=== PATIENT | female | born 1950 | race Caucasian/White ===

== ENCOUNTER 2020-02-17 11:11 | Outpatient (REF) | payer MEDICARE, SELFPAY ==
[2020-02-17 12:02] LABS: MANUAL DIFF FLAG NO
[2020-02-17 12:11] LABS: Basophils Percent Auto 0.6 % (0-2); Eosinophils Absolute Auto 0.1 X10*3/uL (0.0-0.4); Eosinophils Percent Auto 0.7 % (0-4); Hematocrit 43.6 % (37-47); Hemoglobin 13.7 g/dl (12.0-16.0); Imm Gran Abs Auto 0.02 X10*3/uL (0.00-0.03); Imm Gran Pct Auto 0.3 % (0.0-0.4); Lymphocytes Absolute Auto 2.4 X10*3/uL (1.2-4.9); Lymphocytes Percent Auto 34.3 % (20-40); Mean Corpuscular HGB Conc 31.4 g/dl (31.0-35.0); Mean Corpuscular Hemoglobin 28.7 pg (27.0-33.0); Mean Corpuscular Volume 91.4 fL (80-98); Mean Platelet Volume 11.2 fL (9.4-12.3); Monocytes Absolute Auto 0.5 X10*3/uL (0.1-1.2); Monocytes Percent Auto 7.6 % (2-11); Neutrophils Percent Auto 56.5 % (45-73); Platelet Count 261 X10*3/uL (160-400); Red Blood Count 4.77 X10*6/uL (4.20-5.50); Red Cell Distribution Width 13.6 % (11.0-16.0)
[2020-02-17 12:41] LABS: Microalbum/Creatinine Ratio Ur 38.6 ug/mg cr
[2020-02-17 13:38] LABS: Alanine Aminotransferase 45 U/L (0-31); Albumin Level 4.4 g/dL (3.5-5.0); Alkaline Phosphatase 54 U/L (39-117); Anion Gap 14 (12-20); Aspartate Amino Transferase 33 U/L (5-31); Bilirubin Total 0.9 mg/dL (0.0-1.0); Blood Urea Nitrogen 22 mg/dL (9-16); Calcium 9.1 mg/dL (8.4-10.2); Carbon Dioxide 25 mmol/L (22-29); Chloride 105 mmol/L (96-108); Estimated Glomerular Filt Rate > 60; Glucose Random 96 mg/dL (60-115); Potassium 4.3 mmol/l (3.3-5.1); Sodium 140 mmol/L (135-145); Total Protein 7.2 g/dL (6.5-8.0)
[2020-02-17 13:58] LABS: Free T4 (Free Thyroxine) 1.16 ng/dL (0.71-1.85); Thyroid Stimulating Hormone 1.41 mIU/mL (0.32-4.0)
[2020-02-17 17:44] LABS: Estimated Average Glucose 123 mg/dL; Hemoglobin A1c % 5.9 %
== END 2020-02-17 11:12 | disposition home or self-care (01) ==
LOC: HO.LAB 11:11
PROVIDERS: Visit Provider Internal Medicine Medical Oncology
DX: E83.52 Hypercalcemia (principal); Z85.3 Personal history of malignant neoplasm of breast; E03.9 Hypothyroidism, unspecified; E11.9 Type 2 diabetes mellitus without complications; Z85.038 Personal history of other malignant neoplasm of large intestine
CPT/HCPCS: 36415; 80053; 82043; 83036; 84439; 84443; 85025

== ENCOUNTER 2020-05-31 08:02 | Outpatient (REF) | payer MEDICARE, SELFPAY ==
[2020-05-31 08:34] LABS: MANUAL DIFF FLAG NO
[2020-05-31 08:36] LABS: Basophils Absolute Auto 0.1 X10*3/uL (0.0-0.2); Basophils Percent Auto 0.8 % (0-2); Eosinophils Percent Auto 0.6 % (0-4); Hematocrit 44.1 % (37-47); Hemoglobin 13.9 g/dl (12.0-16.0); Imm Gran Abs Auto 0.02 X10*3/uL (0.00-0.03); Imm Gran Pct Auto 0.3 % (0.0-0.4); Lymphocytes Percent Auto 30.7 % (20-40); Mean Corpuscular HGB Conc 31.5 g/dl (31.0-35.0); Mean Corpuscular Hemoglobin 28.7 pg (27.0-33.0); Mean Corpuscular Volume 91.1 fL (80-98); Mean Platelet Volume 11.6 fL (9.4-12.3); Monocytes Absolute Auto 0.5 X10*3/uL (0.1-1.2); Monocytes Percent Auto 7.7 % (2-11); Neutrophils Percent Auto 59.9 % (45-73); Platelet Count 257 X10*3/uL (160-400); Red Blood Count 4.84 X10*6/uL (4.20-5.50); Red Cell Distribution Width 13.6 % (11.0-16.0); White Blood Count 6.6 X10*3/uL (4.8-10.8)
[2020-05-31 09:02] LABS: Alanine Aminotransferase 33 U/L (0-31); Albumin Level 4.4 g/dL (3.5-5.0); Alkaline Phosphatase 56 U/L (39-117); Anion Gap 11 (12-20); Aspartate Amino Transferase 26 U/L (5-31); Bilirubin Total 1.3 mg/dL (0.0-1.0); Blood Urea Nitrogen 23 mg/dL (9-16); Calcium 9.6 mg/dL (8.4-10.2); Carbon Dioxide 28 mmol/L (22-29); Chloride 104 mmol/L (96-108); Cholesterol 153 mg/dL; Estimated Glomerular Filt Rate > 60; Glucose Fasting 117 mg/dL (60-99); HDL Cholesterol 57 mg/dL; LDL Cholesterol Calculated 81 mg/dl; Potassium 4.4 mmol/L (3.3-5.1); Sodium 139 mmol/L (135-145); Total Protein 7.3 g/dL (6.5-8.0); Triglycerides 79 mg/dL
== END 2020-05-31 08:03 | disposition home or self-care (01) ==
LOC: HO.LAB 08:02
PROVIDERS: PCP Internal Medicine Medical Oncology; Visit Provider Internal Medicine Medical Oncology
DX: E83.52 Hypercalcemia (principal); E66.3 Overweight; E11.9 Type 2 diabetes mellitus without complications
CPT/HCPCS: 36415; 80053; 80061; 85025

== ENCOUNTER 2020-11-06 07:36 | Day surgery (SDC) | payer MEDICARE, SELFPAY ==
[2020-10-30 15:57] VITALS: BMI 26.1
--- NOTE | 2020-11-03 08:45 | HO.ANESPROP2 ---
Documented by User: Florence Alexandra 11/03/20 08:46 HPI - Anesthesia Eval Consult details Narrative: 70yo F for Colonoscopy PMFSH Past Medical History Medical History Asthma Breast cancer Colon cancer Hypothyroidism Surgical History Surgical History History of hysterectomy History of nasal surgery History of partial colectomy Hx of colonoscopy Hx of right mastectomy Hx of tubal ligation Social History Social History Are you a primary child care associate to a significant other at home: No Do you presently have visiting nurse or other home services: No Are you DNR?: No Advance Directives: No Advance Directives Information Provided: No Advance Directives on File: No Recently lost weight without trying: No Eating poorly because of decreased appetite: No Nutrition Risks: No Nutritional Risk Meds Allergies Allergy/AdvReac Type Severity Reaction Status Date / Time Sulfa (Sulfonamide Allergy Mild RASH Verified 11/06/20 08:17 Antibiotics) [SULFA (SULFONAMIDE ANTIBIOTICS)] Home Medications Medication Instructions Recorded Confirmed Last Taken Type Probiotic 1 cap PO DAILY 10/30/20 10/30/20 Unknown History albuterol sulfate [ProAir HFA] 2 puff INHALATION Q4-6H PRN 10/30/20 10/30/20 11/06/20 06:00 History anastrozole 1 tab PO DAILY 10/30/20 10/30/20 Unknown History cholecalciferol (vitamin D3) 10 mcg PO DAILY 10/30/20 10/30/20 Unknown History [Vitamin D3] fluticasone propionate [Flonase] 1 spray INTRANASAL DAILY 10/30/20 10/30/20 11/06/20 06:00 History fluticasone propionate [Flovent] 1 puff INHALATION BID 10/30/20 10/30/20 Unknown History glucosamine sulfate [Glucosamine] 500 mg PO DAILY 10/30/20 10/30/20 Unknown History levothyroxine [Synthroid] 1 tab PO DAILY 10/30/20 10/30/20 11/06/20 06:00 History montelukast 1 tab PO DAILY 10/30/20 10/30/20 Unknown History multivitamin 1 tab PO DAILY 10/30/20 10/30/20 Unknown History omega-3 fatty acids-vitamin E 1 cap PO DAILY 10/30/20 10/30/20 Unknown History [Fish Oil] Exam Exam Date and Time: November 03, 2020 0845 Height,Weight and Vital Signs: Height 5 ft 5 in Weight 71.214 kg Assessment and Plan Assessment Anesthesia Assessment: Chart Reviewed Documented by User: Bambi Frias 11/06/20 08:29 PMFSH Past Medical History Medical History Asthma Breast cancer Colon cancer Hypothyroidism Surgical History Surgical History History of hysterectomy History of nasal surgery History of partial colectomy Hx of colonoscopy Hx of right mastectomy Hx of tubal ligation Social History Social History Are you a primary child care associate to a significant other at home: No Do you presently have visiting nurse or other home services: No Are you DNR?: No Advance Directives: No Advance Directives Information Provided: No Advance Directives on File: No Recently lost weight without trying: No Eating poorly because of decreased appetite: No Nutrition Risks: No Nutritional Risk Meds Allergies Allergy/AdvReac Type Severity Reaction Status Date / Time Sulfa (Sulfonamide Allergy Mild RASH Verified 11/06/20 08:17 Antibiotics) [SULFA (SULFONAMIDE ANTIBIOTICS)] Home Medications Medication Instructions Recorded Confirmed Last Taken Type Probiotic 1 cap PO DAILY 10/30/20 10/30/20 Unknown History albuterol sulfate [ProAir HFA] 2 puff INHALATION Q4-6H PRN 10/30/20 10/30/20 11/06/20 06:00 History anastrozole 1 tab PO DAILY 10/30/20 10/30/20 Unknown History cholecalciferol (vitamin D3) 10 mcg PO DAILY 10/30/20 10/30/20 Unknown History [Vitamin D3] fluticasone propionate [Flonase] 1 spray INTRANASAL DAILY 10/30/20 10/30/20 11/06/20 06:00 History fluticasone propionate [Flovent] 1 puff INHALATION BID 10/30/20 10/30/20 Unknown History glucosamine sulfate [Glucosamine] 500 mg PO DAILY 10/30/20 10/30/20 Unknown History levothyroxine [Synthroid] 1 tab PO DAILY 10/30/20 10/30/20 11/06/20 06:00 History montelukast 1 tab PO DAILY 10/30/20 10/30/20 Unknown History multivitamin 1 tab PO DAILY 10/30/20 10/30/20 Unknown History omega-3 fatty acids-vitamin E 1 cap PO DAILY 10/30/20 10/30/20 Unknown History [Fish Oil] Exam Airway Mallampati Class: II TM Dist: >3cm Neck ROM: Full Assessment and Plan Assessment Anesthesia Assessment: Anesthesia Plan Discussed and Chart Reviewed Final Anesthetic Review NPO: Yes ASA Class: II Final Preanesthetic Review: No Changes in Pt Med Stat, Meds/Allgs Chart Reviewed, Consent Obtained/Reviewed and Anes Risks/Benef Reviewed Patient Risk: Low Procedure Risk: Low Assessment/Block/Sedation in SS: Assess/Block/Sedation-SS Anesthetic Plan Anesthetic Plan: MAC: Disposition: Standard PACU
[2020-11-06 08:18] VITALS: BP 129/69; PULSE 78; RESP 20; TEMP 36.1; O2SAT 98
[2020-11-06] MEDS: Lactated Ringers 1,000 ML 100 ML IVCONT (08:51)
[2020-11-06 09:45] VITALS: BP 141/75; PULSE 81; RESP 16; TEMP 36.6; O2SAT 95
--- NOTE | 2020-11-06 09:47 | P.BOP_ITS ---
Brief Operative Note Date of Service: 11/06/20 Pre-op diagnosis: Screening Post-op diagnosis: other (Diverticulosis) Procedure: Colonoscopy to the anastomosis and small intestine Surgeon: Sudhakar Tompkins Anesthesia: MAC Was an Enamel Machine Operator used for this Procedure?: No Estimated blood loss (mL): 0 Pathology: none sent Condition: stable Disposition: PACU
[2020-11-06 10:00] VITALS: BP 154/77; PULSE 76; RESP 16; TEMP 36.4; O2SAT 95
--- NOTE | 2020-11-06 10:02 | OP_ITS ---
SURGEON: Sudhakar Tompkins MD INDICATIONS: The patient presents for followup of personal history of colon cancer and tubular adenoma of the colon. Full consent has been obtained from her for this, including risks of bleeding and perforation. PREOPERATIVE DIAGNOSIS: POSTOPERATIVE DIAGNOSIS: PROCEDURE PERFORMED: Colonoscopy to the anastomosis and small bowel. ESTIMATED BLOOD LOSS: COMPLICATIONS: ANESTHESIA: Monitored anesthesia care. ASSISTANTS: SPECIMENS: PREOPERATIVE DIAGNOSES: Colorectal cancer screening and personal history of colon cancer, personal history of tubular adenoma of the colon. POSTOPERATIVE DIAGNOSES: Colorectal cancer screening and personal history of colon cancer, personal history of tubular adenoma of the colon, diverticulosis, and minimal internal hemorrhoids. DESCRIPTION OF PROCEDURE: The patient was placed in the left lateral decubitus position. The digital rectal exam revealed no abnormalities. The Olympus video pediatric colonoscope was entered into the rectum and advanced to the anastomosis. Advancement was somewhat difficult due to adhesions. Once at the anastomosis, I did visualize a normal anastomosis. The small bowel was cannulated and appeared normal. Scope was withdrawn back in the colon. The scope was then slowly withdrawn assessing all mucosal surfaces carefully. Preparation was excellent. I did not visualize any sign of polyps, colitis, nor angiodysplasia. There was a mild amount of sigmoid diverticulosis. In the rectum, scope was retroflexed visualizing internal hemorrhoids, but no other pathology. The rectal mucosa appeared normal. The scope was straightened out and withdrawn from the patient. She tolerated the procedure well and was returned to recovery area in stable condition. IMPRESSION: 1. Diverticulosis. 2. Minimal internal hemorrhoids. PLAN: Given her history, I would recommend a followup colonoscopy in 3 years for further screening. She will otherwise see me on a p.r.n. basis. This has been discussed with her . MD HORTENCIA Bowser/DEEJAY / [id number]
== END 2020-11-06 10:35 | disposition home or self-care (01) ==
PROVIDERS: PCP Internal Medicine Medical Oncology; Visit Provider Internal Medicine
PROC: 0DJD8ZZ Inspection of Lower Intestinal Tract, Via Natural or Artificial Opening Endoscopic (ICD-10-PCS; CPT 45378; principal; 2020-11-06 08:30)
DX: Z12.11 Encounter for screening for malignant neoplasm of colon (principal); Z85.038 Personal history of other malignant neoplasm of large intestine; Z86.010 Personal history of colon polyps; Z90.49 Acquired absence of other specified parts of digestive tract; Z80.0 Family history of malignant neoplasm of digestive organs; K57.30 Diverticulosis of large intestine without perforation or abscess without bleeding; K64.8 Other hemorrhoids; K66.0 Peritoneal adhesions (postprocedural) (postinfection); Z85.3 Personal history of malignant neoplasm of breast; Z85.43 Personal history of malignant neoplasm of ovary; Z92.21 Personal history of antineoplastic chemotherapy; Z92.3 Personal history of irradiation; Z90.710 Acquired absence of both cervix and uterus; E03.9 Hypothyroidism, unspecified; J45.909 Unspecified asthma, uncomplicated; Z79.51 Long term (current) use of inhaled steroids; Z79.899 Other long term (current) drug therapy; Z88.2 Allergy status to sulfonamides
CPT/HCPCS: G0105

== ENCOUNTER 2021-01-19 08:22 | Outpatient (REF) | payer MEDICARE, SELFPAY ==
[2021-01-19 08:48] LABS: MANUAL DIFF FLAG NO
[2021-01-19 09:58] LABS: Basophils Percent Auto 0.7 % (0-2); Eosinophils Absolute Auto 0.1 X10*3/uL (0.0-0.4); Hematocrit 42.5 % (37-47); Hemoglobin 13.8 g/dl (12.0-16.0); Imm Gran Abs Auto 0.01 X10*3/uL (0.00-0.03); Imm Gran Pct Auto 0.2 % (0.0-0.4); Lymphocytes Percent Auto 34.4 % (20-40); Mean Corpuscular HGB Conc 32.5 g/dl (31.0-35.0); Mean Corpuscular Hemoglobin 29.1 pg (27.0-33.0); Mean Corpuscular Volume 89.5 fL (80-98); Mean Platelet Volume 11.7 fL (9.4-12.3); Monocytes Absolute Auto 0.4 X10*3/uL (0.1-1.2); Monocytes Percent Auto 7.5 % (2-11); Neutrophils Absolute Auto 3.2 X10*3/uL (2.0-8.3); Neutrophils Percent Auto 56.2 % (45-73); Platelet Count 242 X10*3/uL (160-400); Red Blood Count 4.75 X10*6/uL (4.20-5.50); Red Cell Distribution Width 13.8 % (11.0-16.0); White Blood Count 5.7 X10*3/uL (4.8-10.8)
[2021-01-19 10:11] LABS: Estimated Average Glucose 126 mg/dL; Hemoglobin A1C 149.8899 umol/L
[2021-01-19 10:23] LABS: Alanine Aminotransferase 28 U/L (0-31); Albumin Level 4.3 g/dL (3.5-5.0); Alkaline Phosphatase 50 U/L (39-117); Anion Gap 12 (12-20); Aspartate Amino Transferase 22 U/L (5-31); Bilirubin Total 1.2 mg/dL (0.0-1.0); Blood Urea Nitrogen 25 mg/dL (9-16); Calcium 9.7 mg/dL (8.4-10.2); Carbon Dioxide 24 mmol/L (22-29); Chloride 106 mmol/L (96-108); Cholesterol 162 mg/dL; Estimated Glomerular Filt Rate > 60; Glucose Fasting 118 mg/dL (60-99); HDL Cholesterol 51 mg/dL; LDL Cholesterol Calculated 92 mg/dl; Potassium 4.4 mmol/L (3.3-5.1); Sodium 138 mmol/L (135-145); Total Protein 7.2 g/dL (6.5-8.0); Triglycerides 98 mg/dL
== END 2021-01-19 08:23 | disposition home or self-care (01) ==
LOC: HO.LAB 08:22
PROVIDERS: PCP Internal Medicine Medical Oncology; Visit Provider Internal Medicine Medical Oncology
DX: E83.52 Hypercalcemia (principal); E66.3 Overweight; E11.9 Type 2 diabetes mellitus without complications
CPT/HCPCS: 36415; 80053; 80061; 83036; 85025

== ENCOUNTER 2021-05-24 11:05 | Outpatient (REF) | payer MEDICARE, SELFPAY ==
[2021-05-24 13:00] LABS: Basophils Absolute Auto 0.1 X10*3/uL (0.0-0.2); Basophils Percent Auto 0.7 % (0-2); Eosinophils Percent Auto 0.4 % (0-4); Hematocrit 42.9 % (37.0-47.0); Hemoglobin 13.6 g/dl (12.0-16.0); Imm Gran Abs Auto 0.03 X10*3/uL (0.00-0.03); Imm Gran Pct Auto 0.4 % (0.0-0.4); Lymphocytes Absolute Auto 2.3 X10*3/uL (1.2-4.9); Lymphocytes Percent Auto 34.2 % (20-40); MANUAL DIFF FLAG NO; Mean Corpuscular HGB Conc 31.7 g/dl (31.0-35.0); Mean Corpuscular Hemoglobin 28.8 pg (27.0-33.0); Mean Corpuscular Volume 90.9 fL (80.0-98.0); Mean Platelet Volume 11.5 fL (9.4-12.3); Monocytes Absolute Auto 0.6 X10*3/uL (0.1-1.2); Monocytes Percent Auto 8.6 % (2-11); Neutrophils Absolute Auto 3.8 x10*3/uL (2.0-8.3); Neutrophils Percent Auto 55.7 % (45-73); Platelet Count 267 X10*3/uL (160-400); Red Blood Count 4.72 X10*6/uL (4.20-5.50); Red Cell Distribution Width 14.1 % (11.0-16.0); White Blood Count 6.8 X10*3/uL (4.8-10.8)
[2021-05-24 13:42] LABS: Alanine Aminotransferase 42 U/L (0-31); Albumin Level 4.3 g/dL (3.5-5.0); Alkaline Phosphatase 61 U/L (39-117); Anion Gap 13 (12-20); Aspartate Amino Transferase 29 U/L (5-31); Bilirubin Total 1.1 mg/dL (0.0-1.0); Blood Urea Nitrogen 24 mg/dL (9-16); Calcium 10.1 mg/dL (8.4-10.2); Carbon Dioxide 27 mmol/L (22-29); Chloride 103 mmol/L (96-108); Estimated Glomerular Filt Rate > 60; Glucose Random 87 mg/dL (60-115); Potassium 4.6 mmol/L (3.3-5.1); Sodium 138 mmol/L (135-145); Total Protein 7.3 g/dL (6.5-8.0)
[2021-05-24 14:05] LABS: Free T4 (Free Thyroxine) 1.03 ng/dL (0.71-1.85); Thyroid Stimulating Hormone 1.68 uIU/mL (0.32-4.0)
== END 2021-05-24 11:06 | disposition home or self-care (01) ==
LOC: HO.LAB 11:05
PROVIDERS: PCP Internal Medicine Medical Oncology; Visit Provider Internal Medicine Medical Oncology
DX: E83.52 Hypercalcemia (principal); E03.9 Hypothyroidism, unspecified; E66.3 Overweight
CPT/HCPCS: 36415; 80053; 84439; 84443; 85025

== ENCOUNTER 2021-09-22 08:26 | Outpatient (REF) | payer MEDICARE, SELFPAY ==
[2021-09-22 08:47] LABS: MANUAL DIFF FLAG NO
[2021-09-22 09:19] LABS: Basophils Percent Auto 0.3 % (0-2); Eosinophils Absolute Auto 0.1 X10*3/uL (0.0-0.4); Eosinophils Percent Auto 0.9 % (0-4); Hematocrit 43.3 % (37.0-47.0); Hemoglobin 13.9 g/dl (12.0-16.0); Imm Gran Abs Auto 0.01 X10*3/uL (0.00-0.03); Imm Gran Pct Auto 0.2 % (0.0-0.4); Lymphocytes Absolute Auto 1.9 X10*3/uL (1.2-4.9); Lymphocytes Percent Auto 33.6 % (20-40); Mean Corpuscular HGB Conc 32.1 g/dl (31.0-35.0); Mean Corpuscular Hemoglobin 29.3 pg (27.0-33.0); Mean Corpuscular Volume 91.4 fL (80.0-98.0); Mean Platelet Volume 11.6 fL (9.4-12.3); Monocytes Absolute Auto 0.5 X10*3/uL (0.1-1.2); Monocytes Percent Auto 8.7 % (2-11); Neutrophils Absolute Auto 3.2 x10*3/uL (2.0-8.3); Neutrophils Percent Auto 56.3 % (45-73); Platelet Count 236 X10*3/uL (160-400); Red Blood Count 4.74 X10*6/uL (4.20-5.50); Red Cell Distribution Width 14.1 % (11.0-16.0); White Blood Count 5.7 X10*3/uL (4.8-10.8)
[2021-09-22 09:49] LABS: Alanine Aminotransferase 37 U/L (0-31); Albumin Level 4.2 g/dL (3.5-5.0); Alkaline Phosphatase 51 U/L (39-117); Anion Gap 13 (12-20); Aspartate Amino Transferase 25 U/L (5-31); Bilirubin Total 1.7 mg/dL (0.0-1.0); Blood Urea Nitrogen 21 mg/dL (9-16); Calcium 9.6 mg/dL (8.4-10.2); Carbon Dioxide 27 mmol/L (22-29); Chloride 104 mmol/L (96-108); Cholesterol 154 mg/dL; Estimated Glomerular Filt Rate > 60; Glucose Fasting 133 mg/dL (60-99); HDL Cholesterol 52 mg/dL; LDL Cholesterol Calculated 82 mg/dl; Potassium 4.6 mmol/L (3.3-5.1); Sodium 139 mmol/L (135-145); Total Protein 7.1 g/dL (6.5-8.0); Triglycerides 100 mg/dL
[2021-09-22 10:01] LABS: Thyroid Stimulating Hormone 1.79 uIU/mL (0.32-4.0)
== END 2021-09-22 08:27 | disposition home or self-care (01) ==
LOC: HO.LAB 08:26
PROVIDERS: PCP Internal Medicine Medical Oncology; Visit Provider Internal Medicine Medical Oncology
DX: E03.9 Hypothyroidism, unspecified (principal); E83.52 Hypercalcemia; E66.3 Overweight
CPT/HCPCS: 36415; 80053; 80061; 84439; 84443; 85025

== ENCOUNTER 2021-11-16 10:15 | Outpatient (REF) | payer MEDICARE, SELFPAY ==
[2021-11-16 10:33] LABS: MANUAL DIFF FLAG NO
[2021-11-16 10:36] LABS: Basophils Percent Auto 0.4 % (0-2); Eosinophils Percent Auto 0.4 % (0-4); Hemoglobin 13.7 g/dl (12.0-16.0); Imm Gran Abs Auto 0.02 X10*3/uL (0.00-0.03); Imm Gran Pct Auto 0.3 % (0.0-0.4); Mean Corpuscular HGB Conc 31.9 g/dl (31.0-35.0); Mean Corpuscular Hemoglobin 28.8 pg (27.0-33.0); Mean Corpuscular Volume 90.5 fL (80.0-98.0); Mean Platelet Volume 10.5 fL (9.4-12.3); Monocytes Absolute Auto 0.6 X10*3/uL (0.1-1.2); Monocytes Percent Auto 8.4 % (2-11); Neutrophils Absolute Auto 4.5 x10*3/uL (2.0-8.3); Neutrophils Percent Auto 62.5 % (45-73); Platelet Count 264 X10*3/uL (160-400); Red Blood Count 4.75 X10*6/uL (4.20-5.50); Red Cell Distribution Width 13.7 % (11.0-16.0); White Blood Count 7.1 X10*3/uL (4.8-10.8)
[2021-11-16 10:49] LABS: Lactic Acid 1.1 mmol/L (0.5-2.0)
[2021-11-16 10:55] LABS: Estimated Average Glucose 128 mg/dL; Hemoglobin A1c % 6.1 %
[2021-11-16 10:58] LABS: Alanine Aminotransferase 28 U/L (0-31); Albumin Level 4.4 g/dL (3.5-5.0); Alkaline Phosphatase 47 U/L (39-117); Anion Gap 12 (12-20); Aspartate Amino Transferase 22 U/L (5-31); Bilirubin Total 1.2 mg/dL (0.0-1.0); Blood Urea Nitrogen 26 mg/dL (9-16); Calcium 9.9 mg/dL (8.4-10.2); Carbon Dioxide 28 mmol/L (22-29); Chloride 106 mmol/L (96-108); Estimated Glomerular Filt Rate 58; Glucose Random 96 mg/dL (60-115); Potassium 4.4 mmol/L (3.3-5.1); Sodium 142 mmol/L (135-145); Total Protein 7.2 g/dL (6.5-8.0)
== END 2021-11-16 10:16 | disposition home or self-care (01) ==
LOC: HO.LAB 10:15
PROVIDERS: PCP Internal Medicine Medical Oncology; Visit Provider Internal Medicine Medical Oncology
DX: E03.9 Hypothyroidism, unspecified (principal); E66.3 Overweight; E11.10 Type 2 diabetes mellitus with ketoacidosis without coma; Z85.038 Personal history of other malignant neoplasm of large intestine
CPT/HCPCS: 36415; 80053; 83036; 83605; 85025

== ENCOUNTER 2022-02-23 07:15 | Outpatient (REF) | payer MEDICARE, SELFPAY ==
[2022-02-23 07:35] LABS: MANUAL DIFF FLAG NO
[2022-02-23 08:18] LABS: Basophils Percent Auto 0.3 % (0-2); Hematocrit 46.6 % (37.0-47.0); Hemoglobin 14.5 g/dl (12.0-16.0); Imm Gran Abs Auto 0.01 X10*3/uL (0.00-0.03); Imm Gran Pct Auto 0.1 % (0.0-0.4); Lymphocytes Absolute Auto 1.4 X10*3/uL (1.2-4.9); Lymphocytes Percent Auto 18.7 % (20-40); Mean Corpuscular HGB Conc 31.1 g/dl (31.0-35.0); Mean Corpuscular Hemoglobin 28.1 pg (27.0-33.0); Mean Corpuscular Volume 90.3 fL (80.0-98.0); Mean Platelet Volume 11.1 fL (9.4-12.3); Monocytes Absolute Auto 0.5 X10*3/uL (0.1-1.2); Monocytes Percent Auto 6.9 % (2-11); Neutrophils Absolute Auto 5.6 x10*3/uL (2.0-8.3); Platelet Count 284 X10*3/uL (160-400); Red Blood Count 5.16 X10*6/uL (4.20-5.50); Red Cell Distribution Width 14.2 % (11.0-16.0); White Blood Count 7.5 X10*3/uL (4.8-10.8)
[2022-02-23 08:22] LABS: Estimated Average Glucose 126 mg/dL
[2022-02-23 08:24] LABS: Alanine Aminotransferase 22 U/L (0-31); Albumin Level 4.4 g/dL (3.5-5.0); Alkaline Phosphatase 50 U/L (39-117); Amylase 58 U/L (28-100); Anion Gap 18 (12-20); Aspartate Amino Transferase 17 U/L (5-31); Bilirubin Total 1.6 mg/dL (0.0-1.0); Blood Urea Nitrogen 23 mg/dL (9-16); Calcium 9.5 mg/dL (8.4-10.2); Carbon Dioxide 24 mmol/L (22-29); Chloride 104 mmol/L (96-108); Cholesterol 141 mg/dL; Estimated Glomerular Filt Rate > 60; Gamma Glutamyl Transpeptidase 27 U/L (7-33); Glucose Fasting 118 mg/dL (60-99); HDL Cholesterol 49 mg/dL; LDL Cholesterol Calculated 77 mg/dl; Lipase 39 U/L (8-78); Potassium 4.5 mmol/L (3.3-5.1); Sodium 141 mmol/L (135-145); Total Protein 7.2 g/dL (6.5-8.0); Triglycerides 77 mg/dL
[2022-02-23 08:40] LABS: Creatinine Urine 122.67 mg/dL; Microalbum/Creatinine Ratio Ur 35.8 ug/mg cr
[2022-02-23 08:50] LABS: Carcinoembryonic Antigen < 1.73 ng/mL; Free T4 (Free Thyroxine) 1.14 ng/dL (0.71-1.85)
[2022-02-23 09:15] LABS: Erythrocyte Sedimentation Rate 9 MM/HR (0-20)
[2022-02-23 15:16] LABS: Vitamin D 25-OH Total 32.5 ng/mL (>30)
[2022-02-27 08:51] LABS: CA 27.29 38 U/mL (<38)
== END 2022-02-23 07:16 | disposition home or self-care (01) ==
LOC: HO.LAB 07:15
PROVIDERS: PCP Internal Medicine Medical Oncology; Visit Provider Internal Medicine Medical Oncology
DX: E03.9 Hypothyroidism, unspecified (principal); E66.3 Overweight; E83.52 Hypercalcemia; E11.9 Type 2 diabetes mellitus without complications; Z85.3 Personal history of malignant neoplasm of breast; Z85.038 Personal history of other malignant neoplasm of large intestine
CPT/HCPCS: 36415; 80053; 80061; 82043; 82150; 82306; 82378; 82977; 83036; 83690; 84439; 84443; 85025; 85652; 86300

== ENCOUNTER 2022-03-05 12:25 | Outpatient (REF) | payer MEDICARE, SELFPAY ==
--- NOTE | ~2022-03-05 | CT_ITS ---
EXAMINATION: CT ABDOMEN AND PELVIS WITH CONTRAST CLINICAL INFORMATION: Left lower quadrant pain and bloating. History of colon and breast cancer. COMPARISON: Previous CT of the abdomen and pelvis most recent February 2016 TECHNIQUE: Multidetector volumetric images were obtained from the superior aspect of the liver through the pubic symphysis following administration 85 mL of Omnipaque 350 intravenous contrast. Sagittal and coronal reformatted images were obtained on the technologist's workstation. Oral contrast: Yes This CT examination was performed using dose optimization techniques as appropriate, variously including the following: *Automated exposure control *Adjustment of mA and/or kV according to patient size (this includes techniques or standardized protocols for targeted exams where dose is matched to indication/reason for exam; i.e. extremities or head) *Use of iterative reconstruction technique DLP: 350 mGy-cm FINDINGS: LUNG BASES: The visualized lung bases are unremarkable. LIVER, GALLBLADDER, AND BILIARY TREE: The liver is slightly low in attenuation suggestive of mild fatty infiltration. No focal liver lesion. Normal gallbladder. No biliary duct dilatation. PANCREAS: There are several cystic lesions in the body and tail of the pancreas. There is a 1 x 2.8 cm bilobed cyst or 2 adjacent cysts in the body of the pancreas axial image 22 series 3. This is increased from 0.7 x 1.5 cm February 2016 exam. There is a adjacent cysts in the body of the ventral pancreas measuring 7 mm there There is an 8 mm cyst adjacent to the ventral tail of the pancreas. SPLEEN: Unremarkable. ADRENAL GLANDS: 1 cm right adrenal nodule. This is new from previous exam. The left adrenal gland is normal. KIDNEYS AND URETERS: Left renal cysts, largest a 1.5 cm peripelvic cyst. Kidneys are otherwise normal. No imaging follow-up. BLADDER: Unremarkable. GASTROINTESTINAL TRACT: There are postsurgical changes following right colectomy. There are dilated loops of distal small bowel extending to the enterocolic anastomosis. There is stool in the colon suggestive of constipation. ABDOMINAL WALL: No significant hernia is appreciated. LYMPH NODES: Small lymph nodes in the small bowel mesentery. No enlarged lymph nodes. No ascites. VASCULAR: Atherosclerotic disease. No aneurysm. Prominent azygos and hemiazygos veins lower chest. Small abdominal wall collateral vessels. PELVIC VISCERA: Uterus appears to have been removed. No pelvic mass. OSSEOUS STRUCTURES: Degenerative changes of the spine and hip joints. CT/CT abdomen pelvis w IV con IMPRESSION: Postsurgical changes following right colectomy. Dilated fluid-filled loops of distal small bowel extending to the enterocolic anastomosis. Findings are suggestive of distal small bowel obstruction. Constipation. Multiple cysts or cystic lesions in the pancreas increased from 2016 exam. Follow-up MR of the pancreas with IV contrast and MRCP recommended. Fleischner guidelines were followed. Findings will be communicated by the [facility] work flow medical practitioners.
[2022-03-05] MEDS: iohexoL 350 MG/ML 100 ML INFUS..BTL IV (16:15)
[2022-03-05] MEDS: Barium Sulfate Oral (Vanilla) 450 ML ORAL.SUSP 900 ML PO (16:16)
== END 2022-03-05 12:26 | disposition home or self-care (01) ==
LOC: HO.CT 12:25
PROVIDERS: PCP Internal Medicine Medical Oncology; Visit Provider Internal Medicine Medical Oncology
DX: R10.32 Left lower quadrant pain (principal); R14.0 Abdominal distension (gaseous); Z85.038 Personal history of other malignant neoplasm of large intestine
CPT/HCPCS: 74177; Q9967

== ENCOUNTER → 2022-03-11 14:19 | Outpatient (BNVA) | payer MEDICARE, SELFPAY | PROVIDERS: PCP Internal Medicine Medical Oncology; Referring Provider Internal Medicine Medical Oncology; Visit Provider Surgery | DX: K56.600 Partial intestinal obstruction, unspecified as to cause (principal) | CPT/HCPCS: 99202 ==

== ENCOUNTER 2022-04-05 10:10 | Outpatient (REF) | payer MEDICARE, SELFPAY ==
--- NOTE | ~2022-04-05 | MR_ITS ---
EXAMINATION: MR ABDOMEN WITHOUT AND WITH CONTRAST CLINICAL INFORMATION: Pancreatic cyst COMPARISON: CT abdomen pelvis 03/05/2022 and 02/13/2016 and 08/31/2010 TECHNIQUE: MR abdomen was performed without and with use of 7.5 mL intravenous Gadavist gadolinium contrast. Postcontrast images are performed in multiphase dynamic sequences. Imaging was performed in 3 planes. FINDINGS: Exam is technically limited by the [id number] and the upper and lower portions of the liver, upper portion of the stomach and upper portion of the spleen spleen were excluded from the [id number], most notably on the dynamic postcontrast sequences.. LUNG BASES: Unremarkable. ABDOMINAL AND PELVIC WALL: Unremarkable. LIVER AND BILIARY TREE: Mild loss of signal on opposed phase imaging compatible with hepatic steatosis. GALLBLADDER: Unremarkable. PANCREAS: A 2.3 cm multiloculated cystic lesion in the pancreatic tail, previously 1.7 cm on remote prior. An adjacent 1 cm unilocular cystic lesion in the pancreatic tail, previously 0.6 cm in 2015 and 0.3 cm in 2010. Both of which appear to communicate with the main pancreatic duct. No solid components or pancreatic duct dilatation. SPLEEN: Unremarkable. ADRENAL GLANDS: Unremarkable. KIDNEYS AND URETERS: Bosniak 1 benign-appearing bilateral renal cysts. GASTROINTESTINAL TRACT: Status post right hemicolectomy with redemonstration of multiple dilated loops of small bowel in the pelvis, only partially imaged measuring up to 4.4 cm, previously 4.1 cm suggesting underlying obstruction at the ileocolonic anastomosis. VASCULAR: Unremarkable. LYMPH NODES/PERITONEUM: No lymphadenopathy. Incidentally noted cisterna chyli. FREE FLUID: None. OSSEOUS STRUCTURES: Multilevel degenerative disc disease. MR/MR abdomen wo/w con IMPRESSION: A 2.3 cm multiloculated cystic lesion in the pancreatic tail and a 1.0 cm cystic lesion in the pancreatic tail which both clinically significant growth with respect to remote priors. Both appear to communicate with the main pancreatic duct. No solid components or pancreatic duct dilatation. Recommend GI referral for consideration of endoscopic sampling and continued imaging surveillance if sampling is deferred. Status post right hemicolectomy with redemonstration of multiple dilated loops of small bowel in the pelvis, only partially imaged measuring up to 4.4 cm, previously 4.1 cm suggesting underlying obstruction at the ileocolonic anastomosis similar morphologically to recent prior. Mild hepatic steatosis. Exam is technically limited by the [id number] as detailed above, with portions of the abdomen excluded.
[2022-04-05 12:09] LABS: Amylase 70 U/L (28-100); Lipase 43 U/L (8-78)
[2022-04-06 10:37] LABS: Carbohydrate Antigen 19-9 3 U/mL (<34)
== END 2022-04-05 10:11 | disposition home or self-care (01) ==
LOC: HO.MRI 10:10
PROVIDERS: PCP Internal Medicine Medical Oncology; Visit Provider Internal Medicine
DX: K86.2 Cyst of pancreas (principal)
CPT/HCPCS: 36415; 74183; 82150; 83690; 86301

== ENCOUNTER 2022-04-09 06:25 | Day surgery (SDC) | payer MEDICARE, SELFPAY ==
--- NOTE | 2022-04-05 10:46 | HO.ANESPROP2 ---
Documented by User: Florence Alexandra NP 04/05/22 10:48 HPI - Anesthesia Eval Consult details Narrative: 71yo F for Colonoscopy with Balloon Dilation s/p [place] with TIVA PMFSH Active Problems Active Problems: All Active Problems (Updated 03/11/22 @ 16:41 by Po Herrera MD) Partial small bowel obstruction (Acute) Past Medical History Medical History Asthma Breast cancer Colon cancer Hypothyroidism Partial small bowel obstruction Family History Family History Mother Thyroid ca Father Cancer Surgical History Surgical History (Updated 04/09/22 @ 06:41 by Massiel Singleton) H/O removal of cyst History of hysterectomy History of nasal surgery History of partial colectomy Hx of colonoscopy Hx of left mastectomy Hx of right mastectomy Hx of tubal ligation Social History Social History Are you a primary health care facility administrator to a significant other at home: No Do you presently have visiting nurse or other home services: No Patient Tobacco Use Status: Never used Tobacco Use of substances other than those prescribed or required for medical reasons: No Are you DNR?: No Advance Directives: No Advance Directives Information Provided: Yes Meds Allergies Allergy/AdvReac Type Severity Reaction Status Date / Time Sulfa (Sulfonamide Allergy Mild RASH Verified 04/09/22 06:33 Antibiotics) [SULFA (SULFONAMIDE ANTIBIOTICS)] Home Medications Medication Instructions Recorded Confirmed Last Taken Type Probiotic 1 cap PO DAILY 10/30/20 04/09/22 Unknown History albuterol sulfate 90 mcg/actuation 2 puff inhalation Q4-6H PRN 10/30/20 04/09/22 11/06/20 06:00 History aerosol inhaler (ProAir HFA) Wheezing cholecalciferol (vitamin D3) 10 10 mcg PO DAILY 10/30/20 04/09/22 Unknown History mcg (400 unit) tablet (Vitamin D3) fluticasone propionate 44 1 puff inhalation BID 10/30/20 04/09/22 04/09/22 05:15 History mcg/actuation HFA aerosol inhaler fluticasone propionate 50 1 spray intranasal DAILY 10/30/20 04/09/22 11/06/20 06:00 History mcg/actuation nasal spray,suspension anastrozole 1 mg tablet 1 tab PO DAILY 04/05/22 04/09/22 Unknown History levothyroxine 75 mcg tablet 1 tab PO DAILY 04/05/22 04/09/22 04/09/22 05:15 History (Synthroid) montelukast 10 mg tablet 1 tab PO DAILY 04/05/22 04/09/22 Unknown History tramadol 50 mg tablet 1 tab PO Q6H PRN abdominal pain 04/05/22 04/09/22 Unknown History Exam Exam Date and Time: April 05, 2022 1046 Pertinent Lab Results Pertinent Lab Results: Laboratory Tests 02/23/22 02/23/22 07:34 07:34 WBC 7.5 Hgb 14.5 Hct 46.6 Plt Count 284 Sodium 141 Potassium 4.5 Chloride 104 Carbon Dioxide 24 BUN 23 H Creatinine 0.90 Assessment and Plan Assessment Anesthesia Assessment: Chart Reviewed Documented by User: Melissa Horn MD 04/09/22 07:33 [facility] Past Medical History Medical History Asthma Breast cancer Colon cancer Hypothyroidism Partial small bowel obstruction Family History Family History Mother Thyroid ca Father Cancer Surgical History Surgical History (Updated 04/09/22 @ 06:41 by Massiel Singleton) H/O removal of cyst History of hysterectomy History of nasal surgery History of partial colectomy Hx of colonoscopy Hx of left mastectomy Hx of right mastectomy Hx of tubal ligation History of Problems with Anesthesia: No Social History Social History Are you a primary health care facility administrator to a significant other at home: No Do you presently have visiting nurse or other home services: No Patient Tobacco Use Status: Never used Tobacco Use of substances other than those prescribed or required for medical reasons: No Are you DNR?: No Advance Directives: No Advance Directives Information Provided: Yes Meds Allergies Allergy/AdvReac Type Severity Reaction Status Date / Time Sulfa (Sulfonamide Allergy Mild RASH Verified 04/09/22 06:33 Antibiotics) [SULFA (SULFONAMIDE ANTIBIOTICS)] Home Medications Medication Instructions Recorded Confirmed Last Taken Type Probiotic 1 cap PO DAILY 10/30/20 04/09/22 Unknown History albuterol sulfate 90 mcg/actuation 2 puff inhalation Q4-6H PRN 10/30/20 04/09/22 11/06/20 06:00 History aerosol inhaler (ProAir HFA) Wheezing cholecalciferol (vitamin D3) 10 10 mcg PO DAILY 10/30/20 04/09/22 Unknown History mcg (400 unit) tablet (Vitamin D3) fluticasone propionate 44 1 puff inhalation BID 10/30/20 04/09/22 04/09/22 05:15 History mcg/actuation HFA aerosol inhaler fluticasone propionate 50 1 spray intranasal DAILY 10/30/20 04/09/22 11/06/20 06:00 History mcg/actuation nasal spray,suspension anastrozole 1 mg tablet 1 tab PO DAILY 04/05/22 04/09/22 Unknown History levothyroxine 75 mcg tablet 1 tab PO DAILY 04/05/22 04/09/22 04/09/22 05:15 History (Synthroid) montelukast 10 mg tablet 1 tab PO DAILY 04/05/22 04/09/22 Unknown History tramadol 50 mg tablet 1 tab PO Q6H PRN abdominal pain 04/05/22 04/09/22 Unknown History Exam Airway Mallampati Class: III TM Dist: >3cm Neck ROM: Full Loose/Missing/Broken Teeth: No Heart: RRR Lungs: CTA Assessment and Plan Assessment Anesthesia Assessment: Anesthesia Plan Discussed Final Anesthetic Review History of Problems with Anesthesia: No NPO: Yes ASA Class: II Final Preanesthetic Review: Meds/Allgs Chart Reviewed, Consent Obtained/Reviewed and Anes Risks/Benef Reviewed Patient Risk: Low Procedure Risk: Low Anesthetic Plan Anesthetic Plan: MAC: Disposition: Standard PACU
[2022-04-09 06:45] VITALS: BMI 22.4
[2022-04-09 06:47] VITALS: BP 149/72; PULSE 90; RESP 16; TEMP 36.3; O2SAT 98
[2022-04-09] MEDS: Lactated Ringers 1,000 ML 100 ML IVCONT (06:55)
[2022-04-09 09:10] VITALS: BP 125/80; PULSE 87; RESP 20; TEMP 36.3; O2SAT 99
[2022-04-09 09:25] VITALS: BP 135/83; PULSE 78; RESP 16; O2SAT 100
[2022-04-09 09:40] VITALS: BP 164/82; PULSE 77; RESP 16; TEMP 36.3; O2SAT 96
--- NOTE | 2022-04-09 13:06 | P.BOP_ITS ---
Brief Operative Note Date of Service: 04/09/22 Pre-op diagnosis: Abdominal pain, abnormal CT of GI tract, R/O anastomotic stricture Post-op diagnosis: other (Same, diverticulosis, internal hemorrhoids----no definitive anastomotic stricture noted) Procedure: Colonoscopy to the anastomosis and small bowel Surgeon: Sudhakar Tompkins Anesthesia: MAC Was an Sales Professional Bilingual used for this Procedure?: No Estimated blood loss (mL): 0 Pathology: none sent Condition: stable Disposition: PACU
--- NOTE | 2022-04-09 21:25 | OP_ITS ---
SURGEON: Sudhakar Tompkins MD INDICATIONS: The patient presents for evaluation of abnormal CT scan of GI tract and question of intermittent partial small bowel obstruction, as well as a personal history of colon cancer. Full consent has been obtained from her for this, including risks of bleeding and perforation. PREOPERATIVE DIAGNOSIS: Abnormal CT scan of gastrointestinal tract, partial intermittent small bowel obstruction, personal history of colon cancer. POSTOPERATIVE DIAGNOSIS: Abnormal CT scan of gastrointestinal tract, partial intermittent small bowel obstruction, personal history of colon cancer, diverticulosis and internal hemorrhoids. PROCEDURE PERFORMED: Colonoscopy to the level of the anastomosis and small bowel. ESTIMATED BLOOD LOSS: COMPLICATIONS: ANESTHESIA: Medications used, monitored anesthesia care. ASSISTANTS: SPECIMENS: DESCRIPTION OF PROCEDURE: The patient was placed in the left lateral decubitus position. The digital rectal exam revealed no abnormalities. The Olympus video pediatric colonoscope was entered into the rectum and advanced to the level of what I felt was the anastomosis. Advancement throughout the colon was difficult due to probable intraabdominal adhesions and did require abdominal wall pressure. Once at the anastomosis, I did feel I visualized the anastomotic lumen to some degree, but it was difficult obtaining a good angle due to what I felt was more of an issue with some acute angulation of the anastomosis as opposed to a stricture of the anastomosis. The scope was able to enter the small bowel with the small bowel mucosa appearing normal. Portions of the anastomosis I did visualize did appear somewhat edematous and erythematous, but without any ulceration or mass. I did not appreciate any definitive stricture, but again, it was difficult to have the scope sit at the anastomosis for any adequate length of time to be able to assess this completely. The mucosa in the area of the anastomosis otherwise appeared normal. The scope was then slowly withdrawn assessing all mucosal surfaces carefully. Preparation was excellent throughout the colon. I did not visualize any sign of polyps, colitis, nor angiodysplasia. There was a mild amount of sigmoid diverticulosis. In the rectum, the scope was retroflexed visualizing internal hemorrhoids, but no other pathology. The rectal mucosa appeared normal. The scope was straightened and withdrawn from the patient. She tolerated the procedure well and was returned to the recovery area in stable condition. IMPRESSION: 1. Limited visualization of the anastomosis, but with no definitive stricture noted. Some edema and erythema at the level of the anastomosis were appreciated, but there was no evidence of any ulceration nor mass. The small bowel was able to be cannulated with the scope. No balloon dilation was performed. 2. Diverticulosis. 3. Internal hemorrhoids. PLAN: At this point, the patient continues to have intermittent issues with what seems to be intermittent obstructive-type symptoms despite staying on a soft and careful low residue diet. At this point, it does not appear that the anastomosis is definitively the issue causing this problem. I suspect adhesions are playing a role here as well. I shall discuss this further with Dr. Herrera. However, I do think an MR enterography would be helpful to see if that could help isolate a spot of narrowing prior to any surgical exploration and perhaps assess the anastomosis as well. I shall look to schedule this for her and then review this with Dr. Herrera as to whether or not surgical intervention would be ultimately required. Alternatively, a small bowel series can be done rather than the MR enterography, but I do think the MRE could give us more information. She has been advised to continue her careful low residue diet in the meantime. She is aware of the need to go to the ER if she develops any persistent and worsening symptoms of abdominal pain, abdominal distention, and/or vomiting. This has been reviewed with the patient and her in detail. MD HORTENCIA Bowser/DEEJAY / [id number]
== END 2022-04-09 10:12 | disposition home or self-care (01) ==
PROVIDERS: PCP Internal Medicine Medical Oncology; Visit Provider Internal Medicine
PROC: 0D7E8ZZ Dilation of Large Intestine, Via Natural or Artificial Opening Endoscopic (ICD-10-PCS; CPT 45378; principal; 2022-04-09 07:30)
DX: R93.5 Abnormal findings on diagnostic imaging of other abdominal regions, including retroperitoneum (principal); K56.600 Partial intestinal obstruction, unspecified as to cause; Z85.038 Personal history of other malignant neoplasm of large intestine; K66.0 Peritoneal adhesions (postprocedural) (postinfection); Z98.0 Intestinal bypass and anastomosis status; K57.30 Diverticulosis of large intestine without perforation or abscess without bleeding; K64.8 Other hemorrhoids; J45.909 Unspecified asthma, uncomplicated; C50.912 Malignant neoplasm of unspecified site of left female breast; C50.911 Malignant neoplasm of unspecified site of right female breast; Z90.13 Acquired absence of bilateral breasts and nipples; Z79.811 Long term (current) use of aromatase inhibitors; Z79.51 Long term (current) use of inhaled steroids; Z79.899 Other long term (current) drug therapy; Z88.2 Allergy status to sulfonamides; Z90.49 Acquired absence of other specified parts of digestive tract; Z90.710 Acquired absence of both cervix and uterus
CPT/HCPCS: 45378

== ENCOUNTER → 2022-04-29 13:37 | Outpatient (BNVA) | payer MEDICARE, SELFPAY | PROVIDERS: PCP Internal Medicine Medical Oncology; Visit Provider Surgery | DX: K56.600 Partial intestinal obstruction, unspecified as to cause (principal) | CPT/HCPCS: 99212 ==

== ENCOUNTER 2022-05-03 05:52 | Inpatient (IN) | payer MEDICARE, SELFPAY ==
[2022-05-03] VITALS (21 sets, daily range): BP systolic 132–199; BP diastolic 52–87; PULSE 64–97; RESP 14–22; TEMP 35.1–37.8; O2SAT 93–99; BMI 24.5; BMI 23.6
--- NOTE | ~2022-05-03 | XR_ITS ---
EXAMINATION: XR CHEST CLINICAL INFORMATION: Nasogastric tube COMPARISON: 12/31/2018 TECHNIQUE: Frontal view of the chest was obtained. FINDINGS: Lungs are well-inflated and clear. No pleural effusion or pneumothorax. Cardiac silhouette is normal in size. The hilar contours are normal. Pulmonary vascular pattern is normal. The tip of the NG tube is at the level of the proximal stomach with side-port of tube at level of the esophagogastric junction. No pneumoperitoneum. XR/XR chest 1V IMPRESSION: * No acute pulmonary disease. * The tip of the NG tube is located at the level of the proximal stomach.
--- NOTE | ~2022-05-03 | CT_ITS ---
EXAMINATION: CT ABDOMEN AND PELVIS WITHOUT CONTRAST CLINICAL INFORMATION: Obstruction COMPARISON: Multiple priors, including MRI from 04/05/[address] from 03/05/2022. TECHNIQUE: Multidetector volumetric imaging was performed from the superior aspect of the liver through the pubic symphysis. Sagittal and coronal reformatted images were obtained on the technologist's workstation. This CT examination was performed using dose optimization techniques as appropriate, variously including the following: *Automated exposure control *Adjustment of mA and/or kV according to patient size (this includes techniques or standardized protocols for targeted exams where dose is matched to indication/reason for exam; i.e. extremities or head) *Use of iterative reconstruction technique DLP: 471 mGy-cm FINDINGS: LUNG BASES: Minimal left basilar atelectasis. Small hiatal hernia. The visualized cardiac structures are unremarkable. LIVER, GALLBLADDER, AND BILIARY TREE: The liver is normal in size, shape, and attenuation. No focal hepatic lesion or biliary ductal dilatation is present. The gallbladder is unremarkable with no evidence of radiopaque gallstones, gallbladder wall thickening, or obvious pericholecystic inflammatory changes. Trace perihepatic ascites. PANCREAS: Redemonstration of the cysts at the pancreatic body and tail. No ductal dilatation. SPLEEN: Unremarkable. ADRENAL GLANDS: Unremarkable. KIDNEYS AND URETERS: The kidneys are normal in size, shape, and attenuation. No hydronephrosis, hydroureter, or calculi seen. No perinephric stranding. Simple left renal cyst. No specific follow-up recommended. BLADDER: Unremarkable. GASTROINTESTINAL TRACT: Small hiatal hernia. The stomach is otherwise unremarkable. There is diffuse small bowel dilatation with prominent appearance. This is increased from 03/05/2022 as well as 04/05/2022. The patient is status post right hemicolectomy with enterocolic anastomosis in the central abdomen. The bowel distention appears to extend fully to this anastomosis, with no decompressed small bowel. There is stool throughout much of the colon. ABDOMINAL WALL: No significant hernia is appreciated. LYMPH NODES: Normal. VASCULAR: Normal caliber aorta with mild atherosclerotic calcification. PELVIC VISCERA: Uterus not seen. No adnexal mass. OSSEOUS STRUCTURES: Degenerative changes throughout the spine. CT/CT abdomen pelvis wo IV con IMPRESSION: Diffuse small bowel dilatation with prominent appearance. This is increased from 03/05/2022 as well as 04/05/2022. The small bowel appears to extend fully to the enterocolic anastomosis, with no decompressed small bowel. This is concerning for at least partial small bowel obstruction at the anastomosis. The presence of the associated free fluid is concerning. Fleischner guidelines were followed.
--- NOTE | 2022-05-03 05:58 | ED_ITS ---
HPI - Abdominal Pain General Chief Complaint: Abdominal Pain Stated Complaint: dr. ramesh patient Time Seen by Provider: 05/03/22 05:58 Source: patient Mode of arrival: ambulatory Limitations: no limitations History of Present Illness HPI narrative: Patient is 71 years old with history of asthma, breast cancer, colon cancer status post right colon resection 2001, hypothyroidism, partial small-bowel obstruction been followed by surgeon for low intensity abdominal pain and bloating for 6-7 months diagnosis partial bowel obstruction secondary to narrowing of the anastomosis patient had MR enterography which confirmed the findings of narrowing of the anastomosis/short segment stricture with distention of small bowel proximal to that. Dr pierre, surgery saw patient on 04/29/2022 plan was to revision of the anastomosis with resection and creating a new ileo colonic anastomosis on 05/20 , patient comes as pain got worse last night with abdominal distension and vomiting 4 times, patient had last bowel movement 2 days ago Related Data Home Medications Medication Instructions Recorded Confirmed Probiotic 1 cap PO DAILY 10/30/20 04/09/22 albuterol sulfate 90 mcg/actuation 2 puff inhalation Q4-6H PRN 10/30/20 04/09/22 aerosol inhaler (ProAir HFA) Wheezing cholecalciferol (vitamin D3) 10 10 mcg PO DAILY 10/30/20 04/09/22 mcg (400 unit) tablet (Vitamin D3) fluticasone propionate 44 1 puff inhalation BID 10/30/20 04/09/22 mcg/actuation HFA aerosol inhaler anastrozole 1 mg tablet 1 tab PO DAILY 04/05/22 04/09/22 levothyroxine 75 mcg tablet 1 tab PO DAILY 04/05/22 04/09/22 (Synthroid) montelukast 10 mg tablet 1 tab PO DAILY 04/05/22 04/09/22 tramadol 50 mg tablet 1 tab PO Q6H PRN abdominal pain 04/05/22 04/09/22 Allergies Allergy/AdvReac Type Severity Reaction Status Date / Time Sulfa (Sulfonamide Allergy Mild RASH Verified 04/29/22 13:47 Antibiotics) [SULFA (SULFONAMIDE ANTIBIOTICS)] latex Allergy Redness of Verified 05/03/22 06:06 Skin Review of Systems Review of Systems Yes all other systems are reviewed and are negative PMFSH Past Medical History Medical History Asthma Breast cancer Colon cancer Hypothyroidism Partial small bowel obstruction Surgical History H/O removal of cyst History of hysterectomy History of nasal surgery History of partial colectomy Hx of colonoscopy Hx of left mastectomy Hx of right mastectomy Hx of tubal ligation Family History Family History Mother Thyroid ca Father Cancer Social History Social History Are you a primary animal care attendant to a significant other at home: No Do you presently have visiting nurse or other home services: No Patient Tobacco Use Status: Never used Tobacco Advance Directives: No Physical Exam ED Vital Signs: Vital Signs - 24 hr 05/03/22 06:01 05/03/22 06:09 Temperature 95.1 F L Pulse Rate 93 Respiratory Rate 22 H 18 Blood Pressure 171/84 H Pulse Oximetry 97 Oxygen Delivery Method Room Air BMI result Body Mass Index 24.5 Appearance: Alert. Oriented X3. In moderate distress Eyes: PERRLA, No Nystagmus ENT: Pharynx normal. Oral Mucosa moist Neck: Normal inspection. Neck supple. CVS: Normal heart rate and rhythm. Pulses normal. Respiratory: No respiratory distress. Equal air entry bilateral, no wheezing/rales/rhonchi Abdomen: Gaseous distended diffuse tenderness and guarding no rebound tenderness bowel sounds are sluggish , no mass palpable, no CVA tenderness Skin: Skin warm and dry. Normal skin color. Normal skin turgor. Extremities: No lower extremity edema. No calf tenderness Neuro: Oriented X 3. No motor deficit. No sensory deficit.No cerebellar signs , cranial nerves II-XII intact Medical Decision Making Medical Decision Making MDM Narrative: 640 am Patient with small-bowel obstruction secondary to narrowing of previous anastomosis. 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 Dickson surgeon will admit the patient to their service Lab Data MDM Lab Attestation statement: I reviewed the patient's lab results. 05/03/22 06:21 05/03/22 06:21 Labs: Lab Results 05/03/22 05/03/22 05/03/22 Range/Units 06:21 06:21 06:21 WBC 12.4 H (4.8-10.8) X10*3/uL RBC 5.80 H (4.20-5.50) X10*6/uL Hgb 16.4 H (12.0-16.0) g/dl Hct 49.9 H (37.0-47.0) % MCV 86.0 (80.0-98.0) fL MCH 28.3 (27.0-33.0) pg MCHC 32.9 (31.0-35.0) g/dl RDW 13.8 (11.0-16.0) % Plt Count 320 (160-400) X10*3/uL MPV 10.5 (9.4-12.3) fL Immature Gran % (Auto) 0.3 (0.0-0.4) % Neut % (Auto) 84.9 H (45-73) % Lymph % (Auto) 10.0 L (20-40) % [place] % (Auto) 4.6 (2-11) % Eos % (Auto) 0.0 (0-4) % Baso % (Auto) 0.2 (0-2) % Lymph # (Auto) 1.2 (1.2-4.9) X10*3/uL [place] # (Auto) 0.6 (0.1-1.2) X10*3/uL Eos # (Auto) 0.0 (0.0-0.4) X10*3/uL Baso # (Auto) 0.0 (0.0-0.2) X10*3/uL Abs Immat Gran (auto) 0.04 H (0.00-0.03) X10*3/uL Absolute Neuts (auto) 10.5 H (2.0-8.3) x10*3/uL Absolute Nucleated RBC 0.000 (0.0-0.012) X10*3/uL Nucleated RBC % (auto) 0.0 (0.0-0.2) /100WBC PT 11.9 (10.0-13.1) SEC INR 1.0 (0.9-1.1) Sodium 138 (135-145) mmol/L Potassium 4.9 (3.3-5.1) mmol/L Chloride 98 (96-108) mmol/L Carbon Dioxide 22 (22-29) mmol/L Anion Gap 23 H (12-20) BUN 27 H (9-16) mg/dL Creatinine 1.23 (0.5-1.4) mg/dL Estim Creat Clear Calc 35.1 Estimated GFR 43 Random Glucose 162 H (60-115) mg/dL Lactic Acid (0.5-2.0) mmol/L Calcium 11.2 H D (8.4-10.2) mg/dL Magnesium 1.9 (1.6-2.6) mg/dL Total Bilirubin 2.4 H (0.0-1.0) mg/dL AST 37 H (5-31) U/L ALT 29 (0-31) U/L Alkaline Phosphatase 71 (39-117) U/L Troponin I High Sens (<3.5-17.0) ng/L Total Protein 9.2 H (6.5-8.0) g/dL Albumin 5.1 H (3.5-5.0) g/dL Lipase 26 (8-78) U/L 05/03/22 05/03/22 Range/Units 06:21 06:26 WBC (4.8-10.8) X10*3/uL RBC (4.20-5.50) X10*6/uL Hgb (12.0-16.0) g/dl Hct (37.0-47.0) % MCV (80.0-98.0) fL MCH (27.0-33.0) pg MCHC (31.0-35.0) g/dl RDW (11.0-16.0) % Plt Count (160-400) X10*3/uL MPV (9.4-12.3) fL Immature Gran % (Auto) (0.0-0.4) % Neut % (Auto) (45-73) % Lymph % (Auto) (20-40) % [place] % (Auto) (2-11) % Eos % (Auto) (0-4) % Baso % (Auto) (0-2) % Lymph # (Auto) (1.2-4.9) X10*3/uL [place] # (Auto) (0.1-1.2) X10*3/uL Eos # (Auto) (0.0-0.4) X10*3/uL Baso # (Auto) (0.0-0.2) X10*3/uL Abs Immat Gran (auto) (0.00-0.03) X10*3/uL Absolute Neuts (auto) (2.0-8.3) x10*3/uL Absolute Nucleated RBC (0.0-0.012) X10*3/uL Nucleated RBC % (auto) (0.0-0.2) /100WBC PT (10.0-13.1) SEC INR (0.9-1.1) Sodium (135-145) mmol/L Potassium (3.3-5.1) mmol/L Chloride (96-108) mmol/L Carbon Dioxide (22-29) mmol/L Anion Gap (12-20) BUN (9-16) mg/dL Creatinine (0.5-1.4) mg/dL Estim Creat Clear Calc Estimated GFR Random Glucose (60-115) mg/dL Lactic Acid 2.6 H* (0.5-2.0) mmol/L Calcium (8.4-10.2) mg/dL Magnesium (1.6-2.6) mg/dL Total Bilirubin (0.0-1.0) mg/dL AST (5-31) U/L ALT (0-31) U/L Alkaline Phosphatase (39-117) U/L Troponin I High Sens < 3.5 (<3.5-17.0) ng/L Total Protein (6.5-8.0) g/dL Albumin (3.5-5.0) g/dL Lipase (8-78) U/L Independent Interpretation I performed an independent interpretation of an: EKG Interpretation: Normal sinus rhythm heart rate 74 normal interval normal axis no acute ST-T changes impression normal EKG Radiology Impression Discussion of test interpretation with radiology: I have reviewed the radiologist's reading. Radiologist Impression: CT/CT abdomen pelvis wo IV con IMPRESSION: Diffuse small bowel dilatation with prominent appearance. This is increased from 03/05/2022 as well as 04/05/2022. The small bowel appears to extend fully to the enterocolic anastomosis, with no decompressed small bowel. This is concerning for at least partial small bowel obstruction at the anastomosis. The presence of the associated free fluid is concerning. Medications Administered Generic Name Dose Route Start Last Admin Trade Name Freq PRN Reason Stop Dose Admin Piperacillin Sod/Tazobactam 50 mls @ 100 mls/hr 05/03/22 06:33 05/03/22 06:52 Sod 3.375 gm/ Sodium Chloride IV 05/03/22 07:02 100 mls/hr ONCE ONE Administration Discontinued Medications Generic Name Dose Route Start Last Admin Trade Name Freq PRN Reason Stop Dose Admin Sodium Chloride 1,000 mls @ 999 mls/hr 05/03/22 05:58 05/03/22 06:09 Ns IV 05/03/22 06:58 999 mls/hr .Q1H1M ONE Administration Lidocaine HCl 1 appl 05/03/22 06:25 05/03/22 06:52 Lidocaine Hcl 4 % Sidyck-H-Xcu 4 Ml TOPICAL 05/03/22 06:26 1 appl ONCE ONE Administration Morphine Sulfate 4 mg 05/03/22 06:00 05/03/22 06:09 Morphine Sulfate 4 Mg/Ml Cartridge IVPUSH 05/03/22 06:01 4 mg ONCE ONE Administration Protocol Ondansetron HCl 4 mg 05/03/22 05:58 05/03/22 06:09 Ondansetron Hcl 4 Mg/2 Ml Vial IVPUSH 05/03/22 05:59 4 mg ONCE ONE Administration Discharge Plan Discharge Patient Disposition: Admitted As Inpatient
--- NOTE | 2022-05-03 05:59 | ECG_ITS ---
Test Reason : ABD PAIN Blood Pressure : / mmHG Vent. Rate : 074 BPM Atrial Rate : 074 BPM P-R Int : 138 ms QRS Dur : 084 ms QT Int : 388 ms P-R-T Axes : 077 062 080 degrees QTc Int : 430 ms Normal sinus rhythm Normal ECG When compared with ECG of 01-JAN-2019 10:11, No significant change was found Referred By: Ole Morton Electronically Signed By:VERITO RODRIGUEZ MD
[2022-05-03] MEDS: Morphine Sulfate 4 MG/ML CARTRIDGE IVPUSH (06:09)
[2022-05-03] MEDS: ondansetron HCL 4 MG/2 ML VIAL IVPUSH ×2 (06:09→19:30)
[2022-05-03] MEDS: 0.9 % Sodium Chloride 1,000 ML 999 ML IV (06:09)
[2022-05-03 06:29] LABS: MANUAL DIFF FLAG NO
[2022-05-03 06:30] LABS: Basophils Percent Auto 0.2 % (0-2); Hematocrit 49.9 % (37.0-47.0); Hemoglobin 16.4 g/dl (12.0-16.0); Imm Gran Abs Auto 0.04 X10*3/uL (0.00-0.03); Imm Gran Pct Auto 0.3 % (0.0-0.4); Lymphocytes Absolute Auto 1.2 X10*3/uL (1.2-4.9); Mean Corpuscular HGB Conc 32.9 g/dl (31.0-35.0); Mean Corpuscular Hemoglobin 28.3 pg (27.0-33.0); Mean Platelet Volume 10.5 fL (9.4-12.3); Monocytes Absolute Auto 0.6 X10*3/uL (0.1-1.2); Monocytes Percent Auto 4.6 % (2-11); Neutrophils Absolute Auto 10.5 x10*3/uL (2.0-8.3); Neutrophils Percent Auto 84.9 % (45-73); Platelet Count 320 X10*3/uL (160-400); Red Cell Distribution Width 13.8 % (11.0-16.0); White Blood Count 12.4 X10*3/uL (4.8-10.8)
--- NOTE | 2022-05-03 06:30 | PC.NURSE ---
NG tube inserted. Pt tolerated procedure well. Placement confirmed with chest xray. Intermittent suction started at 140 mm Hg. Collection chamber contained approx 200 mL of straw colored fluids.
[2022-05-03 06:47] LABS: Lactic Acid 2.6 mmol/L (0.5-2.0)
[2022-05-03 06:48] LABS: Alanine Aminotransferase 29 U/L (0-31); Albumin Level 5.1 g/dL (3.5-5.0); Alkaline Phosphatase 71 U/L (39-117); Anion Gap 23 (12-20); Aspartate Amino Transferase 37 U/L (5-31); Bilirubin Total 2.4 mg/dL (0.0-1.0); Blood Urea Nitrogen 27 mg/dL (9-16); Calcium 11.2 mg/dL (8.4-10.2); Carbon Dioxide 22 mmol/L (22-29); Chloride 98 mmol/L (96-108); Creatinine Clr Calc Pharmacy 35.1; Estimated Glomerular Filt Rate 43; Glucose Random 162 mg/dL (60-115); Lipase 26 U/L (8-78); Magnesium 1.9 mg/dL (1.6-2.6); Potassium 4.9 mmol/L (3.3-5.1); Sodium 138 mmol/L (135-145); Total Protein 9.2 g/dL (6.5-8.0)
[2022-05-03 06:52] LABS: Prothrombin Time 11.9 SEC (10.0-13.1)
[2022-05-03] MEDS: Lidocaine HCl 4 % Laryng-O-Jet 4 ML 1 APPL TOPICAL (06:52)
[2022-05-03] MEDS: Piperacillin Sodium/Tazobactam 3.375 GM in 0.9 % Sodium Chloride 50 ML IV (06:52)
[2022-05-03 06:53] LABS: Troponin-I High Sensitivity < 3.5 ng/L (<3.5-17.0)
[2022-05-03] MEDS: Dextrose 5 % and Lactated Ring 1,000 ML 125 ML IVCONT ×2 (07:21→16:15)
[2022-05-03] MEDS: 0.9 % Sodium Chloride Flush 3 ML SYRINGE IVFLUSH ×2 (07:22→21:53)
[2022-05-03] MEDS: Heparin Sodium,Porcine 5,000 UNIT/ML VIAL 5000 UNIT SUBCUT ×2 (07:23→19:30)
[2022-05-03] MEDS: HYDROmorphone HCl 0.5 MG/0.5 ML SYRINGE IVPUSH ×3 (07:26→22:49)
[2022-05-03 07:35] LABS: COVID-19 Test Negative (Negative); IDNOW Serial# 55D5AD1C
--- NOTE | 2022-05-03 07:48 | MHC.CM.PN ---
Met with patient and , Danny, in regards to discharge planning. Patient lives with Danny, ambulates independently and had no services prior to coming to the hospital. No services anticipated to be needed because patient is not homebound. PCP verified. Patient has a HCP and will attempt to obtain a copy. Patient received 4 Pfizer vaccines. IMM explained and signed. Danny will transport patient home when medically stable. Continue to monitor for d/c needs.
--- NOTE | 2022-05-03 07:58 | PHA.MEDREC ---
Pharmacy Consult ? Medication Reconciliation Pharmacy has completed the medication reconciliation. Patient reports still being on Flovent 44mcg, despite no recent caim history.
[2022-05-03 08:28] LABS: Reflex Lactate? Lactic Acid Added
--- NOTE | 2022-05-03 08:30 | P.HPGS_ITS ---
History of Present Illness History of Present Illness Date of Service: 05/10/22 Chief complaint: Small bowel obstruction Narrative: Steff Kent is a 71 year old female who came to emergency room early this morning because of small pain and vomiting. She is known to me. She has a his tory of right colon resection for a T3N1 adenocarcinoma in 2001 and had been doing well over the years. However, for the past 8 or 9 months or so, she has been noticing periodic abdominal pain and distension. I had actually seen her in the office as she had a CAT scan was was suggestive of an ileo panic stricture with dilatation of the ileum proximal to this. She had a colonoscopy to examine the anastomosis Dr. Tompkins last March, and this stricture was not directly seen. Her MR enterography done last March,n shows significant distention of the ileum just proximal to the ileocolonic anastomosis contains fecalized debris consistent with partial small-bowel obstruction secondary to a short segment anastomotic stricture, about 1.5 cm in length. She had a CAT scan in the ER this morning showing similar picture consistent with anastomotic stricture, and compared to her CT scan from last month, there was note of worsening distension of the ileum proximal to this. Because of her progressive symptoms of abdominal pain and bloating, she actually has been scheduled to have laparotomy and resection of the anastomosis in 2 weeks. she had been in her usual state of health last night but she woke up from her sleep at around 02:00 o'clock in the morning because of severe abdominal pain, which she describes as a lot worse than her usual episodes. She had some vomiting so she came to the emergency room early this morning. She also has a history of and sentinel node biopsy for a right breast cancer in 2002. She had undergone adjuvant chemotherapy for this. 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 Review of Systems Constitutional: Constitutional: Denies chills and Denies fever(s) Cardiovascular: Cardiovascular: Denies chest pain, Denies dyspnea and Denies dyspnea on exertion Respiratory: Respiratory: Denies cough, Denies dyspnea and Denies dyspnea on exertion Gastrointestinal: Gastrointestinal: Reports bloating, Denies hematochezia and Reports GI cramping Genitourinary: Genitourinary: Denies hematuria Musculoskeletal: Musculoskeletal: Denies back pain and Denies limited range of motion Neurologic: Denies focal weakness and Denies convulsions Psychiatric: Psychiatric: Denies depression and Denies mood swings [facility] Past Medical History Medical History (Updated 05/04/22 @ 07:22 by Dustin Ludwig MD) Asthma Breast cancer Colon cancer Hypothyroidism Partial small bowel obstruction Family History Family History Mother Thyroid ca Father Cancer Surgical History Surgical History H/O removal of cyst History of hysterectomy History of nasal surgery History of partial colectomy Hx of colonoscopy Hx of left mastectomy Hx of right mastectomy Hx of tubal ligation Social History Social History Household Members: Spouse Housing: House Are you a primary intensive care specialist to a significant other at home: No Do you presently have visiting nurse or other home services: No Patient Tobacco Use Status: Never used Tobacco service: No Current occupational status: retired Meds Allergies Allergy/AdvReac Type Severity Reaction Status Date / Time Sulfa (Sulfonamide Allergy Mild RASH Verified 04/29/22 13:47 Antibiotics) [SULFA (SULFONAMIDE ANTIBIOTICS)] latex Allergy Redness of Verified 05/03/22 06:06 Skin Active Medications: Current Medications Heparin Sodium (Porcine) (Heparin Sodium,Porcine 5,000 Unit/Ml Vial) 5,000 unit SUBCUT Q12H [facility] Last Admin: 05/03/22 07:23 Dose: 5,000 unit Hydromorphone HCl (Hydromorphone Hcl 0.5 Mg/0.5 Ml Syringe) 0.5 mg IVPUSH Q3H PRN; Protocol PRN Reason: Pain, Severe (Pain Scale 7-10) Last Admin: 05/03/22 07:26 Dose: 0.5 mg Dextrose/Lactated Ringer's (D5lr) 1,000 mls @ 125 mls/hr IVCONT .Q8H [facility] Last Admin: 05/03/22 07:21 Dose: 125 mls/hr Ondansetron HCl (Ondansetron Hcl 4 Mg/2 Ml Vial) 4 mg IVPUSH Q8H PRN PRN Reason: Nausea and Vomiting Oxycodone HCl (Oxycodone Hcl Immed Release 5 Mg Tablet) 5 mg PO Q6H PRN PRN Reason: Pain, Moderate (Pain Scale 4-6 Pharmacy Consult (Consult Rx Perform Med Rec) 1 each MISCELLANE ONCE PRN PRN Reason: Consult order Sodium Chloride (0.9 % Sodium Chloride Flush 3 Ml Syringe) 3 ml IVFLUSH QSHIFT [facility] Last Admin: 05/03/22 07:22 Dose: 3 ml Zolpidem Tartrate (Zolpidem Tartrate 5 Mg Tablet) 5 mg PO BEDTIME PRN PRN Reason: Insomnia Home Medications Medication Instructions Recorded Confirmed Last Taken Type Probiotic 1 cap PO DAILY 10/30/20 05/03/22 05/02/22 History albuterol sulfate 90 mcg/actuation 2 puff inhalation Q4-6H PRN 10/30/20 05/03/22 11/06/20 06:00 History aerosol inhaler (ProAir HFA) Wheezing cholecalciferol (vitamin D3) 10 10 mcg PO DAILY 10/30/20 05/03/22 05/02/22 History mcg (400 unit) tablet (Vitamin D3) fluticasone propionate 44 1 puff inhalation BID 10/30/20 05/03/22 04/09/22 05:15 History mcg/actuation HFA aerosol inhaler anastrozole 1 mg tablet 1 tab PO BEDTIME 04/05/22 05/03/22 05/02/22 History levothyroxine 75 mcg tablet 1 tab PO DAILY@0600 04/05/22 05/03/22 05/02/22 History (Synthroid) montelukast 10 mg tablet 1 tab PO BEDTIME 04/05/22 05/03/22 05/02/22 History Physical Exam Vital Signs: Vital Signs: Last Vital Signs Temp 98.1 F 05/03/22 07:27 Pulse 78 05/03/22 07:27 Resp 14 05/03/22 07:27 BP 142/63 H 05/03/22 07:27 Pulse Ox 94 05/03/22 07:27 O2 Del Method 05/03/22 07:27 BMI result Body Mass Index 24.5 Const: Other: NG tube in place, appears relatively comfortable at this time General: no acute distress Orientation/consciousness: patient oriented x3 Neck: Neck: Yes no lymphadenopathy Resp: Auscultation: clear to auscultation bilaterally Cardio: Rhythm: regular rhythm GI: Other: distended Palpation (GI): Soft to palpation, Tenderness to palpation present (GI) ( mild diffuse tenderness) and no guarding Neuro: General: patient oriented x3 Results Results Labs: Short CBC 05/03/22 Range/Units 06:21 WBC 12.4 H (4.8-10.8) X10*3/uL Hgb 16.4 H (12.0-16.0) g/dl Hct 49.9 H (37.0-47.0) % Plt Count 320 (160-400) X10*3/uL BMP 05/03/22 06:21 Sodium 138 Potassium 4.9 Chloride 98 Carbon Dioxide 22 BUN 27 H Creatinine 1.23 Calcium 11.2 H D Liver Function 05/03/22 Range/Units 06:21 Total Bilirubin 2.4 H (0.0-1.0) mg/dL AST 37 H (5-31) U/L ALT 29 (0-31) U/L Alkaline Phosphatase 71 (39-117) U/L Albumin 5.1 H (3.5-5.0) g/dL Additional studies: Laboratory Results WBC 12.4 X10*3/uL (4.8-10.8) H 05/03/22 06:21 RBC 5.80 X10*6/uL (4.20-5.50) H 05/03/22 06:21 Hgb 16.4 g/dl (12.0-16.0) H 05/03/22 06:21 Hct 49.9 % (37.0-47.0) H 05/03/22 06:21 MCV 86.0 fL (80.0-98.0) 05/03/22 06:21 MCH 28.3 pg (27.0-33.0) 05/03/22 06:21 MCHC 32.9 g/dl (31.0-35.0) 05/03/22 06:21 RDW 13.8 % (11.0-16.0) 05/03/22 06:21 Plt Count 320 X10*3/uL (160-400) 05/03/22 06:21 MPV 10.5 fL (9.4-12.3) 05/03/22 06:21 Immature Gran % (Auto) 0.3 % (0.0-0.4) 05/03/22 06:21 Neut % (Auto) 84.9 % (45-73) H 05/03/22 06:21 Lymph % (Auto) 10.0 % (20-40) L 05/03/22 06:21 [place] % (Auto) 4.6 % (2-11) 05/03/22 06:21 Eos % (Auto) 0.0 % (0-4) 05/03/22 06:21 Baso % (Auto) 0.2 % (0-2) 05/03/22 06:21 Lymph # (Auto) 1.2 X10*3/uL (1.2-4.9) 05/03/22 06:21 [place] # (Auto) 0.6 X10*3/uL (0.1-1.2) 05/03/22 06:21 Eos # (Auto) 0.0 X10*3/uL (0.0-0.4) 05/03/22 06:21 Baso # (Auto) 0.0 X10*3/uL (0.0-0.2) 05/03/22 06:21 Abs Immat Gran (auto) 0.04 X10*3/uL (0.00-0.03) H 05/03/22 06:21 Absolute Neuts (auto) 10.5 x10*3/uL (2.0-8.3) H 05/03/22 06:21 Absolute Nucleated RBC 0.000 X10*3/uL (0.0-0.012) 05/03/22 06:21 Nucleated RBC % (auto) 0.0 /100WBC (0.0-0.2) 05/03/22 06:21 PT 11.9 SEC (10.0-13.1) 05/03/22 06:21 INR 1.0 (0.9-1.1) 05/03/22 06:21 Sodium 138 mmol/L (135-145) 05/03/22 06:21 Potassium 4.9 mmol/L (3.3-5.1) 05/03/22 06:21 Chloride 98 mmol/L (96-108) 05/03/22 06:21 Carbon Dioxide 22 mmol/L (22-29) 05/03/22 06:21 Anion Gap 23 (12-20) H 05/03/22 06:21 BUN 27 mg/dL (9-16) H 05/03/22 06:21 Creatinine 1.23 mg/dL (0.5-1.4) 05/03/22 06:21 Estim Creat Clear Calc 35.1 05/03/22 06:21 Estimated GFR 43 05/03/22 06:21 Random Glucose 162 mg/dL (60-115) H 05/03/22 06:21 Lactic Acid 2.6 mmol/L (0.5-2.0) H* 05/03/22 06:21 Calcium 11.2 mg/dL (8.4-10.2) H D 05/03/22 06:21 Magnesium 1.9 mg/dL (1.6-2.6) 05/03/22 06:21 Total Bilirubin 2.4 mg/dL (0.0-1.0) H 05/03/22 06:21 AST 37 U/L (5-31) H 05/03/22 06:21 ALT 29 U/L (0-31) 05/03/22 06:21 Alkaline Phosphatase 71 U/L (39-117) 05/03/22 06:21 Troponin I High Sens < 3.5 ng/L (<3.5-17.0) 05/03/22 06:26 Total Protein 9.2 g/dL (6.5-8.0) H 05/03/22 06:21 Albumin 5.1 g/dL (3.5-5.0) H 05/03/22 06:21 Lipase 26 U/L (8-78) 05/03/22 06:21 COVID-19 (RISA) Negative (Negative) 05/03/22 06:21 COVID-19 Clin Com See Note 05/03/22 06:21 Impressions Abdomen/Pelvis CT 05/03/22 06:35 IMPRESSION: Diffuse small bowel dilatation with prominent appearance. This is increased from 03/05/2022 as well as 04/05/2022. The small bowel appears to extend fully to the enterocolic anastomosis, with no decompressed small bowel. This is concerning for at least partial small bowel obstruction at the anastomosis. The presence of the associated free fluid is concerning. Fleischner guidelines were followed. Chest X-Ray 05/03/22 06:56 IMPRESSION: * No acute pulmonary disease. * The tip of the NG tube is located at the level of the proximal stomach. Assessment and Plan (1) Small bowel obstruction: Status: Acute She has abdominal pain, distension and vomiting. Her imaging studies are consistent with obstruction at or near the level of her previous ileocolonic anastomosis. She had actually been scheduled for surgery in 2 weeks but she has a severe episode early this morning, with worse distension of the distal ileum immediately proximal to the anastomosis her current CT scan. We will therefore proceed with laparotomy, likely resection of the old ileocolonic anastomosis with creation of a new anastomosis. I have had multiple discussions with her about the technique of this procedure. I reviewed her the risks including but not limited to bleeding, infections, bowel injury, staple line leak, possible need for a stoma, injury to other organs in the peritoneum, inherent risks of anesthesia including blood clots, pneumonia, [place], as well as the benefits and alternatives. She has agreed to proceed with the planned surgery today. Her was also at her bedside during the discussion. She has had a history of TAHBSO as well for metastatic disease to her ovaries from her breast cancer so with multiple abdominal surgeries, anticipate significant adhesions. This may contribute to technical difficulty with regards to the planned procedure. Lactic acid is mildly elevated at 2.6. This is likely to be secondary to volume depletion from fluid losses with vomiting. The patient does not appear to be septic and does have a benign exam at this time. I have reviewed her films with the radiologist This morning. Time Spent With Patient Time: Total time managing care of this patient today ____ minutes. Quality Stroke Does the patient have a stroke diagnosis?: No VTE Prior VTE?: No VTE Risk Level:: Surgical - moderate VTE Device Contraindication: N/A - Device Ordered VTE Drug Contraindication: N/A - Med Ordered Procedures Date of Service Date of Service: 05/03/22
--- NOTE | 2022-05-03 08:34 | PC.NURSE ---
phlebotomy notified of type and screen order that went in as patient was being brought upstairs. states they will draw type and screen on floor , room 350.
[2022-05-03 09:22] LABS: ~Lactic Acid-LAB USE ONLY 2.2 mmol/L (0.5-2.0)
[2022-05-03] MEDS: oxyCODONE HCl Immed Release 5 MG TABLET PO (10:10)
--- NOTE | 2022-05-03 10:24 | PC.NURSE ---
pt off the unit to surgery
--- NOTE | 2022-05-03 10:44 | HO.ANESPROP2 ---
HPI - Anesthesia Eval Consult details Narrative: 71 yo female patient vor exploratory laparotomy, bowel resection of iliocolonic anastomotic stricture. H/o Right colon resection in 2001 for adenocarcinoma. PMF Active Problems Active Problems: All Active Problems (Updated 05/03/22 @ 06:51 by Ole Morton MD) Small bowel obstruction (Acute) Partial small bowel obstruction (Acute) Abdominal pain. N&V prior to NGT placement Past Medical History Medical History Asthma Breast cancer Colon cancer Hypothyroidism Partial small bowel obstruction Family History Family History Mother Thyroid ca Father Cancer Family history of problems with anesthesia: No Surgical History Surgical History H/O removal of cyst History of hysterectomy History of nasal surgery History of partial colectomy Hx of colonoscopy Hx of left mastectomy Hx of right mastectomy Hx of tubal ligation History of Problems with Anesthesia: No Social History Social History Household Members: Spouse Housing: House Are you a primary family member caretaker to a significant other at home: No Do you presently have visiting nurse or other home services: No Patient Tobacco Use Status: Never used Tobacco Use of substances other than those prescribed or required for medical reasons: No Have you been hit, kicked, punched, or otherwise hurt by someone within the past year? If so, by whom?: No Do you feel safe in your current relationship?: Yes Are you DNR?: No Advance Directives: No Advance Directives Information Provided: No (Declined) Do you have thoughts of harming others: None Do you have a plan to hurt others: No Plan Recently lost weight without trying: Yes How much weight loss: 2-13 pounds Eating poorly because of decreased appetite: Yes Nutrition screen score: 4 Nutrition Risks: No Nutritional Risk Patient : No service: No Current occupational status: retired Meds Allergies Allergy/AdvReac Type Severity Reaction Status Date / Time Sulfa (Sulfonamide Allergy Mild RASH Verified 04/29/22 13:47 Antibiotics) [SULFA (SULFONAMIDE ANTIBIOTICS)] latex Allergy Redness of Verified 05/03/22 06:06 Skin Active Medications: Current Medications Heparin Sodium (Porcine) (Heparin Sodium,Porcine 5,000 Unit/Ml Vial) 5,000 unit SUBCUT Q12H FORMERLY [facility], 1928–1983 Last Admin: 05/03/22 07:23 Dose: 5,000 unit Hydromorphone HCl (Hydromorphone Hcl 0.5 Mg/0.5 Ml Syringe) 0.5 mg IVPUSH Q3H PRN; Protocol PRN Reason: Pain, Severe (Pain Scale 7-10) Last Admin: 05/03/22 07:26 Dose: 0.5 mg Dextrose/Lactated Ringer's (D5lr) 1,000 mls @ 125 mls/hr IVCONT .Q8H FOR[facility]LY [facility], 1928–1983 Last Admin: 05/03/22 07:21 Dose: 125 mls/hr Ondansetron HCl (Ondansetron Hcl 4 Mg/2 Ml Vial) 4 mg IVPUSH Q8H PRN PRN Reason: Nausea and Vomiting Oxycodone HCl (Oxycodone Hcl Immed Release 5 Mg Tablet) 5 mg PO Q6H PRN PRN Reason: Pain, Moderate (Pain Scale 4-6 Last Admin: 05/03/22 10:10 Dose: 5 mg Pharmacy Consult (Consult Rx Perform Med Rec) 1 each MISCELLANE ONCE PRN PRN Reason: Consult order Sodium Chloride (0.9 % Sodium Chloride Flush 3 Ml Syringe) 3 ml IVFLUSH QSHIFT FOR[facility]LY [facility], 1928–1983 Last Admin: 05/03/22 07:22 Dose: 3 ml Zolpidem Tartrate (Zolpidem Tartrate 5 Mg Tablet) 5 mg PO BEDTIME PRN PRN Reason: Insomnia Home Medications Medication Instructions Recorded Confirmed Last Taken Type Probiotic 1 cap PO DAILY 10/30/20 05/03/22 05/02/22 History albuterol sulfate 90 mcg/actuation 2 puff inhalation Q4-6H PRN 10/30/20 05/03/22 11/06/20 06:00 History aerosol inhaler (ProAir HFA) Wheezing cholecalciferol (vitamin D3) 10 10 mcg PO DAILY 10/30/20 05/03/22 05/02/22 History mcg (400 unit) tablet (Vitamin D3) fluticasone propionate 44 1 puff inhalation BID 10/30/20 05/03/22 04/09/22 05:15 History mcg/actuation HFA aerosol inhaler anastrozole 1 mg tablet 1 tab PO BEDTIME 04/05/22 05/03/22 05/02/22 History levothyroxine 75 mcg tablet 1 tab PO DAILY@0600 04/05/22 05/03/22 05/02/22 History (Synthroid) montelukast 10 mg tablet 1 tab PO BEDTIME 04/05/22 05/03/22 05/02/22 History tramadol 50 mg tablet 1 tab PO Q6H PRN abdominal pain 04/05/22 05/03/22 05/02/22 History Exam Exam Date and Time: May 03, 2022 1044 Height,Weight and Vital Signs: Height 5 ft 4 in Weight 62.596 kg Last Vital Signs Temp 97.5 F 05/03/22 09:20 Pulse 83 05/03/22 09:20 Resp 15 05/03/22 09:20 BP 142/64 H 05/03/22 09:20 Pulse Ox 94 05/03/22 09:20 O2 Del Method 05/03/22 09:20 Vital Signs Temp Pulse Resp BP Pulse Ox O2 Del Method 05/03/22 10:36 98.8 F 81 16 145/67 H 99 Room Air 05/03/22 09:20 97.5 F 83 15 142/64 H 94 Room Air 05/03/22 07:27 98.1 F 78 14 142/63 H 94 Room Air 05/03/22 07:02 98.1 F 74 14 145/64 H 97 Room Air 05/03/22 06:09 18 05/03/22 06:01 95.1 F L 93 22 H 171/84 H 97 Room Air Pertinent Lab Results Pertinent Lab Results: Laboratory Tests 05/03/22 05/03/22 05/03/22 06:21 06:21 06:21 WBC 12.4 H RBC 5.80 H Hgb 16.4 H Hct 49.9 H MCV 86.0 MCH 28.3 MCHC 32.9 RDW 13.8 Plt Count 320 MPV 10.5 Immature Gran % (Auto) 0.3 Neut % (Auto) 84.9 H Lymph % (Auto) 10.0 L [place] % (Auto) 4.6 Eos % (Auto) 0.0 Baso % (Auto) 0.2 Lymph # (Auto) 1.2 [place] # (Auto) 0.6 Eos # (Auto) 0.0 Baso # (Auto) 0.0 Abs Immat Gran (auto) 0.04 H Absolute Neuts (auto) 10.5 H Absolute Nucleated RBC 0.000 Nucleated RBC % (auto) 0.0 PT 11.9 INR 1.0 Sodium 138 Potassium 4.9 Chloride 98 Carbon Dioxide 22 Anion Gap 23 H BUN 27 H Creatinine 1.23 Estim Creat Clear Calc 35.1 Estimated GFR 43 Random Glucose 162 H Lactic Acid Lactic Acid F/U @ 2Hr Calcium 11.2 H D Magnesium 1.9 Total Bilirubin 2.4 H AST 37 H ALT 29 Alkaline Phosphatase 71 Troponin I High Sens Total Protein 9.2 H Albumin 5.1 H Lipase 26 COVID-19 (RISA) COVID-19 AFTER-MOUSE Blood Type Antibody Screen 05/03/22 05/03/22 05/03/22 06:21 06:21 06:26 WBC RBC Hgb Hct MCV MCH MCHC RDW Plt Count MPV Immature Gran % (Auto) Neut % (Auto) Lymph % (Auto) [place] % (Auto) Eos % (Auto) Baso % (Auto) Lymph # (Auto) [place] # (Auto) Eos # (Auto) Baso # (Auto) Abs Immat Gran (auto) Absolute Neuts (auto) Absolute Nucleated RBC Nucleated RBC % (auto) PT INR Sodium Potassium Chloride Carbon Dioxide Anion Gap BUN Creatinine Estim Creat Clear Calc Estimated GFR Random Glucose Lactic Acid 2.6 H* Lactic Acid F/U @ 2Hr Calcium Magnesium Total Bilirubin AST ALT Alkaline Phosphatase Troponin I High Sens < 3.5 Total Protein Albumin Lipase COVID-19 (RISA) Negative COVID-[employer] See Note Blood Type Antibody Screen 05/03/22 05/03/22 08:57 08:57 WBC RBC Hgb Hct MCV MCH MCHC RDW Plt Count MPV Immature Gran % (Auto) Neut % (Auto) Lymph % (Auto) [place] % (Auto) Eos % (Auto) Baso % (Auto) Lymph # (Auto) [place] # (Auto) Eos # (Auto) Baso # (Auto) Abs Immat Gran (auto) Absolute Neuts (auto) Absolute Nucleated RBC Nucleated RBC % (auto) PT INR Sodium Potassium Chloride Carbon Dioxide Anion Gap BUN Creatinine Estim Creat Clear Calc Estimated GFR Random Glucose Lactic Acid Lactic Acid F/U @ 2Hr 2.2 H* Calcium Magnesium Total Bilirubin AST ALT Alkaline Phosphatase Troponin I High Sens Total Protein Albumin Lipase COVID-19 (RISA) COVID-19 Clin Com Blood Type A Positive Antibody Screen NEGATIVE Airway Mallampati Class: II TM Dist: >3cm Neck ROM: Full Loose/Missing/Broken Teeth: No (Denies broken, loose, missing teeth) Heart: RRR Lungs: CTAB Assessment and Plan Assessment Anesthesia Assessment: Anesthesia Plan Discussed and Chart Reviewed Final Anesthetic Review Family History of Problems with Anesthesia: No History of Problems with Anesthesia: No NPO: Yes ASA Class: II and Emergency Final Preanesthetic Review: No Changes in Pt Med Stat, Meds/Allgs Chart Reviewed, Consent Obtained/Reviewed and Anes Risks/Benef Reviewed Patient Risk: Intermediate Procedure Risk: Intermediate Assessment/Block/Sedation in SS: Assess/Block/Sedation-SS Anesthetic Plan Anesthetic Plan: GA Disposition: Standard PACU and Inp. Admit - Standard Bed
[2022-05-03 11:00] LABS: Reflex Lactate? 2 Y
[2022-05-03] MEDS: Lactated Ringers 1,000 ML 100 ML IVCONT ×2 (11:03→17:23)
[2022-05-03] MEDS: fentaNYL citrate/PF 100 MCG/2 ML VIAL 25 MCG IVPUSH (11:14)
--- NOTE | 2022-05-03 11:17 | PC.NURSE ---
medicated for 8/[address] presley is aware of patients lactic acid. another lab draw to be performed.
--- NOTE | 2022-05-03 14:50 | W.PM.OPN ---
Operative Note Operative Note Date of Service: 05/03/22 Narrative: Preop diagnosis: Small-bowel obstruction, likely at a previous ileocolonic anastomosis Postop diagnosis: 1. Extensive adhesions throughout the abdomen 2. matted bowel loops immediately adjacent to the ileocolonic anastomosis, with induration in 2-3 segments, severe interloop adhesions with markedly dilated small bowel proximal to this, with edema of the and erythema diffusely from the dilatation 3. 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 She actually had been scheduled for a resection in 2 weeks but in view of her acute symptoms, she was brought the operating room today for the planned procedure as above. She was aware of the risks, benefits, and alternatives She was placed supine on the OR table under general anesthesia via endotracheal tube. A Davis catheter inserted. She had an NG tube in place. A surgical time-out was done. The patient received cefazolin 2 g IV preoperatively I made a laparotomy incision in the midline using blade 10. And this was carried down through the full-thickness of the skin subcutaneous fat down to the fascia. The fascia was incised on the upper abdomen and the peritoneum was entered. Immediately we encountered adhesions we had to carefully divide the fascia in view of these adhesions throughout both sides of the incision. We had to do careful extensive lysis of adhesions of adherent small bowel loops surrounding this incision. This part of the procedure took an extended period of time we had to lengthen the fascial incision short segments because of the need for lysis of adhesions as we continued to expose the fascia. In the area just below the umbilicus was note of matted loop of small bowel that was densely adherent to the peritoneum. We had to do again a lot of careful deliberate lysis of adhesions to release this entire matted loop of small bowel. We had to excise the attached peritoneal layer on the abdominal wall to be able to release to avoid inadvertent enterotomies. Again, this part of the procedure on extended period of time. Eventually will able to release this matted loop of small bowel and expose more of the peritoneal cavity. We had to do more lysis of adhesions in the lower abdomen as the patient had a previous TAHBSO. Eventually, after a prolonged dissection, were able to expose the entire peritoneal cavity adequately. There was note of markedly distended small bowel loops diffusely. We had to also carefully lysed adhesions surrounding the current area of the old ileocolonic anastomosis in view of the presence of dense adhesions. Eventually, as able to identify and visualize the remaining transverse colon. By tracing this eczema leak, we were able to identify the anastomosis and surrounding this were matted small bowel loops, densely adherent to each other, with significant fibrotic changes, and stricture ring multiple areas. Another of jejunum was also densely adherent to this and we had to do a lot of careful dissection to be able to release this. This loop of jejunum had a dense stricture with fibrosis so we had decided that we should resect this as well down the line. We paid particular attention to this matted loops of small bowel leading to the ileocolonic anastomosis. We had to do extensive of adhesions surrounding this area, including the mesentery of the transverse colon. eventually, I was able to fully expose this remaining transverse colon. I was able to identify the entire attached mesentery. By doing so, I was able to as identify trace the entire length of the bowel starting from near the ligament of Treitz all the way to this matted loops adjacent to the colonic anastomosis. All of these small bowel loops appeared to be distended, more so towards the anastomosis. There was a lot of interloop adhesions as well whichl we had to lyse carefully so as to release the entire small bowel loops and expose this. At this time, we had identified the area of the transverse colon that we were going to resect, all the way to the small bowel loops past these ileal loops with stenosis and stricturing. This was an area without any obvious lesions and was signficantly away from the anastomosis. I therefore created a mesenteric defect in the remaining transverse colon distal to the anastomosis. I divided this using the 60 mm stapler. I then proceeded to divide the attached mesentery using the LigaSure. I identified a segment in the ileum just proximal to this matted bowel loops near the ileocolonic anastomosis. Again, this area send did not have any obvious lesions and appeared healthy and viable. I created a mesenteric defect and divided this using the BRIAN 60 mm stapler. I opened up the apex of the staple line to compress and suction out all the bowel contents. By doing so well able to decompress entire small bowel significantly. There was note of a lot of enteric contents that we had suctioned out as well. We had a little bit of the edge of this in the area. This was suction out as well. I completed transection of this entire segment of the anastomosis and the matted small bowel loops by dividing the mesentery using the LigaSure. This was sent as a specimen. I then prepared for a [id number] anastomosis. I had opened the apex of each staple line. I aligned the transverse colon stump and the small bowel stump and patient each arm of the BRIAN 60 mm stapler on the anti mesenteric border of the bowel loops. I made sure that there were no bowel loops caught between the staple line and this was fired using the BRIAN 60 stapler. the anastomosis was completed by closing the enterotomy with a TA 60 mm stapler. I applied simple interrupted seromuscular sutures on the crotch of the staple line as well as on the anterior aspect of the margin using Dexon 3-0 in sutures. I closed the intact defect with a running Dexon 3-0 stitch as well. I examined the staple lines and these all appeared to be intact. There was note of good blood supply on the staple line itself and this did not appear to be ischemic.There was no tension on the anastomosis. I then proceeded to resect the segment of small bowel in the jejunal area that was stenotic and strictured with fibrosis. This was about an 7 cm segment. I created a mesenteric defect proximal distal to this and divided these segments with GI 60 minutes staplers. I opened up the apex of each staple line. I positioned each arm of the BRIAN 60 mm stapler the anti mesenteric border and this was fired to create our sited diet denies a Robert. I also completed the anastomosis by closing the enterotomy using a TA 60 mm stapler. I applied is Dexon 3-0 stitch at the crotch to release any tension. These anastomosis appeared to be without tension and did not appear skin monserrat as well. I also closed the mesenteric defect at the anastomosis using at Dexon 3-0 stitch I then proceeded to re-examine phalanx of the small bowel starting from the ligament of Treitz all the way to the transverse colon. There was no other pathology seen. There was note of distension but there was no areas of ischemia. We copies irrigated. We also irrigated with Irrisept. Once hemostasis was confirmed, I closed the fascia with a running Maxon 1 stitch. Skin closure was achieved with skin della. The incision was infiltrated with Marcaine 0.5% for postop BRIAN. Dressings were applied and the procedure was completed. The patient tolerated procedure well. There were no immediate complications. Initial and final counts of sponges and instruments were correct. Estimated blood loss was less than 50 cc The patient was extubated without difficulty and transferred to the recovery room with stable vital signs.
[2022-05-03] MEDS: Labetalol HCL 100 MG/20 ML VIAL IVPUSH ×2 (15:17→15:22)
[2022-05-03] MEDS: HYDROmorphone HCl 0.5 MG/0.5 ML SYRINGE 0.25 MG IVPUSH ×2 (15:52→15:57)
[2022-05-03 16:25] LABS: ~Lactic Acid-LAB USE ONLY 1.6 mmol/L (0.5-2.0)
--- NOTE | 2022-05-03 17:00 | PM.EVENT ---
Event Note Date of Service: 05/03/22 Event Note: Pt seen postop seems to have adequate pain control good UO stable VS arousable - I explained to her procedure done pain mgt NGT, until signs of return of GI function Davis in place Apollo updated earlier Time Spent With Patient Time: Total time managing care of this patient today ____ minutes.
[2022-05-03] MEDS: Acetaminophen 1,000 MG/100 ML PIGGYBACK 400 MG IV ×2 (17:23→20:35)
--- NOTE | 2022-05-03 17:26 | HO.PM.IMCN ---
History of Present Illness Data of Consult Service Date: 05/03/22 Requesting physician: Po Herrera Primary Care Provider: Sudhakar De La O MD HPI Reason for consult: medical management 71 year old female with history colon cancer s/p resection in past, breast cancer , hypothyoidism who presented with abdominal pain and vomiting and found to have SBO and underwent Laparotomy, extensive lysis of adhesions, resection?of bowel. She is presently feeling grogy yet alert and answers questions apropriately, she has some back soreness of 5/10, her mouth feels dry and has NGT in place. Review of Systems Review of Systems: Gen: no fever Resp: no sob, no cough CV: no chest, no WHALEY, no leg edema GI: No n/v, no abd pain Neuro: No confusion some back discomfort PMFSH Medical History Asthma Breast cancer Colon cancer Hypothyroidism Partial small bowel obstruction Family History Mother Thyroid ca Father Cancer Surgical History H/O removal of cyst History of hysterectomy History of nasal surgery History of partial colectomy Hx of colonoscopy Hx of left mastectomy Hx of right mastectomy Hx of tubal ligation Social History Household Members: Spouse Housing: House Are you a primary client care manager to a significant other at home: No Do you presently have visiting nurse or other home services: No Patient Tobacco Use Status: Never used Tobacco Use of substances other than those prescribed or required for medical reasons: No Have you been hit, kicked, punched, or otherwise hurt by someone within the past year? If so, by whom?: No Do you feel safe in your current relationship?: Yes Are you DNR?: No Advance Directives: No Advance Directives Information Provided: No (Declined) Do you have thoughts of harming others: None Do you have a plan to hurt others: No Plan Recently lost weight without trying: Yes How much weight loss: 2-13 pounds Eating poorly because of decreased appetite: Yes Nutrition screen score: 4 Nutrition Risks: No Nutritional Risk Patient : No service: No Current occupational status: retired Meds Allergies Allergy/AdvReac Type Severity Reaction Status Date / Time Sulfa (Sulfonamide Allergy Mild RASH Verified 04/29/22 13:47 Antibiotics) [SULFA (SULFONAMIDE ANTIBIOTICS)] latex Allergy Redness of Verified 05/03/22 06:06 Skin Active Medications: Current Medications Albuterol Sulfate (Albuterol Sulfate 90 Mcg 8 Gm Inhaler) 2 puff INHALE Q4H PRN PRN Reason: Wheezing Heparin Sodium (Porcine) (Heparin Sodium,Porcine 5,000 Unit/Ml Vial) 5,000 unit SUBCUT Q12H [facility] Last Admin: 05/03/22 07:23 Dose: 5,000 unit Hydromorphone HCl (Hydromorphone Hcl 0.5 Mg/0.5 Ml Syringe) 0.5 mg IVPUSH Q3H PRN; Protocol PRN Reason: Pain, Severe (Pain Scale 7-10) Last Admin: 05/03/22 07:26 Dose: 0.5 mg Hydromorphone HCl (Hydromorphone Hcl 0.5 Mg/0.5 Ml Syringe) 0.25 mg IVPUSH Q5M PRN; Protocol PRN Reason: Pain, Severe (Pain Scale 7-10) Last Admin: 05/03/22 15:57 Dose: 0.25 mg Dextrose/Lactated Ringer's (D5lr) 1,000 mls @ 125 mls/hr IVCONT .Q8H [facility] Last Admin: 05/03/22 16:15 Dose: 125 mls/hr Acetaminophen (Ofirmev) 1,000 mg in 100 mls @ 400 mls/hr IV Q6H [facility] Last Admin: 05/03/22 17:23 Dose: 400 mls/hr Lactated Ringer's (Lr) 1,000 mls @ 100 mls/hr IVCONT .Q10H [facility] Last Admin: 05/03/22 17:23 Dose: 100 mls/hr Acetaminophen (Ofirmev) 1,000 mg in 100 mls @ 400 mls/hr IV Q6H [facility] Levothyroxine Sodium (Levothyroxine Sodium 75 Mcg Tablet) 75 mcg PO DAILY@0600 [facility] Montelukast Sodium (Montelukast Sodium 10 Mg Tablet) 10 mg PO BEDTIME [facility] Non-Formulary Medication (Fluticasone Propionate) 1 puff INHALE BID [facility] Ondansetron HCl (Ondansetron Hcl 4 Mg/2 Ml Vial) 4 mg IVPUSH Q8H PRN PRN Reason: Nausea and Vomiting Sodium Chloride (0.9 % Sodium Chloride Flush 3 Ml Syringe) 3 ml IVFLUSH QSHIFT [facility] Last Admin: 05/03/22 17:22 Dose: Not Given Zolpidem Tartrate (Zolpidem Tartrate 5 Mg Tablet) 5 mg PO BEDTIME PRN PRN Reason: Insomnia Home Medications Medication Instructions Recorded Confirmed Last Taken Type Probiotic 1 cap PO DAILY 10/30/20 05/03/22 05/02/22 History albuterol sulfate 90 mcg/actuation 2 puff inhalation Q4-6H PRN 10/30/20 05/03/22 11/06/20 06:00 History aerosol inhaler (ProAir HFA) Wheezing cholecalciferol (vitamin D3) 10 10 mcg PO DAILY 10/30/20 05/03/22 05/02/22 History mcg (400 unit) tablet (Vitamin D3) fluticasone propionate 44 1 puff inhalation BID 10/30/20 05/03/22 04/09/22 05:15 History mcg/actuation HFA aerosol inhaler anastrozole 1 mg tablet 1 tab PO BEDTIME 04/05/22 05/03/22 05/02/22 History levothyroxine 75 mcg tablet 1 tab PO DAILY@0600 04/05/22 05/03/22 05/02/22 History (Synthroid) montelukast 10 mg tablet 1 tab PO BEDTIME 04/05/22 05/03/22 05/02/22 History tramadol 50 mg tablet 1 tab PO Q6H PRN abdominal pain 04/05/22 05/03/22 05/02/22 History Physical Exam Vital Signs and Narrative: Vital Signs: Last Vital Signs Temp 98.0 F 05/03/22 16:49 Pulse 87 05/03/22 16:49 Resp 18 05/03/22 16:49 BP 167/87 H 05/03/22 16:49 Pulse Ox 98 05/03/22 16:49 O2 Del Method 05/03/22 16:49 O2 Flow Rate 2.0 05/03/22 16:49 BMI result Body Mass Index 23.6 Const: Other: General: AO X 3, no acute distress Resp: CTA bilateral CVS: S1,S2,RRR GI: -BS, NT, no distention Skin: No rash Neuro: motor grossly intact Psych: appropriate affect Results Labs 05/03/22 06:21 05/03/22 06:21 Labs: Laboratory Results - last 24 hr 05/03/22 05/03/22 05/03/22 06:21 06:21 06:21 MCV 86.0 MCH 28.3 MCHC 32.9 RDW 13.8 Plt Count 320 MPV 10.5 Immature Gran % (Auto) 0.3 Neut % (Auto) 84.9 H Lymph % (Auto) 10.0 L [place] % (Auto) 4.6 Eos % (Auto) 0.0 Baso % (Auto) 0.2 Lymph # (Auto) 1.2 [place] # (Auto) 0.6 Eos # (Auto) 0.0 Baso # (Auto) 0.0 Abs Immat Gran (auto) 0.04 H Absolute Neuts (auto) 10.5 H Absolute Nucleated RBC 0.000 Nucleated RBC % (auto) 0.0 PT 11.9 INR 1.0 Anion Gap 23 H Estim Creat Clear Calc 35.1 Estimated GFR 43 Random Glucose 162 H Lactic Acid Lactic Acid F/U @ 2Hr Lactic Acid F/U @ 4Hr Calcium 11.2 H D Magnesium 1.9 Total Bilirubin 2.4 H AST 37 H ALT 29 Alkaline Phosphatase 71 Troponin I High Sens Total Protein 9.2 H Albumin 5.1 H Lipase 26 COVID-19 (RISA) COVID-19 Clin [facility] Blood Type Antibody Screen 05/03/22 05/03/22 05/03/22 06:21 06:21 06:26 MCV MCH MCHC RDW Plt Count MPV Immature Gran % (Auto) Neut % (Auto) Lymph % (Auto) [place] % (Auto) Eos % (Auto) Baso % (Auto) Lymph # (Auto) [place] # (Auto) Eos # (Auto) Baso # (Auto) Abs Immat Gran (auto) Absolute Neuts (auto) Absolute Nucleated RBC Nucleated RBC % (auto) PT INR Anion Gap Estim Creat Clear Calc Estimated GFR Random Glucose Lactic Acid 2.6 H* Lactic Acid F/U @ 2Hr Lactic Acid F/U @ 4Hr Calcium Magnesium Total Bilirubin AST ALT Alkaline Phosphatase Troponin I High Sens < 3.5 Total Protein Albumin Lipase COVID-19 (RISA) Negative COVID-19 Clin Com See Note Blood Type Antibody Screen 05/03/22 05/03/22 05/03/22 08:57 08:57 15:44 MCV MCH MCHC RDW Plt Count MPV Immature Gran % (Auto) Neut % (Auto) Lymph % (Auto) [place] % (Auto) Eos % (Auto) Baso % (Auto) Lymph # (Auto) [place] # (Auto) Eos # (Auto) Baso # (Auto) Abs Immat Gran (auto) Absolute Neuts (auto) Absolute Nucleated RBC Nucleated RBC % (auto) PT INR Anion Gap Estim Creat Clear Calc Estimated GFR Random Glucose Lactic Acid Lactic Acid F/U @ 2Hr 2.2 H* Lactic Acid F/U @ 4Hr 1.6 Calcium Magnesium Total Bilirubin AST ALT Alkaline Phosphatase Troponin I High Sens Total Protein Albumin Lipase COVID-19 (RISA) COVID-19 Clin Com Blood Type A Positive Antibody Screen NEGATIVE Imaging Radiologist's Impressions: Impressions Abdomen/Pelvis CT 05/03/22 06:35 IMPRESSION: Diffuse small bowel dilatation with prominent appearance. This is increased from 03/05/2022 as well as 04/05/2022. The small bowel appears to extend fully to the enterocolic anastomosis, with no decompressed small bowel. This is concerning for at least partial small bowel obstruction at the anastomosis. The presence of the associated free fluid is concerning. Fleischner guidelines were followed. Chest X-Ray 05/03/22 06:56 IMPRESSION: * No acute pulmonary disease. * The tip of the NG tube is located at the level of the proximal stomach. Assessment and Plan (1) Elevated blood pressure reading: Status: Acute (2) Small bowel obstruction: Status: Acute Plan 71/F with history Colon, breast cancer, asthma, hypothyroidism here with SBO s/p resection now History of Breast CA--continue Anastrozole Hypothyroidism Continue Levothyroxine Bowel obstruction s/p Laparotomy, extensive lysis of adhesions, resection? by Dr. Herrera Post management op care by surgery Moderate persistent asthma--no exacerbation Continue Flovent, Monteleukast, Albuterol Vitamin D def--continue replacement Elevated BP with no diagnosis of HTN-- will monitor for now and if BP stays high, will add meds Will follow Time Spent With Patient Time: Total time managing care of this patient today ____ minutes.
[2022-05-03] MEDS: Montelukast Sodium 10 MG TABLET PO (20:35)
[2022-05-03] MEDS: Anastrozole 1 MG TABLET PO (21:50)
[2022-05-04] MEDS: Acetaminophen 1,000 MG/100 ML PIGGYBACK 400 MG IV ×4 (01:36→19:51)
[2022-05-04] MEDS: HYDROmorphone HCl 0.5 MG/0.5 ML SYRINGE IVPUSH ×5 (01:36→20:48)
[2022-05-04] MEDS: Lactated Ringers 1,000 ML 100 ML IVCONT ×3 (01:37→20:49)
[2022-05-04 03:15] VITALS: BP 153/74; PULSE 83; RESP 18; TEMP 36.3; O2SAT 96
[2022-05-04] MEDS: ondansetron HCL 4 MG/2 ML VIAL IVPUSH ×2 (03:17→08:04)
[2022-05-04 05:55] LABS: MANUAL DIFF FLAG NO
[2022-05-04] MEDS: Levothyroxine Sodium 75 MCG TABLET PO (05:55)
[2022-05-04 06:00] LABS: Basophils Percent Auto 0.2 % (0-2); Hematocrit 42.4 % (37.0-47.0); Hemoglobin 13.8 g/dl (12.0-16.0); Imm Gran Abs Auto 0.01 X10*3/uL (0.00-0.03); Imm Gran Pct Auto 0.2 % (0.0-0.4); Lymphocytes Absolute Auto 0.8 X10*3/uL (1.2-4.9); Lymphocytes Percent Auto 14.4 % (20-40); Mean Corpuscular HGB Conc 32.5 g/dl (31.0-35.0); Mean Corpuscular Hemoglobin 28.4 pg (27.0-33.0); Mean Corpuscular Volume 87.2 fL (80.0-98.0); Mean Platelet Volume 11.5 fL (9.4-12.3); Monocytes Absolute Auto 0.6 X10*3/uL (0.1-1.2); Monocytes Percent Auto 10.6 % (2-11); Neutrophils Absolute Auto 3.9 x10*3/uL (2.0-8.3); Neutrophils Percent Auto 74.6 % (45-73); Platelet Count 229 X10*3/uL (160-400); Red Blood Count 4.86 X10*6/uL (4.20-5.50); Red Cell Distribution Width 14.3 % (11.0-16.0); White Blood Count 5.2 X10*3/uL (4.8-10.8)
[2022-05-04 06:27] LABS: Anion Gap 13 (12-20); Blood Urea Nitrogen 16 mg/dL (9-16); Calcium 8.4 mg/dL (8.4-10.2); Carbon Dioxide 23 mmol/L (22-29); Chloride 107 mmol/L (96-108); Creatinine Clr Calc Pharmacy 54.1; Estimated Glomerular Filt Rate > 60; Glucose Random 142 mg/dL (60-115); Sodium 139 mmol/L (135-145)
--- NOTE | 2022-05-04 07:21 | HO.PM.IMPN ---
Subjective Subjective Date of Service: 05/05/22 Interval History: f/u on med management s/p small bowel surgery interval history: Physical Exam Vital Signs: Vital Signs: Last Vital Signs Temp 97.3 F 05/04/22 03:15 Pulse 83 05/04/22 03:15 Resp 18 05/04/22 03:15 BP 153/74 H 05/04/22 03:15 Pulse Ox 96 05/04/22 03:15 O2 Del Method 05/04/22 03:15 O2 Flow Rate 2 05/04/22 03:15 BMI result Body Mass Index 23.6 Const: Other: General: AO X 3, no acute distress Resp: CTA bilateral CVS: S1,S2,RRR GI: +BS, NT, no distention Skin: No rash Neuro: motor grossly intact Psych: appropriate affect Objective Data Active Medications Albuterol Sulfate (Albuterol Sulfate 90 Mcg 8 Gm Inhaler) 2 puff INHALE Q4H PRN PRN Reason: Wheezing Anastrozole (Anastrozole 1 Mg Tablet) 1 mg PO BEDTIME [facility] Last Admin: 05/03/22 21:50 Dose: 1 mg Documented By: MIKAYLA Heparin Sodium (Porcine) (Heparin Sodium,Porcine 5,000 Unit/Ml Vial) 5,000 unit SUBCUT Q12H [facility] Last Admin: 05/03/22 19:30 Dose: 5,000 unit Documented By: MIKAYLA Hydromorphone HCl (Hydromorphone Hcl 0.5 Mg/0.5 Ml Syringe) 0.5 mg IVPUSH Q3H PRN; Protocol PRN Reason: Pain, Severe (Pain Scale 7-10) Last Admin: 05/04/22 05:04 Dose: 0.5 mg Documented By: MIKAYLA Hydromorphone HCl (Hydromorphone Hcl 0.5 Mg/0.5 Ml Syringe) 0.25 mg IVPUSH Q5M PRN; Protocol PRN Reason: Pain, Severe (Pain Scale 7-10) Last Admin: 05/03/22 15:57 Dose: 0.25 mg Documented By: CARMEL Lactated Ringer's (Lr) 1,000 mls @ 100 mls/hr IVCONT .Q10H [facility] Last Admin: 05/04/22 01:37 Dose: 100 mls/hr Documented By: MIKAYLA Acetaminophen (Ofirmev) 1,000 mg in 100 mls @ 400 mls/hr IV Q6H [facility] Last Infusion: 05/04/22 01:58 Dose: 0 mls/hr Documented By: MIKAYLA Levothyroxine Sodium (Levothyroxine Sodium 75 Mcg Tablet) 75 mcg PO DAILY@0600 [facility] Last Admin: 05/04/22 05:55 Dose: 75 mcg Documented By: MIKAYLA Montelukast Sodium (Montelukast Sodium 10 Mg Tablet) 10 mg PO BEDTIME [facility] Last Admin: 05/03/22 20:35 Dose: 10 mg Documented By: MIKAYLA Non-Formulary Medication (Fluticasone Propionate) 1 puff INHALE BID [facility] Ondansetron HCl (Ondansetron Hcl 4 Mg/2 Ml Vial) 4 mg IVPUSH Q8H PRN PRN Reason: Nausea and Vomiting Last Admin: 05/04/22 03:17 Dose: 4 mg Documented By: MIKAYLA Sodium Chloride (0.9 % Sodium Chloride Flush 3 Ml Syringe) 3 ml IVFLUSH QSHIFT [facility] Last Admin: 05/03/22 21:53 Dose: 3 ml Documented By: MIKAYLA Zolpidem Tartrate (Zolpidem Tartrate 5 Mg Tablet) 5 mg PO BEDTIME PRN PRN Reason: Insomnia Labs 05/04/22 05:22 05/04/22 05:22 Labs: Laboratory Results - last 24 hr 05/03/22 05/03/22 05/03/22 06:21 08:57 08:57 MCV MCH MCHC RDW Plt Count MPV Immature Gran % (Auto) Neut % (Auto) Lymph % (Auto) [place] % (Auto) Eos % (Auto) Baso % (Auto) Lymph # (Auto) [place] # (Auto) Eos # (Auto) Baso # (Auto) Abs Immat Gran (auto) Absolute Neuts (auto) Absolute Nucleated RBC Nucleated RBC % (auto) Anion Gap Estim Creat Clear Calc Estimated GFR Random Glucose Lactic Acid F/U @ 2Hr 2.2 H* Lactic Acid F/U @ 4Hr Calcium COVID-19 (RISA) Negative COVID-19 Clin Com See Note Blood Type A Positive Antibody Screen NEGATIVE 05/03/22 05/04/22 05/04/22 15:44 05:22 05:22 MCV 87.2 MCH 28.4 MCHC 32.5 RDW 14.3 Plt Count 229 D MPV 11.5 Immature Gran % (Auto) 0.2 Neut % (Auto) 74.6 H Lymph % (Auto) 14.4 L [place] % (Auto) 10.6 Eos % (Auto) 0.0 Baso % (Auto) 0.2 Lymph # (Auto) 0.8 L [place] # (Auto) 0.6 Eos # (Auto) 0.0 Baso # (Auto) 0.0 Abs Immat Gran (auto) 0.01 Absolute Neuts (auto) 3.9 Absolute Nucleated RBC 0.000 Nucleated RBC % (auto) 0.0 Anion Gap 13 Estim Creat Clear Calc 54.1 Estimated GFR > 60 Random Glucose 142 H Lactic Acid F/U @ 2Hr Lactic Acid F/U @ 4Hr 1.6 Calcium 8.4 D COVID-19 (RISA) COVID-19 Clin Com Blood Type Antibody Screen Assessment and Plan (1) Elevated blood pressure reading: Status: Acute (2) Small bowel obstruction: Status: Acute (3) Partial small bowel obstruction: Status: Acute Plan 71/F with history? Colon, breast cancer, asthma, hypothyroidism here with SBO s/p resection now Bowel obstruction s/p Laparotomy, extensive lysis of adhesions, resection? by Dr. Herrera -Post management op care by surgery Hypothyroidism -Continue Levothyroxine Moderate persistent asthma--no exacerbation -Continue Flovent, Monteleukast, Albuterol Vitamin D def--continue replacement History of Breast CA--continue Anastrozole Elevated BP with no diagnosis of HTN-- will monitor for now and if BP stays high, will add meds Time Spent With Patient Time: Total time managing care of this patient today ____ minutes. Quality Stroke Does the patient have a stroke diagnosis?: No VTE Prior VTE?: No VTE Risk Level:: Surgical - moderate VTE Device Contraindication: N/A - Device Ordered VTE Drug Contraindication: N/A - Med Ordered
[2022-05-04 07:29] VITALS: BP 164/76; PULSE 88; RESP 20; TEMP 36.8; O2SAT 95
[2022-05-04] MEDS: Heparin Sodium,Porcine 5,000 UNIT/ML VIAL 5000 UNIT SUBCUT ×2 (07:37→19:50)
--- NOTE | 2022-05-04 09:28 | PM.PNGS ---
Subjective Subjective Date of Service: 05/04/22 Patient reports: still having pain, no flatus and nausea Interval history: The patient is seen in coverage for Dr. Herrera Patient had questions regarding her exploratory laparotomy, lysis of adhesion, small bowel resection with primary anastomosis and anastomotic stricture resection. Her questions seemed to be satisfactorily answered. She reports ongoing pain and nausea. Was contacted by nursing staff an increased her ondansetron. Patient notes that she does not tolerate antihistamine related anti emetics/anti nausea meds. She otherwise denies chest pain, difficulty breathing or shortness of breath. She is not using her incentive spirometer nor been out of bed today. She denies any flatus or bowel movement Physical Exam Vital Signs: Vital Signs: Last Vital Signs Temp 98.2 F 05/04/22 07:29 Pulse 88 05/04/22 07:29 Resp 20 05/04/22 07:29 BP 164/76 H 05/04/22 07:29 Pulse Ox 95 05/04/22 07:29 O2 Del Method 05/04/22 07:29 O2 Flow Rate 2 05/04/22 07:29 BMI result Body Mass Index 23.6 On exam, she is nontoxic Sclera are anicteric She is breathing without significant effort and not using any accessory muscles Abdomen is slightly distended and dressing is intact NG aspirate is light green/bilious [place] urine is light yellow with no blood or turbidity Objective Data Active Medications Albuterol Sulfate (Albuterol Sulfate 90 Mcg 8 Gm Inhaler) 2 puff INHALE Q4H PRN PRN Reason: Wheezing Anastrozole (Anastrozole 1 Mg Tablet) 1 mg PO BEDTIME [facility] Last Admin: 05/03/22 21:50 Dose: 1 mg Documented By: MIKAYLA Heparin Sodium (Porcine) (Heparin Sodium,Porcine 5,000 Unit/Ml Vial) 5,000 unit SUBCUT Q12H [facility] Last Admin: 05/04/22 07:37 Dose: 5,000 unit Documented By: GINA Hydromorphone HCl (Hydromorphone Hcl 0.5 Mg/0.5 Ml Syringe) 0.5 mg IVPUSH Q3H PRN; Protocol PRN Reason: Pain, Severe (Pain Scale 7-10) Last Admin: 05/04/22 05:04 Dose: 0.5 mg Documented By: MIAKYLA Hydromorphone HCl (Hydromorphone Hcl 0.5 Mg/0.5 Ml Syringe) 0.25 mg IVPUSH Q5M PRN; Protocol PRN Reason: Pain, Severe (Pain Scale 7-10) Last Admin: 05/03/22 15:57 Dose: 0.25 mg Documented By: CARMEL Lactated Ringer's (Lr) 1,000 mls @ 100 mls/hr IVCONT .Q10H [facility] Last Admin: 05/04/22 01:37 Dose: 100 mls/hr Documented By: MIKAYLA Acetaminophen (Ofirmev) 1,000 mg in 100 mls @ 400 mls/hr IV Q6H [facility] Last Infusion: 05/04/22 07:58 Dose: 0 mls/hr Documented By: GINA Levothyroxine Sodium (Levothyroxine Sodium 75 Mcg Tablet) 75 mcg PO DAILY@0600 [facility] Last Admin: 05/04/22 05:55 Dose: 75 mcg Documented By: MIKAYLA Montelukast Sodium (Montelukast Sodium 10 Mg Tablet) 10 mg PO BEDTIME [facility] Last Admin: 05/03/22 20:35 Dose: 10 mg Documented By: MIKAYLA Non-Formulary Medication (Fluticasone Propionate) 1 puff INHALE BID [facility] Ondansetron HCl (Ondansetron Hcl 4 Mg/2 Ml Vial) 8 mg IVPUSH Q6H PRN PRN Reason: Nausea and Vomiting Sodium Chloride (0.9 % Sodium Chloride Flush 3 Ml Syringe) 3 ml IVFLUSH QSHIFT [facility] Last Admin: 05/04/22 07:38 Dose: Not Given Documented By: GINA Non-Admin Reason: IV Running Zolpidem Tartrate (Zolpidem Tartrate 5 Mg Tablet) 5 mg PO BEDTIME PRN PRN Reason: Insomnia Labs 05/04/22 05:22 05/04/22 05:22 Labs: Laboratory Results - last 24 hr 05/03/22 05/03/22 05/04/22 08:57 15:44 05:22 MCV 87.2 MCH 28.4 MCHC 32.5 RDW 14.3 Plt Count 229 D MPV 11.5 Immature Gran % (Auto) 0.2 Neut % (Auto) 74.6 H Lymph % (Auto) 14.4 L [place] % (Auto) 10.6 Eos % (Auto) 0.0 Baso % (Auto) 0.2 Lymph # (Auto) 0.8 L [place] # (Auto) 0.6 Eos # (Auto) 0.0 Baso # (Auto) 0.0 Abs Immat Gran (auto) 0.01 Absolute Neuts (auto) 3.9 Absolute Nucleated RBC 0.000 Nucleated RBC % (auto) 0.0 Anion Gap Estim Creat Clear Calc Estimated GFR Random Glucose Lactic Acid F/U @ 4Hr 1.6 Calcium Blood Type A Positive Antibody Screen NEGATIVE 05/04/22 05:22 MCV MCH MCHC RDW Plt Count MPV Immature Gran % (Auto) Neut % (Auto) Lymph % (Auto) [place] % (Auto) Eos % (Auto) Baso % (Auto) Lymph # (Auto) [place] # (Auto) Eos # (Auto) Baso # (Auto) Abs Immat Gran (auto) Absolute Neuts (auto) Absolute Nucleated RBC Nucleated RBC % (auto) Anion Gap 13 Estim Creat Clear Calc 54.1 Estimated GFR > 60 Random Glucose 142 H Lactic Acid F/U @ 4Hr Calcium 8.4 D Blood Type Antibody Screen Microbiology Microbiology Results: Microbiology 05/03/22 06:21 Blood Culture - Preliminary Blood - Venous No growth after 24 hours. 05/03/22 06:21 Blood Culture - Preliminary Blood - Venous No growth after 24 hours. Procedures Date of Service Date of Service: 05/04/22 Progress Note: A&P Assessment and plan (1) Partial small bowel obstruction: Status: Acute (2) Small bowel obstruction: Status: Acute Plan Continue IV fluid, nasogastric tube; await bowel function Out of bed to chair today, ambulate. If pain and nausea interferes, will reassess tomorrow on postop day 2 See orders regarding anti emetics change Incentive spirometry was discussed with the patient. Time Spent With Patient Time: Total time managing care of this patient today ____ minutes. Quality Stroke Does the patient have a stroke diagnosis?: No VTE Prior VTE?: No VTE Risk Level:: Surgical - moderate VTE Device Contraindication: N/A - Device Ordered VTE Drug Contraindication: N/A - Med Ordered
--- NOTE | 2022-05-04 10:44 | PM.EVENT ---
Event Note Date of Service: 05/04/22 Event Note: main complaint is nausea denies flatus pain seems well controlled dressings dry abd with some distension NGT flushed Phenergan added OOB conitnue incentive spirometry anticipate ileus Time Spent With Patient Time: Total time managing care of this patient today ____ minutes.
--- NOTE | 2022-05-04 11:38 | HO.POSTANES ---
Post Anesthesia Evaluation Post Anesthesia Evaluation Vital Signs: Vital Signs Temp Pulse Resp BP Pulse Ox O2 Del Method O2 Flow Rate 05/04/22 07:29 98.2 F 88 20 164/76 H 95 Nasal Cannula 2 05/04/22 03:15 97.3 F 83 18 153/74 H 96 Nasal Cannula 2 Anesthesia: General Endotracheal-GETA Mental Status: Awake Pain Control: Satisfactory Nausea/Vomiting: None Hydration: Adequate Anesthesia-Related Issues: No Anes. Related Issues
[2022-05-04] MEDS: ondansetron HCL 4 MG/2 ML VIAL 8 MG IVPUSH (13:28)
[2022-05-04 16:00] VITALS: BP 151/70; PULSE 86; RESP 16; TEMP 36.7; O2SAT 94
[2022-05-04 19:19] VITALS: BP 142/74; PULSE 90; RESP 18; TEMP 36.3; O2SAT 91
[2022-05-04] MEDS: Montelukast Sodium 10 MG TABLET PO (20:48)
[2022-05-04] MEDS: Anastrozole 1 MG TABLET PO (20:48)
[2022-05-05] MEDS: Acetaminophen 1,000 MG/100 ML PIGGYBACK 400 MG IV ×4 (01:51→19:54)
[2022-05-05] MEDS: HYDROmorphone HCl 0.5 MG/0.5 ML SYRINGE IVPUSH ×4 (02:00→22:32)
[2022-05-05] MEDS: ondansetron HCL 4 MG/2 ML VIAL 8 MG IVPUSH ×2 (02:01→10:31)
[2022-05-05 03:43] VITALS: BP 135/65; PULSE 89; RESP 18; TEMP 36.7; O2SAT 94
[2022-05-05] MEDS: Levothyroxine Sodium 75 MCG TABLET PO (05:47)
[2022-05-05] MEDS: Lactated Ringers 1,000 ML 100 ML IVCONT ×2 (05:47→15:29)
[2022-05-05 07:27] VITALS: BP 145/68; PULSE 97; RESP 18; TEMP 37.1; O2SAT 92
[2022-05-05] MEDS: Heparin Sodium,Porcine 5,000 UNIT/ML VIAL 5000 UNIT SUBCUT ×2 (07:28→18:37)
[2022-05-05] MEDS: 0.9 % Sodium Chloride Flush 3 ML SYRINGE IVFLUSH (07:29)
--- NOTE | 2022-05-05 08:18 | HO.PM.IMPN ---
Subjective Subjective Date of Service: 05/05/22 Interval History: f/u on med management s/p small bowel surgery interval history: feels better, still with nausea, pain is controlled, no bm, no flattus Review of Systems Gen: no fever Resp: no sob, no cough CV: no chest, no WHALEY, no leg edema GI: No n/v, no abd pain Neuro: No confusion some back discomfort Physical Exam Vital Signs: Vital Signs: Last Vital Signs Temp 98.7 F 05/05/22 07:27 Pulse 97 05/05/22 07:27 Resp 18 05/05/22 07:27 BP 145/68 H 05/05/22 07:27 Pulse Ox 92 05/05/22 07:27 O2 Del Method 05/05/22 03:43 O2 Flow Rate 2 05/04/22 07:29 BMI result Body Mass Index 23.6 Const: Other: General: AO X 3, no acute distress Resp: CTA bilateral CVS: S1,S2,RRR GI: +BS, NT, no distention Skin: No rash Neuro: motor grossly intact Psych: appropriate affect Objective Data Active Medications Albuterol Sulfate (Albuterol Sulfate 90 Mcg 8 Gm Inhaler) 2 puff INHALE Q4H PRN PRN Reason: Wheezing Anastrozole (Anastrozole 1 Mg Tablet) 1 mg PO BEDTIME [facility] Last Admin: 05/04/22 20:48 Dose: 1 mg Documented By: MIKAYLA Heparin Sodium (Porcine) (Heparin Sodium,Porcine 5,000 Unit/Ml Vial) 5,000 unit SUBCUT Q12H [facility] Last Admin: 05/05/22 07:28 Dose: 5,000 unit Documented By: GINA Hydromorphone HCl (Hydromorphone Hcl 0.5 Mg/0.5 Ml Syringe) 0.5 mg IVPUSH Q3H PRN; Protocol PRN Reason: Pain, Severe (Pain Scale 7-10) Last Admin: 05/05/22 02:00 Dose: 0.5 mg Documented By: MIKAYLA Hydromorphone HCl (Hydromorphone Hcl 0.5 Mg/0.5 Ml Syringe) 0.25 mg IVPUSH Q5M PRN; Protocol PRN Reason: Pain, Severe (Pain Scale 7-10) Last Admin: 05/03/22 15:57 Dose: 0.25 mg Documented By: CARMEL Lactated Ringer's (Lr) 1,000 mls @ 100 mls/hr IVCONT .Q10H [facility] Last Admin: 05/05/22 05:47 Dose: 100 mls/hr Documented By: MIKAYLA Acetaminophen (Ofirmev) 1,000 mg in 100 mls @ 400 mls/hr IV Q6H [facility] Last Infusion: 05/05/22 08:04 Dose: 0 mls/hr Documented By: GINA Promethazine HCl 6.25 mg/ (Sodium Chloride) 50.25 mls @ 201 mls/hr IV Q6H PRN PRN Reason: Nausea Last Infusion: 05/05/22 08:04 Dose: 0 mls/hr Documented By: GINA Levothyroxine Sodium (Levothyroxine Sodium 75 Mcg Tablet) 75 mcg PO DAILY@0600 [facility] Last Admin: 05/05/22 05:47 Dose: 75 mcg Documented By: MIKAYLA Montelukast Sodium (Montelukast Sodium 10 Mg Tablet) 10 mg PO BEDTIME [facility] Last Admin: 05/04/22 20:48 Dose: 10 mg Documented By: MIKAYLA Non-Formulary Medication (Fluticasone Propionate) 1 puff INHALE BID [facility] Ondansetron HCl (Ondansetron Hcl 4 Mg/2 Ml Vial) 8 mg IVPUSH Q6H PRN PRN Reason: Nausea and Vomiting Last Admin: 05/05/22 02:01 Dose: 8 mg Documented By: MIKAYLA Sodium Chloride (0.9 % Sodium Chloride Flush 3 Ml Syringe) 3 ml IVFLUSH QSHIFT [facility] Last Admin: 05/05/22 07:29 Dose: 3 ml Documented By: GINA Zolpidem Tartrate (Zolpidem Tartrate 5 Mg Tablet) 5 mg PO BEDTIME PRN PRN Reason: Insomnia Labs 05/04/22 05:22 05/04/22 05:22 Microbiology Microbiology Results: Microbiology 05/03/22 06:21 Blood Culture - Preliminary Blood - Venous No growth after 24 hours. 05/03/22 06:21 Blood Culture - Preliminary Blood - Venous No growth after 24 hours. Assessment and Plan (1) Elevated blood pressure reading: Status: Acute (2) Small bowel obstruction: Status: Acute (3) Partial small bowel obstruction: Status: Acute Plan 71/F with history? Colon, breast cancer, asthma, hypothyroidism here with SBO s/p resection now Bowel obstruction s/p Laparotomy, extensive lysis of adhesions, resection? by Dr. Herrera NPO -Post op management by surgery Hypothyroidism -Continue Levothyroxine Moderate persistent asthma--no exacerbation -Continue Flovent, Monteleukast, Albuterol Vitamin D def--continue replacement History of Breast CA--continue Anastrozole Elevated BP with no diagnosis of HTN--BP is within normal now, no indication for meds Time Spent With Patient Time: Total time managing care of this patient today ____ minutes. Quality Stroke Does the patient have a stroke diagnosis?: No VTE Prior VTE?: No VTE Risk Level:: Surgical - moderate VTE Device Contraindication: N/A - Device Ordered VTE Drug Contraindication: N/A - Med Ordered
--- NOTE | 2022-05-05 09:10 | P.PNGS_ITS ---
Subjective Subjective Date of Service: 05/05/22 Patient reports: feels better, still having pain and nausea Interval history: The patient is seen in coverage for Dr. Herrera She reports ongoing nausea which is better controlled with higher dose ondansetron. She is out of bed to chair and states she is moving around well enough she would like her Davis removed. She denies any flatus or bowel movement and expressed concerns that the NG tube is causing/contributing to her nausea, but we discussed abdominal bloating and vomiting and need to replace an NG that is removed too quickly. She seems to understand the need to keep the tube at this point She otherwise denies neurologic symptoms, headache vision changes, chest pain, difficulty breathing or shortness of breath Physical Exam Vital Signs: Vital Signs: Last Vital Signs Temp 98.7 F 05/05/22 07:27 Pulse 97 05/05/22 07:27 Resp 18 05/05/22 07:27 BP 145/68 H 05/05/22 07:27 Pulse Ox 92 05/05/22 07:27 O2 Del Method 05/05/22 03:43 O2 Flow Rate 2 05/04/22 07:29 BMI result Body Mass Index 23.6 On exam she is anicteric and nontoxic She is having no respiratory distress Abdomen has appropriate incisional tenderness in the dressing is clean dry and intact NG aspirate is light green and not stagnant Davis has light yellow urine that is free of blood & turbidity Objective Data Active Medications Albuterol Sulfate (Albuterol Sulfate 90 Mcg 8 Gm Inhaler) 2 puff INHALE Q4H PRN PRN Reason: Wheezing Anastrozole (Anastrozole 1 Mg Tablet) 1 mg PO BEDTIME [facility] Last Admin: 05/04/22 20:48 Dose: 1 mg Documented By: MIKAYLA Heparin Sodium (Porcine) (Heparin Sodium,Porcine 5,000 Unit/Ml Vial) 5,000 unit SUBCUT Q12H [facility] Last Admin: 05/05/22 07:28 Dose: 5,000 unit Documented By: GINA Hydromorphone HCl (Hydromorphone Hcl 0.5 Mg/0.5 Ml Syringe) 0.5 mg IVPUSH Q3H PRN; Protocol PRN Reason: Pain, Severe (Pain Scale 7-10) Last Admin: 05/05/22 02:00 Dose: 0.5 mg Documented By: MIKAYLA Hydromorphone HCl (Hydromorphone Hcl 0.5 Mg/0.5 Ml Syringe) 0.25 mg IVPUSH Q5M PRN; Protocol PRN Reason: Pain, Severe (Pain Scale 7-10) Last Admin: 05/03/22 15:57 Dose: 0.25 mg Documented By: CARMEL Lactated Ringer's (Lr) 1,000 mls @ 100 mls/hr IVCONT .Q10H [facility] Last Admin: 05/05/22 05:47 Dose: 100 mls/hr Documented By: MIKAYLA Acetaminophen (Ofirmev) 1,000 mg in 100 mls @ 400 mls/hr IV Q6H [facility] Last Infusion: 05/05/22 08:04 Dose: 0 mls/hr Documented By: GINA Promethazine HCl 6.25 mg/ (Sodium Chloride) 50.25 mls @ 201 mls/hr IV Q6H PRN PRN Reason: Nausea Last Infusion: 05/05/22 08:04 Dose: 0 mls/hr Documented By: GINA Levothyroxine Sodium (Levothyroxine Sodium 75 Mcg Tablet) 75 mcg PO DAILY@0600 [facility] Last Admin: 05/05/22 05:47 Dose: 75 mcg Documented By: MIKAYLA Montelukast Sodium (Montelukast Sodium 10 Mg Tablet) 10 mg PO BEDTIME [facility] Last Admin: 05/04/22 20:48 Dose: 10 mg Documented By: MIKAYLA Non-Formulary Medication (Fluticasone Propionate) 1 puff INHALE BID [facility] Ondansetron HCl (Ondansetron Hcl 4 Mg/2 Ml Vial) 8 mg IVPUSH Q6H PRN PRN Reason: Nausea and Vomiting Last Admin: 05/05/22 02:01 Dose: 8 mg Documented By: MIKAYLA Sodium Chloride (0.9 % Sodium Chloride Flush 3 Ml Syringe) 3 ml IVFLUSH QSHIFT [facility] Last Admin: 05/05/22 07:29 Dose: 3 ml Documented By: GINA Zolpidem Tartrate (Zolpidem Tartrate 5 Mg Tablet) 5 mg PO BEDTIME PRN PRN Reason: Insomnia Labs 05/04/22 05:22 05/04/22 05:22 Microbiology Microbiology Results: Microbiology 05/03/22 06:21 Blood Culture - Preliminary Blood - Venous No growth after 48 hours. 05/03/22 06:21 Blood Culture - Preliminary Blood - Venous No growth after 48 hours. Procedures Date of Service Date of Service: 05/05/22 Progress Note: A&P Assessment and plan (1) Small bowel obstruction: Status: Acute (2) Asthma: Status: Acute (3) Partial small bowel obstruction: Status: Acute Plan See orders Continue NG tube, IV fluid; await bowel function DC Davis, trend labs Encourage ambulation and incentive spirometry Time Spent With Patient Time: Total time managing care of this patient today ____ minutes. Quality Stroke Does the patient have a stroke diagnosis?: No VTE Prior VTE?: No VTE Risk Level:: Surgical - moderate VTE Device Contraindication: N/A - Device Ordered VTE Drug Contraindication: N/A - Med Ordered
--- NOTE | 2022-05-05 10:46 | PM.EVENT ---
Event Note Date of Service: 05/05/22 Event Note: still nauseous, wants NGT out sitting on recliner pain seems well controlled stable VS abd soft, less distended compared to yesterday good UO looks better than yesterday Cepacol NGT still with significant output after flushing - would keep in place until signs of return fo GI function OOB incentive spirometry family at bedside Time Spent With Patient Time: Total time managing care of this patient today ____ minutes.
[2022-05-05] MEDS: Throat Lozenge, Medicated LOZENGE 1 LOZENGE MUCOUS MEM (11:13)
--- NOTE | 2022-05-05 12:59 | PC.NURSE ---
1044 [place] catheter removed, patient tolerated well, DTV [id number]
[2022-05-05 16:00] VITALS: BP 151/72; PULSE 100; RESP 16; TEMP 36.6; O2SAT 94
[2022-05-05 20:00] VITALS: BP 124/58; PULSE 98; RESP 20; TEMP 36.6; O2SAT 92
[2022-05-05] MEDS: Montelukast Sodium 10 MG TABLET PO (20:49)
[2022-05-05] MEDS: Anastrozole 1 MG TABLET PO (20:49)
[2022-05-06] MEDS: Lactated Ringers 1,000 ML 100 ML IVCONT ×3 (01:48→22:32)
[2022-05-06] MEDS: Acetaminophen 1,000 MG/100 ML PIGGYBACK 400 MG IV ×3 (01:48→14:12)
[2022-05-06 03:34] VITALS: BP 144/71; PULSE 96; RESP 18; TEMP 36.2; O2SAT 93
[2022-05-06] MEDS: ondansetron HCL 4 MG/2 ML VIAL 8 MG IVPUSH ×2 (03:39→11:47)
[2022-05-06] MEDS: HYDROmorphone HCl 0.5 MG/0.5 ML SYRINGE IVPUSH ×4 (03:46→20:35)
[2022-05-06] MEDS: Levothyroxine Sodium 75 MCG TABLET PO (05:42)
[2022-05-06 07:04] VITALS: BP 146/70; PULSE 92; RESP 17; TEMP 36.1; O2SAT 92
[2022-05-06] MEDS: 0.9 % Sodium Chloride Flush 3 ML SYRINGE IVFLUSH ×3 (07:18→20:35)
--- NOTE | 2022-05-06 07:22 | P.PNIM_ITS ---
Subjective Subjective Date of Service: 05/06/22 Interval History: f/u on med management s/p small bowel surgery interval history: feels better, still with nausea, pain is controlled, no bm, + flattus Physical Exam Vital Signs: Vital Signs: Last Vital Signs Temp 97 F 05/06/22 07:04 Pulse 92 05/06/22 07:04 Resp 17 05/06/22 07:04 BP 146/70 H 05/06/22 07:04 Pulse Ox 92 05/06/22 07:04 O2 Del Method 05/06/22 07:04 O2 Flow Rate 2 05/04/22 07:29 BMI result Body Mass Index 23.6 Const: Other: General: AO X 3, no acute distress Resp: CTA bilateral CVS: S1,S2,RRR GI: +BS, NT, no distention Skin: No rash Neuro: motor grossly intact Psych: appropriate affect Objective Data Active Medications Albuterol Sulfate (Albuterol Sulfate 90 Mcg 8 Gm Inhaler) 2 puff INHALE Q4H PRN PRN Reason: Wheezing Anastrozole (Anastrozole 1 Mg Tablet) 1 mg PO BEDTIME [facility] Last Admin: 05/05/22 20:49 Dose: 1 mg Documented By: MIKAYLA Benzocaine (Throat Lozenge, Medicated Lozenge) 1 lozenge MUCOUS MEM Q2H PRN PRN Reason: Sore Throat Last Admin: 05/05/22 11:13 Dose: 1 lozenge Documented By: GINA Heparin Sodium (Porcine) (Heparin Sodium,Porcine 5,000 Unit/Ml Vial) 5,000 unit SUBCUT Q12H [facility] Last Admin: 05/05/22 18:37 Dose: 5,000 unit Documented By: GINA Hydromorphone HCl (Hydromorphone Hcl 0.5 Mg/0.5 Ml Syringe) 0.5 mg IVPUSH Q3H PRN; Protocol PRN Reason: Pain, Severe (Pain Scale 7-10) Last Admin: 05/06/22 03:46 Dose: 0.5 mg Documented By: MIKAYLA Hydromorphone HCl (Hydromorphone Hcl 0.5 Mg/0.5 Ml Syringe) 0.25 mg IVPUSH Q5M PRN; Protocol PRN Reason: Pain, Severe (Pain Scale 7-10) Last Admin: 05/03/22 15:57 Dose: 0.25 mg Documented By: CARMEL Lactated Ringer's (Lr) 1,000 mls @ 100 mls/hr IVCONT .Q10H [facility] Last Admin: 05/06/22 01:48 Dose: 100 mls/hr Documented By: MIKAYLA Acetaminophen (Ofirmev) 1,000 mg in 100 mls @ 400 mls/hr IV Q6H [facility] Last Admin: 05/06/22 07:18 Dose: 400 mls/hr Documented By: BROOKLYN Promethazine HCl 6.25 mg/ (Sodium Chloride) 50.25 mls @ 201 mls/hr IV Q6H PRN PRN Reason: Nausea Last Infusion: 05/05/22 08:04 Dose: 0 mls/hr Documented By: IGNA Levothyroxine Sodium (Levothyroxine Sodium 75 Mcg Tablet) 75 mcg PO DAILY@0600 [facility] Last Admin: 05/06/22 05:42 Dose: 75 mcg Documented By: MIKAYLA Montelukast Sodium (Montelukast Sodium 10 Mg Tablet) 10 mg PO BEDTIME [facility] Last Admin: 05/05/22 20:49 Dose: 10 mg Documented By: MIKAYLA Multi-Ingred Medicated Throat [place] (Throat [place], Medicated 177 Ml Bottle) 1 spray MUCOUS MEM Q2H PRN PRN Reason: Sore Throat Non-Formulary Medication (Fluticasone Propionate) 1 puff INHALE BID [facility] Ondansetron HCl (Ondansetron Hcl 4 Mg/2 Ml Vial) 8 mg IVPUSH Q6H PRN PRN Reason: Nausea and Vomiting Last Admin: 05/06/22 03:39 Dose: 8 mg Documented By: MIKAYLA Sodium Chloride (0.9 % Sodium Chloride Flush 3 Ml Syringe) 3 ml IVFLUSH QSHIFT [facility] Last Admin: 05/06/22 07:18 Dose: 3 ml Documented By: BROOKLYN Zolpidem Tartrate (Zolpidem Tartrate 5 Mg Tablet) 5 mg PO BEDTIME PRN PRN Reason: Insomnia Labs 05/04/22 05:22 05/04/22 05:22 Microbiology Microbiology Results: Microbiology 05/03/22 06:21 Blood Culture - Preliminary Blood - Venous No growth after 48 hours. 05/03/22 06:21 Blood Culture - Preliminary Blood - Venous No growth after 48 hours. Assessment and Plan (1) Elevated blood pressure reading: Status: Acute Plan 71/F with history? Colon, breast cancer, asthma, hypothyroidism here with SBO s/p resection now Bowel obstruction s/p Laparotomy, extensive lysis of adhesions, resection? by Dr. Herrera NPO, still has NGT -Post op management by surgery Hypothyroidism -Continue Levothyroxine Moderate persistent asthma--no exacerbation -Continue Flovent, Monteleukast, Albuterol Vitamin D def--continue replacement History of Breast CA--continue Anastrozole Elevated BP with no diagnosis of HTN--BP variable, pt states BPs are usually normal and would wait on med management at this time. DVT prophylaxis: per surgery Time Spent With Patient Time: Total time managing care of this patient today ____ minutes. Quality Stroke Does the patient have a stroke diagnosis?: No VTE Prior VTE?: No VTE Risk Level:: Surgical - moderate VTE Device Contraindication: N/A - Device Ordered VTE Drug Contraindication: N/A - Med Ordered
[2022-05-06] MEDS: Heparin Sodium,Porcine 5,000 UNIT/ML VIAL 5000 UNIT SUBCUT ×2 (07:50→20:40)
--- NOTE | 2022-05-06 07:59 | P.PNGS_ITS ---
Subjective Subjective Date of Service: 05/07/22 Interval history: says she has passed good amounts of flatus feels much better overall nausea seems resolved pain well controlled Physical Exam Vital Signs: Vital Signs: Last Vital Signs Temp 97 F 05/06/22 07:04 Pulse 92 05/06/22 07:04 Resp 17 05/06/22 07:04 BP 146/70 H 05/06/22 07:04 Pulse Ox 92 05/06/22 07:04 O2 Del Method 05/06/22 07:04 O2 Flow Rate 2 05/04/22 07:29 BMI result Body Mass Index 23.6 Const: Other: sitting on recliner General: comfortable and no acute distress Resp: Effort & Inspection: normal respiratory effort Cardio: Rate: regular rate GI: Other: soft, incision clean Palpation (GI): no guarding and not rigid Objective Data Active Medications Albuterol Sulfate (Albuterol Sulfate 90 Mcg 8 Gm Inhaler) 2 puff INHALE Q4H PRN PRN Reason: Wheezing Anastrozole (Anastrozole 1 Mg Tablet) 1 mg PO BEDTIME [facility] Last Admin: 05/05/22 20:49 Dose: 1 mg Documented By: MIKAYLA Benzocaine (Throat Lozenge, Medicated Lozenge) 1 lozenge MUCOUS MEM Q2H PRN PRN Reason: Sore Throat Last Admin: 05/05/22 11:13 Dose: 1 lozenge Documented By: GINA Heparin Sodium (Porcine) (Heparin Sodium,Porcine 5,000 Unit/Ml Vial) 5,000 unit SUBCUT Q12H [facility] Last Admin: 05/06/22 07:50 Dose: 5,000 unit Documented By: BROOKLYN Hydromorphone HCl (Hydromorphone Hcl 0.5 Mg/0.5 Ml Syringe) 0.5 mg IVPUSH Q3H PRN; Protocol PRN Reason: Pain, Severe (Pain Scale 7-10) Last Admin: 05/06/22 03:46 Dose: 0.5 mg Documented By: MIKAYLA Hydromorphone HCl (Hydromorphone Hcl 0.5 Mg/0.5 Ml Syringe) 0.25 mg IVPUSH Q5M PRN; Protocol PRN Reason: Pain, Severe (Pain Scale 7-10) Last Admin: 05/03/22 15:57 Dose: 0.25 mg Documented By: CARMEL Lactated Ringer's (Lr) 1,000 mls @ 100 mls/hr IVCONT .Q10H [facility] Last Admin: 05/06/22 01:48 Dose: 100 mls/hr Documented By: MIKAYLA Acetaminophen (Ofirmev) 1,000 mg in 100 mls @ 400 mls/hr IV Q6H [facility] Last Infusion: 05/06/22 07:39 Dose: 0 mls/hr Documented By: BROOKLYN Promethazine HCl 6.25 mg/ (Sodium Chloride) 50.25 mls @ 201 mls/hr IV Q6H PRN PRN Reason: Nausea Last Infusion: 05/05/22 08:04 Dose: 0 mls/hr Documented By: GINA Levothyroxine Sodium (Levothyroxine Sodium 75 Mcg Tablet) 75 mcg PO DAILY@0600 [facility] Last Admin: 05/06/22 05:42 Dose: 75 mcg Documented By: MIKAYLA Montelukast Sodium (Montelukast Sodium 10 Mg Tablet) 10 mg PO BEDTIME [facility] Last Admin: 05/05/22 20:49 Dose: 10 mg Documented By: MIKAYLA Multi-Ingred Medicated Throat [place] (Throat [place], Medicated 177 Ml Bottle) 1 spray MUCOUS MEM Q2H PRN PRN Reason: Sore Throat Non-Formulary Medication (Fluticasone Propionate) 1 puff INHALE BID [facility] Ondansetron HCl (Ondansetron Hcl 4 Mg/2 Ml Vial) 8 mg IVPUSH Q6H PRN PRN Reason: Nausea and Vomiting Last Admin: 05/06/22 03:39 Dose: 8 mg Documented By: MIKAYLA Sodium Chloride (0.9 % Sodium Chloride Flush 3 Ml Syringe) 3 ml IVFLUSH QSHIFT [facility] Last Admin: 05/06/22 07:18 Dose: 3 ml Documented By: BROOKLYN Zolpidem Tartrate (Zolpidem Tartrate 5 Mg Tablet) 5 mg PO BEDTIME PRN PRN Reason: Insomnia Labs 05/04/22 05:22 05/04/22 05:22 Microbiology Microbiology Results: Microbiology 05/03/22 06:21 Blood Culture - Preliminary Blood - Venous No growth after 48 hours. 05/03/22 06:21 Blood Culture - Preliminary Blood - Venous No growth after 48 hours. Procedures Date of Service Date of Service: 05/07/22 Progress Note: A&P Assessment and plan (1) Small bowel obstruction: Status: Acute Assessment and Plan: s/p resection of old ileocolonic anastomosis, and second segment of adherent small bowel now with good flatus subjectively she feels much better NGT removed sips of clears for now ambulate more clinically doing well await path report Time Spent With Patient Time: Total time managing care of this patient today ____ minutes. Quality Stroke Does the patient have a stroke diagnosis?: No VTE Prior VTE?: No VTE Risk Level:: Surgical - moderate VTE Device Contraindication: N/A - Device Ordered VTE Drug Contraindication: N/A - Med Ordered
[2022-05-06 15:31] VITALS: BP 125/60; PULSE 82; RESP 16; TEMP 36.2; O2SAT 93
--- NOTE | 2022-05-06 15:37 | PM.EVENT ---
Event Note Date of Service: 05/06/22 Event Note: Seen on afternoon rounds Continues to feel well Been ambulating Passing more flatus Had BM Pain well controlled Clinically looks well Abdomen soft Likely advance diet tomorrow Time Spent With Patient Time: Total time managing care of this patient today ____ minutes.
[2022-05-06] MEDS: oxyCODONE HCl Immed Release 5 MG TABLET PO ×2 (17:04→23:47)
[2022-05-06 19:55] VITALS: BP 141/66; PULSE 80; RESP 20; TEMP 36.6; O2SAT 93
[2022-05-06] MEDS: Anastrozole 1 MG TABLET PO (20:41)
[2022-05-06] MEDS: Montelukast Sodium 10 MG TABLET PO (20:41)
[2022-05-07] MEDS: polyethylene glycoL 3350 17 GM POWD.PACK PO (02:24)
[2022-05-07 02:58] VITALS: BP 159/73; PULSE 93; RESP 18; TEMP 36.8; O2SAT 94
[2022-05-07] MEDS: oxyCODONE HCl Immed Release 5 MG TABLET PO ×5 (04:00→21:04)
[2022-05-07] MEDS: Heparin Sodium,Porcine 5,000 UNIT/ML VIAL 5000 UNIT SUBCUT ×2 (06:32→18:11)
[2022-05-07] MEDS: Levothyroxine Sodium 75 MCG TABLET PO (06:32)
[2022-05-07 06:59] VITALS: BP 150/71; PULSE 88; RESP 18; TEMP 36.6; O2SAT 93
--- NOTE | 2022-05-07 08:12 | PM.PNGS ---
Subjective Subjective Date of Service: 05/08/22 Interval history: Says she continues to feel better Passing flatus Had BMs yesterday Has been ambulating Says she only takes oral pain meds Physical Exam Vital Signs: Vital Signs: Last Vital Signs Temp 98 F 05/07/22 06:59 Pulse 88 05/07/22 06:59 Resp 18 05/07/22 06:59 BP 150/71 H 05/07/22 06:59 Pulse Ox 93 05/07/22 06:59 O2 Del Method 05/07/22 06:59 O2 Flow Rate 2 05/04/22 07:29 BMI result Body Mass Index 23.6 Const: General: comfortable and no acute distress Resp: Effort & Inspection: normal respiratory effort Cardio: Rate: regular rate GI: Other: Incision clean and dry Palpation (GI): Soft to palpation and not firm Objective Data Active Medications Albuterol Sulfate (Albuterol Sulfate 90 Mcg 8 Gm Inhaler) 2 puff INHALE Q4H PRN PRN Reason: Wheezing Anastrozole (Anastrozole 1 Mg Tablet) 1 mg PO BEDTIME [facility] Last Admin: 05/06/22 20:41 Dose: 1 mg Documented By: JASON Benzocaine (Throat Lozenge, Medicated Lozenge) 1 lozenge MUCOUS MEM Q2H PRN PRN Reason: Sore Throat Last Admin: 05/05/22 11:13 Dose: 1 lozenge Documented By: GINA Heparin Sodium (Porcine) (Heparin Sodium,Porcine 5,000 Unit/Ml Vial) 5,000 unit SUBCUT Q12H [facility] Last Admin: 05/07/22 06:32 Dose: 5,000 unit Documented By: JASON Hydromorphone HCl (Hydromorphone Hcl 0.5 Mg/0.5 Ml Syringe) 0.5 mg IVPUSH Q3H PRN; Protocol PRN Reason: Pain, Severe (Pain Scale 7-10) Last Admin: 05/06/22 20:35 Dose: 0.5 mg Documented By: JASON Hydromorphone HCl (Hydromorphone Hcl 0.5 Mg/0.5 Ml Syringe) 0.25 mg IVPUSH Q5M PRN; Protocol PRN Reason: Pain, Severe (Pain Scale 7-10) Last Admin: 05/03/22 15:57 Dose: 0.25 mg Documented By: CARMEL Lactated Ringer's (Lr) 1,000 mls @ 100 mls/hr IVCONT .Q10H [facility] Last Admin: 05/06/22 22:32 Dose: 100 mls/hr Documented By: JASON Promethazine HCl 6.25 mg/ (Sodium Chloride) 50.25 mls @ 201 mls/hr IV Q6H PRN PRN Reason: Nausea Last Infusion: 05/05/22 08:04 Dose: 0 mls/hr Documented By: GINA Levothyroxine Sodium (Levothyroxine Sodium 75 Mcg Tablet) 75 mcg PO DAILY@0600 [facility] Last Admin: 05/07/22 06:32 Dose: 75 mcg Documented By: JASON Montelukast Sodium (Montelukast Sodium 10 Mg Tablet) 10 mg PO BEDTIME [facility] Last Admin: 05/06/22 20:41 Dose: 10 mg Documented By: JASON Multi-Ingred Medicated Throat [place] (Throat [place], Medicated 177 Ml Bottle) 1 spray MUCOUS MEM Q2H PRN PRN Reason: Sore Throat Non-Formulary Medication (Fluticasone Propionate) 1 puff INHALE BID [facility] Ondansetron HCl (Ondansetron Hcl 4 Mg/2 Ml Vial) 8 mg IVPUSH Q6H PRN PRN Reason: Nausea and Vomiting Last Admin: 05/06/22 11:47 Dose: 8 mg Documented By: BROOKLYN Oxycodone HCl (Oxycodone Hcl Immed Release 5 Mg Tablet) 5 mg PO Q4H PRN PRN Reason: Pain, Moderate (Pain Scale 4-6 Last Admin: 05/07/22 04:00 Dose: 5 mg Documented By: JASON Polyethylene Glycol (Polyethylene Glycol 3350 17 Gm Powd.Pack) 17 gm PO DAILY PRN PRN Reason: Constipation Last Admin: 05/07/22 02:24 Dose: 17 gm Documented By: JASON Sodium Chloride (0.9 % Sodium Chloride Flush 3 Ml Syringe) 3 ml IVFLUSH QSHIFT [facility] Last Admin: 05/06/22 20:35 Dose: 3 ml Documented By: JASON Zolpidem Tartrate (Zolpidem Tartrate 5 Mg Tablet) 5 mg PO BEDTIME PRN PRN Reason: Insomnia Labs 05/04/22 05:22 05/04/22 05:22 Procedures Date of Service Date of Service: 05/07/22 Progress Note: A&P Assessment and plan (1) Small bowel obstruction: Status: Acute Assessment and Plan: Status post resection Clinically doing well Diet as tolerated Continue ambulation Incentive spirometry Pain management Appears to have return of GI function Time Spent With Patient Time: Total time managing care of this patient today ____ minutes. Quality Stroke Does the patient have a stroke diagnosis?: No VTE Prior VTE?: No VTE Risk Level:: Surgical - moderate VTE Device Contraindication: N/A - Device Ordered VTE Drug Contraindication: N/A - Med Ordered
[2022-05-07] MEDS: Lactated Ringers 1,000 ML 100 ML IVCONT (08:26)
[2022-05-07] MEDS: 0.9 % Sodium Chloride Flush 3 ML SYRINGE IVFLUSH ×3 (09:51→21:07)
[2022-05-07 15:47] VITALS: BP 137/65; PULSE 86; RESP 17; TEMP 37.3; O2SAT 95
[2022-05-07 19:10] VITALS: BP 141/66; PULSE 77; RESP 16; TEMP 37.4; O2SAT 97
[2022-05-07 19:35] VITALS: BP 137/63; PULSE 88; RESP 18; TEMP 37.3; O2SAT 92
[2022-05-07] MEDS: Montelukast Sodium 10 MG TABLET PO (21:04)
[2022-05-07] MEDS: Anastrozole 1 MG TABLET PO (21:05)
[2022-05-08 02:43] VITALS: BP 157/72; PULSE 84; RESP 18; TEMP 37; O2SAT 98
[2022-05-08] MEDS: oxyCODONE HCl Immed Release 5 MG TABLET PO ×3 (02:46→12:01)
[2022-05-08] MEDS: Levothyroxine Sodium 75 MCG TABLET PO (06:29)
[2022-05-08] MEDS: Heparin Sodium,Porcine 5,000 UNIT/ML VIAL 5000 UNIT SUBCUT (06:29)
[2022-05-08 07:26] VITALS: BP 160/71; PULSE 96; RESP 17; TEMP 37.3; O2SAT 93
[2022-05-08] MEDS: 0.9 % Sodium Chloride Flush 3 ML SYRINGE IVFLUSH (08:03)
--- NOTE | 2022-05-08 08:34 | P.PNGS_ITS ---
Subjective Subjective Date of Service: 05/13/22 Interval history: She states she continues to feel better Tolerating diet Passing flatus Ambulates well Not taking any IV pain medications Physical Exam Vital Signs: Vital Signs: Last Vital Signs Temp 99.2 F 05/08/22 07:26 Pulse 96 05/08/22 07:26 Resp 17 05/08/22 07:26 BP 160/71 H 05/08/22 07:26 Pulse Ox 93 05/08/22 07:26 O2 Del Method 05/08/22 07:26 O2 Flow Rate 2 05/04/22 07:29 BMI result Body Mass Index 23.6 Const: Other: Looks well General: comfortable and no acute distress Resp: Effort & Inspection: normal respiratory effort Cardio: Rate: regular rate GI: Other: Incision clean and dry Palpation (GI): Soft to palpation, not firm, no guarding and not rigid Objective Data Active Medications Albuterol Sulfate (Albuterol Sulfate 90 Mcg 8 Gm Inhaler) 2 puff INHALE Q4H PRN PRN Reason: Wheezing Anastrozole (Anastrozole 1 Mg Tablet) 1 mg PO BEDTIME [facility] Last Admin: 05/07/22 21:05 Dose: 1 mg Documented By: ISABELLA Benzocaine (Throat Lozenge, Medicated Lozenge) 1 lozenge MUCOUS MEM Q2H PRN PRN Reason: Sore Throat Last Admin: 05/05/22 11:13 Dose: 1 lozenge Documented By: GINA Heparin Sodium (Porcine) (Heparin Sodium,Porcine 5,000 Unit/Ml Vial) 5,000 unit SUBCUT Q12H [facility] Last Admin: 05/08/22 06:29 Dose: 5,000 unit Documented By: ISABELLA Hydromorphone HCl (Hydromorphone Hcl 0.5 Mg/0.5 Ml Syringe) 0.5 mg IVPUSH Q3H PRN; Protocol PRN Reason: Pain, Severe (Pain Scale 7-10) Last Admin: 05/06/22 20:35 Dose: 0.5 mg Documented By: JASON Hydromorphone HCl (Hydromorphone Hcl 0.5 Mg/0.5 Ml Syringe) 0.25 mg IVPUSH Q5M PRN; Protocol PRN Reason: Pain, Severe (Pain Scale 7-10) Last Admin: 05/03/22 15:57 Dose: 0.25 mg Documented By: CARMEL Promethazine HCl 6.25 mg/ (Sodium Chloride) 50.25 mls @ 201 mls/hr IV Q6H PRN PRN Reason: Nausea Last Infusion: 05/05/22 08:04 Dose: 0 mls/hr Documented By: GINA Levothyroxine Sodium (Levothyroxine Sodium 75 Mcg Tablet) 75 mcg PO DAILY@0600 [facility] Last Admin: 05/08/22 06:29 Dose: 75 mcg Documented By: ISABELLA Montelukast Sodium (Montelukast Sodium 10 Mg Tablet) 10 mg PO BEDTIME [facility] Last Admin: 05/07/22 21:04 Dose: 10 mg Documented By: ISABELLA Multi-Ingred Medicated Throat [place] (Throat [place], Medicated 177 Ml Bottle) 1 spray MUCOUS MEM Q2H PRN PRN Reason: Sore Throat Pt Own (Fluticasone Propionate 44 Mcg/Actuation Hfa Aerosol Inhaler) 1 puff INHALE [facility] Ondansetron HCl (Ondansetron Hcl 4 Mg/2 Ml Vial) 8 mg IVPUSH Q6H PRN PRN Reason: Nausea and Vomiting Last Admin: 05/06/22 11:47 Dose: 8 mg Documented By: SONGENOARNULFO Oxycodone HCl (Oxycodone Hcl Immed Release 5 Mg Tablet) 5 mg PO Q4H PRN PRN Reason: Pain, Moderate (Pain Scale 4-6 Last Admin: 05/08/22 08:03 Dose: 5 mg Documented By: VIKI Polyethylene Glycol (Polyethylene Glycol 3350 17 Gm Powd.Pack) 17 gm PO DAILY PRN PRN Reason: Constipation Last Admin: 05/07/22 02:24 Dose: 17 gm Documented By: JASON Sodium Chloride (0.9 % Sodium Chloride Flush 3 Ml Syringe) 3 ml IVFLUSH [facility] Last Admin: 05/08/22 08:03 Dose: 3 ml Documented By: VIKI Labs 05/04/22 05:22 05/04/22 05:22 Microbiology Microbiology Results: Microbiology 05/03/22 06:21 Blood Culture - Final Blood - Venous No growth after 5 days. 05/03/22 06:21 Blood Culture - Final Blood - Venous No growth after 5 days. Procedures Date of Service Date of Service: 05/08/22 Progress Note: A&P Assessment and plan (1) Small bowel obstruction: Status: Acute Assessment and Plan: Status post resection of ileocolonic anastomosis, and segment of small bowel Clinically doing very well She says she would like to go home later on today Looks well Continue to ambulate Exam is very benign Path pending Possible DC home this afternoon Time Spent With Patient Time: Total time managing care of this patient today ____ minutes. Quality Stroke Does the patient have a stroke diagnosis?: No VTE Prior VTE?: No VTE Risk Level:: Surgical - moderate VTE Device Contraindication: N/A - Device Ordered VTE Drug Contraindication: N/A - Med Ordered
--- NOTE | 2022-05-08 13:20 | PM.EVENT ---
Event Note Date of Service: 05/08/22 Event Note: states she continues to feel well has been ambulating not taking IV pain meds tolerating diet abd soft, benign good flatus ok to dc home looks well climically dc instructions given Time Spent With Patient Time: Total time managing care of this patient today ____ minutes.
--- NOTE | 2022-05-08 13:41 | MHC.CM.PN ---
PT MEDICALLY CLEARED FOR D/C HOME NO [facility] SERVICES NEEDED PER SURGICAL AND FAMILY FOR TRANSPORT
--- NOTE | 2022-05-10 09:28 | PM.DS ---
DS: Providers Provider Date of Service: 05/08/22 Date of admission: 05/03/22 07:01 Date of discharge: 05/08/22 Primary care physician: Sudhakar De La O MD Attending physician on admission: Po Herrera Consults: 05/03/22 17:08 Consult to Hospitalist Routine Consulting Provider: Hospitalist Reason For Exam: postop, has thyroid ds, BP on high side Attending physician on discharge: Po Herrera DS: Diagnosis Discharge Diagnosis (1) Small bowel obstruction: Status: Acute DS: Summary Hospital Course Hospital Course: HPI AT ADMISSION: Steff Kent is a 71 year old female who came to emergency room early this morning because of small pain and vomiting. She is known to me. 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 However, for the past 8 or 9 months or so, she has been noticing periodic abdominal pain and distension. I had actually seen her in the office as she had a CAT scan was was suggestive of an ileocolonic stricture with dilatation of the ileum proximal to this. She had a colonoscopy to examine the anastomosis Dr. Tompkins last March, and this stricture was not directly seen. Her MR enterography done last March, shows significant distention of the ileum just proximal to the ileocolonic anastomosis contains fecalized debris consistent with partial small-bowel obstruction secondary to a short segment anastomotic stricture, about 1.5 cm in length. ?She was scheduled to have this revised electively in a few weeks. Because of her progressive symptoms of abdominal pain and bloating, she actually has been scheduled to have laparotomy and resection of the anastomosis in 2 weeks. she had been in her usual state of health last night but she woke up from her sleep at around 02:00 o'clock in the morning because of severe abdominal pain, which she describes as a lot worse than her usual episodes. She had some vomiting so she came to the emergency room early this morning. She had a CAT scan in the ER this morning showing similar picture consistent with anastomotic stricture, and compared to her CT scan from last month, there was note of worsening distension of the ileum proximal to this. She also has a history of and sentinel node biopsy for a right breast cancer in 2002. She had undergone adjuvant chemotherapy for this. 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 HOSPITAL COURSE: The patient was admitted to surgical service for further treatment of her SBO. Obstruction appeared at or near the level of her previous ileocolonic anastomosis. Lactic acid was mildly elevated at 2.6, likely to be secondary to volume depletion from fluid losses with vomiting and improved with IV hydration. Due to the acute worsening, it was recommended to proceed with laparotomy, likely resection of the old ileocolonic anastomosis with creation of a new anastomosis. She agreed. She was added onto the OR schedule for that day. On 05/03/22, laparotomy, extensive lysis of adhesions, resection of matted bowel loops starting from the distal ileum, all the way to the ileocolonic anastomosis and part of the transverse colon was performed by Dr. Herrera without complication. She was found to have matted bowel loops immediately adjacent to the ileocolonic anastomosis, with induration in 2-3 segments, severe interloop adhesions with markedly dilated small bowel proximal to this with edema and erythema diffusely and another loop of jejunal small bowel, strictured. Resection of 2nd segment of small bowel at the jejunal area also done because of stricture with dense fibrosis. She had an uncomplicated recovery course. On POD #1 she had difficulty with nausea which improved with increase in zofran dose. The NGT continued with high output and was left in place. Her austin was removed. She was ambulated. Hospitalist consult was obtained for elevated SBP readings and this was monitored however medication was held. Her NGT output decreased and she was passing continuous flatus and her NGT was therefore removed on POD #2. She was advanced to clear liquids. Over the next couple of days, her diet was advanced to low residue. She began moving her bowels. She was doing very well from a surgical standpoint with good pain control and GI function and tolerating a solid diet. She had a benign abd exam with clean incision. She felt ready for discharge and was discharged to home on 05/08/22 in stable condition. She is to follow up with Dr. Herrera in office in 1 weeks for wound check and with her PCP regarding her blood pressure. Status at Discharge Functional status at discharge: independent ambulation Overall status at discharge: patient is progressing back to baseline Time Spent with Patient Time attestation: Total time managing care of this patient today ____ minutes. Discharge coordination time: Greater than 30 minutes Quality: Safe Use of Opioids Does Pt have an Active Cancer Diagnosis on the Problem List?: No Quality: Stroke Does the patient have a stroke diagnosis?: No Physical Exam Vital Signs: Vital Signs: Last Vital Signs Temp 99.2 F 05/08/22 07:26 Pulse 96 05/08/22 07:26 Resp 17 05/08/22 07:26 BP 160/71 H 05/08/22 07:26 Pulse Ox 93 05/08/22 07:26 O2 Del Method 05/08/22 07:26 O2 Flow Rate 2 05/04/22 07:29 BMI result Body Mass Index 23.6 DS: Data Data Completed and Pending Completed studies during hospitalization [Text1]: Procedures Excision of Ileum, Open Approach (05/03/22) Excision of Jejunum, Open Approach (05/03/22) Release Peritoneum, Open Approach (05/03/22) Pending studies at discharge: Pending at discharge (resulted at time of d/c summary) 05/03/22 14:06 Surgical Path [Surgical] [PTH] A.? Small bowel, resection:??Metastatic carcinoma involving serosa, wall, mucosa and mesenteric soft tissue, consistent with breast primary; negative margins. B.? Ileocolonic anastomosis, resection: - Metastatic carcinoma involving serosa, wall, mucosa and mesenteric soft tissue, consistent with breast primary. - Positive proximal and distal margins. - Six lymph nodes negative for metastatic carcinoma. COMMENT: An e-cadherin immunostain is pending; results will be addended. Discharge Plan Discharge Anticipated Discharge Date/Time: 05/08/22 08:28 Patient Disposition: Home, Self-Care Discharge Diagnosis: SBO Referrals: Sudhakar De La O MD [Primary Care Provider] - 1 Week Po Herrera MD [Physician] - 2 Weeks Discharge Medications: New oxycodone-acetaminophen [Percocet] 5-325 mg tablet 1 tab PO Q4-6H PRN (Reason: pain) Qty: 30 0RF Rx Instructions: Partial Fill upon patient request. docusate sodium [Colace] 100 mg capsule 100 mg PO BID Qty: 60 2RF Continued fluticasone propionate 44 mcg/actuation Hfa Aerosol Inhaler 1 puff INHALATION BID albuterol sulfate [ProAir HFA] 90 mcg/actuation Hfa Aerosol Inhaler 2 puff INHALATION Q4-6H PRN (Reason: Wheezing) cholecalciferol (vitamin D3) [Vitamin D3] 10 mcg (400 unit) Tablet 10 mcg PO DAILY Probiotic 1 cap PO DAILY anastrozole 1 mg tablet 1 tab PO BEDTIME levothyroxine [Synthroid] 75 mcg tablet 1 tab PO DAILY@0600 montelukast 10 mg tablet 1 tab PO BEDTIME Discontinued tramadol 50 mg tablet 1 tab PO Q6H PRN (Reason: abdominal pain) Discharge Orders: Discharge Order (Routine); Ordered 05/08/22 Ordered By: Po Herrera Diet: Advance to usual diet Activity on Discharge: No heavy lifting Stand Alone Forms: Patient Portal Discharge page Activity Restrictions/Additional Instructions: If the incision area is tender, you may apply an ice pack for short intervals (No more than 20 minutes on, followed by at least 20 minutes off). Do not apply heat. Do not use creams, lotions, or topical antibiotics unless instructed to do so by your surgeon. These can cause infection or allergic reaction. Ok to shower. You have della closing your incision and these will be removed approximately 10-14 days after surgery. NO HEAVY LIFTING (>10lbs) or strenuous activity. Follow up in office with Dr. Herrera in 1-2 weeks. ([phone]) Call Your Doctor If: -Your temperature exceeds 101.5? F -You experience excessive pain or swelling -You have an unexpected reaction to medication -You have excessive bleeding -You experience continued vomiting/nausea -Your incision begins to separate -Your incision shows signs of infection such as increased redness, swelling, excessive pain, drainage (light blood or clear fluid is normal) or heat Care Plan Goals: Return to baseline health and gradual return to activity following recovery period. Health Concerns: Asthma Hypothyroidism SBO Plan of Treatment: S/p ex lap, lysis of adhesions, small bowel resection x 2 Assessment: Doing well post op. Discharge Date/Time: 05/08/22 14:57
== END 2022-05-08 14:57 | disposition home or self-care (01) | DRG 331 ==
LOC: HO.ED 07:00 → HO.EDOVER 07:01 → HO.S3 07:49
PROVIDERS: Admitting Provider Surgery; Emergency Provider Internal Medicine; PCP Internal Medicine Medical Oncology; Visit Provider Surgery
PROC: 0DBA0ZZ Excision of Jejunum, Open Approach (ICD-10-PCS; CPT 49000; principal; 2022-05-03 11:20)
DX: K91.31 Postprocedural partial intestinal obstruction (principal); Y83.8 Other surgical procedures as the cause of abnormal reaction of the patient, or of later complication, without mention of misadventure at the time of the procedure; E03.9 Hypothyroidism, unspecified; C50.919 Malignant neoplasm of unspecified site of unspecified female breast; J45.40 Moderate persistent asthma, uncomplicated; Z85.038 Personal history of other malignant neoplasm of large intestine; Z90.13 Acquired absence of bilateral breasts and nipples; Z91.040 Latex allergy status; Z88.2 Allergy status to sulfonamides; Z79.51 Long term (current) use of inhaled steroids; Z79.811 Long term (current) use of aromatase inhibitors; Z79.899 Other long term (current) drug therapy
CPT/HCPCS: 36415; 71045; 74176; 80048; 80053; 83605; 83690; 83735; 84484; 85025; 85610; 86850; 86900; 86901; 87040; 87635; 88307; 88309; 88329; 88341; 88342; 88360; 93005; 96361; 96374; 96375; 99285; C1758; J0131; J1100; J1170; J1643; J2250; J2270; J2405; J2543; J2550; J2795; J3010

== ENCOUNTER 2022-05-13 08:07 | Emergency (ER) | payer MEDICARE, SELFPAY ==
[2022-05-13 08:09] VITALS: BP 145/68; PULSE 90; RESP 18; TEMP 36.4; O2SAT 97; BMI 23.1
[2022-05-13 08:28] VITALS: BP 152/63; PULSE 87; RESP 18; O2SAT 98
--- NOTE | 2022-05-13 08:32 | PC.NURSE ---
pt alert and oriented, skin pwd, respirations even and unlabored. pt reports having a intestine surgery on 05/03 but was having some blood draining from the lower staple, no pain no fever dr kearns at bedside, no draining from the site at this time but when Dr Kearns squeezed the site there was some serous sanguineous draining coming from the second staple from the bottom, area is not tender or red in appearance at this time
--- NOTE | 2022-05-13 08:41 | ED_ITS ---
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 Herrera on 05/03/22 presenting to the ED complaining of malodorous drainage from incisions site since last night. Denies associated pain, nausea, vomiting, diarrhea, constipation, dysuria / hematuria, fever, chills Onset (ago): day(s) Related Data Home Medications Medication Instructions Recorded Confirmed Probiotic 1 cap PO DAILY 10/30/20 05/03/22 albuterol sulfate 90 mcg/actuation 2 puff inhalation Q4-6H PRN 10/30/20 05/03/22 aerosol inhaler (ProAir HFA) Wheezing cholecalciferol (vitamin D3) 10 10 mcg PO DAILY 10/30/20 05/03/22 mcg (400 unit) tablet (Vitamin D3) fluticasone propionate 44 1 puff inhalation BID 10/30/20 05/03/22 mcg/actuation HFA aerosol inhaler anastrozole 1 mg tablet 1 tab PO BEDTIME 04/05/22 05/03/22 levothyroxine 75 mcg tablet 1 tab PO DAILY@0600 04/05/22 05/03/22 (Synthroid) montelukast 10 mg tablet 1 tab PO BEDTIME 04/05/22 05/03/22 Previous Rx's Medication Instructions Recorded docusate sodium 100 mg capsule 100 mg PO BID #60 caps 05/08/22 (Colace) oxycodone-acetaminophen 5 mg-325 1 tab PO Q4-6H PRN pain #30 tabs 05/08/22 mg tablet (Percocet) Allergies Allergy/AdvReac Type Severity Reaction Status Date / Time Sulfa (Sulfonamide Allergy Mild RASH Verified 04/29/22 13:47 Antibiotics) [SULFA (SULFONAMIDE ANTIBIOTICS)] latex Allergy Redness of Verified 05/03/22 06:06 Skin Review of Systems Review of Systems: Constitutional: No Fever, No Chills, No Fatigue, No Malaise ENT/Mouth: No Ear Pain, No sore throat, No Rhinorrhea, No Swallowing Difficulty Eyes: No Eye Pain, No Swelling, No Redness, No Vision Changes Cardiovascular: No Chest Pain, No SOB, No Palpitations Respiratory: No Cough, No Sputum, No Wheezing, No Dyspnea Gastrointestinal: No Nausea, No Vomiting, No Diarrhea, No Constipation, No Abdominal pain Genitourinary: No Dysuria, No Urinary Frequency, No Hematuria, No Flank Pain, No Urinary Flow Changes, No Hesitancy Musculoskeletal: No joint pain, No Myalgias, No Joint Swelling Skin: No Skin Lesions, No rash, +erythema and drainage Neuro: No Weakness,No Headache Yes all other systems are reviewed and are negative Constitutional: Constitutional: Reports as per [facility] Past Medical History Attestation statement: The following information was validated with the patient. Medical History (Updated 05/13/22 @ 11:04 by JOSE Castro) Asthma Breast cancer Colon cancer Hypothyroidism Partial small bowel obstruction Wound drainage Surgical History H/O removal of cyst History of hysterectomy History of nasal surgery History of partial colectomy Hx of colonoscopy Hx of left mastectomy Hx of right mastectomy Hx of tubal ligation Family History Family History Mother Thyroid ca Father Cancer Social History Social History Household Members: Spouse Housing: House Are you a primary neonatal critical care nurse to a significant other at home: No Do you presently have visiting nurse or other home services: No Patient Tobacco Use Status: Never used Tobacco Smoked in Last 30 Days: No Use of substances other than those prescribed or required for medical reasons: No Advance Directives: Yes Advance Directives Information Provided: No Advance Directives on File: No service: No Current occupational status: retired Physical Exam ED Vital Signs: Vital Signs - 24 hr 05/13/22 08:09 05/13/22 08:28 05/13/22 10:06 Temperature 97.5 F 98.9 F Pulse Rate 90 87 77 Respiratory Rate 18 18 16 Blood Pressure 145/68 H 152/63 H 114/47 L Pulse Oximetry 97 98 97 Oxygen Delivery Method Room Air Room Air Room Air 05/13/22 10:22 Temperature Pulse Rate Respiratory Rate Blood Pressure 115/53 L Pulse Oximetry Oxygen Delivery Method BMI result Body Mass Index 23.1 Const General: cooperative, healthy appearing and no acute distress Orientation/consciousness: patient oriented x3 Limitations: no limitations HENMT Head: Yes normal to inspection and Yes atraumatic Ears: hearing grossly normal bilaterally General nose exam: Normal external nose present Face and sinus: Yes normal facial exam Eyes General: appearance normal, both eyes and all related structures EOM: EOMs intact bilaterally Neck Neck: Yes normal visual inspection and Yes no meningeal signs Resp Effort & Inspection: normal respiratory effort and no respiratory distress Cardio Rate: regular rate Heart sounds: S1 normal heart sound present and S2 normal heart sound present GI Other: surgical incision site noted with della intact. Erythema noted to distal portion with active serosanguineous drainage. No appreciable fluctuance/induration or tenderness. Palpation (GI): Soft to palpation, nontender, no guarding and not rigid Skin Rashes: no rashes Wounds: no wounds Neuro General: patient oriented x3, tone normal and no meningeal signs Gait exam (Neuro): Normal gait present Extrem General: Yes normal to inspection Course Course Course Narrative: -Dr. Herrera currently in the OR - Labs reassuring. No leukocytosis. Lactic acid WNL. - Dr. Herrera evaluated patient in the ED released 2 skin della, believes drainage consistent with seroma. Does not recommend further antibiotics at this time, patient has follow-up in the office next week. Results discussed with patient including worrisome signs and symptoms and strict return precautions, and when to return to the emergency department. They verbalized understanding and feel safe for discharge at this time. Medications Administered Discontinued Medications Generic Name Dose Route Start Last Admin Trade Name Freq PRN Reason Stop Dose Admin Piperacillin Sod/Tazobactam 100 mls @ 200 mls/hr 05/13/22 09:09 05/13/22 10:00 Sod 4.5 gm/ Sodium Chloride IV 05/13/22 09:38 Infused ONCE ONE Infusion Medical Decision Making Medical Decision Making [facility] Narrative: 71-year-old female with a past medical history of breast CA s/p chemotherapy and mets to the ovaries s/p TAHBSO, right colon resection for T3 N1 adenocarcinoma in '02, ileocolonic stricture complicated by partial SBO s/p laparotomy for new anastomosis creation performed by Dr. Herrera on 05/03/22 presenting to the ED complaining of malodorous drainage from incisions site since last night. On exam vital signs stable, NAD, nontoxic appearing, physical exam as noted above. Active serosanguineous drainage present, expressible with overlying erythema. No fluctuance or induration. Concern for infected seroma vs underlying abscess with superficial cellulitis. low suspicion for severe sepsis at this time. Plan: Labs, lactic/ blood cultures, IV antibiotics, consult Dr. Herrera Case d/w Dr. Tucker who also evaluated patient and is in agreement with plan Please refer to course for remaining clinical decision making, interpretation of labs/imaging results, and discussions with consultants and/or family members. Differential Diagnosis Differential Diagnoses: The differential diagnosis associated with the presentation includes as above Admission/Observation Consideration of admission/observation: Escalation of care including admission/observation considered Consult Healthcare Provider Management of the patient was discussed with: Dip Stand Loader (Surgery) Lab Data MDM Lab Attestation statement: I reviewed the patient's lab results. 05/13/22 09:12 05/13/22 09:12 Labs: Lab Results 05/13/22 05/13/22 05/13/22 Range/Units 09:12 09:12 09:12 WBC 9.2 (4.8-10.8) X10*3/uL RBC 4.31 (4.20-5.50) X10*6/uL Hgb 12.2 (12.0-16.0) g/dl Hct 38.1 (37.0-47.0) % MCV 88.4 (80.0-98.0) fL MCH 28.3 (27.0-33.0) pg MCHC 32.0 (31.0-35.0) g/dl RDW 14.1 (11.0-16.0) % Plt Count 473 H D (160-400) X10*3/uL MPV 9.7 (9.4-12.3) fL Immature Gran % (Auto) 0.5 H (0.0-0.4) % Neut % (Auto) 80.7 H (45-73) % Lymph % (Auto) 11.5 L (20-40) % Valley % (Auto) 6.5 (2-11) % Eos % (Auto) 0.3 (0-4) % Baso % (Auto) 0.5 (0-2) % Lymph # (Auto) 1.1 L (1.2-4.9) X10*3/uL Valley # (Auto) 0.6 (0.1-1.2) X10*3/uL Eos # (Auto) 0.0 (0.0-0.4) X10*3/uL Baso # (Auto) 0.1 (0.0-0.2) X10*3/uL Abs Immat Gran (auto) 0.05 H (0.00-0.03) X10*3/uL Absolute Neuts (auto) 7.4 (2.0-8.3) x10*3/uL Absolute Nucleated RBC 0.000 (0.0-0.012) X10*3/uL Nucleated RBC % (auto) 0.0 (0.0-0.2) /100WBC PT (10.0-13.1) SEC INR (0.9-1.1) Sodium 140 (135-145) mmol/L Potassium 4.0 (3.3-5.1) mmol/L Chloride 102 (96-108) mmol/L Carbon Dioxide 31 H (22-29) mmol/L Anion Gap 11 L (12-20) BUN 14 (9-16) mg/dL Creatinine 0.74 (0.5-1.4) mg/dL Estim Creat Clear Calc 58.4 Estimated GFR > 60 Random Glucose 110 (60-115) mg/dL Lactic Acid 1.0 (0.5-2.0) mmol/L Calcium 9.0 D (8.4-10.2) mg/dL Total Bilirubin 0.9 (0.0-1.0) mg/dL Direct Bilirubin 0.3 (0.0-0.5) mg/dL AST 18 (5-31) U/L ALT 21 (0-31) U/L Alkaline Phosphatase 60 (39-117) U/L Total Protein 6.4 L (6.5-8.0) g/dL Albumin 3.5 (3.5-5.0) g/dL Lipase 20 (8-78) U/L 05/13/22 Range/Units 10:04 WBC (4.8-10.8) X10*3/uL RBC (4.20-5.50) X10*6/uL Hgb (12.0-16.0) g/dl Hct (37.0-47.0) % MCV (80.0-98.0) fL MCH (27.0-33.0) pg MCHC (31.0-35.0) g/dl RDW (11.0-16.0) % Plt Count (160-400) X10*3/uL MPV (9.4-12.3) fL Immature Gran % (Auto) (0.0-0.4) % Neut % (Auto) (45-73) % Lymph % (Auto) (20-40) % Valley % (Auto) (2-11) % Eos % (Auto) (0-4) % Baso % (Auto) (0-2) % Lymph # (Auto) (1.2-4.9) X10*3/uL Valley # (Auto) (0.1-1.2) X10*3/uL Eos # (Auto) (0.0-0.4) X10*3/uL Baso # (Auto) (0.0-0.2) X10*3/uL Abs Immat Gran (auto) (0.00-0.03) X10*3/uL Absolute Neuts (auto) (2.0-8.3) x10*3/uL Absolute Nucleated RBC (0.0-0.012) X10*3/uL Nucleated RBC % (auto) (0.0-0.2) /100WBC PT 15.0 H (10.0-13.1) SEC INR 1.3 H (0.9-1.1) Sodium (135-145) mmol/L Potassium (3.3-5.1) mmol/L Chloride (96-108) mmol/L Carbon Dioxide (22-29) mmol/L Anion Gap (12-20) BUN (9-16) mg/dL Creatinine (0.5-1.4) mg/dL Estim Creat Clear Calc Estimated GFR Random Glucose (60-115) mg/dL Lactic Acid (0.5-2.0) mmol/L Calcium (8.4-10.2) mg/dL Total Bilirubin (0.0-1.0) mg/dL Direct Bilirubin (0.0-0.5) mg/dL AST (5-31) U/L ALT (0-31) U/L Alkaline Phosphatase (39-117) U/L Total Protein (6.5-8.0) g/dL Albumin (3.5-5.0) g/dL Lipase (8-78) U/L Radiology Impression Discussion of test interpretation with radiology: I have reviewed the radiologist's reading. External Record Review External record reviewed: Inpatient record, Outpatient record and Prior outpatient labs Prescription Management I considered prescription management with: Pain Medication and Antibiotic Chronic Conditions Patient?s care impacted by: Cancer Discharge Plan Discharge Clinical Impression: Postoperative seroma of skin after non-dermatologic procedure Patient Disposition: Home, Self-Care Instructions: Seroma (DC) Additional Instructions: Keep close eye on surgical site. If drainage persists or worsens, redness spreads, you develop fever, or pain please return to the emergency department. Please have close follow-up with Dr. Herrera next week as scheduled no antibiotics were recommended at this time Prescriptions: No Action fluticasone propionate 44 mcg/actuation Hfa Aerosol Inhaler 1 puff INHALATION BID albuterol sulfate [ProAir HFA] 90 mcg/actuation Hfa Aerosol Inhaler 2 puff INHALATION Q4-6H PRN (Reason: Wheezing) cholecalciferol (vitamin D3) [Vitamin D3] 10 mcg (400 unit) Tablet 10 mcg PO DAILY Probiotic 1 cap PO DAILY anastrozole 1 mg tablet 1 tab PO BEDTIME levothyroxine [Synthroid] 75 mcg tablet 1 tab PO DAILY@0600 montelukast 10 mg tablet 1 tab PO BEDTIME oxycodone-acetaminophen [Percocet] 5-325 mg tablet 1 tab PO Q4-6H PRN (Reason: pain) Qty: 30 0RF Rx Instructions: Partial Fill upon patient request. docusate sodium [Colace] 100 mg capsule 100 mg PO BID Qty: 60 2RF Referrals: Po Herrera MD [Physician] - 1 week
[2022-05-13 09:19] LABS: MANUAL DIFF FLAG NO
[2022-05-13 09:25] LABS: Basophils Absolute Auto 0.1 X10*3/uL (0.0-0.2); Basophils Percent Auto 0.5 % (0-2); Eosinophils Percent Auto 0.3 % (0-4); Hematocrit 38.1 % (37.0-47.0); Hemoglobin 12.2 g/dl (12.0-16.0); Imm Gran Abs Auto 0.05 X10*3/uL (0.00-0.03); Imm Gran Pct Auto 0.5 % (0.0-0.4); Lymphocytes Absolute Auto 1.1 X10*3/uL (1.2-4.9); Lymphocytes Percent Auto 11.5 % (20-40); Mean Corpuscular Hemoglobin 28.3 pg (27.0-33.0); Mean Corpuscular Volume 88.4 fL (80.0-98.0); Mean Platelet Volume 9.7 fL (9.4-12.3); Monocytes Absolute Auto 0.6 X10*3/uL (0.1-1.2); Monocytes Percent Auto 6.5 % (2-11); Neutrophils Absolute Auto 7.4 x10*3/uL (2.0-8.3); Neutrophils Percent Auto 80.7 % (45-73); Platelet Count 473 X10*3/uL (160-400); Red Blood Count 4.31 X10*6/uL (4.20-5.50); Red Cell Distribution Width 14.1 % (11.0-16.0); White Blood Count 9.2 X10*3/uL (4.8-10.8)
[2022-05-13] MEDS: Piperacillin Sodium/Tazobactam 4.5 GM in 0.9 % Sodium Chloride 100 ML IV (09:28)
[2022-05-13 09:45] LABS: Alanine Aminotransferase 21 U/L (0-31); Albumin Level 3.5 g/dL (3.5-5.0); Alkaline Phosphatase 60 U/L (39-117); Anion Gap 11 (12-20); Aspartate Amino Transferase 18 U/L (5-31); Bilirubin Total 0.9 mg/dL (0.0-1.0); Blood Urea Nitrogen 14 mg/dL (9-16); Carbon Dioxide 31 mmol/L (22-29); Chloride 102 mmol/L (96-108); Creatinine Clr Calc Pharmacy 58.4; Estimated Glomerular Filt Rate > 60; Glucose Random 110 mg/dL (60-115); Lipase 20 U/L (8-78); Sodium 140 mmol/L (135-145); Total Protein 6.4 g/dL (6.5-8.0)
[2022-05-13 09:59] LABS: Bilirubin Direct 0.3 mg/dL (0.0-0.5)
[2022-05-13 10:06] VITALS: BP 114/47; PULSE 77; RESP 16; TEMP 37.2; O2SAT 97
[2022-05-13 10:18] LABS: INTERNATIONAL NORM RATIO 1.3 (0.9-1.1)
[2022-05-13 10:22] VITALS: BP 115/53
--- NOTE | 2022-05-13 10:45 | PC.NURSE ---
dr pierre at bedside
--- NOTE | 2022-05-13 10:53 | P.CONGS_ITS ---
History of Present Illness Consult details Consult date: 05/13/22 Narrative: 71-year-old female here in the ER for wound drainage. She had undergone laparotomy, ileocolonic anastomosis and a separate segment of small bowel for obstruction last 05/03/2021. She was discharged last May 08, 2021. She had been doing well at home notice some wound drainage with redness on the lower part of her incision. She describes this as bloody although thin. This had persisted during the night so she went to the ER this morning Otherwise denies any abdominal pain. She has good oral intake. She has good bowel movements. She denies any fever. Denies any nausea or vomiting. She says she feels well overall. Review of Systems Constitutional: Constitutional: Denies chills and Denies fever(s) Cardiovascular: Cardiovascular: Denies chest pain Respiratory: Respiratory: Denies cough Gastrointestinal: Gastrointestinal: Denies abdominal pain PMFSH Past Medical History Medical History (Updated 05/13/22 @ 10:56 by Po Herrera MD) Asthma Breast cancer Colon cancer Hypothyroidism Partial small bowel obstruction Wound drainage Family History Family History Mother Thyroid ca Father Cancer Surgical History Surgical History H/O removal of cyst History of hysterectomy History of nasal surgery History of partial colectomy Hx of colonoscopy Hx of left mastectomy Hx of right mastectomy Hx of tubal ligation Social History Social History Household Members: Spouse Housing: House Are you a primary interior plant caretaker to a significant other at home: No Do you presently have visiting nurse or other home services: No Patient Tobacco Use Status: Never used Tobacco Smoked in Last 30 Days: No Use of substances other than those prescribed or required for medical reasons: No Advance Directives: Yes Advance Directives Information Provided: No Advance Directives on File: No service: No Current occupational status: retired Meds Allergies Allergy/AdvReac Type Severity Reaction Status Date / Time Sulfa (Sulfonamide Allergy Mild RASH Verified 04/29/22 13:47 Antibiotics) [SULFA (SULFONAMIDE ANTIBIOTICS)] latex Allergy Redness of Verified 05/03/22 06:06 Skin Home Medications Medication Instructions Recorded Confirmed Last Taken Type Probiotic 1 cap PO DAILY 10/30/20 05/03/22 05/02/22 History albuterol sulfate 90 mcg/actuation 2 puff inhalation Q4-6H PRN 10/30/20 05/03/22 11/06/20 06:00 History aerosol inhaler (ProAir HFA) Wheezing cholecalciferol (vitamin D3) 10 10 mcg PO DAILY 10/30/20 05/03/22 05/02/22 History mcg (400 unit) tablet (Vitamin D3) fluticasone propionate 44 1 puff inhalation BID 10/30/20 05/03/22 04/09/22 05:15 History mcg/actuation HFA aerosol inhaler anastrozole 1 mg tablet 1 tab PO BEDTIME 04/05/22 05/03/22 05/02/22 History levothyroxine 75 mcg tablet 1 tab PO DAILY@0600 04/05/22 05/03/22 05/02/22 Hi story (Synthroid) montelukast 10 mg tablet 1 tab PO BEDTIME 04/05/22 05/03/22 05/02/22 History Physical Exam Vital Signs: Vital Signs: Last Vital Signs Temp 98.9 F 05/13/22 10:06 Pulse 77 05/13/22 10:06 Resp 16 05/13/22 10:06 BP 115/53 L 05/13/22 10:22 Pulse Ox 97 05/13/22 10:06 O2 Del Method 05/13/22 10:06 BMI result Body Mass Index 23.1 Const: Other: Looks well General: comfortable and no acute distress Resp: Effort & Inspection: normal respiratory effort Cardio: Rate: regular rate GI: Other: Midline incision is well healing, della intact, but there is note of some sanguinous drainage with surrounding redness on the lower part of her midline incision Palpation (GI): Soft to palpation, not firm, nontender, no guarding and not rigid Results Labs 05/13/22 09:12 05/13/22 09:12 Labs: Abnormal lab results 05/13/22 05/13/22 05/13/22 Range/Units 09:12 09:12 10:04 Plt Count 473 H D (160-400) X10*3/uL Immature Gran % (Auto) 0.5 H (0.0-0.4) % Neut % (Auto) 80.7 H (45-73) % Lymph % (Auto) 11.5 L (20-40) % Lymph # (Auto) 1.1 L (1.2-4.9) X10*3/uL Abs Immat Gran (auto) 0.05 H (0.00-0.03) X10*3/uL PT 15.0 H (10.0-13.1) SEC INR 1.3 H (0.9-1.1) Carbon Dioxide 31 H (22-29) mmol/L Anion Gap 11 L (12-20) Total Protein 6.4 L (6.5-8.0) g/dL Short CBC 05/13/22 Range/Units 09:12 WBC 9.2 (4.8-10.8) X10*3/uL Hgb 12.2 (12.0-16.0) g/dl Hct 38.1 (37.0-47.0) % Plt Count 473 H D (160-400) X10*3/uL BMP 05/13/22 09:12 Sodium 140 Potassium 4.0 Chloride 102 Carbon Dioxide 31 H BUN 14 Creatinine 0.74 Calcium 9.0 D Liver Function 05/13/22 Range/Units 09:12 Total Bilirubin 0.9 (0.0-1.0) mg/dL Direct Bilirubin 0.3 (0.0-0.5) mg/dL AST 18 (5-31) U/L ALT 21 (0-31) U/L Alkaline Phosphatase 60 (39-117) U/L Albumin 3.5 (3.5-5.0) g/dL All other labs normal. Assessment and Plan (1) Wound drainage: Status: Acute Plan I opened this part of the incision by releasing 2 skin della. There was a lot of serosanguineous drainage consistent with a seroma. There was no pus. She does not have any leukocytosis. She has no fever. Her abdomen is very soft and she is completely asymptomatic at this time. I will therefore not prescribe her antibiotics. I have instructed her on good wound care daily dressing changes for this seroma. I will see her in the office later this week to release rest of her skin della and hopefully to discuss the path report with her by then. She looks well otherwise. Time Spent With Patient Time: Total time managing care of this patient today ____ minutes. Procedures Date of Service Date of Service: 05/13/22
== END 2022-05-13 11:13 | disposition home or self-care (01) ==
PROVIDERS: Physician Assistant; Emergency Provider Student in an Organized Health Care Education/Training Program; PCP Internal Medicine Medical Oncology
DX: L76.34 Postprocedural seroma of skin and subcutaneous tissue following other procedure (principal); Z79.899 Other long term (current) drug therapy
CPT/HCPCS: 36415; 80048; 80076; 83605; 83690; 85025; 85610; 87040; 96365; 99284; J2543

== ENCOUNTER → 2022-05-16 11:41 | Outpatient (BNVA) | payer MEDICARE, SELFPAY | PROVIDERS: PCP Internal Medicine Medical Oncology; Referring Provider Internal Medicine Medical Oncology; Visit Provider Surgery | DX: Z13.89 Encounter for screening for other disorder (principal) | CPT/HCPCS: 99212 ==

== ENCOUNTER → 2022-05-22 11:25 | Outpatient (BNVA) | payer MEDICARE, SELFPAY | PROVIDERS: PCP Internal Medicine Medical Oncology; Referring Provider Internal Medicine Medical Oncology; Visit Provider Surgery | DX: Z13.89 Encounter for screening for other disorder (principal) | CPT/HCPCS: 99212 ==

== ENCOUNTER 2022-05-24 12:56 | Outpatient (REF) | payer MEDICARE, SELFPAY ==
--- NOTE | ~2022-05-24 | MM_ITS ---
EXAMINATION: BONE DENSITOMETRY CLINICAL INDICATION: Osteoporosis. COMPARISON: Previous BD dated 05/24/2019 and baseline BD dated 12/02/2008. TECHNIQUE: Using a [employer]vance DXA System (software version: 13.1) manufactured by [employer], dual-energy x-ray absorptiometry was performed of the lumbar spine and left hip. The images are of good technical quality. Summary results are attached. FINDINGS: AP SPINE L1-L4: Current: BMD 1.188 g/cm2, Z-score 2.0, T-score 0.1, normal, 3.5% decrease from previous, 2.7% decrease from baseline (<5% change is not significant). Prior: BMD 1.231 g/cm2. Baseline: BMD 1.221 g/cm2. LEFT FEMUR, NECK: Current: BMD 0.885 g/cm2, Z-score 0.9, T-score -1.1, osteopenia. Prior: BMD 0.759 g/cm2. Baseline: BMD 0.962 g/cm2. LEFT FEMUR, TOTAL: Current: BMD 0.997 g/cm2, Z-score 1.7, T-score -0.1, normal, 19.3% increase from previous, 6.6% decrease from baseline (<5% change is not significant). Prior: BMD 0.836 g/cm2. Baseline: BMD 1.068 g/cm2. IDENTIFIED RISK FACTORS: Early menopause, hysterectomy, bilateral oophorectomy, secondary osteoporosis. HISTORY OF FRACTURE: None listed. MEDICATIONS: Calcium, vitamin D. MM/XR DEXA axial skeleton IMPRESSION: 1. DIAGNOSIS: Osteopenia based on the lowest T-score value of -1.1 in the femoral neck applying World Health Organization criteria. 2. 10-YEAR FRACTURE RISK PREDICTION, FRAX: Major osteoporotic fracture (clinical spine, forearm, hip or shoulder) 8.9%. Hip fracture 1.4%. 3. Treatment Recommendations: NOF guidelines recommend consideration for treatment in postmenopausal women and men age 50 and older presenting with the following: -A hip or vertebral (clinical or morphometric) fracture. -T-score less than or equal to -2.5 at the femoral neck or spine after appropriate evaluation to exclude secondary causes. -Low bone mass at the hip or spine and a 10-year fracture probability by FRAX of greater than or equal to 3% for hip fracture or greater than or equal to 20% for major osteoporotic fracture based on the [place] adapted WHO algorithm. 4. Other Recommendations: All treatment decisions require clinical judgment and consideration of individual patient factors, including patient preferences, comorbidities, previous drug use, risk factors not captured in the FRAX model (e.g. frailty, falls, vitamin D deficiency, increased bone turnover, interval significant decline in bone density) and possible under or overestimation of fracture risk by FRAX. Additional medical evaluation for secondary cause of low bone mineral density may be appropriate. FUTURE SCAN RECOMMENDATION: People with diagnosed cases of osteoporosis or at high risk for fracture should have regular bone mineral density tests. For patients eligible for Medicare, routine testing is allowed once every 2 years. The testing frequency can be increased to one year for patients who have rapidly progressing disease, those who are receiving or discontinuing medical therapy to restore bone mass, or have additional risk factors.
== END 2022-05-24 12:57 | disposition home or self-care (01) ==
LOC: HO.MAMMO 12:56
PROVIDERS: PCP Internal Medicine Medical Oncology; Visit Provider Internal Medicine Medical Oncology
DX: Z13.820 Encounter for screening for osteoporosis (principal); Z78.0 Asymptomatic menopausal state; M81.0 Age-related osteoporosis without current pathological fracture
CPT/HCPCS: 77080

== ENCOUNTER 2022-05-28 09:04 | Outpatient (REF) | payer MEDICARE, SELFPAY | END 2022-05-28 09:05 | disposition home or self-care (01) | LOC: HO.PET 09:04 | PROVIDERS: PCP Internal Medicine Medical Oncology; Visit Provider Internal Medicine Medical Oncology | DX: Z13.89 Encounter for screening for other disorder (principal) ==

== ENCOUNTER 2022-06-04 09:02 | Outpatient (REF) | payer MEDICARE, SELFPAY ==
--- NOTE | ~2022-06-04 | PE_ITS ---
EXAMINATION: Fluorine-18 FDG PET/CT Scan CLINICAL INDICATION: Subsequent treatment management. Restaging recurrent breast cancer. PROCEDURE: 64 minutes following the intravenous administration of 18.3 mCi of fluorine 18 FDG, images from the base of the skull to the mid thighs were obtained using a combined PET/CT scanner with CT scan based attenuation correction. No oral contrast was administered. No intravenous contrast was administered. Transverse, coronal, sagittal, and volume reconstruction projections were obtained. The patient's blood glucose as determined by a finger stick, was 97 mg/dl immediately prior to injection. Total CT exam dose-length product 684.92 mGy-cm * These CT images were obtained using dose optimization techniques as appropriate, variously including the following: Automated exposure control * Adjustment of mA and/or kV according to patient size (this includes techniques or standardized protocols for targeted exams where dose is matched to indication/reason for exam; i.e. extremities or head) * Use of iterative reconstruction technique COMPARISON: The previous PET CT scan dated 07/01/2007 is available for comparison. The diagnostic CT scan of the abdomen and pelvis, dated 05/03/2022, is available for comparison. FINDINGS: (Slice numbers described in this report are numbered superiorly to inferiorly with slice #1 in the head) NECK AND VISUALIZED HEAD: No foci of abnormal FDG activity are noted. The distribution of FDG activity is physiological. There is no cervical lymphadenopathy. There is some mucosal thickening in the left maxillary sinus with no associated abnormal FDG activity. THORAX: There are no foci of abnormal FDG activity. There is a 0.3 cm nodule anterolaterally in the right upper lobe, slice 185/813. This is much too small to be characterized on the FDG PET images. No other pulmonary nodules are visualized. There is no pleural or pericardial fluid or pneumothorax. There is no mediastinal, supraclavicular, or axillary lymphadenopathy. The patient is status post bilateral mastectomies. ABDOMEN AND PELVIS: There is intense abnormal FDG activity associated with midline anterior loops of small bowel in the region of a suture line that is new since the 05/03/[address] scan. This shows SUVmax 13.5, slice 163/311. This activity extends into the adjacent midline anterior abdominal wall incision. Prominently dilated loops of small bowel present on the 05/03/2022 CT scan are no longer present. Similarly intense abnormal FDG activity extends inferiorly in the region of the surgical incision in the midline., But this activity extends posteriorly and penetrates the anterior muscular abdominal wall. This activity is predominantly midline and just to the left of midline. A second separate suture complex is visualized in the left lower quadrant at the site of a enterocolic anastomosis from a right hemicolectomy, and these sutures were present on the 05/03/2022 CT scan and these show only weakly associated FDG activity which is much less intense than the previously described midline FDG activity. There is mild FDG activity throughout the gastrointestinal tract with no additional suspicious focal component and likely physiological. There is diverticulosis without evidence of diverticulitis. The hollow viscera are otherwise unremarkable. The liver, gallbladder, and spleen are unremarkable. Minimal perihepatic ascites present on 05/03/2022 is no longer present. There is a hypodense left peripelvic cyst which is markedly FDG photopenic and unchanged in appearance from 05/03/2022. The kidneys are otherwise unremarkable. The pancreas, and left adrenal gland are unremarkable. There is mildly increased FDG activity present in a focus in the right adrenal gland, SUVmax 3.8, slice 123/311 and this appears to be associated with a 1.2 x 0.7 cm nodule on the corresponding CT images. The pelvic organs are unremarkable. There is no retroperitoneal, mesenteric, pelvic or inguinal lymphadenopathy. MUSCULOSKELETAL: There are no foci of abnormal FDG activity in the osseous structures. There is a minimal thoracolumbar scoliosis with lumbar convexity to the right. There are mild degenerative changes in the spine but no suspicious sclerotic or lytic lesions are visualized. VASCULAR: Some vascular calcifications are noted. PET/PET CT fusion whole body IMPRESSION: 1. There is intense abnormal FDG activity associated with a recent midline lower abdominal incision. The abnormal activity extends through the midline anterior abdominal wall and is inseparable from loops of small bowel present in this region. The intensity of the FDG activity suggests that some active infection may be present in this region, and residual malignancy contributing to this cannot be entirely excluded, but there does not appear to be soft tissue thickening in the bowel or abdominal wall suggesting a malignant mass at this site. Clinical correlation is recommended and this may be better characterized with MRI performed without and with intravenous contrast, if clinically indicated. 2. An enterocolic anastomosis from a less recent right hemicolectomy is noted in this is unchanged in appearance from the 05/03/2022 CT scan. 3. A small right adrenal nodule shows abnormal FDG activity and is nonspecific. This is suspicious for a metastasis but could also be a functioning adenoma. This also may be better characterized with MRI, or could be further evaluated with a CT adrenal protocol. 4. No additional abnormalities suspicious for other metastatic or malignant lesions are noted.
== END 2022-06-04 09:03 | disposition home or self-care (01) ==
LOC: HO.PET 09:02
PROVIDERS: PCP Internal Medicine Medical Oncology; Visit Provider Internal Medicine Medical Oncology
DX: Z13.89 Encounter for screening for other disorder (principal)

== ENCOUNTER → 2022-06-05 09:50 | Outpatient (BNVA) | payer MEDICARE, SELFPAY | PROVIDERS: PCP Internal Medicine Medical Oncology; Referring Provider Internal Medicine Medical Oncology; Visit Provider Surgery | DX: Z13.89 Encounter for screening for other disorder (principal) | CPT/HCPCS: 99212 ==

== ENCOUNTER 2022-06-06 | Outpatient (REF) | payer MEDICARE, SELFPAY | END 2022-06-06 00:01 | disposition home or self-care (01) | LOC: HO.LNP | PROVIDERS: Visit Provider Surgery | DX: K63.89 Other specified diseases of intestine (principal) | CPT/HCPCS: 88360 ==

== ENCOUNTER → 2022-07-01 10:39 | Outpatient (BNVA) | payer MEDICARE, SELFPAY | PROVIDERS: PCP Internal Medicine Medical Oncology; Visit Provider Surgery | DX: Z48.815 Encounter for surgical aftercare following surgery on the digestive system (principal); L76.34 Postprocedural seroma of skin and subcutaneous tissue following other procedure; Z98.890 Other specified postprocedural states | CPT/HCPCS: 99212 ==

== ENCOUNTER 2022-07-10 15:53 | Outpatient (REF) | payer MEDICARE, SELFPAY ==
[2022-07-10 17:35] LABS: Alanine Aminotransferase 12 U/L (0-31); Albumin Level 4.1 g/dL (3.5-5.0); Alkaline Phosphatase 48 U/L (39-117); Anion Gap 14 (12-20); Aspartate Amino Transferase 11 U/L (5-31); Bilirubin Total 2.4 mg/dL (0.0-1.0); Blood Urea Nitrogen 32 mg/dL (9-16); Calcium 9.2 mg/dL (8.4-10.2); Carbon Dioxide 21 mmol/L (22-29); Chloride 108 mmol/L (96-108); Estimated Glomerular Filt Rate 37; Glucose Random 113 mg/dL (60-115); Potassium 3.9 mmol/L (3.3-5.1); Sodium 139 mmol/L (135-145); Total Protein 7.2 g/dL (6.5-8.0)
== END 2022-07-10 15:54 | disposition home or self-care (01) ==
LOC: HO.LAB 15:53
PROVIDERS: PCP Internal Medicine Medical Oncology; Visit Provider Surgery
DX: K63.2 Fistula of intestine (principal)
CPT/HCPCS: 36415; 80053; 99212

== ENCOUNTER → 2022-07-18 13:21 | Outpatient (BNVA) | payer MEDICARE, SELFPAY | PROVIDERS: PCP Internal Medicine Medical Oncology; Visit Provider Surgery | DX: Z48.89 Encounter for other specified surgical aftercare (principal) | CPT/HCPCS: 99211 ==

== ENCOUNTER 2022-08-02 07:46 | Outpatient (REF) | payer MEDICARE, SELFPAY ==
--- NOTE | ~2022-08-02 | CT_ITS ---
EXAMINATION: CT ABDOMEN AND PELVIS WITH CONTRAST CLINICAL INFORMATION: Fistula of intestine COMPARISON: Previous CT of the abdomen and pelvis most recent April 2022 and MRI of the abdomen March 2022 TECHNIQUE: Multidetector volumetric images were obtained from the superior aspect of the liver through the pubic symphysis following administration 85 mL of Omnipaque 350 intravenous contrast. Sagittal and coronal reformatted images were obtained on the technologist's workstation. Oral contrast: Yes This CT examination was performed using dose optimization techniques as appropriate, variously including the following: *Automated exposure control *Adjustment of mA and/or kV according to patient size (this includes techniques or standardized protocols for targeted exams where dose is matched to indication/reason for exam; i.e. extremities or head) *Use of iterative reconstruction technique DLP: 331 mGy-cm FINDINGS: LUNG BASES: The visualized lung bases are clear. Prominent azygos and hemiazygos veins are noted. LIVER, GALLBLADDER, AND BILIARY TREE: Prominent right lobe of liver probably representing a Javier's lobe. Liver otherwise normal in size and contour. No focal hepatic lesion or biliary ductal dilatation is present. There are small gallstones in the gallbladder. The gallbladder is otherwise normal. PANCREAS: There are several cysts in the pancreas. There is a 1.4 x 1.7 cm cyst in the body of the pancreas axial image 20 series 3. There is a bilobed cyst versus 2 adjacent cysts in the body the pancreas. Measured as one bilobed cyst this measures 0.9 x 1.4 cm. These do not appear appreciably changed from recent exam April 2022 or MRI of the abdomen March 2022. No main pancreatic duct dilatation is seen. SPLEEN: Unremarkable. ADRENAL GLANDS: 0.7 x 1.3 cm right adrenal nodule. Stable. The left adrenal gland is normal. KIDNEYS AND URETERS: The kidneys are normal in size, shape, and attenuation. No hydronephrosis, hydroureter, or calculi seen. No perinephric stranding. Left renal cyst measuring 1.5 cm. No imaging follow-up recommended. BLADDER: Unremarkable. GASTROINTESTINAL TRACT: There are postsurgical changes from right colectomy. There is abnormal soft tissue seen surrounding the enterocolic anastomosis extending to the adjacent anterior abdominal wall. There may be a defect in the skin of the midline abdominal wall proximal 9 cm above the umbilicus and there is adjacent skin thickening. There is abnormal soft tissue extending from the defect in the skin to the anterior abdominal wall. This is near the enterocolic anastomosis. This area is heterogeneous in attenuation. Appearance is suspicious for fistula. No definite oral contrast in this area is seen and the exact site of fistula is not localized. There is a large amount of stool in the colon suggestive of constipation.. ABDOMINAL WALL: As above. No hernia. Multiple abdominal wall varices. LYMPH NODES: No enlarged lymph nodes. Small, small bowel mesentery and retroperitoneal lymph nodes. VASCULAR: There is extensive abdominal wall varices and prominent azygos and hemiazygos veins. This is similar to previous exam PELVIC VISCERA: The uterus has been removed. No pelvic mass. OSSEOUS STRUCTURES: Degenerative changes. No fracture or focal bone lesion seen. CT/CT abdomen pelvis w IV con IMPRESSION: Postoperative changes following right colectomy. Abnormal soft tissue in the anterior abdominal wall and surrounding enterocolic anastomosis suspicious for fistula. Extraluminal oral contrast not seen in this region. Constipation. Stable right adrenal and pancreas lesions. Small gallstone. Fleischner guidelines were followed.
[2022-08-02] MEDS: iohexoL 350 MG/ML 100 ML INFUS..BTL IV (10:38)
[2022-08-02] MEDS: Barium Sulfate Oral (Mocha) 450 ML ORAL.SUSP 900 ML PO (10:39)
== END 2022-08-02 07:47 | disposition home or self-care (01) ==
LOC: HO.CT 07:46
PROVIDERS: PCP Internal Medicine Medical Oncology; Visit Provider Surgery
DX: K63.2 Fistula of intestine (principal)
CPT/HCPCS: 74177; Q9967

== ENCOUNTER → 2022-08-12 13:55 | Outpatient (BNVA) | payer MEDICARE, SELFPAY | PROVIDERS: PCP Internal Medicine Medical Oncology; Referring Provider Internal Medicine Medical Oncology; Visit Provider Surgery | DX: K63.2 Fistula of intestine (principal) | CPT/HCPCS: 99212 ==

== ENCOUNTER → 2022-09-16 14:36 | Outpatient (BNVA) | payer MEDICARE, SELFPAY | PROVIDERS: PCP Internal Medicine Medical Oncology; Visit Provider Surgery | DX: K63.2 Fistula of intestine (principal) | CPT/HCPCS: 99212 ==

== ENCOUNTER → 2022-10-14 11:22 | Outpatient (BNVA) | payer MEDICARE, SELFPAY | PROVIDERS: PCP Internal Medicine Medical Oncology; Visit Provider Surgery | DX: K63.2 Fistula of intestine (principal); C50.919 Malignant neoplasm of unspecified site of unspecified female breast | CPT/HCPCS: 99212 ==

== ENCOUNTER 2022-11-11 10:34 | Outpatient (AMB) | payer MEDICARE, SELFPAY ==
[2022-11-11 10:37] VITALS: BP 127/60; PULSE 69; BMI 25.1
--- NOTE | 2022-11-11 10:37 | MHC.OFFVIS ---
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 Patient c/o; started taking Kisqali, first day experienced diarrhea but is back to normal. 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 Resource Advisor Required: No Accompanied by: Self / Same As Patient Allergies Sulfa (Sulfonamide Antibiotics) [SULFA (SULFONAMIDE ANTIBIOTICS)] Allergy (Mild, Verified 11/11/22 10:38) RASH latex Allergy (Verified 11/11/22 10:38) Redness of Skin Medication List - Last Reconciled 11/11/22 by Po Herrera MD albuterol sulfate 90 mcg/actuation (ProAir HFA) 2 puffs inhalation Q4-6H PRN cholecalciferol (vitamin D3) (Vitamin D3) 10 mcg PO DAILY docusate sodium (Colace) 100 mg PO BID fluticasone propionate 44 mcg/actuation 1 puff inhalation BID levothyroxine (Synthroid) 1 tab PO DAILY@0600 montelukast 1 tab PO BEDTIME [Probiotic 1 cap PO DAILY] ribociclib (Kisqali) mg PO HPI Enterocutaneous fistula, 1 month follow up HPI Details She is here for 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 She says she really has not is any difference in the output since I last saw her. She says she still has has significant output on on and off although this is not constant. She just had been started on Kisqali by her oncologist for her metastatic breast cancer.She says that she has tolerated her 1st cycle so far. She has had good oral intake. She says she feels well overall and has been doing pretty much her baseline level of activities. [facility] Medical History Asthma Breast cancer Colon cancer Enterocutaneous fistula Hypothyroidism Metastatic breast cancer Partial small bowel obstruction Wound drainage Surgical History H/O removal of cyst History of exploratory laparotomy (05/03/22) History of hysterectomy History of nasal surgery History of partial colectomy Hx of colonoscopy Hx of left mastectomy Hx of right mastectomy Hx of tubal ligation Status post laparotomy Family History Mother Thyroid ca Father Cancer Social History Household Members: Spouse Housing: House Are you a primary infant childcare provider to a significant other at home: No Do you presently have visiting nurse or other home services: No Patient Tobacco Use Status: Never used Tobacco service: No Current occupational status: retired Review of Systems Const Denies chills and Denies fever(s) Card Denies chest pain, Denies dyspnea and Denies dyspnea on exertion Resp Denies cough, Denies dyspnea and Denies dyspnea on exertion GI Denies hematochezia and Denies change in bowel habits Denies hematuria Musc Denies back pain and Denies limited range of motion Neuro Denies focal weakness and Denies convulsions Psych Denies depression and Denies mood swings Physical Exam Const General: comfortable and no acute distress Resp Effort & Inspection: normal respiratory effort Cardio Rate: regular rate GI Other: Enterocutaneous fistula still with some drainage of thin enteric contents, abdomen otherwise soft, no guarding rebound no tenderness Assessment & Plan Assessment & Plan (1) Enterocutaneous fistula: Code(s): K63.2 - Fistula of intestine Plan: She has not noticed any significant changes with regards to her enterocutaneous fistula. She does describe some skin irritation because of a poor seal. We will try her on a convex appliance as I have noticed that the edges of the stoma appliance seem to be lifted off of the fistula itself. She has been started on Kisqali and so far has been tolerating this. I will see her in the office again next month. I emphasized to her the importance of good stoma care for her enterocutaneous fistula. Coding Level of Care Code Est Pt Level 3 (50709) Diagnoses Enterocutaneous fistula K63.2
== END 2022-11-11 11:03 | disposition home or self-care (01) ==
PROVIDERS: PCP Internal Medicine Medical Oncology; Visit Provider Surgery
DX: K63.2 Fistula of intestine (principal)
CPT/HCPCS: 99213

== ENCOUNTER → 2022-11-11 10:34 | Outpatient (BNVA) | payer MEDICARE, SELFPAY | PROVIDERS: PCP Internal Medicine Medical Oncology; Visit Provider Surgery | DX: K63.2 Fistula of intestine (principal) | CPT/HCPCS: 99212 ==

== ENCOUNTER 2022-12-09 10:52 | Outpatient (AMB) | payer MEDICARE, SELFPAY ==
--- NOTE | 2022-12-09 10:55 | A.OFFVIS_ITS ---
Intake Vital Signs 12/09/22 11:11 Height 5 ft 4 in Intake Visit Reasons: Enterocutaneous fistula, 1 month follow up Intake Note: This patient presents for a one month follow-up assessment for enterocutaneous fistula. Patient c/o; reports no changes or complaints at this time. Benefits Processor Required: No Allergies Sulfa (Sulfonamide Antibiotics) [SULFA (SULFONAMIDE ANTIBIOTICS)] Allergy (Mild, Verified 12/09/22 11:10) RASH latex Allergy (Verified 12/09/22 11:10) Redness of Skin HPI Enterocutaneous fistula, 1 month follow up HPI Details She is here for follow-up for her breast cancer that has metastasized to the peritoneum, with note of an enterocutaneous fistula. She had been started on Kisqali and is just starting her 2nd cycle. She does describe having some nausea side effects at the beginning of his quality but now is able to tolerate this well. She stated that she had a lot of output from her enterocutaneous fistula at the onset of her chemotherapy but this has since stabilized. She has good oral intake. She actually says that she has had better oral intake overall and has gained some weight. She says she feels that she is doing ?great? if not for having to wear the stoma appliance for her enterocutaneous fistula. He denies any abdominal pain. [facility] Medical History Asthma Breast cancer Colon cancer Enterocutaneous fistula Hypothyroidism Metastatic breast cancer Partial small bowel obstruction Wound drainage Surgical History H/O removal of cyst History of exploratory laparotomy (05/03/22) History of hysterectomy History of nasal surgery History of partial colectomy Hx of colonoscopy Hx of left mastectomy Hx of right mastectomy Hx of tubal ligation Status post laparotomy Family History Mother Thyroid ca Father Cancer Social History Household Members: Spouse Housing: House Are you a primary neonatal intensive care nurse to a significant other at home: No Do you presently have visiting nurse or other home services: No Patient Tobacco Use Status: Never used Tobacco service: No Current occupational status: retired Review of Systems Const Denies chills and Denies fever(s) Card Denies chest pain, Denies dyspnea and Denies dyspnea on exertion Resp Denies cough, Denies dyspnea and Denies dyspnea on exertion GI Denies hematochezia and Denies change in bowel habits Denies hematuria Musc Denies back pain and Denies limited range of motion Neuro Denies focal weakness and Denies convulsions Psych Denies depression and Denies mood swings Physical Exam Const General: comfortable and no acute distress Resp Effort & Inspection: normal respiratory effort GI Other: Enterocutaneous fistula on the mid abdomen, with scanty output, stoma appliance in place Palpation (GI): Soft to palpation, not firm, nontender and no guarding Assessment & Plan Assessment & Plan (1) Enterocutaneous fistula: Code(s): K63.2 - Fistula of intestine Plan: She continues to have some output from her enterocutaneous fistula, although this is not a lot. This appears to be low output at this time. She denies any abdominal pain or any GI complaints We are hoping that this enterocutaneous fistula will heal with treatment with Kisqali for her metastatic breast cancer. Overall, she seems to be doing very well and says she actually feels great. I will see her again in the office in about a month. We are also trying other appliances to fit her lifestyle. (2) Metastatic breast cancer: Code(s): C50.919 - Malignant neoplasm of unspecified site of unspecified female breast Plan: She has been started on Kisqali. She seems to be tolerating this. Coding Level of Care Code Est Pt Level 3 (97362) Diagnoses Enterocutaneous fistula K63.2 Metastatic breast cancer C50.919
== END 2022-12-09 11:30 | disposition home or self-care (01) ==
PROVIDERS: PCP Internal Medicine Medical Oncology; Visit Provider Surgery
DX: K63.2 Fistula of intestine (principal); C50.919 Malignant neoplasm of unspecified site of unspecified female breast
CPT/HCPCS: 99213

== ENCOUNTER → 2022-12-09 10:52 | Outpatient (BNVA) | payer MEDICARE, SELFPAY | PROVIDERS: PCP Internal Medicine Medical Oncology; Visit Provider Surgery | DX: K63.2 Fistula of intestine (principal); C50.919 Malignant neoplasm of unspecified site of unspecified female breast | CPT/HCPCS: 99212 ==

== ENCOUNTER 2023-01-09 12:49 | Outpatient (AMB) | payer MEDICARE, SELFPAY ==
--- NOTE | 2023-01-09 12:50 | A.OFFVIS_ITS ---
Intake Vital Signs 01/09/23 12:51 Height 5 ft 4 in Weight 151 lb BMI 25.9 BP 140/63 H Blood Pressure Location Rt brachial Position Sitting Pulse 77 Intake Visit Reasons: 1 month follow-up enterocutaneous fistula Intake Note: This patient presents for a one month follow-up assessment for enterocutaneous fistula. Patient c/o; reports no issues or complaints at this time. Gravel Wheeler Required: No Accompanied by: Self / Same As Patient Allergies Sulfa (Sulfonamide Antibiotics) [SULFA (SULFONAMIDE ANTIBIOTICS)] Allergy (Mild, Verified 01/09/23 12:59) RASH latex Allergy (Verified 01/09/23 12:59) Redness of Skin Medication List - Last Reconciled 01/09/23 by Po Herrera MD albuterol sulfate 90 mcg/actuation (ProAir HFA) 2 puffs inhalation Q4-6H PRN cholecalciferol (vitamin D3) (Vitamin D3) 10 mcg PO DAILY docusate sodium (Colace) 100 mg PO BID fluticasone propionate 44 mcg/actuation 1 puff inhalation BID levothyroxine (Synthroid) 1 tab PO DAILY@0600 montelukast 1 tab PO BEDTIME [Probiotic 1 cap PO DAILY] ribociclib (Kisqali) mg PO HPI 1 month follow-up enterocutaneous fistula HPI Details She is here for a ffup for her enterocutaneous fistula with metastatic breast cancer. She denies any changes or any new complaints. She does state that her fistula output and generally low although this waxes and wanes sometimes. She has good oral intake. She has good bowel movements She remains active. She tolerates Kisqali treatment and is now on her 3rd month. REPLACED BY [facility] Medical History Enterocutaneous fistula Metastatic breast cancer Wound drainage Partial small bowel obstruction Colon cancer Breast cancer Hypothyroidism Asthma Surgical History Status post laparotomy History of exploratory laparotomy (05/03/22) Hx of left mastectomy H/O removal of cyst Hx of colonoscopy History of nasal surgery Hx of tubal ligation History of partial colectomy Hx of right mastectomy History of hysterectomy Family History Mother Thyroid ca Father Cancer Social History Household Members: Spouse Housing: House Are you a primary health care recruiter to a significant other at home: No Do you presently have visiting nurse or other home services: No Patient Tobacco Use Status: Never used Tobacco service: No Current occupational status: retired Review of Systems Const Denies chills and Denies fever(s) Card Denies chest pain, Denies dyspnea and Denies dyspnea on exertion Resp Denies cough, Denies dyspnea and Denies dyspnea on exertion GI Denies hematochezia and Denies change in bowel habits Denies hematuria Musc Denies back pain and Denies limited range of motion Neuro Denies focal weakness and Denies convulsions Psych Denies depression and Denies mood swings Physical Exam Vital Signs: Last Vital Signs Pulse 77 01/09/23 12:51 BP 140/63 H 01/09/23 12:51 BMI result Body Mass Index 25.9 Const General: comfortable and no acute distress Orientation/consciousness: patient oriented x3 Neck Neck: Yes no lymphadenopathy Resp Auscultation: clear to auscultation bilaterally Cardio Rhythm: regular rhythm GI Other: Enterocutaneous fistula with scanty output, stoma appliance in place Palpation (GI): Soft to palpation, nontender and no guarding Neuro General: patient oriented x3 Assessment & Plan Assessment & Plan (1) Enterocutaneous fistula: Code(s): K63.2 - Fistula of intestine Plan: She has minimal output from her stoma. She describes this more of a nuisance. She overall feels well. We had discussed the option of starting her on a somatostatin analog. I did explain to her that there may be side effects with somebody who has oral intake as this suppresses GI secretions She says that she will about it and does not feel strongly for it at this time. She continues to follow with her oncologist in [place] as she is on Kisqali. I will see her again in the office in about a month. Coding Level of Care Code Est Pt Level 3 (94630) Diagnoses Enterocutaneous fistula K63.2
[2023-01-09 12:51] VITALS: BP 140/63; PULSE 77; BMI 25.9
== END 2023-01-09 13:19 | disposition home or self-care (01) ==
PROVIDERS: PCP Internal Medicine Medical Oncology; Visit Provider Surgery
DX: K63.2 Fistula of intestine (principal)
CPT/HCPCS: 99213

== ENCOUNTER → 2023-01-09 12:49 | Outpatient (BNVA) | payer MEDICARE, SELFPAY | PROVIDERS: PCP Internal Medicine Medical Oncology; Visit Provider Surgery | DX: K63.2 Fistula of intestine (principal) | CPT/HCPCS: 99212 ==

== ENCOUNTER 2023-02-03 13:03 | Outpatient (AMB) | payer MEDICARE, SELFPAY ==
--- NOTE | 2023-02-03 13:18 | A.OFFVIS_ITS ---
Intake Vital Signs 02/03/23 13:22 Height 5 ft 4 in Weight 150 lb BMI 25.7 BP 138/63 Blood Pressure Location Lt brachial Position Sitting Pulse 80 Intake Visit Reasons: 1 month follow-up enterocutaneous fistula Intake Note: This patient presents for a one month follow-up assessment for enterocutaneous fistula. Patient c/o; reports no changes or complaints at this time. Tower Hoist Operator Required: No Accompanied by: Self / Same As Patient Allergies Sulfa (Sulfonamide Antibiotics) [SULFA (SULFONAMIDE ANTIBIOTICS)] Allergy (Mild, Verified 02/03/23 13:23) RASH latex Allergy (Verified 02/03/23 13:23) Redness of Skin Medication List - Last Reconciled 02/03/23 by Po Herrera MD albuterol sulfate 90 mcg/actuation (ProAir HFA) 2 puffs inhalation Q4-6H PRN cholecalciferol (vitamin D3) (Vitamin D3) 10 mcg PO DAILY docusate sodium (Colace) 100 mg PO BID fluticasone propionate 44 mcg/actuation 1 puff inhalation BID levothyroxine (Synthroid) 1 tab PO DAILY@0600 montelukast 1 tab PO BEDTIME [Probiotic 1 cap PO DAILY] ribociclib (Kisqali) mg PO HPI 1 month follow-up enterocutaneous fistula HPI Details She is here for follow-up for enterocutaneous fistula. She seems to be coming along. She does not notice any changes with regards to her fistula output. She has had no problems with the appliance. She denies any abdominal pain. She says she has had good oral intake. [facility] Medical History Enterocutaneous fistula Metastatic breast cancer Wound drainage Partial small bowel obstruction Colon cancer Breast cancer Hypothyroidism Asthma Surgical History Status post laparotomy History of exploratory laparotomy (05/03/22) Hx of left mastectomy H/O removal of cyst Hx of colonoscopy History of nasal surgery Hx of tubal ligation History of partial colectomy Hx of right mastectomy History of hysterectomy Family History Mother Thyroid ca Father Cancer Social History Household Members: Spouse Housing: House Are you a primary career technical education teacher to a significant other at home: No Do you presently have visiting nurse or other home services: No Patient Tobacco Use Status: Never used Tobacco service: No Current occupational status: retired Review of Systems Const Denies chills and Denies fever(s) Card Denies chest pain, Denies dyspnea and Denies dyspnea on exertion Resp Denies cough, Denies dyspnea and Denies dyspnea on exertion GI Denies hematochezia and Denies change in bowel habits Denies hematuria Musc Denies back pain and Denies limited range of motion Neuro Denies focal weakness and Denies convulsions Psych Denies depression and Denies mood swings Physical Exam Vital Signs: Last Vital Signs Pulse 80 02/03/23 13:22 BP 138/63 02/03/23 13:22 BMI result Body Mass Index 25.7 Const General: comfortable and no acute distress Resp Effort & Inspection: normal respiratory effort GI Other: Enterocutaneous fistula in the midline, with a small opening, stoma appliance in place, scanty output Palpation (GI): Soft to palpation, not firm, nontender and no guarding Assessment & Plan Assessment & Plan (1) Enterocutaneous fistula: Code(s): K63.2 - Fistula of intestine Plan: Her enterocutaneous fistula output has been stable although persistent. She is currently on Kisqali and fulvestrant for her metastatic breast cancer. She seems to be tolerating treatment so far. She says she is now interested about trying somatostatin to see if this will help with her fistula output. We will try to more research about this so that she can be started on this down the line. She is thinking about starting this in April after the holidays I will therefore see her in March and we will try to arrange for her to be started on somatostatin. I will discuss the plans with Dr. Tompkins. (2) Metastatic breast cancer: Code(s): C50.919 - Malignant neoplasm of unspecified site of unspecified female breast Coding Level of Care Code Est Pt Level 3 (51574) Diagnoses Enterocutaneous fistula K63.2 Metastatic breast cancer C50.919
[2023-02-03 13:22] VITALS: BP 138/63; PULSE 80; BMI 25.7
== END 2023-02-03 13:36 | disposition home or self-care (01) ==
PROVIDERS: PCP Internal Medicine Medical Oncology; Visit Provider Surgery
DX: K63.2 Fistula of intestine (principal); C50.919 Malignant neoplasm of unspecified site of unspecified female breast
CPT/HCPCS: 99213

== ENCOUNTER → 2023-02-03 13:03 | Outpatient (BNVA) | payer MEDICARE, SELFPAY | PROVIDERS: PCP Internal Medicine Medical Oncology; Visit Provider Surgery | DX: K63.2 Fistula of intestine (principal); C50.919 Malignant neoplasm of unspecified site of unspecified female breast | CPT/HCPCS: 99212 ==

== ENCOUNTER 2023-03-26 12:47 | Outpatient (AMB) | payer MEDICARE, SELFPAY ==
--- NOTE | 2023-03-26 12:51 | A.OFFVIS_ITS ---
Intake Vital Signs 03/26/23 12:53 Height 5 ft 4 in Weight 152 lb BMI 26.1 BP 126/57 L Blood Pressure Location Rt brachial Position Sitting Pulse 90 Intake Visit Reasons: 2 month follow-up enterocutaneous fistula Intake Note: This patient presents for a two month follow-up assessment for enterocutaneous fistula. Patient c/o; reports no changes or complaints at this time. Steeping Press Operator Required: No Accompanied by: Self / Same As Patient Allergies Sulfa (Sulfonamide Antibiotics) [SULFA (SULFONAMIDE ANTIBIOTICS)] Allergy (Mild, Verified 03/26/23 12:53) RASH latex Allergy (Verified 03/26/23 12:53) Redness of Skin Medication List - Last Reconciled 03/26/23 by Po Herrera MD albuterol sulfate 90 mcg/actuation (ProAir HFA) 2 puffs inhalation Q4-6H PRN cholecalciferol (vitamin D3) (Vitamin D3) 10 mcg PO DAILY docusate sodium (Colace) 100 mg PO BID fluticasone propionate 44 mcg/actuation 1 puff inhalation BID levothyroxine (Synthroid) 1 tab PO DAILY@0600 montelukast 1 tab PO BEDTIME [Probiotic 1 cap PO DAILY] ribociclib (Kisqali) mg PO HPI 2 month follow-up enterocutaneous fistula HPI Details She is here for follow-up for her enterocutaneous fistula. She denies any complaints at this time. She has good oral intake. She says she actually feels well overall. She CT scan and PET scan done with her oncologist in [facility]. This shows activity in the abdomen on the area of fistula consistent with her metastatic disease. She her fistula output has been low although still present. She says that she uses gauze as a dressing to catch the output and says that she does not use the stoma appliance anymore. [facility] Medical History Enterocutaneous fistula Metastatic breast cancer Wound drainage Partial small bowel obstruction Colon cancer Breast cancer Hypothyroidism Asthma Surgical History Status post laparotomy History of exploratory laparotomy (05/03/22) Hx of left mastectomy H/O removal of cyst Hx of colonoscopy History of nasal surgery Hx of tubal ligation History of partial colectomy Hx of right mastectomy History of hysterectomy Family History Mother Thyroid ca Father Cancer Social History Household Members: Spouse Housing: House Are you a primary care coordinator to a significant other at home: No Do you presently have visiting nurse or other home services: No Patient Tobacco Use Status: Never used Tobacco service: No Current occupational status: retired Review of Systems Const Denies chills and Denies fever(s) Card Denies chest pain, Denies dyspnea and Denies dyspnea on exertion Resp Denies cough, Denies dyspnea and Denies dyspnea on exertion GI Denies hematochezia and Denies change in bowel habits Denies hematuria Musc Denies back pain and Denies limited range of motion Neuro Denies focal weakness and Denies convulsions Psych Denies depression and Denies mood swings Physical Exam Vital Signs: Last Vital Signs Pulse 90 03/26/23 12:53 BP 126/57 L 03/26/23 12:53 BMI result Body Mass Index 26.1 Const General: comfortable and no acute distress Resp Effort & Inspection: normal respiratory effort GI Other: Enterocutaneous fistula with dry gauze as dressing, some staining seen Palpation (GI): Soft to palpation, not firm, nontender and no guarding Assessment & Plan Assessment & Plan (1) Enterocutaneous fistula: Code(s): K63.2 - Fistula of intestine Plan: She continues to have low output enterocutaneous fistula. She feels well overall. She is now more interested in trying out somatostatin or its analogs to see if helps with fistula closure. She understands however that she does have metastatic disease in the area of the fistula so this may be unlikely. I did explain to her that most studies that I have reviewed show that there may be significant decrease in fistula output for patients with high output fistula. However, the benefit of somatostatin for patients including complete closure of the fistula itself is uncertain if the output itself is low to begin with. I will the company that makes Sandostatin is find out how we can arrange for her to undergo treatment somatostatin or its analogs. In the meantime, I have scheduled her to have another follow-up next month in the office. Coding Level of Care Code Est Pt Level 3 (39618) Diagnoses Enterocutaneous fistula K63.2
[2023-03-26 12:53] VITALS: BP 126/57; PULSE 90; BMI 26.1
== END 2023-03-26 13:23 | disposition home or self-care (01) ==
PROVIDERS: PCP Internal Medicine Medical Oncology; Visit Provider Surgery
DX: K63.2 Fistula of intestine (principal)
CPT/HCPCS: 99213

== ENCOUNTER → 2023-03-26 12:47 | Outpatient (BNVA) | payer MEDICARE, SELFPAY | PROVIDERS: PCP Internal Medicine Medical Oncology; Visit Provider Surgery | DX: K63.2 Fistula of intestine (principal) | CPT/HCPCS: 99212 ==

== ENCOUNTER 2023-05-08 10:52 | Outpatient (AMB) | payer MEDICARE, SELFPAY ==
--- NOTE | 2023-05-08 10:55 | MHC.OFFVIS ---
Intake Vital Signs 05/08/23 10:59 Height 5 ft 4 in Weight 151 lb BMI 25.9 BP 114/56 L Blood Pressure Location Rt brachial Position Sitting Pulse 77 Intake Visit Reasons: 1 month follow-up enterocutaneous fistula Intake Note: This patient presents for a one month follow-up assessment for enterocutaneous fistula. Patient c/o; reports no changes. Systems Software Engineer Required: No Accompanied by: Self / Same As Patient Allergies Sulfa (Sulfonamide Antibiotics) [SULFA (SULFONAMIDE ANTIBIOTICS)] Allergy (Mild, Verified 05/08/23 11:00) RASH latex Allergy (Verified 05/08/23 11:00) Redness of Skin Medication List - Last Reconciled 05/08/23 by Po Herrera MD albuterol sulfate 90 mcg/actuation (ProAir HFA) 2 puffs inhalation Q4-6H PRN cholecalciferol (vitamin D3) (Vitamin D3) 10 mcg PO DAILY docusate sodium (Colace) 100 mg PO BID fluticasone propionate 44 mcg/actuation 1 puff inhalation BID levothyroxine (Synthroid) 1 tab PO DAILY@0600 montelukast 1 tab PO BEDTIME [Probiotic 1 cap PO DAILY] ribociclib (Kisqali) mg PO HPI 1 month follow-up enterocutaneous fistula HPI Details She is here for follow-up for her enterocutaneous fistula. She does have metastatic disease into the small bowel from her breast cancer She describes persistent drainage from the fistula although often times she is able to manage this with just a dressing instead of a stoma appliance from before. She has good oral intake. She has remained active. [facility] Medical History Enterocutaneous fistula Metastatic breast cancer Wound drainage Partial small bowel obstruction Colon cancer Breast cancer Hypothyroidism Asthma Surgical History Status post laparotomy History of exploratory laparotomy (05/03/22) Hx of left mastectomy H/O removal of cyst Hx of colonoscopy History of nasal surgery Hx of tubal ligation History of partial colectomy Hx of right mastectomy History of hysterectomy Family History Mother Thyroid ca Father Cancer Social History Household Members: Spouse Housing: House Are you a primary manager care management to a significant other at home: No Do you presently have visiting nurse or other home services: No Patient Tobacco Use Status: Never used Tobacco service: No Current occupational status: retired Review of Systems Const Denies chills and Denies fever(s) Card Denies chest pain, Denies dyspnea and Denies dyspnea on exertion Resp Denies cough, Denies dyspnea and Denies dyspnea on exertion GI Denies hematochezia and Denies change in bowel habits Denies hematuria Musc Denies back pain and Denies limited range of motion Neuro Denies focal weakness and Denies convulsions Psych Denies depression and Denies mood swings Physical Exam Vital Signs: Last Vital Signs Pulse 77 05/08/23 10:59 BP 114/56 L 05/08/23 10:59 BMI result Body Mass Index 25.9 Const General: comfortable and no acute distress Orientation/consciousness: patient oriented x3 Neck Neck: Yes no lymphadenopathy Resp Auscultation: clear to auscultation bilaterally Cardio Rhythm: regular rhythm GI Other: Enterocutaneous fistula site on the upper part of the incision seen, with some hypergranulation tissue, no active drainage at this time Palpation (GI): Soft to palpation, nontender and no guarding Neuro General: patient oriented x3 Assessment & Plan Assessment & Plan (1) Enterocutaneous fistula: Code(s): K63.2 - Fistula of intestine Plan: She had wanted to try Sandostatin treatment for enterocutaneous fistula. She does understand that in view of the likely malignant etiology of the fistula, this is unlikely to close up. She is is going to [facility] tomorrow to discuss this understand and treatment. She does go therefore metastatic breast cancer I will see her in the office again in about 2 months. Coding Level of Care Code Est Pt Level 3 (60132) Diagnoses Enterocutaneous fistula K63.2
[2023-05-08 10:59] VITALS: BP 114/56; PULSE 77; BMI 25.9
== END 2023-05-08 11:11 | disposition home or self-care (01) ==
PROVIDERS: PCP Internal Medicine Medical Oncology; Visit Provider Surgery
DX: K63.2 Fistula of intestine (principal)
CPT/HCPCS: 99213

== ENCOUNTER → 2023-05-08 10:52 | Outpatient (BNVA) | payer MEDICARE, SELFPAY | PROVIDERS: PCP Internal Medicine Medical Oncology; Visit Provider Surgery | DX: K63.2 Fistula of intestine (principal) | CPT/HCPCS: 99212 ==

== ENCOUNTER 2023-06-13 08:18 | Outpatient (REF) | payer MEDICARE, SELFPAY ==
[2023-06-13 08:53] LABS: Basophils Absolute Auto 0.1 X10*3/uL (0.0-0.2); Basophils Percent Auto 2.3 % (0-2); Eosinophils Percent Auto 1.2 % (0-4); Hematocrit 42.3 % (37.0-47.0); Hemoglobin 13.6 g/dl (12.0-16.0); Lymphocytes Absolute Auto 1.2 X10*3/uL (1.2-4.9); Lymphocytes Percent Auto 47.3 % (20-40); MANUAL DIFF FLAG SCAN; Mean Corpuscular HGB Conc 32.2 g/dl (31.0-35.0); Mean Corpuscular Hemoglobin 33.8 pg (27.0-33.0); Mean Corpuscular Volume 105.2 fL (80.0-98.0); Mean Platelet Volume 10.8 fL (9.4-12.3); Monocytes Absolute Auto 0.3 X10*3/uL (0.1-1.2); Monocytes Percent Auto 12.7 % (2-11); Neutrophils Percent Auto 36.5 % (45-73); Platelet Count 234 X10*3/uL (160-400); Red Blood Count 4.02 X10*6/uL (4.20-5.50); Red Cell Distribution Width 15.5 % (11.0-16.0); SCAN SMEAR FLAG 1; White Blood Count 2.6 X10*3/uL (4.8-10.8)
[2023-06-13 09:40] LABS: SLIDE REVIEW VERIFIED
[2023-06-13 09:47] LABS: Alanine Aminotransferase 28 U/L (0-31); Albumin Level 4.4 g/dL (3.5-5.0); Alkaline Phosphatase 40 U/L (39-117); Anion Gap 13 (12-20); Aspartate Amino Transferase 33 U/L (5-31); Bilirubin Total 1.2 mg/dL (0.0-1.0); Blood Urea Nitrogen 28 mg/dL (9-16); Calcium 9.3 mg/dL (8.4-10.2); Carbon Dioxide 24 mmol/L (22-29); Chloride 108 mmol/L (96-108); Cholesterol 165 mg/dL (<200); Estimated Glomerular Filt Rate 46; Glucose Fasting 118 mg/dL (60-99); HDL Cholesterol 54 mg/dL (>40); LDL Cholesterol Calculated 92 mg/dL (<100); Potassium 4.2 mmol/L (3.3-5.1); Sodium 141 mmol/L (135-145); Total Protein 7.8 g/dL (6.5-8.0); Triglycerides 95 mg/dL (<150)
[2023-06-13 09:53] LABS: Free T4 (Free Thyroxine) 0.84 ng/dL (0.71-1.85); Thyroid Stimulating Hormone 1.74 uIU/mL (0.32-4.0)
[2023-06-14 11:28] LABS: CA 27.29 54 U/mL (<38)
== END 2023-06-13 08:19 | disposition home or self-care (01) ==
LOC: HO.LAB 08:18
PROVIDERS: PCP Internal Medicine Medical Oncology; Visit Provider Internal Medicine Medical Oncology
DX: E03.9 Hypothyroidism, unspecified (principal); J45.909 Unspecified asthma, uncomplicated; C50.911 Malignant neoplasm of unspecified site of right female breast; Z85.038 Personal history of other malignant neoplasm of large intestine
CPT/HCPCS: 36415; 80053; 80061; 84439; 84443; 85025; 86300

== ENCOUNTER 2023-07-03 10:48 | Outpatient (AMB) | payer MEDICARE, SELFPAY ==
--- NOTE | 2023-07-03 10:51 | MHC.OFFVIS ---
Intake Intake Visit Reasons: 2 month follow-up enterocutaneous fistula Intake Note: Patient here for 2m f/u enterocutaneous fistula. Patient c/o: reports healing well. Started monthly sandostatin injections @ [facility]. SX: Exp lap, lysis of adhesions on 05-03-22. Cotton Bag Clipper Required: No Accompanied by: Self / Same As Patient Allergies Sulfa (Sulfonamide Antibiotics) [SULFA (SULFONAMIDE ANTIBIOTICS)] Allergy (Mild, Verified 07/03/23 10:52) RASH latex Allergy (Verified 07/03/23 10:52) Redness of Skin HPI 2 month follow-up enterocutaneous fistula HPI Details She is here for follow-up for her enterocutaneous fistula. She had started on on Sandostatin injection done at the cancer center in [facility] to promote closure of the fistula. She has known metastatic disease from her breast cancer. She has had 1 injection done so far and she feels that this has helped decrease the output from the fistula. She says that she may be asked to change the dressing only once a day. She denies any GI changes. [facility] Medical History Enterocutaneous fistula Metastatic breast cancer Wound drainage Partial small bowel obstruction Colon cancer Breast cancer Hypothyroidism Asthma Surgical History Status post laparotomy History of exploratory laparotomy (05/03/22) Hx of left mastectomy H/O removal of cyst Hx of colonoscopy History of nasal surgery Hx of tubal ligation History of partial colectomy Hx of right mastectomy History of hysterectomy Family History Mother Thyroid ca Father Cancer Social History Household Members: Spouse Housing: House Are you a primary manager medicare to a significant other at home: No Do you presently have visiting nurse or other home services: No Patient Tobacco Use Status: Never used Tobacco service: No Current occupational status: retired Review of Systems Const Denies chills and Denies fever(s) Card Denies chest pain, Denies dyspnea and Denies dyspnea on exertion Resp Denies cough, Denies dyspnea and Denies dyspnea on exertion GI Denies hematochezia and Denies change in bowel habits Denies hematuria Musc Denies back pain and Denies limited range of motion Neuro Denies focal weakness and Denies convulsions Psych Denies depression and Denies mood swings Physical Exam Const General: comfortable and no acute distress Resp Effort & Inspection: normal respiratory effort Cardio Rate: regular rate GI Other: Puckering of the skin on the fistula site in the midline, fistula however is dry at this time Palpation (GI): Soft to palpation, not firm, nontender and no guarding Assessment & Plan Assessment & Plan (1) Enterocutaneous fistula: Code(s): K63.2 - Fistula of intestine Plan: She has noticed significant decrease in the output from the fistula. She feels that the Sandostatin injection has helped. She is supposed to get this once a month. She feels well overall. She denies any GI side effects She continues to be on treatment with Kisqali for her metastatic breast cancer. I will see her again in the office in about 2 months. Coding Level of Care Code Est Pt Level 3 (11650) Diagnoses Enterocutaneous fistula K63.2
== END 2023-07-03 11:13 | disposition home or self-care (01) ==
PROVIDERS: PCP Internal Medicine Medical Oncology; Visit Provider Surgery
DX: K63.2 Fistula of intestine (principal)
CPT/HCPCS: 99213

== ENCOUNTER → 2023-07-03 10:48 | Outpatient (BNVA) | payer MEDICARE, SELFPAY | PROVIDERS: PCP Internal Medicine Medical Oncology; Visit Provider Surgery | DX: K63.2 Fistula of intestine (principal) | CPT/HCPCS: 99212 ==

== ENCOUNTER 2023-09-03 10:48 | Outpatient (AMB) | payer MEDICARE, SELFPAY ==
--- NOTE | 2023-09-03 10:49 | MHC.OFFVIS ---
Vital Signs 09/03/23 10:50 Height 5 ft 4 in Weight 149 lb BMI 25.6 BP 107/58 L Blood Pressure Location Rt brachial Position Sitting Pulse 79 Intake Visit Reasons: 2 month follow-up enterocutaneous fistula Intake Note: This patient presents for an assessment for 2 month follow-up enterocutaneous fistula. Patient c/o; reports no complaints. Ammonium Hydroxide Operator Required: No Accompanied by: Self / Same As Patient Allergies Sulfa (Sulfonamide Antibiotics) [SULFA (SULFONAMIDE ANTIBIOTICS)] Allergy (Mild, Verified 09/03/23 10:56) RASH latex Allergy (Verified 09/03/23 10:56) Redness of Skin Medication List - Last Reconciled 09/03/23 by Po Herrera MD albuterol sulfate 90 mcg/actuation (ProAir HFA) 2 puffs inhalation Q4-6H PRN cholecalciferol (vitamin D3) (Vitamin D3) 10 mcg PO DAILY docusate sodium (Colace) 100 mg PO BID fluticasone propionate 44 mcg/actuation 1 puff inhalation BID levothyroxine (Synthroid) 1 tab PO DAILY@0600 montelukast 1 tab PO BEDTIME [Probiotic 1 cap PO DAILY] ribociclib (Kisqali) mg PO HPI HPI 2 month follow-up enterocutaneous fistula: Details: She is here for follow-up for enterocutaneous fistula. She says this is doing very well with Sandostatin infusions. She says that the drainage is gone down significantly and she only has to change her dressings once a day. She says this is mostly staining on the gauze. She denies any GI complaints. She is good oral intake. [facility] Medical History Enterocutaneous fistula Metastatic breast cancer Wound drainage Partial small bowel obstruction Colon cancer Breast cancer Hypothyroidism Asthma Surgical History Status post laparotomy History of exploratory laparotomy (05/03/22) Hx of left mastectomy H/O removal of cyst Hx of colonoscopy History of nasal surgery Hx of tubal ligation History of partial colectomy Hx of right mastectomy History of hysterectomy Family History Mother Thyroid ca Father Cancer Social History Household Members: Spouse Housing: House Are you a primary pet care technician to a significant other at home: No Do you presently have visiting nurse or other home services: No Patient Tobacco Use Status: Never used Tobacco service: No Current occupational status: retired Review of Systems Const Denies chills and Denies fever(s) Card Denies chest pain, Denies dyspnea and Denies dyspnea on exertion Resp Denies cough, Denies dyspnea and Denies dyspnea on exertion GI Denies hematochezia and Denies change in bowel habits Denies hematuria Musc Denies back pain and Denies limited range of motion Neuro Denies focal weakness and Denies convulsions Psych Denies depression and Denies mood swings Physical Exam Vital Signs: Last Vital Signs Pulse 79 09/03/23 10:50 BP 107/58 L 09/03/23 10:50 BMI result Body Mass Index 25.6 Const General: comfortable and no acute distress Orientation/consciousness: patient oriented x3 Neck Neck: Yes no lymphadenopathy Resp Effort & Inspection: normal respiratory effort GI Other: Fistula still visible in the upper abdomen dry, no palpable mass Palpation (GI): Soft to palpation, nontender and no guarding Neuro General: patient oriented x3 Assessment & Plan Assessment & Plan (1) Enterocutaneous fistula: Code(s): K63.2 - Fistula of intestine Category: Medical Plan: She has an enterocutaneous fistula he will because of malignant disease from metastatic breast cancer. She says that Sandostatin infusions have helped a lot with the amount of drainage. She says that there was barely any drainage anymore. She continues to have good GI functions in feels great at this time She continues to see her oncologist every 2-4 months. She is currently on Kisqali and fulvestrant. This again in the office in about 6 months to see how she is doing. Coding Level of Care Code Est Pt Level 3 (03734) Diagnoses Enterocutaneous fistula K63.2
[2023-09-03 10:50] VITALS: BP 107/58; PULSE 79; BMI 25.6
== END 2023-09-03 11:13 | disposition home or self-care (01) ==
PROVIDERS: PCP Internal Medicine Medical Oncology; Visit Provider Surgery
DX: K63.2 Fistula of intestine (principal)
CPT/HCPCS: 99213

== ENCOUNTER → 2023-09-03 10:48 | Outpatient (BNVA) | payer MEDICARE, SELFPAY | PROVIDERS: PCP Internal Medicine Medical Oncology; Visit Provider Surgery | DX: K63.2 Fistula of intestine (principal) | CPT/HCPCS: 99212 ==

== ENCOUNTER 2024-01-31 07:27 | Outpatient (REF) | payer MEDICARE, SELFPAY ==
[2024-01-31 07:56] LABS: MANUAL DIFF FLAG NO
[2024-01-31 08:52] LABS: Basophils Absolute Auto 0.1 X10*3/uL (0.0-0.2); Hematocrit 42.1 % (37.0-47.0); Hemoglobin 13.8 g/dl (12.0-16.0); Imm Gran Abs Auto 0.01 X10*3/uL (0.00-0.03); Imm Gran Pct Auto 0.3 % (0.0-0.4); Lymphocytes Absolute Auto 1.4 X10*3/uL (1.2-4.9); Lymphocytes Percent Auto 35.4 % (20-40); Mean Corpuscular HGB Conc 32.8 g/dl (31.0-35.0); Mean Corpuscular Hemoglobin 33.6 pg (27.0-33.0); Mean Corpuscular Volume 102.4 fL (80.0-98.0); Mean Platelet Volume 10.5 fL (9.4-12.3); Monocytes Absolute Auto 0.2 X10*3/uL (0.1-1.2); Monocytes Percent Auto 5.8 % (2-11); Neutrophils Absolute Auto 2.2 x10*3/uL (2.0-8.3); Neutrophils Percent Auto 54.5 % (45-73); Platelet Count 285 X10*3/uL (160-400); Red Blood Count 4.11 X10*6/uL (4.20-5.50); Red Cell Distribution Width 14.2 % (11.0-16.0)
[2024-01-31 08:56] LABS: Estimated Average Glucose 128 mg/dL; Hemoglobin A1C 154.5995 umol/L; Hemoglobin A1c % 6.1 % (<6.0)
[2024-01-31 09:25] LABS: Alanine Aminotransferase 24 U/L (0-31); Albumin Level 4.1 g/dL (3.5-5.0); Alkaline Phosphatase 54 U/L (39-117); Anion Gap 12 (12-20); Aspartate Amino Transferase 20 U/L (5-31); Bilirubin Total 0.8 mg/dL (0.0-1.0); Blood Urea Nitrogen 21 mg/dL (9-16); Calcium 9.3 mg/dL (8.4-10.2); Carbon Dioxide 28 mmol/L (22-29); Chloride 105 mmol/L (96-108); Cholesterol 148 mg/dL (<200); Estimated Glomerular Filt Rate 56; Glucose Random 123 mg/dL (60-115); HDL Cholesterol 59 mg/dL (>40); LDL Cholesterol Calculated 70 mg/dL (<100); Potassium 4.1 mmol/L (3.3-5.1); Sodium 141 mmol/L (135-145); Total Protein 7.3 g/dL (6.5-8.0); Triglycerides 97 mg/dL (<150)
[2024-01-31 09:29] LABS: Creatinine Urine 73.39 mg/dL; Microalbum/Creatinine Ratio Ur 50.4 ug/mg cr (<30)
== END 2024-01-31 07:28 | disposition home or self-care (01) ==
LOC: HO.LAB 07:27
PROVIDERS: PCP Internal Medicine Medical Oncology; Visit Provider Internal Medicine Medical Oncology
DX: E03.9 Hypothyroidism, unspecified (principal); Z85.038 Personal history of other malignant neoplasm of large intestine; E11.9 Type 2 diabetes mellitus without complications; M85.88 Other specified disorders of bone density and structure, other site; E66.3 Overweight
CPT/HCPCS: 36415; 80053; 80061; 82043; 82570; 83036; 85025

== ENCOUNTER 2024-03-01 11:18 | Outpatient (AMB) | payer MEDICARE, SELFPAY ==
[2024-03-01 11:20] VITALS: BP 113/59; PULSE 86; BMI 26.0
--- NOTE | 2024-03-01 11:20 | A.OFFVIS_ITS ---
Vital Signs 03/01/24 11:20 Height 5 ft 4 in Weight 151 lb 8 oz BMI 26.0 BP 113/59 L Blood Pressure Location Rt brachial Position Sitting Pulse 86 Intake Visit Reasons: 6 month follow-up enterocutaneous fistula Intake Note: This patient presents for six month follow-up enterocutaneous fistula. Pt c/o;reports no complaints. Abd/pelvis CT: 08/02/2022 Applications Architect Required: No Accompanied by: Self / Same As Patient Allergies Sulfa (Sulfonamide Antibiotics) [SULFA (SULFONAMIDE ANTIBIOTICS)] Allergy (Mild, Verified 03/01/24 11:33) RASH latex Allergy (Verified 03/01/24 11:33) Redness of Skin Medication List - Last Reconciled 03/01/24 by Po Herrera MD albuterol sulfate 90 mcg/actuation (ProAir HFA) 2 puffs inhalation Q4-6H PRN cholecalciferol (vitamin D3) (Vitamin D3) 10 mcg PO DAILY docusate sodium (Colace) 100 mg PO BID fluticasone propionate 44 mcg/actuation 1 puff inhalation BID levothyroxine (Synthroid) 1 tab PO DAILY@0600 montelukast 1 tab PO BEDTIME [Probiotic 1 cap PO DAILY] ribociclib (Kisqali) mg PO HPI HPI 6 month follow-up enterocutaneous fistula: Details: She is here for follow-up for her enterocutaneous fistula. This has completely resolved after Sandostatin treatment. She denies any drainage at all. She has good oral intake. She says she has gained some weight. She feels well overall She continues to take Kisqali for her metastatic breast cancer. [facility] Medical History Enterocutaneous fistula Metastatic breast cancer Wound drainage Partial small bowel obstruction Colon cancer Breast cancer Hypothyroidism Asthma Surgical History Status post laparotomy History of exploratory laparotomy (05/03/22) Hx of left mastectomy H/O removal of cyst Hx of colonoscopy History of nasal surgery Hx of tubal ligation History of partial colectomy Hx of right mastectomy History of hysterectomy Family History Mother Thyroid ca Father Cancer Social History Household Members: Spouse Housing: House Are you a primary healthcare educator to a significant other at home: No Do you presently have visiting nurse or other home services: No Patient Tobacco Use Status: Never used Tobacco service: No Current occupational status: retired Review of Systems Const Denies chills and Denies fever(s) Card Denies dyspnea Resp Denies dyspnea GI Denies abdominal pain Denies difficulty voiding Physical Exam Vital Signs: Last Vital Signs Pulse 86 03/01/24 11:20 BP 113/59 L 03/01/24 11:20 BMI result Body Mass Index 26.0 Const Other: She looks well General: comfortable Resp Effort & Inspection: normal respiratory effort Cardio Rate: regular rate GI Other: No open wound or fistula noted Palpation (GI): Soft to palpation, not firm, nontender and no guarding Assessment & Plan Assessment & Plan (1) Enterocutaneous fistula: Code(s): K63.2 - Fistula of intestine Category: Medical Plan: This has completely resolved. It appears that she may use responded well to Sandostatin as treatment for an enterocutaneous fistula She continues to undergo treatment for her metastatic breast cancer Overall, she is doing very well. She can follow up with me on a p.r.n. basis. Coding Level of Care Code Est Pt Level 3 (02463) Diagnoses Enterocutaneous fistula K63.2
== END 2024-03-01 11:46 | disposition home or self-care (01) ==
PROVIDERS: PCP Internal Medicine Medical Oncology; Visit Provider Surgery
DX: K63.2 Fistula of intestine (principal)
CPT/HCPCS: 99213

== ENCOUNTER → 2024-03-01 11:18 | Outpatient (BNVA) | payer MEDICARE, SELFPAY | PROVIDERS: PCP Internal Medicine Medical Oncology; Visit Provider Surgery | DX: Z87.19 Personal history of other diseases of the digestive system (principal) | CPT/HCPCS: 99212 ==

== ENCOUNTER 2024-04-17 07:39 | Outpatient (REF) | payer MEDICARE, SELFPAY ==
--- OUTSIDE RECORDS SUMMARY | 2024-04-17 07:42 | XMS_ITS | Patient Health Record ---
Author Organization [facility] Address [address] [place] [address] Care Team Providers Care Staff Cytotechnologist Name Role Phone Sudhakar De La O MD Primary Care Provider UnavailSudhakar Leos Unavailable [phone] ALLERGIES Allergen (clinical drug ingredient) Drug/Non Drug Allergy documented on EMR Reaction Allergy Type Onset Date Status Latex Latex sensitivity Allergy Active Sulfa Unknown Drug Allergy Active REASON FOR REFERRAL No Information MEDICATIONS Medication SIG (Take, Route, Frequency, Duration) Notes Start Date End Date Status Glucosamine 500 MG 1 capsule with a nereyda l Orally Once a day Active Probiotic Orally Active Singulair 10 MG Orally Acti ve Kisqali (600 MG Dose) 200 MG Oral for 28 Active Levothyroxine Sodium 75 MCG 1 tablet on an empty stomach in the morning Orally Once a day Active Flovent HFA 44 MCG/ACT 1 puff Inhalation Twice a day Active Albuterol Sulfate HFA 108 (90 Base) MCG/ACT 2 puffs as needed Inhalation every 4 hrs Active Flonase 50 MCG/ACT 1 spray in each nost ril Nasally Once a day Active Calcium 150 MG Orally Activ e Vitamin D 400 UNIT Orally A ctive IMMUNIZATIONS Vaccine Route Administration Date Status Comme nts Influenza Unknown 02/12/2017 Administered Influenza Unknown 01/26/2020 Administered Influenza Unknown 02/12/2022 Administered SOCIAL HISTORY Sex Assigned At : Social History Observation Description Sex Assigned At Unknown Alcohol Screen Question Answer Notes Did you have a drink contain ing alcohol in the past year? Yes How often did you have a dri nk containing alcohol in the past year? 2 to 3 times a week (3 points) How many drinks did you have on a typical day when you were drinking in the past year? 1 or 2 drinks (0 point) How often did you have 6 or more drinks on one occasion in the past year? Never (0 point) Points 3 Interpretation Positive PROBLEMS Problem Type ICD Code Onset Dates Problem Status W/U Status Risk SNOMED Code Notes Problem Encounter for screening for malignant neoplasm of colon (Z12.11) Active confirmed 333560577 Problem Personal history of colonic polyps (Z86.010) Active confirmed History of poly p of colon (situation) (707911364) Problem Diverticulosis of large intestine without perforation or abscess without bleeding (K57.30) Active confirmed Diverticul ar disease of colon (479298943) Problem Personal history of other malignant neoplasm of large intestine (Z85.038) Active confirmed History of malignant neoplasm of colon (699309231) Problem Intestinal bypass and anastomosis status (Z98.0) Active confirmed History of gastrointestinal tract bypass (407518652) Problem Diverticulitis (K57.92) Active confirmed 968409583 Problem Preprocedural examination (Z01.818) Active confirmed 357555862786777 Problem History of colon cancer (Z85.038) Active confirmed 229624937 Problem Pancreatic cyst (K86.2) Active confirmed Pancreatic cyst (22683097) Problem Personal history of colon cancer (Z85.038) Active confirmed 997556473 Problem Abnormal CT scan, small bowel (R93.3) Active confirmed 799880327 Problem Abnormal CT of the abdomen (R93.5) Active confirmed CT of abdome n abnormal (52809804642535278 ) Problem History of Billroth II operation (Z98.0) Active confirmed History of gastrointestinal tract bypass (349411276) Problem Colon, diverticulosis (K57.30) Active confirmed Diverticular disease of colon (073504301) Problem H/O long-term treatment with high-risk medication (Z79.899) Active confirmed 625864066 Problem IPMN (intraductal papillary mucinous neoplasm) (D49.0) Active confirmed 29463813 Problem Partial obstruction of small intestine (K56.600) Active confirmed 648314597 Problem 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) Active confirmed 109708995 Encounters Encounter Location Date Provider Diagnosis [facility] [address] [facility] [address] [place] [address] 11/05/2023 Sudhakar Tompkins PLAN OF TREATMENT Pending Test Test Name Order Date CA 19-9 03/22/2022 MRI ABD W&WO CONTRAST 03/22/2022 MRI ABD W&WO CONTRAST 04/09/2022 Amylase 03/22/2022 Lipase 03/22/2022 Future Test Test Name Order Date COLONOSCOPY 08/17/2013 COLONOSCOPY 03/11/2017 COLONOSCOPY 08/30/2020 Colonoscopy with balloon dilation 2021 Insurance Providers Payer Name Payer Address Payer Phone Subscriber Number Group Number Insured Name Patient Relationship to Insured Coverage Start Date Coverage End Date MEDICARE OF [place] [address] [place] [address] [id number] TRYONMAYNORNORRIS Connors Self - patient is the insured [employer] CLAIMS [address] [place] [address] [id number] NORRIS LECHUGA Self - patient is the insured MEDICAL (GENERAL) HISTORY Medical History History ICD Code Colon cancer diagnosed in 03 06-adenocarcinoma of the cecum--she underwent a right colectomy with Dr. Reddy--- colonoscopy in November 2013 was negative--she did have tubular adenomas removed in 2001 and 2004; she had a negative colonoscopy in May of 2017. She had a negative followup colonoscopy in October of 2020, including a normal anastomosis. Breast cancer 2001-on right- -had a bilateral mastectomy, chemo, and XRT--mets to ovary in 2002--had surgeries with Dr. Reddy as below as well Hypothyroidism Asthma Denies NC,DM,CVA,renal disease Benign appearing pancreatic cysts seen on CT scans dating back to at least 2012 Metastatic intra-abdominal b reast cancer found during the below surgery with Dr. Herrera. She is currently being followed at [facility] by Dr. Scott Enterocutaneous fistula in relation to h er below surgery Surgical History Surgery Date(Month/Year) ATTILA for metastatic breast cancer to the ovaries, as above 2002 Breast cancer surgery, as above Colon cancer surgery with a right colect kristi, as above Abdominal cyst removed Tubal ligation Nasal surgery Laparotomy with extensive ly sis of adhesions, resection of her previous ileocolic anastomosis, and resection of other portions of small bowel by Dr. Herrera due to metastatic intra-abdominal breast cancer 04/2022
--- OUTSIDE RECORDS SUMMARY | 2024-04-17 07:42 | XMS_ITS ---
Author Organization [facility] Address [address] [place] [address] Care Team Providers Care Locker Room Attendant Name Role Phone Sudhakar De La O MD Primary Care Provider Unavailab Sudhakar Rao Unavailable [phone] REASON FOR VISIT regarding Sandostatin Encounters Encounter Location Date Provider Diagnosis [facility] [address] [place] [address] 04/02/2023 Sudhakar Tompkins PLAN OF TREATMENT No Information
--- OUTSIDE RECORDS SUMMARY | 2024-04-17 07:42 | XMS_ITS ---
Author Organization [facility] Address [address] [place] [address] Care Team Providers Care Cook Fast Food Name Role Phone Sudhakar De La O MD Primary Care Provider Unavailab Sudhakar Rao Unavailable [phone] REASON FOR VISIT Sandostatin Encounters Encounter Location Date Provider Diagnosis [facility] [address] [place] [address] 12/10/2022 Sudhakar Tompkins PLAN OF TREATMENT No Information
--- OUTSIDE RECORDS SUMMARY | 2024-04-17 07:43 | XMS_ITS ---
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 Social History Sex Assigned At : Social History Observation Description Sex Assigned At Female Encounters Encounter Location Date Provider Diagnosis Sudhakar De La O III, MD [address] [place] [address] [place] [address] 06/30/2023 Sudhakar De La O Plan Of Treatment Next Appt Details Provider Name:Sudhakar De La O, 04/21/2024 10:00:00 AM, [address] [place] [address] [place], [address], Progress Notes * Steff KENTDOB: [birth year] (72 yo F)Acc No.[id number]:06/30/2023 Patient:?Yoli Steff Dejesus :1950???Age:72 Y???Sex:Female Address:[address] [place] [address], [place] [address] * true * Date:? Generated for Seng deshpande/Melva/Jose D on:?04/17/2024 07:43 AM EST
--- OUTSIDE RECORDS SUMMARY | 2024-04-17 07:43 | XMS_ITS ---
Author Organization Sudhakar De La O III, MD Address [address] [place] [address] Care Team Providers Care Internal Communications Manager Name Role Phone Sudhakar De La O Primary Care Provider Allergies Allergen (clinical drug ingredient) Drug/Non Drug Allergy documented on EMR Reaction Allergy Type Onset Date Status sulfacetamide Sulfacetamide rash Drug Allergy Active REASON FOR VISIT Recurrent breast cancer, Diabetes, Hypothyroid, Hypercalcemia, Osteopenia, History of colon cancer Medications Medication SIG (Take, Route, Frequency, Duration) Notes Start Date End Date Status Fluticasone Propionate (Inhal) 100 MCG/ACT 1 puff Inhalation Twice a day for 28 days 09/30/2023 08/31/2024 Active Asmanex (30 Metered Doses) 220 MCG/ACT 1 puff in the evening Inhalation Once a day 06/30/2023 Active Arnuity Ellipta 100 MCG/ACT 1 puff Inhalation Once a day for 30 days 09/30/2023 09/24/2024 Active Montelukast Sodium 10 mg TAKE 1 TABLET D AILY IN THE EVENING Active Kisqali (600 MG Dose) 200 MG TAKE 3 TABLETS ONCE DAILY IN THE MORNING FOR 21 DAYS, AND 7 DAYS OFF Active SandoSTATIN Active Accu-Chek Erinn Plus - USE TO TEST BLOOD SUGARS TWICE DAILY ON 2 DAYS PER WEEK Active Accu-Chek Softclix Lancets - USE TO CHECK BLOOD SUGAR TWICE DAILY JUST TWICE A WEEK Active Flovent HFA 44 MCG/ACT USE 2 INHALATIONS TWICE A DAY Active Levothyroxine Sodium 75 MCG TAKE 1 TABLET DAILY Active Fulvestrant 250 MG/5ML 10 mL Intramuscul ar 500mg Q 2weeks then montly Active Social History Tobacco Use: Social History Observation Description Date Details (start date - stop date) Never Smoker NA - NA Sex Assigned At : Social History Observation Description Sex Assigned At Female Tobacco Use/Smoking Question Answer Notes Patient is a nonsmoker Additional Findings: Tobacco Non-User Aggressive non-smoker Vital Signs Temperature 97.2 degrees Fahrenheit 09/30/19 24 Blood pressure systolic 141 mm Hg 09/30/19 24 Blood pressure diastolic 80 mm Hg 024 Heart Rate 127 /min 09/30/2023 Height 65 in 09/30/2023 Weight 149 lbs 09/30/2023 BMI 24.79 kg/m2 09/30/2023 Encounters Encounter Location Date Provider Diagnosis Sudhakar De La O III, MD [address] [place] [address] [place] [address] 09/30/2023 Sudhakar De La O Hypothyroid E03.9 ; History of colon cancer Z85.038 ; Type 2 diabetes mellitus without complication, without long-term current use of insulin E11.9 ; Osteopenia of lumbar spine M85.88 ; Hypothyroidism, unspecified E03.9 ; Overweight (BMI 25.0-29.9) E66.3 and Asthma J45.909 Assessments Encounter Date Diagnosis (ICD Code) Assessment Notes Treatment Notes Treatment Clinical Notes 09/30/2023 Hypothyroid (ICD-10 - E03.9) She is euthyroid and no change in her regimen was necessary today. 09/30/2023 History of colon cancer (ICD-10 - Z85.038) She remains in remission with no sign of relapse. 09/30/2023 Type 2 diabetes mellitus without complication, without long-term current use of insulin (ICD-10 - E11.9) Her hemoglobin A1c is at target without medication. She is successfully diet controlled. 09/30/2023 Osteopenia of lumbar spine (ICD-10 - M85.88) She will continue on her current regimen. 09/30/2023 Hypothyroidism, unspecified (ICD-10 - E03.9) She was continued on her medication with no change. Comprehensive blood work with thyroid function test has been ordered. 09/30/2023 Overweight (BMI 25.0-29.9) (ICD-10 - E66.3) 09/30/2023 Asthma (ICD-10 - J45.909) She has had no wheezing since her last visit. 53. She will notify the office if this occurs. Insurance stated Fluticasoe HFA inhaler is not covered by patient insurance alternative is Arnuity Ellipta . Plan Of Treatment Medication Medication Name Sig Start Date Stop Date Notes Fluticasone Propionate (Inhal) 100 MCG/ACT 1 puff Inhalation Twice a day for 28 days 09/30/2023 08/31/2024 Asmanex (30 Metered Doses) 220 MCG/ACT 1 puff in the evening Inhalation Once a day 06/30/2023 Arnuity Ellipta 100 MCG/ACT 1 puff Inhal ation Once a day for 30 days 09/30/2023 09/24/2024 Montelukast Sodium 10 mg TAKE 1 TABLET D AILY IN THE EVENING Kisqali (600 MG Dose) 200 MG TAKE 3 TABL ETS ONCE DAILY IN THE MORNING FOR 21 DAYS, AND 7 DAYS OFF SandoSTATIN Accu-Chek Erinn Plus - USE TO TEST BLOOD SUGARS TWICE DAILY ON 2 DAYS PER WEEK Accu-Chek Softclix Lancets - USE TO CHEC K BLOOD SUGAR TWICE DAILY JUST TWICE A WEEK Flovent HFA 44 MCG/ACT USE 2 INHALATIONS TWICE A DAY Levothyroxine Sodium 75 MCG TAKE 1 TABLET DAILY Fulvestrant 250 MG/5ML 10 mL Intramuscul ar 500mg Q 2weeks then montly Treatment Notes Assessment Notes Asthma Insurance stated Flu ticasoe HFA inhaler is not covered by patient insurance alternative is Arnuity Ellipta . Pending Test Test Name Order Date PROFILE, RANDOM (COMPREHENSIVE METABOLIC ) 09/30/2023 HEMOGLOBIN A1C (GLYCOHEMOGLOBIN) 024 CBC w DIFF 09/30/2023 Lipid Panel 09/30/2023 Microalbumin, Random 09/30/2023 Next Appt Details Follow Up: 4 month , Reason: OV review labs Provider Name:Sudhakar De La O, 04/21/2024 10:00:00 AM, [address] [place] [address] [place], [place], [id number], Progress Notes * Steff KENTDOB: [birth year] (73 yo F)Acc No.[id number]:09/30/2023 Progress Notes Patient:?Steff Kent Provider:?Sudhakar De La O MD :1950???Age:73 Y???Sex:Female D ate:09/30/2023 Address:[address] [place] [address] HERMELINDO PABLO [id number] Subjective: * Chief Complaints: * ???Recurrent breast cancerDi abetesHypothyroidHypercalcemiaOsteopeniaHistory of colon cancer * HPI: ???COVID-19 Screening:? She returns for medical management. Her breast cancer is under good control. She is being treated at the [facility]. She is tolerating her treatment well. The fistula in the midline of the abdomen has almost completely closed with the use of Sandostatin injections. She was last seen by the oncology nurse September 26, 2023. Her diabetes is diet controlled and her hemoglobin A1c is below 7. She has been compliant with her thyroid medication. Comprehensive blood work has been ordered. ?Questions?Have you experienced fever, chills, cough, sore throat, shortness of breath, difficulty breathing, muscle aches, loss of taste or smell??No ?Have you been exposed to the virus within the last 10 days??No ?Have you travelled internationally in the last 10 days??No ?Have you been exposed to COVID-19 in the past??No * ROS:?General/Constitutional:?pain?only normal aches and pains.?Chills?denies.?Fatigue?admits.?Fever?denies.?ENT:?Decreased hearing?denies.?Respiratory:?Cough?denies.?Cardiovascular:?Chest pain with exertion?denies.?Dyspnea on exertion?denies.?Shortness of breath?denies.?Gastrointestinal:?Constipation?occasional.?Decreased appetite?denies.?Diarrhea?denies.?Heartburn?denies.?Nausea?denies.?Rectal bleeding?denies.?Vomiting?denies.?Hematology:?bruising?denies.?petechiae?denies.?Swollen glands?none have been noted.?Genitourinary:?Frequent urination?a small amount.?Musculoskeletal:?Muscle aches?denies.?Painful joints?denies.?Sciatica?denies.?Weakness?denies.?Skin:?Itching?denies.?Rash?denies.?Skin lesion(s)?denies.?Neurologic:?Difficulty speaking?denies.?Dizziness?denies.?Headache?denies.?Low back pain?denies.?Psychiatric:?Depressed mood?denies.? * Medical History:? * Surgical History:?bilateral mastectomies bowel resection 2002 Colonoscopy, [facility], Dr. Sudhakar Tompkins, negative findings 03/2022 * Hospitalization/Major Diagno stic Procedure:?chest pain 12/2018 * Family History:?Father: keisha e 89 yrs, hypertension, hyperlipidemia, diagnosed with HTN, Cancer, Hyperlipidemia.?Mother: 83 yrs, Parkinsons, type II diabetes, cervical cancer,endometral cancer, diagnosed with Cancer, DM.?Maternal Grand Father: , stomach cancer.?Paternal aunt: , cancer of the kidney.?Maternal aunt: , breast cancer.?2 brother(s) , 1 sister(s) . .? Her siblings have diabetes, hyperlipidemia, sarcoidosis and pneumonia. She has no children. Her mother and brother and sister have AODM. Father Dx with colon CA. she is not aware of any family history of mental illness or substance use disorder or addiction. * Social History:?Tobacco Use:?Tobacco Use/Smoking?Patient is a?nonsmoker ?Additional Findings: Tobacco Non-User?Aggressive non-smoker ???She has been to Danny for 21 years. She was born in [place], [place]. * Medications:?TakingKisqali ( 600 MG Dose) 200 MG Tablet Therapy Pack TAKE 3 TABLETS ONCE DAILY IN THE MORNING FOR 21 DAYS, AND 7 DAYS OFF Fulvestrant 250 MG/5ML Solution Prefilled Syringe 10 mL Intramuscular 500mg Q 2weeks then montlyAccu-Chek Erinn Plus - Strip USE TO TEST BLOOD SUGARS TWICE DAILY ON 2 DAYS PER WEEK Accu-Chek Softclix Lancets - Miscellaneous USE TO CHECK BLOOD SUGAR TWICE DAILY JUST TWICE A WEEK Flovent HFA 44 MCG/ACT Aerosol USE 2 INHALATIONS TWICE A DAY Levothyroxine Sodium 75 MCG Tablet TAKE 1 TABLET DAILY SandoSTATIN Montelukast Sodium 10 mg Tablet TAKE 1 TABLET DAILY IN THE EVENING Asmanex (30 Metered Doses) 220 MCG/ACT Aerosol Powder Breath Activated 1 puff in the evening Inhalation Once a day, stop date 06/24/2024Medication List reviewed and reconciled with the patientTaking Kisqali (600 MG Dose) 200 MG Tablet Therapy Pack TAKE 3 TABLETS ONCE DAILY IN THE MORNING FOR 21 DAYS, AND 7 DAYS OFF Taking Fulvestrant 250 MG/5ML Solution Prefilled Syringe 10 mL Intramuscular 500mg Q 2weeks then montlyTaking Accu-Chek Erinn Plus - Strip USE TO TEST BLOOD SUGARS TWICE DAILY ON 2 DAYS PER WEEK Taking Accu-Chek Softclix Lancets - Miscellaneous USE TO CHECK BLOOD SUGAR TWICE DAILY JUST TWICE A WEEK Taking Flovent HFA 44 MCG/ACT Aerosol USE 2 INHALATIONS TWICE A DAY Taking Levothyroxine Sodium 75 MCG Tablet TAKE 1 TABLET DAILY Taking SandoSTATIN Taking Montelukast Sodium 10 mg Tablet TAKE 1 TABLET DAILY IN THE EVENING Taking Asmanex (30 Metered Doses) 220 MCG/ACT Aerosol Powder Breath Activated 1 puff in the evening Inhalation Once a day, stop date 06/24/2024Medication List reviewed and reconciled with the patient * Allergies:?Sulfacetamide: ra sh - Allergyno[Allergies Verified] Objective: * Vitals:?Ht: 65, Wt:149, BMI: 24.79, BP:141/80, HR:127, Temp:97.2, Wt-k.59. * Examination: ???General Examination: ?GENERAL APPEARANCE:?pleasant, well nourished, well developed, in no acute distress, calm and relaxed , woman.?HEAD:?atraumatic, normocephalic.?EYES:?eomi, perrla, anicteric, conjugate.?EARS:?normal.?NOSE:?septum intact.?ORAL CAVITY:?normal, unremarkable.?NECK/THYROID:?no jugular venous distention, no carotid bruit, thyroid normal.?LYMPH NODES:?no enlarged lymph nodes,spleen normal.?SKIN:?no suspicious lesions, anicteric.?HEART:?no clicks, gallops, murmurs, or rubs, regular rhythm, S1, S2 normal, no s3, or vascular bruits.?LUNGS:?clear to auscultation .?BREASTS:?not examined.?ABDOMEN:?bowel sounds normal, no ascites, no organomegaly, no mass, Midline fistula is very small without discharge.?RECTAL EXAM:?not examined.?MUSCULOSKELETAL:?extremities unremarkable, no clubbing, cyanosis or edema.?PERIPHERAL PULSES:?normal.?NEUROLOGIC:?alert and oriented, cranial nerves 2-12 grossly intact, deep tendon reflexes 2+ symmetrical, motor strength normal upper and lower extremities, sensory exam intact.?PSYCH:?alert, oriented.? Assessment: * Assessment: 1.?Hypothyroid - E03.9 (Prim rosa m), She is euthyroid and no change in her regimen was necessary today.?2.?History of colon cancer - Z85.038, She remains in remission with no sign of relapse.?3.?Type 2 diabetes mellitus without complication, without long-term current use of insulin - E11.9, Her hemoglobin A1c is at target without medication. She is successfully diet controlled.?4.?Osteopenia of lumbar spine - M85.88, She will continue on her current regimen.?5.?Hypothyroidism, unspecified - E03.9, She was continued on her medication with no change. Comprehensive blood work with thyroid function test has been ordered.?6.?Overweight (BMI 25.0-29.9) - E66.3?7.?Asthma - J45.909, She has had no wheezing since her last visit. 55. She will notify the office if this occurs.? Plan: * Treatment: 2.?History of colon cancer?LAB: PROFILE, RANDOM (COMPREHENSIVE METABOLIC) ?LAB: HEMOGLOBIN A1C (GLYCOHEMOGLOBIN) ?LAB: CBC w DIFF ?LAB: Lipid Panel ?LAB: Microalbumin, Random 3.?Type 2 diabetes mellitus without complication, without long-term current use of insulin?LAB: PROFILE, RANDOM (COMPREHENSIVE METABOLIC) ?LAB: HEMOGLOBIN A1C (GLYCOHEMOGLOBIN) ?LAB: CBC w DIFF ?LAB: Lipid Panel ?LAB: Microalbumin, Random 4.?Osteopenia of lumbar spin e?LAB: PROFILE, RANDOM (COMPREHENSIVE METABOLIC) ?LAB: HEMOGLOBIN A1C (GLYCOHEMOGLOBIN) ?LAB: CBC w DIFF ?LAB: Lipid Panel ?LAB: Microalbumin, Random 5.?Hypothyroidism, unspecifi ed?LAB: PROFILE, RANDOM (COMPREHENSIVE METABOLIC) ?LAB: HEMOGLOBIN A1C (GLYCOHEMOGLOBIN) ?LAB: CBC w DIFF ?LAB: Lipid Panel ?LAB: Microalbumin, Random 6.?Overweight (BMI 25.0-29.9 )?LAB: PROFILE, RANDOM (COMPREHENSIVE METABOLIC) ?LAB: HEMOGLOBIN A1C (GLYCOHEMOGLOBIN) ?LAB: CBC w DIFF ?LAB: Lipid Panel ?LAB: Microalbumin, Random 7.?Asthma? Start Arnuity Ellipta Aerosol Powder Breath Activated, 100 MCG/ACT, 1 puff, Inhalation, Once a day, 30 days, 1, Refills 11.?? Notes: Insurance stated Fluticasoe HFA inhaler is not covered by patient insurance alternative is Arnuity Ellipta .?? 8.?Others? Continue Asmanex (30 Metered Doses) Aerosol Powder Breath Activated, 220 MCG/ACT, 1 puff in the evening, Inhalation, Once a day;?Continue Montelukast Sodium Tablet, 10 mg, TAKE 1 TABLET DAILY IN THE EVENING;?Continue Kisqali (600 MG Dose) Tablet Therapy Pack, 200 MG, TAKE 3 TABLETS ONCE DAILY IN THE MORNING FOR 21 DAYS, AND 7 DAYS OFF;?Continue Fulvestrant Solution Prefilled Syringe, 250 MG/5ML, 10 mL, Intramuscular, 500mg Q 2weeks then montly;?Continue Accu-Chek Erinn Plus Strip, -, USE TO TEST BLOOD SUGARS TWICE DAILY ON 2 DAYS PER WEEK;?Continue Accu-Chek Softclix Lancets Miscellaneous, -, USE TO CHECK BLOOD SUGAR TWICE DAILY JUST TWICE A WEEK;?Continue Flovent HFA Aerosol, 44 MCG/ACT, USE 2 INHALATIONS TWICE A DAY;?Continue Levothyroxine Sodium Tablet, 75 MCG, TAKE 1 TABLET DAILY.?? * Procedure Codes:? * Preventive Medicine:? ??DM Care Plan:?Patient Lifestyle Goals?Patient wants to be able to manage diabetes without too much effort.?Treatment Goals?Blood Sugars less than < 115, HbA1C < 7.0.?Barriers?no barriers.?Self-Managment Goals?Stop drinking juice and/or soda, replace with more water, Increase exercise to 3 times a week for 30 mins, Take blood sugars twice daily and keep a log. Bring log in to next appointment.? * Follow Up:?4 month (Reason: OV review labs ) * Images: * Sign off status: Completed true * Provider:?Sudhakar De La O MD Date:?09/12 Generated for Printi ng/Famichaelg/eTransmitting on:?04/17/2024 07:42 AM EST History and Physical Notes * HPI (History of Present Illness) Category Sub-Category Detail Notes COVID-19 Screening Questions Have you had any new onset fever, chills, cough, congestion, sore throat, shortness of breath, muscle aches?: No Have you been exposed to the virus withi n the last 10 days?: No Have you travelled internationally in last 10 days?: No Have you been exposed to COVID-19 in the past?: No Examination Category Sub-Category Detail Notes General Examination GENERAL APPEARANCE: pleasant , well nourished, well developed, in no acute distress, calm and relaxed , woman HEAD: atraumatic, normocep halic EYES: eomi, perrla, anicte bakari, conjugate EARS: normal NOSE: septum intact NECK/THYROID: no jugular venous di stention, no carotid bruit, thyroid normal HEART: no clicks, gallops, murmurs, or rubs, regular rhythm, S1, S2 normal, no s3, or vascular bruits LUNGS: clear to auscultatio n ABDOMEN: bowel sounds normal, no ascites, no organomegaly, no mass, Midline fistula is very small without discharge NEUROLOGIC: alert and oriented, cranial nerves 2-12 grossly intact, deep tendon reflexes 2+ symmetrical, motor strength normal upper and lower extremities, sensory exam intact SKIN: no suspicious lesion s, anicteric PERIPHERAL PULSES: normal BREASTS: not examined MUSCULOSKELETAL: extremities unremark able, no clubbing, cyanosis or edema LYMPH NODES: no enlarged lymph no ana,spleen normal RECTAL EXAM: not examined PSYCH: alert, oriented ORAL CAVITY: normal, unremarkable
--- OUTSIDE RECORDS SUMMARY | 2024-04-17 07:43 | XMS_ITS ---
Author Organization Sudhakar De La O III, MD Address [address] [place] [address] Care Team Providers Care Surgical Processor Name Role Phone Sudhakar De La O Primary Care Provider [phone] Allergies Allergen (clinical drug ingredient) Drug/Non Drug Allergy documented on EMR Reaction Allergy Type Onset Date Status sulfacetamide Sulfacetamide rash Drug Allergy Active REASON FOR VISIT Stage IV carcinoma of the breast, Bilateral mastectomies, Diabetes, History of colon cancer, Hypothyroidism, Asthma, Hearing loss, Hypercalcemia, Past COPD Medications Medication SIG (Take, Route, Frequency, Duration) Notes Start Date End Date Status Fluticasone Propionate (Inhal) 100 MCG/ACT 1 puff Inhalation Twice a day 09/30/2023 Active Arnuity Ellipta 100 MCG/ACT 1 puff Inhalation Once a day 09/30/2023 Active Accu-Chek Softclix Lancets - USE TO CHECK BLOOD SUGAR TWICE DAILY JUST TWICE A WEEK Active Flovent HFA 44 MCG/ACT USE 2 INHALATIONS TWICE A DAY Active Levothyroxine Sodium 75 MCG TAKE 1 TABLET DAILY Active Montelukast Sodium 10 mg TAKE 1 TABLET D AILY IN THE EVENING Active Kisqali (600 MG Dose) 200 MG TAKE 3 TABLETS ONCE DAILY IN THE MORNING FOR 21 DAYS, AND 7 DAYS OFF Active predniSONE 20 MG 1 tablet Orally Once a day for 14 days 02/03/2024 04/26/2024 Active Fulvestrant 250 MG/5ML 10 mL Intramuscul ar 500mg Q 2weeks then montly Active Accu-Chek Erinn Plus - USE TO TEST BLOOD SUGARS TWICE DAILY ON 2 DAYS PER WEEK Active Asmanex (30 Metered Doses) 220 MCG/ACT 1 puff in the evening Inhalation Once a day 06/30/2023 Active Social History Tobacco Use: Social History Observation Description Date Details (start date - stop date) Never Smoker NA - NA Sex Assigned At : Social History Observation Description Sex Assigned At Female Tobacco Use/Smoking Question Answer Notes Patient is a nonsmoker Additional Findings: Tobacco Non-User Aggressive non-smoker Vital Signs Temperature 97.2 degrees Fahrenheit 02/03/20 24 Blood pressure systolic 122 mm Hg 02/03/20 24 Blood pressure diastolic 73 mm Hg 024 Heart Rate 83 /min 02/03/2024 Height 65 in 02/03/2024 Weight 151 lbs 02/03/2024 BMI 25.12 kg/m2 02/03/2024 Encounters Encounter Location Date Provider Diagnosis Sudhakar De La O III, MD [address] [place] [address] [place] [address] 02/03/2024 Sudhakar De La O Hypothyroid E03.9 ; Breast carcinoma, female, right C50.911 ; Asthma J45.909 ; History of colon cancer Z85.038 ; Type 2 diabetes mellitus without complication, without long-term current use of insulin E11.9 ; Hearing loss H91.90 ; Osteopenia of lumbar spine M85.88 and Overweight E66.3 Assessments Encounter Date Diagnosis (ICD Code) Assessment Notes Treatment Notes Treatment Clinical Notes 02/03/2024 Hypothyroid (ICD-10 - E03.9) She is euthyroid and no change in her regimen was necessary today. 02/03/2024 Breast carcinoma, female, right (ICD-10 - C50.911) There was no sign of a new primary or of recurrence on today's examination. 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 She has stopped the Sandostatin. 02/03/2024 Asthma (ICD-10 - J45.909) She has had no wheezing since her last visit. 55. She will notify the office if this occurs. 02/03/2024 History of colon cancer (ICD-10 - Z85.038) 02/03/2024 Type 2 diabetes mellitus without complication, without long-term current use of insulin (ICD-10 - E11.9) Her hemoglobin A1c is 6.1. Her weight is stable, having gained 2 pounds. Her fasting glucose levels have been acceptable. No change in her medication is necessary. 02/03/2024 Hearing loss (ICD-10 - H91.90) She has noticed mild hearing loss. She intends to have an audiology evaluation once the difficulty with her abdominal pain has been resolved. 02/03/2024 Osteopenia of lumbar spine (ICD-10 - M85.88) She will continue on her current regimen. 02/03/2024 Overweight (ICD-10 - E66.3) She has gained a few pounds and is very slightly overweight. She will stabilize her weight at this level and then consume a reduced calorie diet. Plan Of Treatment Medication Medication Name Sig Start Date Stop Date Notes Fluticasone Propionate (Inhal) 100 MCG/ACT 1 puff Inhalation Twice a day 09/30/2023 Arnuity Ellipta 100 MCG/ACT 1 puff Inhalation Once a day 0 09/30/2023 Accu-Chek Softclix Lancets - USE TO CHEC K BLOOD SUGAR TWICE DAILY JUST TWICE A WEEK Flovent HFA 44 MCG/ACT USE 2 INHALATIONS TWICE A DAY Levothyroxine Sodium 75 MCG TAKE 1 TABLET DAILY Montelukast Sodium 10 mg TAKE 1 TABLET D AILY IN THE EVENING Kisqali (600 MG Dose) 200 MG TAKE 3 TABL ETS ONCE DAILY IN THE MORNING FOR 21 DAYS, AND 7 DAYS OFF predniSONE 20 MG 1 tablet Orally Once a day for 14 days 02/03/2024 04/26/2024 Fulvestrant 250 MG/5ML 10 mL Intramuscul ar 500mg Q 2weeks then montly Accu-Chek Erinn Plus - USE TO TEST BLOOD SUGARS TWICE DAILY ON 2 DAYS PER WEEK Asmanex (30 Metered Doses) 220 MCG/ACT 1 puff in the evening Inhalation Once a day 06/30/2023 Pending Test Test Name Order Date PROFILE, FASTING (COMPREHENSIVE METABOLI C) 02/03/2024 TSH (THYROID STIMULATING HORMONE) 2023 CBC w DIFF 02/03/2024 Lipid Panel 02/03/2024 Free T4 (Free Thyroxine) 02/03/2024 Microalbumin, Random 02/03/2024 Hemoglobin A1c 02/03/2024 Next Appt Details Follow Up: April, anuary, Reason: as scheduled for annual exam review labs, Routine checkup Provider Name:Sudhakar De La O, 04/21/2024 10:00:00 AM, [address] [place] [address] , [place], [place], [id number], Progress Notes * Steff KENT AnjelicaDOB: [birth year] (73 yo F)Acc No.[id number]:02/03/2024 Progress Notes Patient:?Steff EKNT Provider:?Sudhakar De La O MD :1950???Age:73 Y???Sex:Female D ate:02/03/2024 Address:[address] [place] [address] [id number] Subjective: * Chief Complaints: * ???Stage IV carcinoma of the breastBilateral mastectomiesDiabetesHistory of colon cancerHypothyroidismAsthmaHearing lossHypercalcemiaPast COPD * HPI: ???COVID-19 Screening:?Questions?Have you experienced fever, chills, cough, sore throat, shortness of breath, difficulty breathing, muscle aches, loss of taste or smell??No ?Have you been exposed to the virus within the last 10 days??No ?Have you travelled internationally in the last 10 days??No ?Have you been exposed to COVID-19 in the past??No ???:?The patient, a 73-year-old female, presented with complaints of increased allergic reactions, sinus problems, and itching. She reported that these symptoms have been getting more difficult to manage. She also mentioned experiencing itching at the site of her Fulvestrant shots and after exercising hard enough to break a sweat. The itching subsides after taking a shower. The patient also reported experiencing sinus problems, which she believes are due to allergies. She has been using Claritin and Flonase to manage these symptoms. The patient also mentioned that she has been experiencing thinning hair, which she believes may be due to her treatment with Ribociclib.? She remains on treatment for breast cancer and also takes fulvestrant.? 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 Her examination today showed no sign of malignancy.? No change in her medications was needed.? Her blood work was reviewed with her in detail.? The hemoglobin A1c was excellent. * ROS:?General/Constitutional:?pain?only normal aches and pains.?Chills?denies.?Fatigue?admits.?Fever?denies.?Allergy/Immunology:?Admits?Itching.?ENT:?Decreased hearing?in both ears.?Respiratory:?Cough?denies.?Cardiovascular:?Chest pain with exertion?denies.?Dyspnea on exertion?denies.?Shortness of breath?denies.?Gastrointestinal:?Constipation?occasional.?Decreased appetite?denies.?Diarrhea?denies.?Heartburn?denies.?Nausea?denies.?Rectal bleeding?denies.?Vomiting?denies.?Hematology:?bruising?denies.?petechiae?denies.?Swollen glands?none have been noted.?Genitourinary:?Frequent urination?at night.?Musculoskeletal:?Muscle aches?denies.?Painful joints?denies.?Sciatica?denies.?Weakness?denies.?Skin:?Itching?denies.?Rash?denies.?Skin lesion(s)?denies.?Neurologic:?Difficulty speaking?denies.?Dizziness?denies.?Headache?denies.?Low back pain?denies.?Psychiatric:?Depressed mood?denies.? * Medical History:? * Surgical History:?bilateral mastectomies bowel resection 2002 Colonoscopy, [facility], Dr. Sudhakar Tompkins, negative findings 03/2022No history * Hospitalization/Major Diagno stic Procedure:?chest pain 12/2018No history * Family History:?Father: keisha zhu 89 yrs, hypertension, hyperlipidemia, diagnosed with HTN, Hyperlipidemia, Cancer.?Mother: 83 yrs, Parkinsons, type II diabetes, cervical [...] for 21 years. She was born in [place], [place]. * Medications:?TakingAsmanex ( 30 Metered Doses) 220 MCG/ACT Aerosol Powder Breath Activated 1 puff in the evening Inhalation Once a day Montelukast Sodium 10 mg Tablet TAKE 1 TABLET DAILY IN THE EVENING Kisqali (600 MG Dose) 200 MG Tablet Therapy Pack TAKE 3 TABLETS ONCE DAILY IN THE MORNING FOR 21 DAYS, AND 7 DAYS OFF Fulvestrant 250 MG/5ML Solution Prefilled Syringe 10 mL Intramuscular 500mg Q 2weeks then montly Accu-Chek Erinn Plus - Strip USE TO TEST BLOOD SUGARS TWICE DAILY ON 2 DAYS PER WEEK Accu-Chek Softclix Lancets - Miscellaneous USE TO CHECK BLOOD SUGAR TWICE DAILY JUST TWICE A WEEK Flovent HFA 44 MCG/ACT Aerosol USE 2 INHALATIONS TWICE A DAY Levothyroxine Sodium 75 MCG Tablet TAKE 1 TABLET DAILY Fluticasone Propionate (Inhal) 100 MCG/ACT Aerosol Powder Breath Activated 1 puff Inhalation Twice a day , stop date 08/31/2024rnuity Ellipta 100 MCG/ACT Aerosol Powder Breath Activated 1 puff Inhalation Once a day , stop date 09/24/2024Taking Asmanex (30 Metered Doses) 220 MCG/ACT Aerosol Powder Breath Activated 1 puff in the evening Inhalation Once a day Taking Montelukast Sodium 10 mg Tablet TAKE 1 TABLET DAILY IN THE EVENING Taking Kisqali (600 MG Dose) 200 MG Tablet Therapy Pack TAKE 3 TABLETS ONCE DAILY IN THE MORNING FOR 21 DAYS, AND 7 DAYS OFF Taking Fulvestrant 250 MG/5ML Solution Prefilled Syringe 10 mL Intramuscular 500mg Q 2weeks then montly Taking Accu-Chek Erinn Plus - Strip USE TO TEST BLOOD SUGARS TWICE DAILY ON 2 DAYS PER WEEK Taking Accu-Chek Softclix Lancets - Miscellaneous USE TO CHECK BLOOD SUGAR TWICE DAILY JUST TWICE A WEEK Taking Flovent HFA 44 MCG/ACT Aerosol USE 2 INHALATIONS TWICE A DAY Taking Levothyroxine Sodium 75 MCG Tablet TAKE 1 TABLET DAILY Taking Fluticasone Propionate (Inhal) 100 MCG/ACT Aerosol Powder Breath Activated 1 puff Inhalation Twice a day , stop date 08/31/2024Taking Arnuity Ellipta 100 MCG/ACT Aerosol Powder Breath Activated 1 puff Inhalation Once a day , stop date 09/24/2024DiscontinuedSandoSTATIN Medication List reviewed and reconciled with the patientDiscontinued SandoSTATIN Medication List reviewed and reconciled with the patient * Allergies:?Sulfacetamide: ra sh - Allergyno[Allergies Verified] Objective: * Vitals:?Ht: 65, Wt:151, BMI: 25.12, BP:122/73, HR:83, Temp:97.2, Wt-k.49. * ???Past Orders: Lab:Complete Blood Count Aut o Diff * Collection Date 01/31/2024 06/13/2023 06/13/2023 Collection Time 07:55 AM 08:31 AM 08:31 AM Order Date 01/31/2024 06/13/2023 06/13/2023 White Blood Count 4.0?L (Ref Range: 4.8-10.8 X10*3/uL) 2.6?L (Ref Range: 4.8-10.8 X10*3/uL) 2.6?L (Ref Range: 4.8-10.8 X10*3/uL) Red Blood Count 4.11?L (Ref Range: 4.20-5.50 X10*6/uL) 4.02?L (Ref Range: 4.20-5.50 X10*6/uL) 4.02?L (Ref Range: 4.20-5.50 X10*6/uL) Hemoglobin 13.8 (Ref Range: 12.0-16.0 g/dl) 13.6 (Ref Range: 12.0-16.0 g/dl) 13.6 (Ref Range: 12.0-16.0 g/dl) Hematocrit 42.1 (Ref Range: 37.0-47.0 %) 42.3 (Ref Range: 37.0-47.0 %) 42.3 (Ref Range: 37.0-47.0 %) Mean Corpuscular Volume 102.4?H (Ref Range: 80.0-98.0 fL) 105.2?H (Ref Range: 80.0-98.0 fL) 105.2?H (Ref Range: 80.0-98.0 fL) Mean Corpuscular Hemoglobin 33.6?H (Ref Range: 27.0-33.0 pg) 33.8?H (Ref Range: 27.0-33.0 pg) 33.8?H (Ref Range: 27.0-33.0 pg) Mean Corpuscular HGB Conc 32.8 (Ref Range: 31.0-35.0 g/dl) 32.2 (Ref Range: 31.0-35.0 g/dl) 32.2 (Ref Range: 31.0-35.0 g/dl) Red Cell Distribution Width 14.2 (Ref Range: 11.0-16.0 %) 15.5 (Ref Range: 11.0-16.0 %) 15.5 (Ref Range: 11.0-16.0 %) Platelet Count 285 (Ref Range: 160-400 X10*3/uL) 234 (Ref Range: 160-400 X10*3/uL) 234 (Ref Range: 160-400 X10*3/uL) Mean Platelet Volume 10.5 (Ref Range: 9.4-12.3 fL) 10.8 (Ref Range: 9.4-12.3 fL) 10.8 (Ref Range: 9.4-12.3 fL) Neutrophils Percent Auto 54.5 (Ref Range: 45-73 %) 36.5?L (Ref Range: 45-73 %) 36.5?L (Ref Range: 45-73 %) Imm Gran Pct Auto 0.3 (Ref Range: 0.0-0.4 %) 0.0 (Ref Range: 0.0-0.4 %) 0.0 (Ref Range: 0.0-0.4 %) Lymphocytes Percent Auto 35.4 (Ref Range: 20-40 %) 47.3?H (Ref Range: 20-40 %) 47.3?H (Ref Range: 20-40 %) Monocytes Percent Auto 5.8 (Ref Range: 2-11 %) 12.7?H (Ref Range: 2-11 %) 12.7?H (Ref Range: 2-11 %) Eosinophils Percent Auto 1.0 (Ref Range: 0-4 %) 1.2 (Ref Range: 0-4 %) 1.2 (Ref Range: 0-4 %) Basophils Percent Auto 3.0?H (Ref Range: 0-2 %) 2.3?H (Ref Range: 0-2 %) 2.3?H (Ref Range: 0-2 %) NRBC Pct Auto 0.0 (Ref Range: 0.0-0.2 /100WBC) 0.0 (Ref Range: 0.0-0.2 /100WBC) 0.0 (Ref Range: 0.0-0.2 /100WBC) Neutrophils Absolute Auto 2.2 (Ref Range: 2.0-8.3 x10*3/uL) 1.0?L (Ref Range: 2.0-8.3 x10*3/uL) 1.0?L (Ref Range: 2.0-8.3 x10*3/uL) Imm Gran Abs Auto 0.01 (Ref Range: 0.00-0.03 X10*3/uL) 0.00 (Ref Range: 0.00-0.03 X10*3/uL) 0.00 (Ref Range: 0.00-0.03 X10*3/uL) Lymphocytes Absolute Auto 1.4 (Ref Range: 1.2-4.9 X10*3/uL) 1.2 (Ref Range: 1.2-4.9 X10*3/uL) 1.2 (Ref Range: 1.2-4.9 X10*3/uL) Monocytes Absolute Auto 0.2 (Ref Range: 0.1-1.2 X10*3/uL) 0.3 (Ref Range: 0.1-1.2 X10*3/uL) 0.3 (Ref Range: 0.1-1.2 X10*3/uL) Eosinophils Absolute Auto 0.0 (Ref Range: 0.0-0.4 X10*3/uL) 0.0 (Ref Range: 0.0-0.4 X10*3/uL) 0.0 (Ref Range: 0.0-0.4 X10*3/uL) Basophils Absolute Auto 0.1 (Ref Range: 0.0-0.2 X10*3/uL) 0.1 (Ref Range: 0.0-0.2 X10*3/uL) 0.1 (Ref Range: 0.0-0.2 X10*3/uL) NRBC Abs Auto 0.000 (Ref Range: 0.0-0.012 X10*3/uL) 0.000 (Ref Range: 0.0-0.012 X10*3/uL) 0.000 (Ref Range: 0.0-0.012 X10*3/uL) * Lab:Hemoglobin A1c * Collection Date 01/31/2024 02/23/2022 11/16/2021 Collection Time 07:55 AM 07:34 AM 10:32 AM Order Date 01/31/2024 02/23/2022 11/16/2021 Hemoglobin A1c % 6.1?H (Ref Range: <6.0 %) 6.0 (Ref Range: %) 6.1 (Ref Range: %) Estimated Average Glucose 128 (Ref Range: mg/dL) 126 (Ref Range: mg/dL) 128 (Ref Range: mg/dL) * Lab:Microalbumin, Random * Collection Date 01/31/2024 02/23/2022 Collection Time 07:54 AM 07:30 AM Order Date 01/31/2024 02/23/2022 Creatinine Urine 73.39 (Ref Range: mg/dL) 122.67 (Ref Range: mg/dL) Microalbumin Urine 37.0 (Ref Range: mg/L) 44.0 (Ref Range: mg/L) Microalbum Creatinine Ratio Ur 50.4?H (Ref Range: <30 ug/mg cr) 35.8 (Ref Range: ug/mg cr) * Lab:Lipid Panel * Collection Date 01/31/2024 06/13/2023 02/23/2022 Collection Time 07:55 AM 08:31 AM 07:34 AM Order Date 01/31/2024 06/13/2023 02/23/2022 Triglycerides 97 (Ref Range: <150 mg/dL) 95 (Ref Range: <150 mg/dL) 77 (Ref Range: mg/dL) Cholesterol 148 (Ref Range: <200 mg/dL) 165 (Ref Range: <200 mg/dL) 141 (Ref Range: mg/dL) LDL Cholesterol Calculated 70 (Ref Range: <100 mg/dL) 92 (Ref Range: <100 mg/dL) 77 (Ref Range: mg/dl) HDL Cholesterol 59 (Ref Range: >40 mg/dL) 54 (Ref Range: >40 mg/dL) 49 (Ref Range: mg/dL) * Lab:Comprehensive Met. Panel * Collection Date 01/31/2024 07/10/2022 05/03/2022 Collection Time 07:55 AM 04:57 PM 06:21 AM Order Date 01/31/2024 07/10/2022 05/03/2022 Sodium 141 (Ref Range: 135-145 mmol/L) 139 (Ref Range: 135-145 mmol/L) 138 (Ref Range: 135-145 mmol/L) Bilirubin Total 0.8 (Ref Range: 0.0-1.0 mg/dL) 2.4?H (Ref Range: 0.0-1.0 mg/dL) 2.4?H (Ref Range: 0.0-1.0 mg/dL) Aspartate Amino Transferase 20 (Ref Range: 5-31 U/L) 11 (Ref Range: 5-31 U/L) 37?H (Ref Range: 5-31 U/L) Alanine Aminotransferase 24 (Ref Range: 0-31 U/L) 12 (Ref Range: 0-31 U/L) 29 (Ref Range: 0-31 U/L) Total Protein 7.3 (Ref Range: 6.5-8.0 g/dL) 7.2 (Ref Range: 6.5-8.0 g/dL) 9.2?H (Ref Range: 6.5-8.0 g/dL) Albumin Level 4.1 (Ref Range: 3.5-5.0 g/dL) 4.1 (Ref Range: 3.5-5.0 g/dL) 5.1?H (Ref Range: 3.5-5.0 g/dL) Alkaline Phosphatase 54 (Ref Range: 39-117 U/L) 48 (Ref Range: 39-117 U/L) 71 (Ref Range: 39-117 U/L) Potassium 4.1 (Ref Range: 3.3-5.1 mmol/L) 3.9 (Ref Range: 3.3-5.1 mmol/L) 4.9 (Ref Range: 3.3-5.1 mmol/L) Chloride 105 (Ref Range: 96-108 mmol/L) 108 (Ref Range: 96-108 mmol/L) 98 (Ref Range: 96-108 mmol/L) Carbon Dioxide 28 (Ref Range: 22-29 mmol/L) 21?L (Ref Range: 22-29 mmol/L) 22 (Ref Range: 22-29 mmol/L) Anion Gap 12 (Ref Range: 12-20) 14 (Ref Range: 12-20) 23?H (Ref Range: 12-20) Blood Urea Nitrogen 21?H (Ref Range: 9-16 mg/dL) 32?H (Ref Range: 9-16 mg/dL) 27?H (Ref Range: 9-16 mg/dL) Creatinine 0.97 (Ref Range: 0.5-1.4 mg/dL) 1.40 (Ref Range: 0.5-1.4 mg/dL) 1.23 (Ref Range: 0.5-1.4 mg/dL) Estimated Glomerular Filt Rate 56 37 43 Glucose Random 123?H (Ref Range: 60-115 mg/dL) 113 (Ref Range: 60-115 mg/dL) 162?H (Ref Range: 60-115 mg/dL) Calcium 9.3 (Ref Range: 8.4-10.2 mg/dL) 9.2 (Ref Range: 8.4-10.2 mg/dL) 11.2?H (Ref Range: 8.4-10.2 mg/dL) Creatinine Clr Calc Pharmacy NR NR 35.1 * Examination: ???General Examination: ?GENERAL APPEARANCE:?pleasant, well nourished, well developed, in no acute distress, calm and relaxed.?HEAD:?atraumatic, normocephalic.?EYES:?eomi, perrla, anicteric, conjugate.?EARS:?normal.?NOSE:?septum intact.?ORAL CAVITY:?normal, unremarkable.?NECK/THYROID:?no jugular venous distention, no carotid bruit, thyroid normal.?LYMPH NODES:?no enlarged lymph nodes,spleen normal.?SKIN:?no suspicious lesions, anicteric.?HEART:?no clicks, gallops, murmurs, or rubs, regular rhythm, S1, S2 normal, no s3, or vascular bruits.?LUNGS:?clear to auscultation .?BREASTS:?Bilateral mastectomy scars intact with regular.?ABDOMEN:?bowel sounds normal, no ascites, no organomegaly, no mass.?RECTAL EXAM:?not examined.?MUSCULOSKELETAL:?extremities unremarkable, no clubbing, cyanosis or edema.?PERIPHERAL PULSES:?normal.?NEUROLOGIC:?alert and oriented, cranial nerves 2-12 grossly intact, deep tendon reflexes 2+ symmetrical, motor strength normal upper and lower extremities, sensory exam intact.?PSYCH:?alert, oriented, thought process logical, goal directed, speech clear, good eye contact, cooperative with exam, cognitive function intact,?.? Assessment: * Assessment: 1.?Breast carcinoma, female, right - C50.911 (Primary)???Notes :There was no sign of a new primary or of recurrence on today's examination.? 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 She has stopped the Sandostatin.???2.?Hypothyroid - E03.9???Notes :She is euthyroid and no change in her regimen was necessary today.???3.?Asthma - J45.909???Notes :She has had no wheezing since her last visit. 55. She will notify the office if this occurs.???4.?History of colon cancer - Z85.038???5.?Type 2 diabetes mellitus without complication, without long-term current use of insulin - E11.9???Notes :Her hemoglobin A1c is 6.1.? Her weight is stable, having gained 2 pounds.? Her fasting glucose levels have been acceptable.? No change in her medication is necessary.???6.?Hearing loss - H91.90???Notes :She has noticed mild hearing loss. She intends to have an audiology evaluation once the difficulty with her abdominal pain has been resolved.???7.?Osteopenia of lumbar spine - M85.88???Notes :She will continue on her current regimen.???8.?Overweight - E66.3???Notes :She has gained a few pounds and is very slightly overweight.? She will stabilize her weight at this level and then consume a reduced calorie diet.??? Plan: * Treatment: 2.?Hypothyroid? Continue Fluticasone Propionate (Inhal) Aerosol Powder Breath Activated, 100 MCG/ACT, 1 puff, Inhalation, Twice a day;?Start predniSONE Tablet, 20 MG, 1 tablet, Orally, Once a day, 14 days, 14 Tablet, Refills 5.?LAB: PROFILE, FASTING (COMPREHENSIVE METABOLIC) ?LAB: TSH (THYROID STIMULATING HORMONE) ?LAB: CBC w DIFF ?LAB: Lipid Panel ?LAB: Free T4 (Free Thyroxine) ?LAB: Microalbumin, Random ?LAB: Hemoglobin A1c 3.?Asthma? Continue Arnuity Ellipta Aerosol Powder Breath Activated, 100 MCG/ACT, 1 puff, Inhalation, Once a day.?LAB: PROFILE, FASTING (COMPREHENSIVE METABOLIC) ?LAB: TSH (THYROID STIMULATING HORMONE) ?LAB: CBC w DIFF ?LAB: Lipid Panel ?LAB: Free T4 (Free Thyroxine) ?LAB: Microalbumin, Random ?LAB: Hemoglobin A1c 4.?History of colon cancer?LAB: PROFILE, FASTING (COMPREHENSIVE METABOLIC) ?LAB: TSH (THYROID STIMULATING HORMONE) ?LAB: CBC w DIFF ?LAB: Lipid Panel ?LAB: Free T4 (Free Thyroxine) ?LAB: Microalbumin, Random ?LAB: Hemoglobin A1c 5.?Type 2 diabetes mellitus without complication, without long-term current use of insulin?LAB: PROFILE, FASTING (COMPREHENSIVE METABOLIC) ?LAB: TSH (THYROID STIMULATING HORMONE) ?LAB: CBC w DIFF ?LAB: Lipid Panel ?LAB: Free T4 (Free Thyroxine) ?LAB: Microalbumin, Random ?LAB: Hemoglobin A1c 6.?Others? Continue Asmanex (30 Metered Doses) Aerosol Powder [...] DAILY.?? * Procedure Codes:? * Preventive Medicine:? ??Counseling:?Care goal follow-up plan:?Counseling for abnormal BMI given?Yes ?Above Normal BMI Follow-up?Dietary management education, guidance, and counseling * Follow Up:?April, an (Reason: as scheduled for annual exam review labs, Routine checkup) * Images: * Sign off status: Completed true * Provider:?Sudhakar De La O MD Date:?01/13 Generated for Seng deshpande/Melva/Refugioitting on:?04/17/2024 07:42 AM EST History and Physical Notes * HPI (History of Present Illness) Category Sub-Category Detail Notes COVID-19 Screening Questions Have you had any new onset fever, chills, cough, congestion, sore throat, shortness of breath, muscle aches?: No Have you been exposed to the virus withi n the last 10 days?: No Have you travelled internationally in [facility] last 10 days?: No Have you been exposed to COVID-19 in the past?: No Examination Category Sub-Category Detail Notes General Examination GENERAL APPEARANCE: pleasant , well nourished, well developed, in no acute distress, calm and relaxed HEAD: atraumatic, normocep halic EYES: eomi, perrla, anicte bakari, conjugate EARS: normal NOSE: septum intact NECK/THYROID: no jugular venous di stention, no carotid bruit, thyroid normal HEART: no clicks, gallops, murmurs, or rubs, regular rhythm, S1, S2 normal, no s3, or vascular bruits LUNGS: clear to auscultatio n ABDOMEN: bowel sounds normal, no ascites, no organomegaly, no mass NEUROLOGIC: alert and oriented, cranial nerves 2-12 grossly intact, deep tendon reflexes 2+ symmetrical, motor strength normal upper and lower extremities, sensory exam intact SKIN: no suspicious lesion s, anicteric PERIPHERAL PULSES: normal BREASTS: Bilateral mastectomy scars intact with regular MUSCULOSKELETAL: extremities unremark able, no clubbing, cyanosis or edema LYMPH NODES: no enlarged lymph no ana,spleen normal RECTAL EXAM: not examined PSYCH: alert, oriented, tho ught process logical, goal directed, speech clear, good eye contact, cooperative with exam, cognitive function intact, ORAL CAVITY: normal, unremarkable
--- OUTSIDE RECORDS SUMMARY | 2024-04-17 07:44 | XMS_ITS | Patient Health Record ---
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 Role Phone Sudhakar De La O Primary Care Provider Allergies Allergen (clinical drug ingredient) Drug/Non Drug Allergy documented on EMR Reaction Allergy Type Onset Date Status sulfacetamide Sulfacetamide rash Drug Allergy Active Results Component Value Reference Range Notes URINE DIP STICK Reviewed date:04/17/2023 11:09:12 AM Interpretation: Performing Lab: Notes/Report: SG 1.020 1.005 - 1.025 pH 5.0 5.0 - 9.0 SANDIP Negative Negative - NIT Negative Negative - PRO 15 Negative - Trace GLU Negative Negative - KET Negative Negative - UBG 0.2 0.1 - 1.8 SHON Negative 0.2 - 1.3 BLD Positive Negative - Menstrating No Complete Blood Count Auto Di ff Reviewed date:06/19/2023 11:00:52 AM Interpretation: Performing Lab:[facility], [address] [place] [phone] Notes/Report: White Blood Count 2.6 4.8-10.8 X10*3/uL Red Blood Count 4.02 4.20-5.50 X10*6/uL Hemoglobin 13.6 12.0-16.0 g/dl Hematocrit 42.3 37.0-47.0 % Mean Corpuscular Volume 105.2 80.0-98.0 fL Mean Corpuscular Hemoglobin 33.8 27.0-33.0 pg Mean Corpuscular HGB Conc 32.2 31.0-35.0 g/dl Red Cell Distribution Width 15.5 11.0-16.0 % Platelet Count 234 160-400 X10*3/uL Mean Platelet Volume 10.8 9.4-12.3 fL Neutrophils Percent Auto 36.5 45-73 % Imm Gran Pct Auto 0.0 0.0-0.4 % Lymphocytes Percent Auto 47.3 20-40 % Monocytes Percent Auto 12.7 2-11 % Eosinophils Percent Auto 1.2 0-4 % Basophils Percent Auto 2.3 0-2 % NRBC Pct Auto 0.0 0.0-0.2 /100WBC Neutrophils Absolute Auto 1.0 2.0-8.3 x10*3/u L Imm Gran Abs Auto 0.00 0.00-0.03 X10*3/uL Lymphocytes Absolute Auto 1.2 1.2-4.9 X10*3/u L Monocytes Absolute Auto 0.3 0.1-1.2 X10*3/uL Eosinophils Absolute Auto 0.0 0.0-0.4 X10*3/u L Basophils Absolute Auto 0.1 0.0-0.2 X10*3/uL NRBC Abs Auto 0.000 0.0-0.012 X10*3/uL CORRECTED REPORT Comprehensive Spencer. Panel Fa st Reviewed date:06/19/2023 11:00:52 AM Interpretation: Performing Lab:[facility], [address] [place] [phone] Notes/Report: Sodium 141 135-145 mmol/L Potassium 4.2 3.3-5.1 mmol/L Chloride 108 96-108 mmol/L Carbon Dioxide 24 22-29 mmol/L Anion Gap 13 12-20 Blood Urea Nitrogen 28 9-16 mg/dL Creatinine 1.15 0.5-1.4 mg/dL Estimated Glomerular Filt Rate 46 NOTE: For -Burmese individuals, multiply the result by 1.210. Chronic Kidney Disease: Estimated GFR < 60 mL/min/1.73m2 Severe Kidney Disease: Estimated GFR < 15 mL/min/1.73m2 Glucose Fasting 118 60-99 mg/dL A fasting glucose from 100-125 mg/dl is considered impaired (pre-diabetes). Calcium 9.3 8.4-10.2 mg/dL Bilirubin Total 1.2 0.0-1.0 mg/dL Aspartate Amino Transferase 33 5-31 U/L Alanine Aminotransferase 28 0-31 U/L Total Protein 7.8 6.5-8.0 g/dL Albumin Level 4.4 3.5-5.0 g/dL Alkaline Phosphatase 40 39-117 U/L Lipid Panel Reviewed date:06/19/2023 11:00:52 AM Interpretation: Performing Lab:[facility], [address] [place] [phone] Notes/Report: Triglycerides 95 <150 mg/dL Desirable Triglyceride: less than 150 mg/dL Borderline High Triglyceride 150-199 mg/dL High Triglyceride: 200-499 mg/dL Very High Triglyceride: greater than or equal to 5OO mg/dL Cholesterol 165 <200 mg/dL Desirable Cholesterol: less than 200 mg/dL Borderline High Cholesterol: 200-239 mg/dL High Cholesterol: greater than 239 mg/dL LDL Cholesterol Calculated 92 <100 mg/dL Desirable LDL: less than 100 mg/dL Near Optimal/Above Optimal LDL: 110-129 mg/dL Borderline High LDL: 130-159 mg/dL High LDL: 160-189 mg/dL Very High LDL: greater than or equal to 190 mg/dL HDL Cholesterol 54 >40 mg/dL Desirable HDL: greater than 40 mg/dL Note: This HDL assay may give artificially low results in patients with liver disease. Free T4 (Free Thyroxine) Reviewed date:06/19/2023 11:00:52 AM Interpretation: Performing Lab:[facility], [address] [place] [phone] Notes/Report: Free T4 (Free Thyroxine) 0.84 0.71-1.85 ng/dL Thyroid Stimulating Hormone Reviewed date:06/19/2023 11:00:52 AM Interpretation: Performing Lab:[address] [phone] Notes/Report: Thyroid Stimulating Hormone 1.74 0.32-4.0 uIU/mL TSH 3rd Generation ([facility]) CA 27.29 Reviewed date:06/19/2023 11:00:52 AM Interpretation: Performing Lab:[facility], [address] [place] [phone] Notes/Report: CA 27.29 54 <38 U/mL This test was performed using the Siemens Chemiluminescent method. Values obtained from different assay methods cannot be used interchangeably. CA 27.29 levels, regardless of value, should not be interpreted as absolute evidence of the presence or absence of disease. THIS TEST WAS PERFORMED AT: [facility] ([facility]) [address] [place] [phone] CAR SALINAS MD SLIDE REVIEW Reviewed date:06/19/2023 11:00:52 AM Interpretation: Performing Lab:[facility], [address] [place] [phone] Notes/Report: SLIDE REVIEW VERIFIED Complete Blood Count Auto Di ff Reviewed date:06/19/2023 11:00:52 AM Interpretation: Performing Lab:[address] [phone] Notes/Report: White Blood Count 2.6 4.8-10.8 X10*3/uL Red Blood Count 4.02 4.20-5.50 X10*6/uL Hemoglobin 13.6 12.0-16.0 g/dl Hematocrit 42.3 37.0-47.0 % Mean Corpuscular Volume 105.2 80.0-98.0 fL Mean Corpuscular Hemoglobin 33.8 27.0-33.0 pg Mean Corpuscular HGB Conc 32.2 31.0-35.0 g/dl Red Cell Distribution Width 15.5 11.0-16.0 % Platelet Count 234 160-400 X10*3/uL Mean Platelet Volume 10.8 9.4-12.3 fL Neutrophils Percent Auto 36.5 45-73 % Imm Gran Pct Auto 0.0 0.0-0.4 % Lymphocytes Percent Auto 47.3 20-40 % Monocytes Percent Auto 12.7 2-11 % Eosinophils Percent Auto 1.2 0-4 % Basophils Percent Auto 2.3 0-2 % NRBC Pct Auto 0.0 0.0-0.2 /100WBC Neutrophils Absolute Auto 1.0 2.0-8.3 x10*3/u L Imm Gran Abs Auto 0.00 0.00-0.03 X10*3/uL Lymphocytes Absolute Auto 1.2 1.2-4.9 X10*3/u L Monocytes Absolute Auto 0.3 0.1-1.2 X10*3/uL Eosinophils Absolute Auto 0.0 0.0-0.4 X10*3/u L Basophils Absolute Auto 0.1 0.0-0.2 X10*3/uL NRBC Abs Auto 0.000 0.0-0.012 X10*3/uL CORRECTED REPORT Complete Blood Count Auto Di ff Reviewed date:02/03/2024 10:47:15 AM Interpretation: Performing Lab:[facility], [address] [place] [phone] Notes/Report: White Blood Count 4.0 4.8-10.8 X10*3/uL Red Blood Count 4.11 4.20-5.50 X10*6/uL Hemoglobin 13.8 12.0-16.0 g/dl Hematocrit 42.1 37.0-47.0 % Mean Corpuscular Volume 102.4 80.0-98.0 fL Mean Corpuscular Hemoglobin 33.6 27.0-33.0 pg Mean Corpuscular HGB Conc 32.8 31.0-35.0 g/dl Red Cell Distribution Width 14.2 11.0-16.0 % Platelet Count 285 160-400 X10*3/uL Mean Platelet Volume 10.5 9.4-12.3 fL Neutrophils Percent Auto 54.5 45-73 % Imm Gran Pct Auto 0.3 0.0-0.4 % Lymphocytes Percent Auto 35.4 20-40 % Monocytes Percent Auto 5.8 2-11 % Eosinophils Percent Auto 1.0 0-4 % Basophils Percent Auto 3.0 0-2 % NRBC Pct Auto 0.0 0.0-0.2 /100WBC Neutrophils Absolute Auto 2.2 2.0-8.3 x10*3/u L Imm Gran Abs Auto 0.01 0.00-0.03 X10*3/uL Lymphocytes Absolute Auto 1.4 1.2-4.9 X10*3/u L Monocytes Absolute Auto 0.2 0.1-1.2 X10*3/uL Eosinophils Absolute Auto 0.0 0.0-0.4 X10*3/u L Basophils Absolute Auto 0.1 0.0-0.2 X10*3/uL NRBC Abs Auto 0.000 0.0-0.012 X10*3/uL Comprehensive Met. Panel Reviewed date:02/03/2024 10:47:15 AM Interpretation: Performing Lab:[address] [phone] Notes/Report: Sodium 141 135-145 mmol/L Potassium 4.1 3.3-5.1 mmol/L Chloride 105 96-108 mmol/L Carbon Dioxide 28 22-29 mmol/L Anion Gap 12 12-20 Blood Urea Nitrogen 21 9-16 mg/dL Creatinine 0.97 0.5-1.4 mg/dL Estimated Glomerular Filt Rate 56 NOTE: For -Burmese individuals, multiply the result by 1.210. Chronic Kidney Disease: Estimated GFR < 60 mL/min/1.73m2 Severe Kidney Disease: Estimated GFR < 15 mL/min/1.73m2 Glucose Random 123 60-115 mg/dL Calcium 9.3 8.4-10.2 mg/dL Bilirubin Total 0.8 0.0-1.0 mg/dL Aspartate Amino Transferase 20 5-31 U/L Alanine Aminotransferase 24 0-31 U/L Total Protein 7.3 6.5-8.0 g/dL Albumin Level 4.1 3.5-5.0 g/dL Alkaline Phosphatase 54 39-117 U/L Lipid Panel Reviewed date:02/03/2024 10:47:15 AM Interpretation: Performing Lab:[address] [phone] Notes/Report: Triglycerides 97 <150 mg/dL Desirable Triglyceride: less than 150 mg/dL Borderline High Triglyceride 150-199 mg/dL High Triglyceride: 200-499 mg/dL Very High Triglyceride: greater than or equal to 5OO mg/dL Cholesterol 148 <200 mg/dL Desirable Cholesterol: less than 200 mg/dL Borderline High Cholesterol: 200-239 mg/dL High Cholesterol: greater than 239 mg/dL LDL Cholesterol Calculated 70 <100 mg/dL Desirable LDL: less than 100 mg/dL Near Optimal/Above Optimal LDL: 110-129 mg/dL Borderline High LDL: 130-159 mg/dL High LDL: 160-189 mg/dL Very High LDL: greater than or equal to 190 mg/dL HDL Cholesterol 59 >40 mg/dL Desirable HDL: greater than 40 mg/dL Note: This HDL assay may give artificially low results in patients with liver disease. Microalbumin, Random Reviewed date:02/03/2024 10:47:15 AM Interpretation: Performing Lab:[facility], [address] [place] [phone] Notes/Report: Creatinine Urine 73.39 Microalbumin Urine 37.0 Microalbum/Creatinine Ratio Ur 50.4 <30 ug/mg cr Albumin/Creatinine Ratio Reference Ranges: Normal: < 30 ug/mg creatinine Microalbuminuria: 30 - 300 ug/mg creatinine Clinical Albuminuria: > 300 ug/mg creatinine Hemoglobin A1c Reviewed date:02/03/2024 10:47:15 AM Interpretation: Performing Lab:[facility], [address] [place] [phone] Notes/Report: Hemoglobin A1c % 6.1 <6.0 % Hemoglobin A1C Reference Range Adults: 4.8 - 6.0 % Non diabetic: < 6.0 % Goal: < 7.0 % Additional Action Suggested: > 8.0 % Note: Hemoglobin A1c results are invalid for patients with abnormal amounts of HbF. Blood transfusions may impact the HbA1c concentration in the patient sample. Estimated Average Glucose 128 eAG = Estimated average glucose which is %A1C expressed as average glucose, using the formula of the [id number] Average Glucose study (ADAG), Diabetes Care, Vol.31,#8, 2007 Reason For Referral No Information Medications Medication SIG (Take, Route, Frequency, Duration) Notes Start Date End Date Status Fluticasone Propionate (Inhal) 100 MCG/ACT 1 puff Inhalation Twice a day 09/30/2023 Active Montelukast Sodium 10 mg TAKE 1 TABLET D AILY IN THE EVENING Active Kisqali (600 MG Dose) 200 MG TAKE 3 TABLETS ONCE DAILY IN THE MORNING FOR 21 DAYS, AND 7 DAYS OFF Active Arnuity Ellipta 100 MCG/ACT 1 puff Inhalation Once a day 09/30/2023 Active Asmanex (30 Metered Doses) 220 MCG/ACT 1 puff in the evening Inhalation Once a day 06/30/2023 Active Levothyroxine Sodium 75 MCG TAKE 1 TABLET DAILY Active Accu-Chek Softclix Lancets - USE TO CHECK BLOOD SUGAR TWICE DAILY JUST TWICE A WEEK Active predniSONE 20 MG 1 tablet Orally Once a day for 14 days 02/03/2024 04/26/2024 Active Flovent HFA 44 MCG/ACT USE 2 INHALATIONS TWICE A DAY Active Fulvestrant 250 MG/5ML 10 mL Intramuscul ar 500mg Q 2weeks then montly Active Accu-Chek Erinn Plus - USE TO TEST BLOOD SUGARS TWICE DAILY ON 2 DAYS PER WEEK Active Immunizations Vaccine Route Administration Date Status Comme nts Influenza Unknown 02/08/2014 Administered Zostavax Unknown 01/24/2011 Administered Influenza Unknown 01/27/2015 Administered Influenza Unknown 12/30/2015 Administered Influenza Unknown 01/03/2017 Administered PCV13 Unknown 06/20/2019 Administered Influenza no Preserv 3 and > Unknown 12/30/2020 Administered COVID- 19 Vaccine Unknown 01/12/2021 Administered Zoster IM Intramuscular 03/11/2021 Administered SHINGRIX IM Intramuscular 06/20/2021 Administered COVID PFIZER Unknown 07/14/2021 Administered FLuzone HD PF Unknown 02/22/2022 Administered COVID Pfizer Bivalent Unknown 09/07/2022 Administered RSV vaccine, bivalent, protein subunit RSV prefusion F Unknown 01/03/2023 Administered Influenza-iiv4 p-free high dose Unknown 01/31/2023 Administered COMIRNATY Pfizer-BioNTIsagen Unknown 01/18/2023 Administer ed Social History Tobacco Use: Social History Observation Description Date Details (start date - stop date) Never Smoker NA - NA Sex Assigned At : Social History Observation Description Sex Assigned At Female Tobacco Use/Smoking Question Answer Notes Patient is a nonsmoker Additional Findings: Tobacco Non-User Aggressive non-smoker Alcohol Screen Question Answer Notes Did you have a drink containing alcohol in the p ast year? No Points 0 Interpretation Negative Problems Problem Type SNOMED Code ICD Code Onset Dates Problem Status W/U Status Risk Notes Problem 030697162 Asthma (J45.909) Active confirmed She has had no wheezing since her last visit. 53. She will notify the office if this occurs. Problem Hypothyroidism (53658520) Hypothyroidism, unspecified (E03.9) Active confirmed She was continued on her medication with no change. Comprehensive blood work with thyroid function test has been ordered. Problem Hypercalcemia (25747625) Hypercalcemia (E83.52) Active confirmed Her labs to be checked periodically. Problem Hearing loss (80897655) Hearing loss (H91.90) Active confirmed She has noticed mild hearing loss. She intends to have an audiology evaluation once the difficulty with her abdominal pain has been resolved. Problem 26687886 Hypothyroid (E03.9) Active confirmed She is euthyroid and no change in her regimen was necessary today. Problem 514930393 History of colon cancer (Z85.038) Active confirmed She remains in remission with no sign of relapse. Problem Type 2 diabetes mellitus without complication (173007534) Type 2 diabetes mellitus without complication, without long-term current use of insulin (E11.9) Active confirmed Her hemoglob in A1c is 6.1. Her weight is stable, having gained 2 pounds. Her fasting glucose levels have been acceptable. No change in her medication is necessary. Problem 956803063 Osteopenia of lumbar spine (M85.88) Active confirmed She will continue on her current regimen. Problem 350170785 Breast carcinoma, female, right (C50.911) Active confirmed There was no sign of a new primary or of recurrence on today's examination. 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 She has stopped the Sandostatin. Vital Signs Heart Rate 83 /min 02/03/2024 Temperature 97.2 degrees Fahrenheit 02/03/2024 Blood pressure diastolic 73 mm Hg 02/03/2024 Height 65 in 02/03/2024 Blood pressure systolic 122 mm Hg 02/03/2024 Weight 151 lbs 02/03/2024 BMI 25.12 kg/m2 02/03/2024 Encounters Encounter Location Date Provider Diagnosis Sudhakar De La O III, MD [address] [place] [address] [place] [address] 04/17/2023 Sudhakar De La O History of colon can cer Z85.038 ; Hypothyroid E03.9 ; Asthma J45.909 ; Breast carcinoma, female, right C50.911 ; Hearing loss H91.90 ; Osteopenia of lumbar spine M85.88 ; Hypercalcemia E83.52 ; Type 2 diabetes mellitus without complication, without long-term current use of insulin E11.9 and Overweight E66.3 Sudhakar De La O III, MD [address] [place] [address] [place] [address] 06/19/2023 Sudhakar De La O Hypothyroid E03.9 ; Type 2 diabetes mellitus without complication, without long-term current use of insulin E11.9 ; Overweight E66.3 ; History of colon cancer Z85.038 ; Asthma J45.909 ; Hearing loss H91.90 ; Hypercalcemia E83.52 ; Osteopenia of lumbar spine M85.88 and Breast carcinoma, female, right C50.911 Sudhakar De La O III, MD [address] [place] [address] [place] [address] 09/30/2023 Sudhakar De La O Hypothyroid E03.9 ; History of colon cancer Z85.038 ; Type 2 diabetes mellitus without complication, without long-term current use of insulin E11.9 ; Osteopenia of lumbar spine M85.88 ; Hypothyroidism, unspecified E03.9 ; Overweight (BMI 25.0-29.9) E66.3 and Asthma J45.909 Sudhakar De La O III, MD [address] [place] [address] [place] [address] 02/03/2024 Sudhakar De La O Hypothyroid E03.9 ; Breast carcinoma, female, right C50.911 ; Asthma J45.909 ; History of colon cancer Z85.038 ; Type 2 diabetes mellitus without complication, without long-term current use of insulin E11.9 ; Hearing loss H91.90 ; Osteopenia of lumbar spine M85.88 and Overweight E66.3 Sudhakar De La O III, MD [address] [place] [address] [place] [address] 04/28/2023 Sudhakar De La O III, MD [address] [place] [address] [place] [phone] 06/30/2023 Sudhakar De La O III, MD [address] [place] [address] [place] [phone] 06/30/2023 Sudhakar De La O Assessments Encounter Date Diagnosis (ICD Code) Assessment Notes Treatment Notes Treatment Clinical Notes 04/17/2023 Hypothyroid (ICD-10 - E03.9) She remains euthyroid on current medication. No change in her regimen was needed today. She has been compliant with her therapy. 04/17/2023 History of colon cancer (ICD-10 - Z85.038) There is no sign of recurrent disease today. There is no sign of a new primary. Observation and surveillance will continue. 06/19/2023 Hypothyroid (ICD-10 - E03.9) She is euthyroid and no change in her regimen was necessary today. 06/19/2023 Type 2 diabetes mellitus without complication, without long-term current use of insulin (ICD-10 - E11.9) Her diabetes is well controlled. No change in her regimen was needed today. Her body mass index is 24. 09/30/2023 Hypothyroid (ICD-10 - E03.9) She is euthyroid and no change in her regimen was necessary today. 09/30/2023 History of colon cancer (ICD-10 - Z85.038) She remains in remission with no sign of relapse. 02/03/2024 Hypothyroid (ICD-10 - E03.9) She is euthyroid and no change in her regimen was necessary today. 02/03/2024 Breast carcinoma, female, right (ICD-10 - C50.911) There was no sign of a new primary or of recurrence on today's examination. 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 She has stopped the Sandostatin. 04/17/2023 Asthma (ICD-10 - J45.909) She has had no wheezing since her last visit. 53. She will notify the office if this occurs. 06/19/2023 Overweight (ICD-10 - E66.3) She is no longer overweight and this problem has beenn removed. 09/30/2023 Type 2 diabetes mellitus without complication, without long-term current use of insulin (ICD-10 - E11.9) Her hemoglobin A1c is at target without medication. She is successfully diet controlled. 02/03/2024 Asthma (ICD-10 - J45.909) She has had no wheezing since her last visit. 53. She will notify the office if this occurs. 04/17/2023 Breast carcinoma, female, right (ICD-10 - C50.911) She remains on current therapy. The fistula is healing well and her performance status is improving. No change in her regimen as necessary. 06/19/2023 History of colon cancer (ICD-10 - Z85.038) There is no sign of recurrent disease today. There is no sign of a new primary. Observation and surveillance will continue. 09/30/2023 Osteopenia of lumbar spine (ICD-10 - M85.88) She will continue on her current regimen. 02/03/2024 History of colon cancer (ICD-10 - Z85.038) 04/17/2023 Hearing loss (ICD-10 - H91.90) She has noticed mild hearing loss. She intends to have an audiology evaluation once the difficulty with her abdominal pain has been resolved. 06/19/2023 Asthma (ICD-10 - J45.909) She has had no wheezing since her last visit. 53. She will notify the office if this occurs. 09/30/2023 Hypothyroidism, unspecified (ICD-10 - E03.9) She was continued on her medication with no change. Comprehensive blood work with thyroid function test has been ordered. 02/03/2024 Type 2 diabetes mellitus without complication, without long-term current use of insulin (ICD-10 - E11.9) Her hemoglobin A1c is 6.1. Her weight is stable, having gained 2 pounds. Her fasting glucose levels have been acceptable. No change in her medication is necessary. 04/17/2023 Osteopenia of lumbar spine (ICD-10 - M85.88) She was continued on her current therapy. 06/19/2023 Hearing loss (ICD-10 - H91.90) She has noticed mild hearing loss. She intends to have an audiology evaluation once the difficulty with her abdominal pain has been resolved. 09/30/2023 Overweight (BMI 25.0-29.9) (ICD-10 - E66.3) 02/03/2024 Hearing loss (ICD-10 - H91.90) She has noticed mild hearing loss. She intends to have an audiology evaluation once the difficulty with her abdominal pain has been resolved. 04/17/2023 Hypercalcemia (ICD-10 - E83.52) Her labs to be checked periodically. 06/19/2023 Hypercalcemia (ICD-10 - E83.52) Her labs to be checked periodically. 09/30/2023 Asthma (ICD-10 - J45.909) She has had no wheezing since her last visit. 53. She will notify the office if this occurs. Insurance stated Fluticasoe HFA inhaler is not covered by patient insurance alternative is Arnuity Ellipta . 02/03/2024 Osteopenia of lumbar spine (ICD-10 - M85.88) She will continue on her current regimen. 04/17/2023 Type 2 diabetes mellitus without complication, without long-term current use of insulin (ICD-10 - E11.9) She is you glycemic and has had no uncontrolled glucose levels recently. 06/19/2023 Osteopenia of lumbar spine (ICD-10 - M85.88) She was continued on her current therapy. 02/03/2024 Overweight (ICD-10 - E66.3) She has gained a few pounds and is very slightly overweight. She will stabilize her weight at this level and then consume a reduced calorie diet. 04/17/2023 Overweight (ICD-10 - E66.3) She is very slightly open at 25.12 Body mass index. This does not represent a health risk at this time. 06/19/2023 Breast carcinoma, female, right (ICD-10 - C50.911) She remains on current therapy. The fistula is healing well and her performance status is improving. No change in her regimen as necessary. She is going to be restaged with a CT scan prior to her next visit with the medical oncologist.It is noted that the CEA 19 9 has increased from 38-54. 06/30/2023 Other CancelRx Respon se got Denied on 2023-06-30 14:18:18 for 'Asmanex (30 Metered Doses) 220 MCG/ACT Aerosol Powder Breath Activated'Pharmac y Notes: Unable to Cancel Rx. Please contact Pharmacy Plan Of Treatment Pending Test Test Name Order Date PROFILE, FASTING (COMPREHENSIVE METABOLI C) 06/19/2023 PROFILE, FASTING (COMPREHENSIVE METABOLI C) 02/03/2024 PROFILE, FASTING (COMPREHENSIVE METABOLI C) 11/23/2021 PROFILE, FASTING (COMPREHENSIVE METABOLI C) 02/15/2022 PROFILE, FASTING (COMPREHENSIVE METABOLI C) 09/07/2020 PROFILE, FASTING (COMPREHENSIVE METABOLI C) 10/23/2021 PROFILE, FASTING (COMPREHENSIVE METABOLI C) 04/17/2023 PROFILE, FASTING (COMPREHENSIVE METABOLI C) 02/23/2020 PROFILE, FASTING (COMPREHENSIVE METABOLI C) 10/02/2021 PROFILE, FASTING (COMPREHENSIVE METABOLI C) 12/25/2022 PROFILE, FASTING (COMPREHENSIVE METABOLI C) 05/28/2021 PROFILE, RANDOM (COMPREHENSIVE METABOLIC ) 03/19/2019 PROFILE, RANDOM (COMPREHENSIVE METABOLIC ) 09/30/2023 PROFILE, RANDOM (COMPREHENSIVE METABOLIC ) 10/12/2018 PROFILE, RANDOM (COMPREHENSIVE METABOLIC ) 01/23/2021 PROFILE, RANDOM (COMPREHENSIVE METABOLIC ) 05/19/2018 PROFILE, RANDOM (COMPREHENSIVE METABOLIC ) 12/23/2019 PROFILE, RANDOM (COMPREHENSIVE METABOLIC ) 06/24/2018 HEMOGLOBIN A1C (GLYCOHEMOGLOBIN) 022 HEMOGLOBIN A1C (GLYCOHEMOGLOBIN) 023 HEMOGLOBIN A1C (GLYCOHEMOGLOBIN) 019 HEMOGLOBIN A1C (GLYCOHEMOGLOBIN) 024 HEMOGLOBIN A1C (GLYCOHEMOGLOBIN) 022 HEMOGLOBIN A1C (GLYCOHEMOGLOBIN) 021 HEMOGLOBIN A1C (GLYCOHEMOGLOBIN) 020 CALCIUM 06/24/2018 AMYLASE 02/22/2022 LIPASE 02/22/2022 LIPID PANEL 02/23/2020 LIPID PANEL 05/28/2021 LIPID PANEL 12/25/2022 LIPID PANEL 03/19/2019 LIPID PANEL 11/23/2021 LIPID PANEL 09/07/2020 GGT 02/22/2022 FREE T4 (FT4) 12/23/2019 FREE T4 (FT4) 05/28/2021 FREE T4 (FT4) 01/23/2021 FREE T4 (FT4) 02/15/2022 FREE T4 (FT4) 11/23/2021 TSH (THYROID STIMULATING HORMONE) 2023 TSH (THYROID STIMULATING HORMONE) 2023 TSH (THYROID STIMULATING HORMONE) 2019 TSH (THYROID STIMULATING HORMONE) 2021 TSH (THYROID STIMULATING HORMONE) 2020 TSH (THYROID STIMULATING HORMONE) 2021 TSH (THYROID STIMULATING HORMONE) 2023 TSH (THYROID STIMULATING HORMONE) 2021 CEA 10/12/2018 CEA 06/24/2018 CEA 02/22/2022 MICROALBUMIN, RANDOM 12/23/2019 CBC w DIFF 09/07/2020 CBC w DIFF 11/23/2021 CBC w DIFF 04/17/2023 CBC w DIFF 02/23/2020 CBC w DIFF 10/02/2021 CBC w DIFF 02/03/2024 CBC w DIFF 09/30/2023 CBC w DIFF 10/12/2018 CBC w DIFF 12/25/2022 CBC w DIFF 06/24/2018 CBC w DIFF 03/19/2019 CBC w DIFF 10/23/2021 CBC w DIFF 12/23/2019 CBC w DIFF 05/28/2021 CBC w DIFF 01/23/2021 CBC w DIFF 02/15/2022 SED RATE (ESR) 02/22/2022 SED RATE (ESR) 12/25/2022 CA 27.29 10/12/2018 CA 27.29 06/24/2018 CA 27.29 02/22/2022 VITAMIN D 25-OH TOTAL 05/19/2018 VITAMIN D 25-OH TOTAL 10/12/2018 VITAMIN D 25-OH TOTAL 06/24/2018 PARATHYROID HORMONE INTACT 05/19/2018 CBC WITH AUTO DIFF 06/19/2023 Lactic Acid 10/23/2021 Lipid Panel 02/15/2022 Lipid Panel 06/19/2023 Lipid Panel 04/17/2023 Lipid Panel 02/03/2024 Lipid Panel 09/30/2023 Vitamin D 25-OH Total 02/15/2022 Free T4 (Free Thyroxine) 06/19/2023 Free T4 (Free Thyroxine) 04/17/2023 Free T4 (Free Thyroxine) 02/03/2024 Microalbumin, Random 02/15/2022 Microalbumin, Random 06/19/2023 Microalbumin, Random 09/30/2023 Microalbumin, Random 02/03/2024 CA 27.29 04/17/2023 Hemoglobin A1c 10/23/2021 Hemoglobin A1c 02/03/2024 Hemoglobin A1c 02/15/2022 Hemoglobin A1c 06/19/2023 Next Appt Details Provider Name:Sudhakar Tourerne, 04/21/2024 10:00:00 AM, [address] [place] [address] [address] [place], [place], [address], Insurance Providers Payer Name Payer Address Payer Phone Subscriber Number Group Number Insured Name Patient Relationship to Insured Coverage Start Date Coverage End Date MEDICARE NGS [address] [place] [address] [id number] Steff Kent Self - patient is the insured [facility] [address] [place], [place] [id number] [phone] [id number] Steff Kent Self - patient is the insured Medical (General) History Medical History History ICD Code 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 Sudhakar Tompkins, negative findings 03/2022 No history Hospitalization History Reason Date(Month/Year) chest pain 12/2018 No history
[2024-04-17 07:53] LABS: MANUAL DIFF FLAG NO
[2024-04-17 08:32] LABS: Basophils Absolute Auto 0.1 X10*3/uL (0.0-0.2); Basophils Percent Auto 1.7 % (0-2); Eosinophils Percent Auto 0.3 % (0-4); Hematocrit 39.3 % (37.0-47.0); Imm Gran Abs Auto 0.01 X10*3/uL (0.00-0.03); Imm Gran Pct Auto 0.3 % (0.0-0.4); Lymphocytes Absolute Auto 1.5 X10*3/uL (1.2-4.9); Lymphocytes Percent Auto 42.2 % (20-40); Mean Corpuscular HGB Conc 33.1 g/dl (31.0-35.0); Mean Corpuscular Hemoglobin 34.9 pg (27.0-33.0); Mean Corpuscular Volume 105.6 fL (80.0-98.0); Mean Platelet Volume 10.3 fL (9.4-12.3); Monocytes Absolute Auto 0.5 X10*3/uL (0.1-1.2); Monocytes Percent Auto 12.5 % (2-11); Neutrophils Absolute Auto 1.6 x10*3/uL (2.0-8.3); Platelet Count 238 X10*3/uL (160-400); Red Blood Count 3.72 X10*6/uL (4.20-5.50); Red Cell Distribution Width 14.9 % (11.0-16.0); White Blood Count 3.6 X10*3/uL (4.8-10.8)
[2024-04-17 08:35] LABS: Estimated Average Glucose 126 mg/dL; Hemoglobin A1C 144.4477 umol/L; Total Hemoglobin (HGBA1C) 3436.7039 umol/L
[2024-04-17 08:37] LABS: Creatinine Urine 60.85 mg/dL; Microalbum/Creatinine Ratio Ur 16.4 ug/mg cr (<30)
[2024-04-17 08:42] LABS: Alanine Aminotransferase 36 U/L (0-31); Albumin Level 4.1 g/dL (3.5-5.0); Alkaline Phosphatase 43 U/L (39-117); Anion Gap 14 (12-20); Aspartate Amino Transferase 32 U/L (5-31); Bilirubin Total 0.9 mg/dL (0.0-1.0); Blood Urea Nitrogen 19 mg/dL (9-16); Calcium 9.4 mg/dL (8.4-10.2); Carbon Dioxide 25 mmol/L (22-29); Chloride 107 mmol/L (96-108); Cholesterol 151 mg/dL (<200); Estimated Glomerular Filt Rate 56; Glucose Fasting 109 mg/dL (60-99); HDL Cholesterol 61 mg/dL (>40); LDL Cholesterol Calculated 72 mg/dL (<100); Potassium 4.3 mmol/L (3.3-5.1); Sodium 142 mmol/L (135-145); Total Protein 7.2 g/dL (6.5-8.0); Triglycerides 93 mg/dL (<150)
[2024-04-17 08:58] LABS: Free T4 (Free Thyroxine) 1.13 ng/dL (0.71-1.85); Thyroid Stimulating Hormone 1.36 uIU/mL (0.32-4.0)
== END 2024-04-17 07:40 | disposition home or self-care (01) ==
LOC: HO.LAB 07:39
PROVIDERS: PCP Internal Medicine Medical Oncology; Visit Provider Internal Medicine Medical Oncology
DX: E03.9 Hypothyroidism, unspecified (principal); J45.909 Unspecified asthma, uncomplicated; Z85.038 Personal history of other malignant neoplasm of large intestine; E11.9 Type 2 diabetes mellitus without complications; C50.911 Malignant neoplasm of unspecified site of right female breast
CPT/HCPCS: 36415; 80053; 80061; 82043; 82570; 83036; 84439; 84443; 85025

== ENCOUNTER 2024-08-18 07:56 | Outpatient (REF) | payer MEDICARE, SELFPAY ==
--- OUTSIDE RECORDS SUMMARY | 2024-08-18 07:59 | XMS_ITS ---
Author Organization [facility] Address [address] [place] [address] Care Team Providers Care Clam Treader Name Role Phone Sudhakar De La O MD Primary Care Provider Unavailab Sudhakar Rao Unavailable [phone] REASON FOR VISIT regarding Sandostatin Encounters Encounter Location Date Provider Diagnosis [facility] [address] [place] [address] 04/02/2023 Sudhakar Tompkins Plan Of Treatment No Information Progress Notes * ANKUSHNORRIS KIMBERLYDOB: 9 (72 yo F)Acc No.[id number]:04/02/2023 Patient:?NORRIS LECHUGA JO :1950???Age:72 Y???Sex:Female Address:[address] [place] [address] * true * Date:? Generated for Printi ng/Famichaelg/eTransmitting on:?08/18/2024 07:59 AM EDT
--- OUTSIDE RECORDS SUMMARY | 2024-08-18 08:00 | XMS_ITS ---
Author Organization Sudhakar De La O III, MD Address [address] [place] [address] Care Team Providers Care Software Configuration Analyst Name Role Phone Sudhakar De La O Primary Care Provider [phone] REASON FOR VISIT Message/Kisqali Social History Sex Assigned At : Social History Observation Description Sex Assigned At Female Encounters Encounter Location Date Provider Diagnosis Sudhakar De La O III, MD [address] [place] [address] [place] [address] 06/03/2024 Sudhakar De La O Plan Of Treatment Next Appt Details Provider Name:Sudhakar De La O, 08/20/2024 11:30:00 AM, [address] [place] [address] [place], [address], Provider Name:Sudhakar De La O, 04/22/2025 10:00:00 AM, [address] [place] [address] [place], [address], Progress Notes * Steff KENT: 9 (73 yo F)Acc No.[id number]:06/03/2024 Patient:?Steff KENT :1950???Age:73 Y???Sex:Female Address:[address] [place] [phone] * true * Date:? Generated for Seng deshpande/Melva/eTransmitting on:?08/18/2024 08:00 AM EDT
--- OUTSIDE RECORDS SUMMARY | 2024-08-18 08:00 | XMS_ITS | Patient Health Record ---
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 Name Role Phone Sudhakar De La O [...] 1.3 BLD Negative Negative - Menstrating No Diabetic Eye Exam Reviewed date:04/21/2024 09:55:29 AM Interpretation:undefined Performing Lab: Notes/Report: undefined Complete Blood Count Auto Di ff Reviewed date:02/03/2024 10:47:15 AM Interpretation: Performing Lab:[facility], [address] [place] [phone] Notes/Report: White Blood Count 4.0 4.8-10.8 X10*3/uL [...] Panel Reviewed date:02/03/2024 10:47:15 AM Interpretation: Performing Lab:[facility], [address] [place] [phone] Notes/Report: Sodium 141 135-145 mmol/L Potassium 4.1 3.3-5.1 mmol/L Chloride 105 96-108 mmol/L Carbon Dioxide 28 22-29 mmol/L Anion Gap 12 12-20 Blood Urea Nitrogen 21 9-16 mg/dL Creatinine 0.97 0.5-1.4 mg/dL Estimated Glomerular Filt Rate 56 NOTE: For -Maldivian individuals, multiply the result by 1.210. Chronic [...] Panel Reviewed date:02/03/2024 10:47:15 AM Interpretation: Performing Lab:[address] [phone] Notes/Report: Triglycerides 97 <150 mg/dL Desirable Triglyceride: [...] Random Reviewed date:02/03/2024 10:47:15 AM Interpretation: Performing Lab:[facility], [address] [place] [phone] Notes/Report: Creatinine Urine 73.39 Microalbumin Urine 37.0 Microalbum/Creatinine Ratio Ur 50.4 <30 ug/mg cr Albumin/Creatinine Ratio Reference Ranges: Normal: < 30 ug/mg creatinine Microalbuminuria: 30 - 300 ug/mg creatinine Clinical Albuminuria: > 300 ug/mg creatinine Hemoglobin A1c Reviewed date:02/03/2024 10:47:15 AM Interpretation: Performing Lab:[facility], [address] [place] [phone] Notes/Report: Hemoglobin A1c % 6.1 <6.0 % [...] average glucose, using the formula of the V8D-Dkntfnh Average Glucose study (ADAG), Diabetes Care, Vol.31,#8, Nov. 2007 Complete Blood Count Auto Di ff Reviewed date:04/20/2024 05:01:04 PM Interpretation: Performing Lab:[facility], [address] [place] [phone] Notes/Report: White Blood Count 3.6 4.8-10.8 X10*3/uL Red Blood Count 3.72 4.20-5.50 X10*6/uL Hemoglobin 13.0 12.0-16.0 g/dl Hematocrit 39.3 37.0-47.0 % Mean Corpuscular Volume 105.6 80.0-98.0 fL Mean Corpuscular Hemoglobin 34.9 27.0-33.0 pg Mean Corpuscular HGB Conc 33.1 31.0-35.0 g/dl Red Cell Distribution Width 14.9 11.0-16.0 % Platelet Count 238 160-400 X10*3/uL Mean Platelet Volume 10.3 9.4-12.3 fL Neutrophils Percent Auto 43.0 45-73 % Imm Gran Pct Auto 0.3 0.0-0.4 % Lymphocytes Percent Auto 42.2 20-40 % Monocytes Percent Auto 12.5 2-11 % Eosinophils Percent Auto 0.3 0-4 % Basophils Percent Auto 1.7 0-2 % NRBC Pct Auto 0.0 0.0-0.2 /100WBC Neutrophils Absolute Auto 1.6 2.0-8.3 x10*3/u L Imm Gran Abs Auto 0.01 0.00-0.03 X10*3/uL Lymphocytes Absolute Auto 1.5 1.2-4.9 X10*3/u L Monocytes Absolute Auto 0.5 0.1-1.2 X10*3/uL Eosinophils Absolute Auto 0.0 0.0-0.4 X10*3/u L Basophils Absolute Auto 0.1 0.0-0.2 X10*3/uL NRBC Abs Auto 0.000 0.0-0.012 X10*3/uL Comprehensive [place]. Panel Fa st Reviewed date:04/20/2024 05:01:04 PM Interpretation: Performing Lab:[facility], [address] [place] [phone] Notes/Report: Sodium 142 135-145 mmol/L Potassium 4.3 3.3-5.1 mmol/L Chloride 107 96-108 mmol/L Carbon Dioxide 25 22-29 mmol/L Anion Gap 14 12-20 Blood Urea Nitrogen 19 9-16 mg/dL Creatinine 0.97 0.5-1.4 mg/dL Estimated Glomerular Filt Rate 56 Chronic Kidney Disease: Estimated GFR < 60 mL/min/1.73m2 Severe Kidney Disease: Estimated GFR < 15 mL/min/1.73m2 Glucose Fasting 109 60-99 mg/dL A fasting glucose from 100-125 mg/dl is considered impaired (pre-diabetes). Calcium 9.4 8.4-10.2 mg/dL Bilirubin Total 0.9 0.0-1.0 mg/dL Aspartate Amino Transferase 32 5-31 U/L Alanine Aminotransferase 36 0-31 U/L Total Protein 7.2 6.5-8.0 g/dL Albumin Level 4.1 3.5-5.0 g/dL Alkaline Phosphatase 43 39-117 U/L Lipid Panel Reviewed date:04/20/2024 05:01:04 PM Interpretation: Performing Lab:[facility], [address] [place] [phone] Notes/Report: Triglycerides 93 <150 mg/dL Desirable Triglyceride: less than 150 [...] or equal to 190 mg/dL HDL Cholesterol 61 >40 mg/dL Desirable HDL: greater than 40 mg/dL Note: This HDL assay may give artificially low results in patients with liver disease. Free T4 (Free Thyroxine) Reviewed date:04/20/2024 05:01:04 PM Interpretation: Performing Lab:[address] [phone] Notes/Report: Free T4 (Free Thyroxine) 1.13 0.71-1.85 ng/dL Thyroid Stimulating Hormone Reviewed date:04/20/2024 05:01:04 PM Interpretation: Performing Lab:[facility], [address] [place] [phone] Notes/Report: Thyroid Stimulating Hormone 1.36 0.32-4.0 uIU/ mL TSH 3rd Generation ([facility]) Microalbumin, Random Reviewed date:04/20/2024 05:01:04 PM Interpretation: Performing Lab:[facility], [address] [place] [phone] Notes/Report: Creatinine Urine 60.85 Microalbumin Urine 10.0 Microalbum/Creatinine Ratio Ur 16.4 <30 ug/mg cr Albumin/Creatinine Ratio Reference Ranges: Normal: < 30 ug/mg creatinine Microalbuminuria: 30 - 300 ug/mg creatinine Clinical Albuminuria: > 300 ug/mg creatinine Hemoglobin A1c Reviewed date:04/20/2024 05:01:04 PM Interpretation: Performing Lab:[address] [phone] Notes/Report: Hemoglobin A1c % 6.0 <6.0 % Hemoglobin A1C Reference Range Adults: 4.8 - 6.0 % Non diabetic: < 6.0 % Goal: < 7.0 % Additional Action Suggested: > 8.0 % Note: Hemoglobin A1c results are invalid for patients with abnormal amounts of HbF. Blood transfusions may impact the HbA1c concentration in the patient sample. Estimated Average Glucose 126 eAG = Estimated average glucose which is %A1C expressed as average glucose, using the formula of the X0Y-Xaudyeh Average Glucose study (ADAG), Diabetes Care, Vol.31,#8, Nov. 2007 Reason For Referral No Information Medications Medication SIG (Take, Route, Frequency, Duration) Notes Start Date End Date Status Fluticasone Propionate (Inhal) 100 MCG/ACT 1 puff Inhalation Twice a day 09/30/2023 Active Arnuity Ellipta 100 MCG/ACT 1 puff Inhalation Once a day 09/30/2023 Active predniSONE 20 MG 1 tablet Orally Once a day 2023 Active Montelukast Sodium 10 MG 1 tablet Orally Once a day Active Accu-Chek Softclix Lancets - USE TO CHECK BLOOD SUGAR TWICE DAILY JUST TWICE A WEEK Active Flovent HFA 44 MCG/ACT USE 2 INHALATIONS TWICE A DAY Active Accu-Chek Erinn Plus - USE TO TEST BLOOD SUGARS TWICE DAILY ON 2 DAYS PER WEEK Active Levothyroxine Sodium 75 MCG TAKE 1 TABLET DAILY Active Asmanex (30 Metered Doses) 220 MCG/ACT 1 puff in the evening Inhalation Once a day 06/30/2023 Active Azithromycin 250 MG tablets Orally 2 Tab lets on the first day, one tablet the rest of the days for 5 days 07/29/2024 Active Kisqali (600 MG Dose) 200 MG TAKE 3 TABLETS ONCE DAILY IN THE MORNING FOR 21 DAYS, AND 7 DAYS OFF Active Fulvestrant 250 MG/5ML 10 mL Intramuscul ar 500mg Q 2weeks then montly Active Immunizations Vaccine Route Administration Date Status [...] p-free high dose Unknown 01/31/2023 Administered COMIRNATY Pfizer-BioNTech Unknown 01/18/2023 Administer ed Comirnaty Pfizer COVID-19 12+ Unknown 07/05/2023 Administered Comirnaty Pfizer COVID-19 12+ Unknown 12/20/2023 Administered Comirnaty Pfizer COVID-19 12+ Unknown 01/18/2023 Administered Influenza no Preserv 3 and > Unknown 02/27/2012 Administered Influenza no Preserv 3 and > Unknown 01/27/2013 Administered PPV 23 Unknown 06/20/2019 Administered Fluzone High-Dose (HD-IIV3) Unknown 01/03/2017 Administered COVID PFIZER Unknown 01/12/2021 Administered SHINGRIX Unknown 03/11/2021 Administered Fluzone High-Dose (HD-IIV3) Unknown 01/24/2024 Administered COVID Pfizer Bivalent Unknown 01/12/2022 Administered Tdap Unknown 11/27/2012 Administered Influenza no Preserv 3 and > Unknown 02/02/2010 Administered Fluzone High-Dose (HD-IIV3) Unknown 12/30/2015 Administered Fluzone High-Dose (HD-IIV3) Unknown 01/09/2018 Administered Social History Tobacco Use: Social History Observation [...] Problem Status W/U Status Risk Notes Problem 409141619 Asthma (J45.909) Active confirmed Her breathing is slightly tight but she is not wheezing. This appears to be asthma not infection or cardiac problem. She was given a prescription for prednisone and told to use her inhalers [id number] ck has prescribed. She seems stable to travel to [place] on August 02, 2024. She intends to travel by air to [facility] to visit family. Problem 947403389 Overweight (E66.3) Active confirmed She has gained several pounds and is very slightly overweight. I suggested she stabilize her weight at this level and then try to lose several pounds. She has been compliant with all of her therapies. Problem Hypothyroidism (07469263) Hypothyroidism, unspecified (E03.9) Active confirmed She was continued on her medication with no change. Comprehensive blood work with thyroid function test has been ordered. Problem Hypercalcemia (11708586) Hypercalcemia (E83.52) Active confirmed Her labs to be checked periodically. Problem Hearing loss (07612228) Hearing loss (H91.90) Active confirmed She has noticed mild hearing loss. She intends to have an audiology evaluation once the difficulty with her abdominal pain has been resolved. Problem 43070810 Hypothyroid (E03.9) Active confirmed She is euthyroid and no change in her regimen was necessary today. Problem 825291272 History of colon cancer (Z85.038) Active confirmed She remains in remission with no sign of relapse. Problem Type II diabetes mellitus without complication (802823032) Type 2 diabetes mellitus without complication, without long-term current use of insulin (E11.9) Active confirmed Her hemoglob in A1c is well below 7.0. She is compliant with her medications. She has gained weight. We discussed a weight loss strategy but made no change in her regimen. Problem 876143162 Osteopenia of lumbar spine (M85.88) Active confirmed She will continue on her current regimen. Problem 477741488 Breast carcinoma, female, right (C50.911) Active confirmed There was no sign of a new primary or of recurrence on today's examination. 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 She has stopped the Sandostatin.Josr zhu continues on fulvestrant and ribociclib. Her disease is well controlled. Vital Signs Heart Rate 97 /min 07/29/2024 Temperature 97.2 degrees Fahrenheit 07/29/2024 Oximetry 97 % 07/29/2024 Blood pressure diastolic 66 mm Hg 07/29/2024 Height 65 in 07/29/2024 Blood pressure systolic 136 mm Hg 07/29/2024 Weight 155 lbs 07/29/2024 BMI 25.79 kg/m2 07/29/2024 Encounters Encounter Location Date Provider Diagnosis Sudhakar De La O III, MD [address] [place] [address] [place] [address] 09/30/2023 Sudhakar De La O Hypothyroid E03.9 ; History of colon cancer Z85.038 ; Type 2 diabetes mellitus without complication, without long-term current use of insulin E11.9 ; Osteopenia of lumbar spine M85.88 ; Hypothyroidism, unspecified E03.9 ; Overweight (BMI 25.0-29.9) E66.3 and Asthma J45.909 Sudhakar De La O III, MD [address] [place] [address] [place] [phone] 02/03/2024 Sudhakar De La O Hypothyroid E03.9 ; Breast carcinoma, female, right C50.911 ; Asthma J45.909 ; History of colon cancer Z85.038 ; Type 2 diabetes mellitus without complication, without long-term current use of insulin E11.9 ; Hearing loss H91.90 ; Osteopenia of lumbar spine M85.88 and Overweight E66.3 Sudhakar De La O III, MD [address] [place] [address] [place] [phone] 04/21/2024 Sudhakar De La O Hypothyroid E03.9 ; Breast carcinoma, female, right C50.911 ; Asthma J45.909 ; Type 2 diabetes mellitus without complication, without long-term current use of insulin E11.9 ; History of colon cancer Z85.038 ; Hearing loss H91.90 ; Hypercalcemia E83.52 and Overweight E66.3 Sudhakar De La O III, MD [address] [place] [address] [place] [phone] 07/29/2024 Sudhakar De La O Hypothyroid E03.9 ; Asthma J45.909 ; History of colon cancer Z85.038 ; Hearing loss H91.90 ; Type 2 diabetes mellitus without complication, without long-term current use of insulin E11.9 ; Breast carcinoma, female, right C50.911 and Overweight E66.3 Sudhakar De La O III, MD [address] [place] [address] [place] [phone] 06/03/2024 Sudhakar De La O Assessments Encounter Date [...] scar tissue. She has stopped the Sandostatin. 04/21/2024 Hypothyroid (ICD-10 - E03.9) She is [...] ribociclib. Her disease is well controlled. 07/29/2024 Asthma (ICD-10 - J45.909) Her breathing is slightly tight but she is not wheezing. This appears to be asthma not infection or cardiac problem. She was given a prescription for prednisone and told to use her inhalers [id number] has prescribed. She seems stable to travel to [place] on August 02, 2024. She intends to travel by air to [facility] to visit family. 07/29/2024 Hypothyroid (ICD-10 - E03.9) She is euthyroid and no change in her regimen was necessary today. 09/30/2023 Type 2 diabetes mellitus without complication, without long-term current use of insulin (ICD-10 - E11.9) Her hemoglobin A1c is at target without medication. She is successfully diet controlled. 02/03/2024 Asthma (ICD-10 - J45.909) She has had no wheezing since her last visit. 53. She will notify the office if this occurs. 04/21/2024 Asthma (ICD-10 - J45.909) She has had no wheezing since her last visit. 53. She will notify the office if this occurs. 07/29/2024 History of colon cancer (ICD-10 - Z85.038) She remains in remission with no sign of relapse. 09/30/2023 Osteopenia of lumbar spine (ICD-10 - M85.88) She will continue on her current regimen. 02/03/2024 History of colon cancer (ICD-10 - Z85.038) 04/21/2024 Type 2 diabetes mellitus without complication, without long-term current use of insulin (ICD-10 - E11.9) Her hemoglobin A1c is well below 7.0. She is compliant with her medications. She has gained weight. We discussed a weight loss strategy but made no change in her regimen. 07/29/2024 Hearing loss (ICD-10 - H91.90) She has noticed mild hearing loss. She intends to have an audiology evaluation once the difficulty with her abdominal pain has been resolved. 09/30/2023 Hypothyroidism, unspecified (ICD-10 - E03.9) She [...] No change in her medication is necessary. 04/21/2024 History of colon cancer (ICD-10 - Z85.038) She remains in remission with no sign of relapse. 07/29/2024 Type 2 diabetes mellitus without complication, without long-term current use of insulin (ICD-10 - E11.9) Her hemoglobin A1c is well below 7.0. She is compliant with her medications. She has gained weight. We discussed a weight loss strategy but made no change in her regimen. 09/30/2023 Overweight (BMI 25.0-29.9) (ICD-10 - E66.3) 02/03/2024 Hearing loss (ICD-10 - H91.90) She has noticed mild hearing loss. She intends to have an audiology evaluation once the difficulty with her abdominal pain has been resolved. 04/21/2024 Hearing loss (ICD-10 - H91.90) She has noticed mild hearing loss. She intends to have an audiology evaluation once the difficulty with her abdominal pain has been resolved. 07/29/2024 Breast carcinoma, female, right (ICD-10 - C50.911) There was no sign of a new primary or of recurrence on today's examination. 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 She has stopped the Sandostatin.She continues on fulvestrant and ribociclib. Her disease is well controlled. 09/30/2023 Asthma (ICD-10 - J45.909) She has had no wheezing since her last visit. 53. She will notify the office if this occurs. Insurance stated Fluticasoe HFA inhaler is not covered by patient insurance alternative is Arnuity Ellipta . 02/03/2024 Osteopenia of lumbar spine (ICD-10 - M85.88) She will continue on her current regimen. 04/21/2024 Hypercalcemia (ICD-10 - E83.52) Her labs to be checked periodically. 07/29/2024 Overweight (ICD-10 - E66.3) She has gained several pounds and is very slightly overweight. I suggested she stabilize her weight at this level and then try to lose several pounds. She has been compliant with all of her therapies. 02/03/2024 Overweight (ICD-10 - E66.3) She has gained a few pounds and is very slightly overweight. She will stabilize her weight at this level and then consume a reduced calorie diet. 04/21/2024 Overweight (ICD-10 - E66.3) She has gained several pounds and is very slightly overweight. I suggested she stabilize her weight at this level and then try to lose several pounds. She has been compliant with all of her therapies. Plan Of Treatment Pending Test Test Name Order Date PROFILE, FASTING (COMPREHENSIVE METABOLI C) 11/23/2021 PROFILE, FASTING (COMPREHENSIVE METABOLI C) 02/15/2022 PROFILE, FASTING (COMPREHENSIVE METABOLI C) 10/23/2021 PROFILE, FASTING (COMPREHENSIVE METABOLI C) 09/07/2020 PROFILE, FASTING (COMPREHENSIVE METABOLI C) 02/03/2024 PROFILE, FASTING (COMPREHENSIVE METABOLI C) 04/21/2024 PROFILE, FASTING (COMPREHENSIVE METABOLI C) 10/02/2021 PROFILE, FASTING (COMPREHENSIVE METABOLI C) 04/17/2023 PROFILE, FASTING (COMPREHENSIVE METABOLI C) 02/23/2020 PROFILE, FASTING (COMPREHENSIVE METABOLI C) 05/28/2021 PROFILE, FASTING (COMPREHENSIVE METABOLI C) 12/25/2022 PROFILE, FASTING (COMPREHENSIVE METABOLI C) 06/19/2023 PROFILE, RANDOM (COMPREHENSIVE METABOLIC ) 01/23/2021 PROFILE, RANDOM (COMPREHENSIVE METABOLIC ) 05/19/2018 PROFILE, RANDOM (COMPREHENSIVE METABOLIC ) 09/30/2023 PROFILE, RANDOM (COMPREHENSIVE METABOLIC ) 12/23/2019 PROFILE, RANDOM (COMPREHENSIVE METABOLIC ) 06/24/2018 PROFILE, RANDOM (COMPREHENSIVE METABOLIC ) 03/19/2019 PROFILE, RANDOM (COMPREHENSIVE METABOLIC ) 10/12/2018 HEMOGLOBIN A1C (GLYCOHEMOGLOBIN) 019 HEMOGLOBIN A1C (GLYCOHEMOGLOBIN) 022 HEMOGLOBIN A1C (GLYCOHEMOGLOBIN) 021 HEMOGLOBIN A1C (GLYCOHEMOGLOBIN) 024 HEMOGLOBIN A1C (GLYCOHEMOGLOBIN) 020 HEMOGLOBIN A1C (GLYCOHEMOGLOBIN) 022 HEMOGLOBIN A1C (GLYCOHEMOGLOBIN) 023 CALCIUM 06/24/2018 AMYLASE 02/22/2022 LIPASE 02/22/2022 LIPID PANEL 12/25/2022 LIPID PANEL 03/19/2019 LIPID PANEL 11/23/2021 LIPID PANEL 09/07/2020 LIPID PANEL 02/23/2020 LIPID PANEL 05/28/2021 GGT 02/22/2022 FREE T4 (FT4) 05/28/2021 FREE T4 (FT4) 01/23/2021 FREE T4 (FT4) 02/15/2022 FREE T4 (FT4) 11/23/2021 FREE T4 (FT4) 12/23/2019 TSH (THYROID STIMULATING HORMONE) 2019 TSH (THYROID STIMULATING HORMONE) 2023 TSH (THYROID STIMULATING HORMONE) 2021 TSH (THYROID STIMULATING HORMONE) 2020 TSH (THYROID STIMULATING HORMONE) 2021 TSH (THYROID STIMULATING HORMONE) 2023 TSH (THYROID STIMULATING HORMONE) 2021 TSH (THYROID STIMULATING HORMONE) 2024 TSH (THYROID STIMULATING HORMONE) 2023 CEA 10/12/2018 CEA 06/24/2018 CEA 02/22/2022 MICROALBUMIN, RANDOM 12/23/2019 CBC w DIFF 10/02/2021 CBC w DIFF 04/17/2023 CBC w DIFF 02/23/2020 CBC w DIFF 10/12/2018 CBC w DIFF 06/24/2018 CBC w DIFF 12/25/2022 CBC w DIFF 03/19/2019 CBC w DIFF 10/23/2021 CBC w DIFF 05/28/2021 CBC w DIFF 12/23/2019 CBC w DIFF 01/23/2021 CBC w DIFF 02/15/2022 CBC w DIFF 02/03/2024 CBC w DIFF 09/30/2023 CBC w DIFF 09/07/2020 CBC w DIFF 11/23/2021 SED RATE (ESR) 02/22/2022 SED RATE (ESR) 12/25/2022 CA 27.29 10/12/2018 CA 27.29 06/24/2018 CA 27.29 02/22/2022 VITAMIN D 25-OH TOTAL 05/19/2018 VITAMIN D 25-OH TOTAL 10/12/2018 VITAMIN D 25-OH TOTAL 06/24/2018 PARATHYROID HORMONE INTACT 05/19/2018 CBC WITH AUTO DIFF 04/21/2024 CBC WITH AUTO DIFF 06/19/2023 Lactic Acid 10/23/2021 Lipid Panel 04/21/2024 Lipid Panel 04/17/2023 Lipid Panel 06/19/2023 Lipid Panel 02/15/2022 Lipid Panel 02/03/2024 Lipid Panel 09/30/2023 Vitamin D 25-OH Total 02/15/2022 Free T4 (Free Thyroxine) 02/03/2024 Free T4 (Free Thyroxine) 04/21/2024 Free T4 (Free Thyroxine) 04/17/2023 Free T4 (Free Thyroxine) 06/19/2023 Microalbumin, Random 06/19/2023 Microalbumin, Random 09/30/2023 Microalbumin, Random 02/15/2022 Microalbumin, Random 02/03/2024 Microalbumin, Random 04/21/2024 CA 27.29 04/17/2023 Hemoglobin A1c 06/19/2023 Hemoglobin A1c 02/15/2022 Hemoglobin A1c 02/03/2024 Hemoglobin A1c 04/21/2024 Hemoglobin A1c 10/23/2021 Next Appt Details Provider Name:Sudhakar De La O, 08/20/2024 11:30:00 AM, [address] [place] [address] [address], [place], [address], Provider Name:Sudhakar De La O, 04/22/2025 10:00:00 AM, [address] [place] [address] [address], [place], [address], Insurance Providers Payer Name Payer Address Payer Phone Subscriber Number Group Number Insured Name Patient Relationship to Insured Coverage Start Date Coverage End Date MEDICARE NGS [address] [place] [phone] [id number] Steff Kent Self - patient is the insured [facility] [address] [place], [place] [id number] [phone] [id number] Steff Kent Self - patient is the insured Medical (General) History Medical History History ICD Code stage I infiltrating lobular carcinoma o f the right breast in 2001 stage III adencarcinoma of the cecum in 2002 [id number] asthma hypothroidism secondary to radiation the rapy menopause at age 40 Partial small bowel obstruction February 2022 Adult-onset diabetes mellitus Hypercalcemia The patient has a history of cancer and is currently on anti-cancer medications, including fulvestrant and kisquali. She has been receiving regular blood work and CT scans, and is scheduled for an MRI in May. Her recent blood work shows an A1C of 6 and a fasting glucose of 123. Surgical History Surgery Date(Month/Year) No history Colonoscopy, [facility], Dr. Sudhakar Tompkins, negative findings 03/2022 bowel resection 2002 bilateral mastectomies Hospitalization History Reason Date(Month/Year) No history chest pain 12/2018
--- OUTSIDE RECORDS SUMMARY | 2024-08-18 08:00 | XMS_ITS ---
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 [address] [place] [phone] 11/05/2023 Sudhakar Tompkins Plan Of Treatment No Information Progress Notes * ANKUSHNORRIS KIMBERLYDOB: 9 (73 yo F)Acc No.[id number]:11/05/2023 Patient:?NORRIS LECHUGA JO :1950???Age:73 Y???Sex:Female Address:[address] [place] [address] * true * Date:? Generated for Printi ng/Famichaelg/eTransmitting on:?08/18/2024 03:53 AM EDT
--- OUTSIDE RECORDS SUMMARY | 2024-08-18 08:00 | XMS_ITS | Patient Health Record ---
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 Name Role Phone Sudhakar De La O MD Primary Care Provider Unavailab Sudhakar Rao Unavailable [phone] Allergies Allergen (clinical drug ingredient) Drug/Non Drug Allergy documented on EMR Reaction Allergy Type Onset Date Status Latex Latex sensitivity Allergy Active Sulfa Unknown Drug Allergy Active Reason For Referral No Information Medications Medication [...] Vitamin D 400 UNIT Orally A ctive Immunizations Vaccine Route Administration Date Status Comme nts Influenza Unknown 02/12/2017 Administered Influenza Unknown 01/26/2020 Administered Influenza Unknown 02/12/2022 Administered Social History Alcohol Screen Question Answer Notes Did you [...] Never (0 point) Points 3 Interpretation Positive Section Notes: Nonsmoker; no sig alcohol Nonsmoker; no sig alcohol Nonsmoker; no sig alcohol Nonsmoker; no sig alcohol Nonsmoker; no sig alcohol Problems Problem Type SNOMED Code ICD Code Onset Dates Problem Status W/U Status Risk Notes Problem 567172772 Encounter for screening for malignant neoplasm of colon (Z12.11) Active confirmed Problem History of polyp of colon (situation) (262609172) Personal history of colonic polyps (Z86.010) Active confirmed Problem Diverticular disease of colon (048673666) Diverticulosis of large intestine without perforation or abscess without bleeding (K57.30) Active confirmed Problem History of malignant neoplasm of colon (056155554) Personal history of other malignant neoplasm of large intestine (Z85.038) Active confirmed Problem History of gastrointestinal tract bypass (505219961) Intestinal bypass and anastomosis status (Z98.0) Active confirmed Problem 608511180 Diverticulitis (K57.92) Active confirmed Problem 117631939538730 Preprocedural examination (Z01.818) Active confirmed Problem 376372637 History of colon cancer (Z85.038) Active confirmed Problem Pancreatic cyst (62588569) Pancreatic cyst (K86.2) Active confirmed Problem 174368425 Personal history of colon cancer (Z85.038) Active confirmed Problem 191267485 Abnormal CT scan , small bowel (R93.3) Active confirmed Problem CT of abdomen abnormal (87573633099823979) Abnormal CT of the abdomen (R93.5) Active confirmed Problem History of gastrointestinal tract bypass (002748001) History of Billroth II operation (Z98.0) Active confirmed Problem Diverticular disease of colon (663564891) Colon, diverticulosis (K57.30) Active confirmed Problem 031752370 H/O long-term treatment with high-risk medication (Z79.899) Active confirmed Problem 18725326 IPMN (intraducta l papillary mucinous neoplasm) (D49.0) Active confirmed Problem 116308395 Partial obstruction of small intestine (K56.600) Active confirmed Problem 570038275 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 [address] [facility] [address] [place] [id number] 11/05/2023 Sudhakar Tompkins Plan Of Treatment Pending Test Test Name Order Date CA 19-9 03/22/2022 MRI ABD W&WO CONTRAST 04/09/2022 MRI ABD W&WO CONTRAST 03/22/2022 Amylase 03/22/2022 Lipase 03/22/2022 Future Test Test Name Order Date COLONOSCOPY 08/17/2013 COLONOSCOPY 03/11/2017 COLONOSCOPY 08/30/2020 Colonoscopy with balloon dilation 2021 Insurance Providers Payer Name Payer Address Payer Phone Subscriber Number Group Number Insured Name Patient Relationship to Insured Coverage Start Date Coverage End Date MEDICARE OF [place] [address] [place] [address] [phone] [id number] IOANAMAYNORNORRIS Connors Self - patient is the insured [employer] ATTN CLAIMS [address] [place] [address] [id number] NORRIS LECHUGA Self - patient is the insured Medical (General) History Medical History History ICD Code Colon cancer [...] as below as well Hypothyroidism Asthma Denies LA,DM,CVA,renal disease Benign appearing pancreatic cysts seen on CT scans dating back to at least 2012 Metastatic intra-abdominal b reast cancer found during the below surgery with Dr. Herrera. She is currently being followed at [facility] by Dr. Scott Enterocutaneous fistula in relation [...]
--- OUTSIDE RECORDS SUMMARY | 2024-08-18 08:00 | XMS_ITS ---
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 Apprentice Name Role Phone Sudhakar De La O [...] 1.3 BLD Negative Negative - Menstrating No REASON FOR VISIT Annual Exam Medications Medication [...] Problem Status W/U Status Risk Notes Problem 494390305 Overweight (E66.3) Active confirmed She has gained [...] Diagnosis Sudhakar De La O III, MD [address] [place] [address] [address] [place] [place], [place] [phone] 04/21/2024 Sudhakar De La O Hypothyroid E03.9 [...] HORMONE) 2024 CBC WITH AUTO DIFF 04/21/2024 Lipid Panel 04/21/2024 Free T4 (Free Thyroxine) 04/21/2024 Microalbumin, Random 04/21/2024 Hemoglobin A1c 04/21/2024 Next Appt Details Follow Up: 4 Months, Reason: OV Provider Name:Sudhakar De La O, 08/20/2024 11:30:00 AM, [address] [place] [address] [address], [place], [phone], Provider Name:Sudhakar De La O, 04/22/2025 10:00:00 AM, [address] [place] [address] [address], [place], [phone], Progress Notes * Steff KENTDOB: [birth year] (73 yo F)Acc No.[id number]:04/21/2024 Progress Notes Patient:?Steff KENT Provider:?Sudhakar De La O MD :1950???Age:73 Y???Sex:Female D ate:04/21/2024 Address:[address] [place], [place] [phone] Subjective: * Chief Complaints: * ???Annual Exam * HPI: ???Depression Screening:?PHQ-9?Little interest or pleasure in doing things?Not at all ?Feeling down, depressed, or hopeless?Not at all ?Trouble falling or staying asleep, or sleeping too much?Not at all ?Feeling tired or having little energy?Several days ?Poor appetite or overeating?Several days ?Feeling bad about yourself or that you are a failure, or have let yourself or your family down?Not at all ?Trouble concentrating on things, such as reading the newspaper or watching television?Not at all ?Moving or speaking so slowly that other people could have noticed; or the opposite, being so fidgety or restless that you have been moving around a lot more than usual?Not at all ?Thoughts that you would be better off or of hurting yourself in some way?Not at all ?Total Score?2 ?Interpretation?Minimal Depression ???Fall Risk Screening:?Fall History?Have you had any falls with injury in the past year??No ?Have you had two or more falls in the past year??No ?Fall Risk Assessment:?No falls in the past year ???SDOH Questions:?SDOH Questions?In the past year have you been worried about losing your housing??No ?In the past year have you or any family members you live with been unable to get any of the following when it was really needed? Check all that apply:?None ???:? The patient is a 73-year-old female who [...] dinner. Blood Sugar Level is 123. * ROS:?General/Constitutional:?pain?only normal aches and pains.?Chills?denies.?Fatigue?admits.?Fever?denies.?ENT:?Decreased hearing?denies.?Respiratory:?Cough?denies.?Cardiovascular:?Chest pain with exertion?denies.?Dyspnea on exertion?denies.?Shortness of breath?denies.?Gastrointestinal:?Constipation?occasional.?Decreased appetite?denies.?Diarrhea?denies.?Heartburn?denies.?Nausea?denies.?Rectal bleeding?denies.?Vomiting?denies.?Hematology:?bruising?denies.?petechiae?denies.?Swollen glands?none have been noted.?Genitourinary:?Frequent urination?at night.?Musculoskeletal:?Muscle aches?denies.?Painful joints?denies.?Sciatica?denies.?Weakness?denies.?Skin:?Itching?denies.?Rash?denies.?Skin lesion(s)?denies.?Neurologic:?Difficulty speaking?denies.?Dizziness?denies.?Headache?denies.?Low back pain?denies.?Psychiatric:?Depressed mood?denies.? * Medical History:? * Surgical History:?bilateral mastectomies bowel resection 2002 Colonoscopy, [facility], Dr. Sudhakar Tompkins, negative findings 03/2022No history * Hospitalization/Major Diagno stic Procedure:?chest pain 12/2018No history * Family History:?Father: dece ased 89 yrs, hypertension, hyperlipidemia, colon cancer, diagnosed with Cancer, HTN, Hyperlipidemia.?Mother: 83 yrs, Parkinsons, type II diabetes, [...] is a?nonsmoker ?Additional Findings: Tobacco Non-User?Aggressive non-smoker ?Tobacco Control (Standard)?Tobacco use:?Nonsmoker ?Additional Findings: Tobacco non-user?Aggressive nonsmoker ???Drugs/Alcohol:?Drugs?Have you used drugs other than those for medical reasons in the past 12 months??No ???Drug/Alcohol:?AUDIT-C (Standard)?Did you have a drink containing alcohol in the past year??Yes ?How often did you have six or more drinks on one occasion in the past year??4 or more times a week (4 points) ?How many drinks did you have on a typical day when you were drinking in the past year??1 or 2 drinks (0 point) ?How often did you have a drink containing alcohol in the past year??Never (0 point) ?Points?4 ?Interpretation?Positive ???She has been to Danny for 21 years. She was born in [place], [place]. The patient consumes a moderate amount of alcohol, with a glass of wine most nights with dinner. 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 * Medications:?TakingAsmanex ( 30 Metered Doses) 220 [...] 10 mL Intramuscular 500mg Q 2weeks then leti Accu-Chek Erinn Plus - Strip USE TO [...] - Allergyno[Allergies Verified] Objective: * Vitals:?Ht: 65, Wt:153, BMI: 25.46, BP:122/72, HR:85, Temp:98.3, Wt-k.4. * ???Past Orders: Lab:Hemoglobin A1c * Collection Date 04/17/2024 01/31/2024 02/23/2022 Collection Time 07:51 AM 07:55 AM 07:34 AM Order Date 04/17/2024 01/31/2024 02/23/2022 Hemoglobin A1c % 6.0 (Ref Range: <6.0 %) 6.1?H (Ref Range: <6.0 %) 6.0 (Ref [...] Ur 16.4 (Ref Range: <30 ug/mg cr) 50.4?H (Ref Range: <30 ug/mg cr) 35.8 [...] Date 04/17/2024 01/31/2024 06/13/2023 White Blood Count 3.6?L (Ref Range: 4.8-10.8 X10*3/uL) 4.0?L (Ref Range: 4.8-10.8 X10*3/uL) 2.6?L (Ref Range: 4.8-10.8 X10*3/uL) Red Blood Count 3.72?L (Ref Range: 4.20-5.50 X10*6/uL) 4.11?L (Ref Range: 4.20-5.50 X10*6/uL) 4.02?L (Ref Range: 4.20-5.50 X10*6/uL) Hemoglobin 13.0 (Ref Range: 12.0-16.0 g/dl) 13.8 (Ref Range: 12.0-16.0 g/dl) 13.6 (Ref Range: 12.0-16.0 g/dl) Hematocrit 39.3 (Ref Range: 37.0-47.0 %) 42.1 (Ref Range: 37.0-47.0 %) 42.3 (Ref Range: 37.0-47.0 %) Mean Corpuscular Volume 105.6?H (Ref Range: 80.0-98.0 fL) 102.4?H (Ref Range: 80.0-98.0 fL) 105.2?H (Ref Range: 80.0-98.0 fL) Mean Corpuscular Hemoglobin 34.9?H (Ref Range: 27.0-33.0 pg) 33.6?H (Ref Range: 27.0-33.0 pg) 33.8?H (Ref [...] (Ref Range: 9.4-12.3 fL) Neutrophils Percent Auto 43.0?L (Ref Range: 45-73 %) 54.5 (Ref Range: 45-73 %) 36.5?L (Ref Range: 45-73 %) Imm Gran Pct Auto 0.3 (Ref Range: 0.0-0.4 %) 0.3 (Ref Range: 0.0-0.4 %) 0.0 (Ref Range: 0.0-0.4 %) Lymphocytes Percent Auto 42.2?H (Ref Range: 20-40 %) 35.4 (Ref Range: 20-40 %) 47.3?H (Ref Range: 20-40 %) Monocytes Percent Auto 12.5?H (Ref Range: 2-11 %) 5.8 (Ref Range: 2-11 %) 12.7?H (Ref Range: 2-11 %) Eosinophils Percent Auto 0.3 (Ref Range: 0-4 %) 1.0 (Ref Range: 0-4 %) 1.2 (Ref Range: 0-4 %) Basophils Percent Auto 1.7 (Ref Range: 0-2 %) 3.0?H (Ref Range: 0-2 %) 2.3?H (Ref Range: 0-2 %) NRBC Pct Auto 0.0 (Ref Range: 0.0-0.2 /100WBC) 0.0 (Ref Range: 0.0-0.2 /100WBC) 0.0 (Ref Range: 0.0-0.2 /100WBC) Neutrophils Absolute Auto 1.6?L (Ref Range: 2.0-8.3 x10*3/uL) 2.2 (Ref Range: 2.0-8.3 x10*3/uL) 1.0?L (Ref [...] 1.14 (Ref Range: 0.71-1.85 ng/dL) * Lab:[facility] [place]. Polina Farfan * Collection Date 04/17/2024 06/13/2023 02/23/2022 Collection Time 07:51 AM 08:31 AM 07:34 AM Order Date 04/17/2024 06/13/2023 02/23/2022 Sodium 142 (Ref Range: 135-145 mmol/L) 141 (Ref Range: 135-145 mmol/L) 141 (Ref Range: 135-145 mmol/L) Bilirubin Total 0.9 (Ref Range: 0.0-1.0 mg/dL) 1.2?H (Ref Range: 0.0-1.0 mg/dL) 1.6?H (Ref Range: 0.0-1.0 mg/dL) Aspartate Amino Transferase 32?H (Ref Range: 5-31 U/L) 33?H (Ref Range: 5-31 U/L) 17 (Ref Range: 5-31 U/L) Alanine Aminotransferase 36?H (Ref Range: 0-31 U/L) 28 (Ref Range: [...] 18 (Ref Range: 12-20) Blood Urea Nitrogen 19?H (Ref Range: 9-16 mg/dL) 28?H (Ref Range: 9-16 mg/dL) 23?H (Ref Range: 9-16 mg/dL) Creatinine 0.97 (Ref Range: 0.5-1.4 mg/dL) 1.15 (Ref Range: 0.5-1.4 mg/dL) 0.90 (Ref Range: 0.5-1.4 mg/dL) Estimated Glomerular Filt Rate 56 46 > 60 Glucose Fasting 109?H (Ref Range: 60-99 mg/dL) 118?H (Ref Range: 60-99 mg/dL) 118?H (Ref Range: 60-99 mg/dL) Calcium 9.4 (Ref [...] neg Menstrating No No no * Examination: ???General Examination: ?GENERAL APPEARANCE:?pleasant, well nourished, well developed, in no acute distress, calm and relaxed, overweight, woman.?HEAD:?atraumatic, normocephalic.?EYES:?eomi, perrla, anicteric, conjugate.?EARS:?normal.?NOSE:?septum intact.?ORAL CAVITY:?normal, unremarkable.?NECK/THYROID:?no jugular venous distention, no carotid bruit, thyroid normal.?LYMPH NODES:?no enlarged lymph nodes,spleen normal.?SKIN:?no suspicious lesions, anicteric.?HEART:?no clicks, gallops, murmurs, or rubs, regular rhythm, S1, S2 normal, no s3, or vascular bruits.?LUNGS:?clear to auscultation .?BREASTS:?Bilateral mastectomy sites free of relapse.?ABDOMEN:?bowel sounds normal, no ascites, no organomegaly, no mass, Midline surgical incision well-healed, fistula closed.?RECTAL EXAM:?not examined.?MUSCULOSKELETAL:?extremities unremarkable, no clubbing, cyanosis or edema.?PERIPHERAL PULSES:?normal.?NEUROLOGIC:?alert and oriented, cranial nerves 2-12 grossly intact, deep tendon reflexes 2+ symmetrical, motor strength normal upper and lower extremities, sensory exam intact.?PSYCH:?alert, oriented.? : ???Ears:No wax, Canals are bigger than average, Eyes: Beginnings of cataracts, Mouth: No sores, Heart: Regular rhythm, Chest: Normal, Abdomen: Normal. ??? Assessment: * Assessment: 1.?Breast carcinoma, female, right - C50.911 (Primary)???Notes :There was no sign of a new primary or of recurrence on today's examination. 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 She has stopped the Sandostatin.She continues on fulvestrant and ribociclib. Her disease is well controlled.???2.?Hypothyroid - E03.9???Notes :She is euthyroid and no change in her regimen was necessary today.???3.?Asthma - J45.909???Notes :She has had no wheezing since her last visit. 55. She will notify the office if this occurs.???4.?Type 2 diabetes mellitus without complication, without long-term current use of insulin - E11.9???Notes :Her hemoglobin A1c is well below 7.0.? She is compliant with her medications.? She has gained weight.? We discussed a weight loss strategy but made no change in her regimen.???5.?History of colon cancer - Z85.038???Notes :She remains in remission with no sign of relapse.???6.?Hearing loss - H91.90???Notes :She has noticed mild hearing loss. She intends to have an audiology evaluation once the difficulty with her abdominal pain has been resolved.???7.?Hypercalcemia - E83.52???Notes :Her labs to be checked periodically.???8.?Overweight - E66.3???Notes :She has gained several pounds and is very slightly overweight.? I suggested she stabilize her weight at this level and then try to lose several pounds.? She has been compliant with all of her therapies.??? Plan: * Treatment: 2.?Asthma? Continue Arnuity Ellipta Aerosol Powder Breath Activated, 100 MCG/ACT, 1 puff, Inhalation, Once a day.?? 3.?Type 2 diabetes mellitus without complication, without long-term current use of insulin?LAB: PROFILE, FASTING (COMPREHENSIVE METABOLIC) ?LAB: TSH (THYROID STIMULATING HORMONE) ?LAB: CBC WITH AUTO DIFF ?LAB: Lipid Panel ?LAB: Free T4 (Free Thyroxine) ?LAB: Microalbumin, Random ?LAB: Hemoglobin A1c 4.?Others? Continue Levothyroxine Sodium Tablet, 75 MCG, TAKE 1 TABLET DAILY;?Continue Asmanex (30 Metered Doses) Aerosol Powder Breath [...] 44 MCG/ACT, USE 2 INHALATIONS TWICE A DAY.?? * Labs:? * ?Lab: URINE DIP STICK (C ollection Date & Time - 04/21/2024) ? Value Reference Range ?SG 1.020 1.005 - 1.025 * ?pH 5.0 5.0 - 9.0 * ?SANDIP Negative Negative - * ?NIT Negative Negative - * ?PRO 30 Negative - Trac e * ?GLU Negative Negative - * ?KET 5 Negative - * ?UBG 0.2 0.1 - 1.8 * ?SHON 1 0.2 - 1.3 * ?BLD Negative Negative - * ?Menstrating No * Procedure Codes:?55114 URINE -NO MICRO * Preventive Medicine:? ??Counseling:?Care goal follow-up plan:?Counseling for abnormal BMI given?Yes ?Above Normal BMI Follow-up?Dietary management education, guidance, and counseling, Dietary needs education ??DM Care Plan:?Patient Lifestyle Goals?Patient wants to be able to manage diabetes without too much effort.?Treatment Goals?Blood Sugars less than < 115, HbA1C < 7.0.?Barriers?no barriers.? * Follow Up:?4 Months (Reason: OV) * Images: * Sign off status: Completed true * Provider:?Sudhakar De La O MD Date:?11/2024 Generated for Seng deshpande/Melva/eTransmitting on:?08/18/2024 07:59 AM EDT History and Physical Notes * [...]
--- OUTSIDE RECORDS SUMMARY | 2024-08-18 08:01 | XMS_ITS ---
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 She seems stable to travel to [place] on August 02, 2024. She intends to travel by air to [facility] to visit family. 07/29/2024 History of [...] Reason: Office visit Provider Name:Sudhakar De La O, 08/20/2024 11:30:00 AM, [address] [place] [address] [address], [place], [id number], Provider Name:Sudhakar De La O, 04/22/2025 10:00:00 AM, [address] [place] [address] [address], [place], [id number], Progress Notes * Steff KENTDOB: [birth year] (73 yo F)Acc No.[id number]:07/29/2024 Progress Notes Patient:?Steff KENT Provider:?Sudhakar De La O MD :1950???Age:73 Y???Sex:Female D ate:07/29/2024 Address:[address] [place], [place] [id number] Subjective: * Chief Complaints: * ???AsthmaMetastatic breast c ancerHistory of colon cancerHypothyroidismDiabetesHearing loss * HPI: ???COVID-19 Screening:? She has a history of asthma and for several days has felt her breathing to be tight.? It was a little better today after she used an inhaler.? On examination there was no wheezing but breath sounds were slightly diminished.? Her oxygen saturation was 97%.? Her respiratory rate was 16.? This appears to be mild asthma.? She was treated with the inhaler [id number] and 20 mg of prednisone daily for 7 days with one refill.? She was given a follow-up visit.? It is noted that she intends to travel by air to [place] on August 02, 2024.? She appears to be stable enough to do this.? She is traveling to [facility]. ?Questions?Have you had any new onset fever, chills, cough, congestion, sore throat, shortness of breath, muscle aches??Yes Cough, SOB * ROS:?General/Constitutional:?pain?only normal aches and pains.?Chills?denies.?Fatigue?admits.?Fever?denies.?ENT:?Decreased hearing?in both ears.?Respiratory:?Cough?denies.?Cardiovascular:?Chest pain with exertion?denies.?Dyspnea on exertion?with moderate activity.?Shortness of breath?that is mild.?Gastrointestinal:?Constipation?occasional.?Decreased appetite?denies.?Diarrhea?denies.?Heartburn?denies.?Nausea?denies.?Rectal bleeding?denies.?Vomiting?denies.?Hematology:?bruising?denies.?petechiae?denies.?Swollen glands?none have been noted.?Genitourinary:?Frequent urination?at night.?Musculoskeletal:?Muscle aches?denies.?Painful joints?denies.?Sciatica?denies.?Weakness?denies.?Skin:?Itching?denies.?Rash?denies.?Skin lesion(s)?Midline abdominal wound has completely healed.?Neurologic:?Difficulty speaking?denies.?Dizziness?denies.?Headache?denies.?Low back pain?denies.?Psychiatric:?Depressed mood?denies.? * Medical History:? * Surgical History:?bilateral mastectomies bowel resection 2002 Colonoscopy, [facility], Dr. Sudhakar Tompkins, negative findings 03/2022No history * Hospitalization/Major Diagno stic Procedure:?chest pain 12/2018No history * Family History:?Father: dece ased 89 yrs, hypertension, hyperlipidemia, colon cancer, diagnosed with HTN, Hyperlipidemia, Cancer.?Mother: 83 yrs, Parkinsons, type II diabetes, cervical cancer,endometral cancer, diagnosed with DM, Cancer.?Maternal Grand Father: , stomach cancer.?Paternal aunt: , [...] disorder or addiction. * Social History:?Tobacco Use:?Tobacco Control (Standard)?Tobacco use:?Nonsmoker ?Additional Findings: Tobacco non-user?Aggressive nonsmoker ???She has been to [place] for 21 years. She was born in [place], [place]. The patient consumes a moderate amount of alcohol, with a glass of wine most nights with dinner. 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 * Medications:?TakingLevothyro xine Sodium 75 MCG Tablet TAKE 1 TABLET [...] - Allergyno[Allergies Verified] Objective: * Vitals:?Ht: 65, Wt:155, BMI: 25.79, BP:136/66, HR:97, Temp:97.2, Oxygen sat %:97, Wt-k.31. Assessment: * Assessment: 1.?Asthma - J45.909 (Primary )???Notes :Her breathing is slightly tight but she is not wheezing.? This appears to be asthma not infection or cardiac problem.? She was given a prescription for prednisone and told to use her inhalers xqozlv-bke-tflon has prescribed.? She seems stable to travel to [place] on August 02, 2024.? She intends to travel by air to [facility] to visit family.???2.?Hypothyroid - E03.9???Notes :She is euthyroid and no change in her regimen was necessary today.???3.?History of colon cancer - Z85.038???Notes :She remains in remission with no sign of relapse.???4.?Hearing loss - H91.90???Notes :She has noticed mild hearing loss. She intends to have an audiology evaluation once the difficulty with her abdominal pain has been resolved.???5.?Type 2 diabetes mellitus without complication, without long-term current use of insulin - E11.9???Notes :Her hemoglobin A1c is well below 7.0. She is compliant with her medications. She has gained weight. We discussed a weight loss strategy but made no change in her regimen.???6.?Breast carcinoma, female, right - C50.911???Notes :There was no sign of a new primary or of recurrence on today's examination. 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 She has stopped the Sandostatin.She continues on fulvestrant and ribociclib. Her disease is well controlled.???7.?Overweight - E66.3???Notes :She has gained several pounds and is very slightly overweight. I suggested she stabilize her weight at this level and then try to lose several pounds. She has been compliant with all of her therapies.??? Plan: * Treatment: 2.?Hypothyroid? Continue Fluticasone Propionate (Inhal) Aerosol Powder Breath Activated, 100 MCG/ACT, 1 puff, Inhalation, Twice a day;?Continue predniSONE Tablet, 20 MG, 1 tablet, Orally, Once a day;?Start Azithromycin Tablet, 250 MG, tablets, Orally, 2 Tablets on the first day, one tablet the rest of the days, 5 days, 6 Tablet, Refills 0.?? 3.?Others? Continue Levothyroxine Sodium Tablet, 75 MCG, TAKE 1 TABLET DAILY;?Continue Asmanex (30 Metered Doses) Aerosol Powder Breath Activated, 220 MCG/ACT, 1 puff in the evening, Inhalation, Once a day;?Continue Kisqali (600 MG Dose) Tablet Therapy Pack, [...] MCG/ACT, USE 2 INHALATIONS TWICE A DAY;?Continue Montelukast Sodium Tablet, 10 MG, 1 tablet, Orally, Once a day.?? * Procedure Codes:?29080 MEASU RE BLOOD OXYGEN LEVEL * Preventive Medicine:? ??Counseling:?Care goal follow-up plan:?Counseling for abnormal BMI given?Yes ?Above Normal BMI Follow-up?Dietary management education, guidance, and counseling, Dietary needs education ??DM Care Plan:?Patient Lifestyle Goals?Patient wants to be able to manage diabetes without too much effort.?Treatment Goals?HbA1C < 7.0, Blood Sugars less than < 115.?Barriers?no barriers.?Self-Managment Goals?Work on weight loss, with a goal of losing 1 lb per week.? * Follow Up:?2 Months (Reason: Office visit) * Images: * Sign off status: Completed true * Provider:?Sudhakar De L aO MD Date:?07/13 Generated for Seng deshpande/Melva/eTransmitting on:?08/18/2024 08:00 AM EDT History and Physical Notes * HPI (History of Present Illness) Category Sub-Category Detail Notes COVID-19 Screening Questions Have you had any new onset fever, chills, cough, congestion, sore throat, shortness of breath, muscle aches?: Yes Cough, SOB
[2024-08-18 08:26] LABS: Basophils Absolute Auto 0.1 X10*3/uL (0.0-0.2); Eosinophils Percent Auto 0.6 % (0-4); Hematocrit 40.8 % (37.0-47.0); Hemoglobin 13.8 g/dl (12.0-16.0); Imm Gran Abs Auto 0.02 X10*3/uL (0.00-0.03); Imm Gran Pct Auto 0.4 % (0.0-0.4); Lymphocytes Absolute Auto 1.6 X10*3/uL (1.2-4.9); Lymphocytes Percent Auto 32.7 % (20-40); MANUAL DIFF FLAG SCAN; Mean Corpuscular HGB Conc 33.8 g/dl (31.0-35.0); Mean Corpuscular Hemoglobin 35.1 pg (27.0-33.0); Mean Corpuscular Volume 103.8 fL (80.0-98.0); Mean Platelet Volume 10.7 fL (9.4-12.3); Monocytes Absolute Auto 0.1 X10*3/uL (0.1-1.2); Monocytes Percent Auto 2.9 % (2-11); Neutrophils Percent Auto 62.4 % (45-73); Platelet Count 279 X10*3/uL (160-400); Red Blood Count 3.93 X10*6/uL (4.20-5.50); Red Cell Distribution Width 14.1 % (11.0-16.0); SCAN SMEAR FLAG 1; White Blood Count 4.8 X10*3/uL (4.8-10.8)
[2024-08-18 08:34] LABS: Estimated Average Glucose 137 mg/dL; Hemoglobin A1C 171.1035 umol/L; Hemoglobin A1c % 6.4 % (<6.0); Total Hemoglobin (HGBA1C) 3658.3019 umol/L
[2024-08-18 09:09] LABS: SLIDE REVIEW VERIFIED
[2024-08-18 09:11] LABS: Alanine Aminotransferase 61 U/L (0-31); Albumin Level 4.4 g/dL (3.5-5.0); Alkaline Phosphatase 41 U/L (39-117); Anion Gap 14 (12-20); Aspartate Amino Transferase 61 U/L (5-31); Bilirubin Total 1.6 mg/dL (0.0-1.0); Blood Urea Nitrogen 18 mg/dL (9-16); Calcium 9.4 mg/dL (8.4-10.2); Carbon Dioxide 27 mmol/L (22-29); Chloride 104 mmol/L (96-108); Cholesterol 151 mg/dL (<200); Estimated Glomerular Filt Rate 41; Glucose Fasting 147 mg/dL (60-99); HDL Cholesterol 59 mg/dL (>40); LDL Cholesterol Calculated 72 mg/dL (<100); Potassium 4.1 mmol/L (3.3-5.1); Sodium 141 mmol/L (135-145); Total Protein 7.9 g/dL (6.5-8.0); Triglycerides 102 mg/dL (<150)
[2024-08-18 09:25] LABS: Free T4 (Free Thyroxine) 1.35 ng/dL (0.71-1.85); Thyroid Stimulating Hormone 2.15 uIU/mL (0.32-4.0)
[2024-08-18 09:41] LABS: Creatinine Urine 85.92 mg/dL; Microalbum/Creatinine Ratio Ur 15.1 ug/mg cr (<30)
== END 2024-08-18 07:57 | disposition home or self-care (01) ==
LOC: HO.LAB 07:56
PROVIDERS: PCP Internal Medicine Medical Oncology; Visit Provider Internal Medicine Medical Oncology
DX: Z00.00 Encounter for general adult medical examination without abnormal findings (principal); E03.9 Hypothyroidism, unspecified; E11.9 Type 2 diabetes mellitus without complications
CPT/HCPCS: 36415; 80053; 80061; 82043; 82570; 83036; 84439; 84443; 85025

== ENCOUNTER 2025-01-07 07:34 | Outpatient (REF) | payer MEDICARE, SELFPAY ==
--- OUTSIDE RECORDS SUMMARY | 2024-04-21 06:00 | XMS_ITS ---
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 Sudhakar De La O III Primary Care Provider Allergies Allergen (clinical drug ingredient) Drug/Non Drug Allergy documented on EMR Reaction Allergy Type Onset Date Status sulfacetamide Sulfacetamide rash Drug Allergy Active Results Component Value Reference Range Notes URINE DIP STICK Reviewed date:04/21/2024 10:17:16 AM Interpretation: Performing Lab: Notes/Report: SG 1.020 1.005 - 1.025 pH 5.0 5.0 - 9.0 SANDIP Negative Negative - NIT Negative Negative - PRO 30 Negative - Trace GLU Negative Negative - KET 5 Negative - UBG 0.2 0.1 - 1.8 SHON 1 0.2 - 1.3 BLD Negative Negative - Menstrating No Lipid Panel Reviewed date:08/20/2024 10:18:25 AM Interpretation: Performing Lab:[facility], [address] [place] [id number] Notes/Report: Triglycerides 102 <150 mg/dL Desirable Triglyceride: less than 150 mg/dL Borderline High Triglyceride 150-199 mg/dL High Triglyceride: 200-499 mg/dL Very High Triglyceride: greater than or equal to 5OO mg/dL Cholesterol 151 <200 mg/dL Desirable Cholesterol: less than 200 mg/dL Borderline High Cholesterol: 200-239 mg/dL High Cholesterol: greater than 239 mg/dL LDL Cholesterol Calculated 72 <100 mg/dL Desirable LDL: less than 100 mg/dL Near Optimal/Above Optimal LDL: 110-129 mg/dL Borderline High LDL: 130-159 mg/dL High LDL: 160-189 mg/dL Very High LDL: greater than or equal to 190 mg/dL HDL Cholesterol 59 >40 mg/dL Desirable HDL: greater than 40 mg/dL Note: This HDL assay may give artificially low results in patients with liver disease. Free T4 (Free Thyroxine) Reviewed date:08/20/2024 10:18:25 AM Interpretation: Performing Lab:[address] [id number] Notes/Report: Free T4 (Free Thyroxine) 1.35 0.71-1.85 ng/dL Microalbumin, Random Reviewed date:08/20/2024 10:18:25 AM Interpretation: Performing Lab:[address] [phone] Notes/Report: Creatinine Urine 85.92 Microalbumin Urine 13.0 Microalbum/Creatinine Ratio Ur 15.1 <30 ug/mg cr Albumin/Creatinine Ratio Reference Ranges: Normal: < 30 ug/mg creatinine Microalbuminuria: 30 - 300 ug/mg creatinine Clinical Albuminuria: > 300 ug/mg creatinine Hemoglobin A1c Reviewed date:08/20/2024 10:18:25 AM Interpretation: Performing Lab:[address] [phone] Notes/Report: Hemoglobin A1c % 6.4 <6.0 % Hemoglobin A1C Reference Range Adults: 4.8 - 6.0 % Non diabetic: < 6.0 % Goal: < 7.0 % Additional Action Suggested: > 8.0 % Note: Hemoglobin A1c results are invalid for patients with abnormal amounts of HbF. Blood transfusions may impact the HbA1c concentration in the patient sample. Estimated Average Glucose 137 eAG = Estimated average glucose which is %A1C expressed as average glucose, using the formula of the [id number] Average Glucose study (ADAG), Diabetes Care, Vol.31,#8, 2007 REASON FOR VISIT Annual Exam Medications Medication SIG (Take, Route, Frequency, Duration) Notes Start Date End Date Status Kisqali (600 MG Dose) 200 MG TAKE 3 TABLETS ONCE DAILY IN THE MORNING FOR 21 DAYS, AND 7 DAYS OFF Active Flovent HFA 44 MCG/ACT USE 2 INHALATIONS TWICE A DAY Active Accu-Chek Softclix Lancets - USE TO CHECK BLOOD SUGAR TWICE DAILY JUST TWICE A WEEK Active Accu-Chek Erinn Plus - USE TO TEST BLOOD SUGARS TWICE DAILY ON 2 DAYS PER WEEK Active Fulvestrant 250 MG/5ML 10 mL Intramuscul ar 500mg Q 2weeks then montly Active Levothyroxine Sodium 75 MCG TAKE 1 TABLET DAILY Active predniSONE 20 MG 1 tablet Orally Once a day 2023 Active Arnuity Ellipta 100 MCG/ACT 1 puff Inhalation Once a day 09/30/2023 Active Montelukast Sodium 10 mg TAKE 1 TABLET D AILY IN THE EVENING Active Asmanex (30 Metered Doses) 220 MCG/ACT 1 puff in the evening Inhalation Once a day 06/30/2023 Active Fluticasone Propionate (Inhal) 100 MCG/ACT 1 puff Inhalation Twice a day 09/30/2023 Active Social History Tobacco Use: Social History Observation Description Date Details (start date - stop date) Never Smoker NA - NA Sex Assigned At : Social History Observation Description Sex Assigned At Female Tobacco Use/Smoking Question Answer Notes Patient is a nonsmoker Additional Findings: Tobacco Non-User Aggressive non-smoker Tobacco Control (Standard) Question Answer Notes Tobacco use: Nonsmoker Additional Findings: Tobacco non-user Aggressive nonsmoker AUDIT-C (Standard) Question Answer Notes Did you have a drink contain ing alcohol in the past year? Yes How often did you have six o r more drinks on one occasion in the past year? 4 or more times a week (4 points) How many drinks did you have on a typical day when you were drinking in the past year? 1 or 2 drinks (0 point) How often did you have a dri nk containing alcohol in the past year? Never (0 point) Points 4 Interpretation Positive Problems Problem Type SNOMED Code ICD Code Onset Dates Problem Status W/U Status Risk Notes Problem 882141089 Overweight (E66.3) Active confirmed She has gained several pounds and is very slightly overweight. I suggested she stabilize her weight at this level and then try to lose several pounds. She has been compliant with all of her therapies. Vital Signs Temperature 98.3 degrees Fahrenheit 04/21/19 25 Blood pressure systolic 122 mm Hg 04/21/19 25 Blood pressure diastolic 72 mm Hg 025 Heart Rate 85 /min 04/21/2024 Height 65 in 04/21/2024 Weight 153 lbs 04/21/2024 BMI 25.46 kg/m2 04/21/2024 Encounters Encounter Location Date Provider Diagnosis Sudhakar De La O III, MD [address] [place] [address] [place], [place] [id number] 04/21/2024 Sudhakar De La O Hypothyroid E03.9 ; Breast carcinoma, female, right C50.911 ; Asthma J45.909 ; Type 2 diabetes mellitus without complication, without long-term current use of insulin E11.9 ; History of colon cancer Z85.038 ; Hearing loss H91.90 ; Hypercalcemia E83.52 and Overweight E66.3 Assessments Encounter Date Diagnosis (ICD Code) Assessment Notes Treat ment Notes Treatment Clinical Notes 04/21/2024 Hypothyroid (ICD-10 - E03.9) She is euthyroid and no change in her regimen was necessary today. 04/21/2024 Breast carcinoma, female, right (ICD-10 - C50.911) There was no sign of a new primary or of recurrence on today's examination. 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 She has stopped the Sandostatin.She continues on fulvestrant and ribociclib. Her disease is well controlled. 04/21/2024 Asthma (ICD-10 - J45.909) She has had no wheezing since her last visit. 53. She will notify the office if this occurs. 04/21/2024 Type 2 diabetes mellitus without complication, without long-term current use of insulin (ICD-10 - E11.9) Her hemoglobin A1c is well below 7.0. She is compliant with her medications. She has gained weight. We discussed a weight loss strategy but made no change in her regimen. 04/21/2024 History of colon cancer (ICD-10 - Z85.038) She remains in remission with no sign of relapse. 04/21/2024 Hearing loss (ICD-10 - H91.90) She has noticed mild hearing loss. She intends to have an audiology evaluation once the difficulty with her abdominal pain has been resolved. 04/21/2024 Hypercalcemia (ICD-10 - E83.52) Her labs to be checked periodically. 04/21/2024 Overweight (ICD-10 - E66.3) She has gained several pounds and is very slightly overweight. I suggested she stabilize her weight at this level and then try to lose several pounds. She has been compliant with all of her therapies. Plan Of Treatment Medication Medication Name Sig Start Date Stop Date Notes Kisqali (600 MG Dose) 200 MG TAKE 3 TABL ETS ONCE DAILY IN THE MORNING FOR 21 DAYS, AND 7 DAYS OFF Flovent HFA 44 MCG/ACT USE 2 INHALATIONS TWICE A DAY Accu-Chek Softclix Lancets - USE TO CHEC K BLOOD SUGAR TWICE DAILY JUST TWICE A WEEK Accu-Chek Erinn Plus - USE TO TEST BLOOD SUGARS TWICE DAILY ON 2 DAYS PER WEEK Fulvestrant 250 MG/5ML 10 mL Intramuscul ar 500mg Q 2weeks then montly Levothyroxine Sodium 75 MCG TAKE 1 TABLET DAILY predniSONE 20 MG 1 tablet Orally Once a day 02/03/2024 Arnuity Ellipta 100 MCG/ACT 1 puff Inhalation Once a day 0 09/30/2023 Montelukast Sodium 10 mg TAKE 1 TABLET D AILY IN THE EVENING Asmanex (30 Metered Doses) 220 MCG/ACT 1 puff in the evening Inhalation Once a day 06/30/2023 Fluticasone Propionate (Inhal) 100 MCG/ACT 1 puff Inhalation Twice a day 09/30/2023 Pending Test Test Name Order Date PROFILE, FASTING (COMPREHENSIVE METABOLI C) 04/21/2024 TSH (THYROID STIMULATING HORMONE) 2024 CBC WITH AUTO DIFF 04/21/2024 Next Appt Details Follow Up: 4 Months, Reason: OV Provider Name:Sudhakar De La O , 01/10/2025 11:00:00 AM, [address] [place] [address] , [facility] [address], [place], [id number], Provider Name:Sudhakar De La Torrene , 04/22/2025 10:00:00 AM, [address] [place] [address] [address] [place], [place], [phone], Progress Notes * Steff KENTDOB: [birth year] (73 yo F)Acc No.[id number]:04/21/2024 Progress Notes Patient: Steff QUINTERO Provider: Lexi De La O MD :[id number] A ge:73 Y S ex:Female Date:04/21/2024 Address:[address] [place] [address] [place] [id number] Subjective: * Chief Complaints: * A nnual Exam * HPI: D epression Screening: PHQ-9 L ittle interest or pleasure in doing things?Not at all F eeling down, depressed, or hopeless N ot at all T rouble falling or staying asleep, or sleeping too much N ot at all F eeling tired or having little energy S everal days P oor appetite or overeating S everal days F eeling bad about yourself or that you are a failure, or have let yourself or your family down N ot at all T rouble concentrating on things, such as reading the newspaper or watching television N ot at all M oving or speaking so slowly that other people could have noticed; or the opposite, being so fidgety or restless that you have been moving around a lot more than usual N ot at all T houghts that you would be better off or of hurting yourself in some way N ot at all T otal Score 2 I nterpretation M inimal Depression F all Risk Screening: Fall History H ave you had any falls with injury in the past year? N o H ave you had two or more falls in the past year? N o F all Risk Assessment: N o falls in the past year S GREG Questions: SDOH Questions I n the past year have you been worried about losing your housing? N o I n the past year have you or any family members you live with been unable to get any of the following when it was really needed? Check all that apply: N one * : The patient is a 73-year-old female who is currently on anti-cancer medications, including fulvestrant and kisquali. She reports feeling low energy at times, which she attributes to her medications. She has been maintaining her weight, despite a struggle with constant hunger due to her medications. She has been receiving regular blood work and CT scans, and is scheduled for an MRI in May. Her recent blood work shows an A1C of 6, which she was hoping would be lower. She also reports a fasting glucose of 123. She has been maintaining a moderate alcohol consumption, with a glass of wine most nights with dinner. Blood Sugar Level is 123. * ROS: G eneral/Constitutional: pain o nly normal aches and pains. C hills d enies.?Fatigue a dmits. F ever d enies. E NT: Decreased hearing d enies. R espiratory: Cough d enies. C ardiovascular: Chest pain with exertion d enies. D yspnea on exertion?denies. S hortness of breath d enies. G astrointestinal: Constipation o ccasional. D ecreased appetite d enies. D iarrhea d enies. H eartburn d enies. N ausea d enies. R ectal bleeding d enies. V omiting d enies. H ematology: bruising d enies. p etechiae d enies. S wollen glands n one have been noted. G enitourinary: Frequent urination a t night. M usculoskeletal: Muscle aches d enies. P ainful joints d enies. S ciatica d enies. W eakness d enies. S kin: Itching d enies. R kobe d enies. S kin lesion(s)?denies. N eurologic: Difficulty speaking d enies. D izziness d enies.?Headache d enies. L ow back pain d enies. P sychiatric: Depressed mood d enies. * Medical History: * Surgical History: b ilateral mastectomies bowel resection 2002 Colonoscopy, [facility], Dr. Sudhakar Tompkins, negative findings 03/2022No history * Hospitalization/Major Diagno stic Procedure: c hest pain 12/2018No history * Family History: F ather: 89 yrs, hypertension, hyperlipidemia, colon cancer, diagnosed with Cancer, HTN, Hyperlipidemia. M other: 83 yrs, Parkinsons, type II diabetes, cervical cancer,endometral cancer, diagnosed with Cancer, DM. M aternal Grand Father: , stomach cancer. P aternal aunt: , cancer of the kidney. M aternal aunt: , breast cancer. 2 brother(s) , 1 sister(s) . . Her siblings have diabetes, hyperlipidemia, sarcoidosis and pneumonia. She has no children. Her mother and brother and sister have AODM. Father Dx with colon CA. she is not aware of any family history of mental illness or substance use disorder or addiction. * Social History: T obacco Use: T obacco Use/Smoking P atient is a n onsmoker A dditional Findings: Tobacco Non-User A ggressive non-smoker Tobacco Control (Standard) T obacco use: N onsmoker A dditional Findings: Tobacco non-user A ggressive nonsmoker D rugs/Alcohol: D rugs H ave you used drugs other than those for medical reasons in the past 12 months? N o D rug/Alcohol: A ANNELISE-C (Standard) D id you have a drink containing alcohol in the past year? Y es H ow often did you have six or more drinks on one occasion in the past year? 4 or more times a week (4 points) H ow many drinks did you have on a typical day when you were drinking in the past year? 1 or 2 drinks (0 point) H ow often did you have a drink containing alcohol in the past year? N ever (0 point) P oints 4 I nterpretation P ositive S he has been to Danny for 21 years. She was born in [place], [place]. The patient consumes a moderate amount of alcohol, with a glass of wine most nights with dinner. 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 * Medications: T akingAsmanex (30 Metered Doses) 220 MCG/ACT Aerosol Powder [...] Aerosol USE 2 INHALATIONS TWICE A DAY Fluticasone Propionate (Inhal) 100 MCG/ACT Aerosol Powder Breath Activated 1 puff Inhalation Twice a day Arnuity Ellipta 100 MCG/ACT Aerosol Powder Breath Activated 1 puff Inhalation Once a day predniSONE 20 MG Tablet 1 tablet Orally Once a day , stop date 04/26/2024Levothyroxine Sodium 75 MCG Tablet TAKE 1 TABLET DAILY Medication List reviewed and reconciled with the patientTaking Asmanex (30 Metered Doses) 220 MCG/ACT Aerosol [...] USE 2 INHALATIONS TWICE A DAY Taking Fluticasone Propionate (Inhal) 100 MCG/ACT Aerosol Powder Breath Activated 1 puff Inhalation Twice a day Taking Arnuity Ellipta 100 MCG/ACT Aerosol Powder Breath Activated 1 puff Inhalation Once a day Taking predniSONE 20 MG Tablet 1 tablet Orally Once a day , stop date 04/26/2024Taking Levothyroxine Sodium 75 MCG Tablet TAKE 1 TABLET DAILY Medication List reviewed and reconciled with the patient * Allergies: S ulfacetamide: rash - Allergyno[Allergies Verified] Objective: * Vitals: H t: 65, Wt:153, BMI:25.46, BP:122/72, HR:85, Temp:98.3, Wt-k.4. * P ast Orders: Lab:Hemoglobin A1c * Collection Date 04/17/2024 01/31/2024 02/23/2022 Collection Time 07:51 AM 07:55 AM 07:34 AM Order Date 04/17/2024 01/31/2024 02/23/2022 Hemoglobin A1c % 6.0 (Ref Range: <6.0 %) 6.1 H (Ref Range: <6.0 %) 6.0 (Ref Range: %) Estimated Average Glucose 126 (Ref Range: mg/dL) 128 (Ref Range: mg/dL) 126 (Ref Range: mg/dL) * Lab:Microalbumin, Random * Collection Date 04/17/2024 01/31/2024 02/23/2022 Collection Time 07:48 AM 07:54 AM 07:30 AM Order Date 04/17/2024 01/31/2024 02/23/2022 Creatinine Urine 60.85 (Ref Range: mg/dL) 73.39 (Ref Range: mg/dL) 122.67 (Ref Range: mg/dL) Microalbumin Urine 10.0 (Ref Range: mg/L) 37.0 (Ref Range: mg/L) 44.0 (Ref Range: mg/L) Microalbum Creatinine Ratio Ur 16.4 (Ref Range: <30 ug/mg cr) 50.4 H (Ref Range: <30 ug/mg cr) 35.8 (Ref Range: ug/mg cr) * Lab:Lipid Panel * Collection Date 04/17/2024 01/31/2024 06/13/2023 Collection Time 07:51 AM 07:55 AM 08:31 AM Order Date 04/17/2024 01/31/2024 06/13/2023 Triglycerides 93 (Ref Range: <150 mg/dL) 97 (Ref Range: <150 mg/dL) 95 (Ref Range: <150 mg/dL) Cholesterol 151 (Ref Range: <200 mg/dL) 148 (Ref Range: <200 mg/dL) 165 (Ref Range: <200 mg/dL) LDL Cholesterol Calculated 72 (Ref Range: <100 mg/dL) 70 (Ref Range: <100 mg/dL) 92 (Ref Range: <100 mg/dL) HDL Cholesterol 61 (Ref Range: >40 mg/dL) 59 (Ref Range: >40 mg/dL) 54 (Ref Range: >40 mg/dL) * Lab:Comprehensive Met. Panel * Collection Date 01/31/2024 07/10/2022 05/03/2022 Collection Time 07:55 AM 04:57 PM 06:21 AM Order Date 01/31/2024 07/10/2022 05/03/2022 Sodium 141 (Ref Range: 135-145 mmol/L) 139 (Ref Range: 135-145 mmol/L) 138 (Ref Range: 135-145 mmol/L) Bilirubin Total 0.8 (Ref Range: 0.0-1.0 mg/dL) 2.4 H (Ref Range: 0.0-1.0 mg/dL) 2.4 H (Ref Range: 0.0-1.0 mg/dL) Aspartate Amino Transferase 20 (Ref Range: 5-31 U/L) 11 (Ref Range: 5-31 U/L) 37 H (Ref Range: 5-31 U/L) Alanine Aminotransferase 24 (Ref Range: 0-31 U/L) 12 (Ref Range: 0-31 U/L) 29 (Ref Range: 0-31 U/L) Total Protein 7.3 (Ref Range: 6.5-8.0 g/dL) 7.2 (Ref Range: 6.5-8.0 g/dL) 9.2 H (Ref Range: 6.5-8.0 g/dL) Albumin Level 4.1 (Ref Range: 3.5-5.0 g/dL) 4.1 (Ref Range: 3.5-5.0 g/dL) 5.1 H (Ref Range: 3.5-5.0 g/dL) Alkaline Phosphatase 54 (Ref Range: 39-117 U/L) 48 (Ref Range: 39-117 U/L) 71 (Ref Range: 39-117 U/L) Potassium 4.1 (Ref Range: 3.3-5.1 mmol/L) 3.9 (Ref Range: 3.3-5.1 mmol/L) 4.9 (Ref Range: 3.3-5.1 mmol/L) Chloride 105 (Ref Range: 96-108 mmol/L) 108 (Ref Range: 96-108 mmol/L) 98 (Ref Range: 96-108 mmol/L) Carbon Dioxide 28 (Ref Range: 22-29 mmol/L) 21 L (Ref Range: 22-29 mmol/L) 22 (Ref Range: 22-29 mmol/L) Anion Gap 12 (Ref Range: 12-20) 14 (Ref Range: 12-20) 23 H (Ref Range: 12-20) Blood Urea Nitrogen 21 H (Ref Range: 9-16 mg/dL) 32 H (Ref Range: 9-16 mg/dL) 27 H (Ref Range: 9-16 mg/dL) Creatinine 0.97 (Ref Range: 0.5-1.4 mg/dL) 1.40 (Ref Range: 0.5-1.4 mg/dL) 1.23 (Ref Range: 0.5-1.4 mg/dL) Estimated Glomerular Filt Rate 56 37 43 Glucose Random 123 H (Ref Range: 60-115 mg/dL) 113 (Ref Range: 60-115 mg/dL) 162 H (Ref Range: 60-115 mg/dL) Calcium 9.3 (Ref Range: 8.4-10.2 mg/dL) 9.2 (Ref Range: 8.4-10.2 mg/dL) 11.2 H (Ref Range: 8.4-10.2 mg/dL) Creatinine Clr Calc Pharmacy NR NR 35.1 * Lab:Complete Blood Count Aut o Diff * Collection Date 04/17/2024 01/31/2024 06/13/2023 Collection Time 07:51 AM 07:55 AM 08:31 AM Order Date 04/17/2024 01/31/2024 06/13/2023 White Blood Count 3.6 L (Ref Range: 4.8-10.8 X10*3/uL) 4.0 L (Ref Range: 4.8-10.8 X10*3/uL) 2.6 L (Ref Range: 4.8-10.8 X10*3/uL) Red Blood Count 3.72 L (Ref Range: 4.20-5.50 X10*6/uL) 4.11 L (Ref Range: 4.20-5.50 X10*6/uL) 4.02 L (Ref Range: 4.20-5.50 X10*6/uL) Hemoglobin 13.0 (Ref Range: 12.0-16.0 g/dl) 13.8 (Ref Range: 12.0-16.0 g/dl) 13.6 (Ref Range: 12.0-16.0 g/dl) Hematocrit 39.3 (Ref Range: 37.0-47.0 %) 42.1 (Ref Range: 37.0-47.0 %) 42.3 (Ref Range: 37.0-47.0 %) Mean Corpuscular Volume 105.6 H (Ref Range: 80.0-98.0 fL) 102.4 H (Ref Range: 80.0-98.0 fL) 105.2 H (Ref Range: 80.0-98.0 fL) Mean Corpuscular Hemoglobin 34.9 H (Ref Range: 27.0-33.0 pg) 33.6 H (Ref Range: 27.0-33.0 pg) 33.8 H (Ref Range: 27.0-33.0 pg) Mean Corpuscular HGB Conc 33.1 (Ref Range: 31.0-35.0 g/dl) 32.8 (Ref Range: 31.0-35.0 g/dl) 32.2 (Ref Range: 31.0-35.0 g/dl) Red Cell Distribution Width 14.9 (Ref Range: 11.0-16.0 %) 14.2 (Ref Range: 11.0-16.0 %) 15.5 (Ref Range: 11.0-16.0 %) Platelet Count 238 (Ref Range: 160-400 X10*3/uL) 285 (Ref Range: 160-400 X10*3/uL) 234 (Ref Range: 160-400 X10*3/uL) Mean Platelet Volume 10.3 (Ref Range: 9.4-12.3 fL) 10.5 (Ref Range: 9.4-12.3 fL) 10.8 (Ref Range: 9.4-12.3 fL) Neutrophils Percent Auto 43.0 L (Ref Range: 45-73 %) 54.5 (Ref Range: 45-73 %) 36.5 L (Ref Range: 45-73 %) Imm Gran Pct Auto 0.3 (Ref Range: 0.0-0.4 %) 0.3 (Ref Range: 0.0-0.4 %) 0.0 (Ref Range: 0.0-0.4 %) Lymphocytes Percent Auto 42.2 H (Ref Range: 20-40 %) 35.4 (Ref Range: 20-40 %) 47.3 H (Ref Range: 20-40 %) Monocytes Percent Auto 12.5 H (Ref Range: 2-11 %) 5.8 (Ref Range: 2-11 %) 12.7 H (Ref Range: 2-11 %) Eosinophils Percent Auto 0.3 (Ref Range: 0-4 %) 1.0 (Ref Range: 0-4 %) 1.2 (Ref Range: 0-4 %) Basophils Percent Auto 1.7 (Ref Range: 0-2 %) 3.0 H (Ref Range: 0-2 %) 2.3 H (Ref Range: 0-2 %) NRBC Pct Auto 0.0 (Ref Range: 0.0-0.2 /100WBC) 0.0 (Ref Range: 0.0-0.2 /100WBC) 0.0 (Ref Range: 0.0-0.2 /100WBC) Neutrophils Absolute Auto 1.6 L (Ref Range: 2.0-8.3 x10*3/uL) 2.2 (Ref Range: 2.0-8.3 x10*3/uL) 1.0 L (Ref Range: 2.0-8.3 x10*3/uL) Imm Gran Abs Auto 0.01 (Ref Range: 0.00-0.03 X10*3/uL) 0.01 (Ref Range: 0.00-0.03 X10*3/uL) 0.00 (Ref Range: 0.00-0.03 X10*3/uL) Lymphocytes Absolute Auto 1.5 (Ref Range: 1.2-4.9 X10*3/uL) 1.4 (Ref Range: 1.2-4.9 X10*3/uL) 1.2 (Ref Range: 1.2-4.9 X10*3/uL) Monocytes Absolute Auto 0.5 (Ref Range: 0.1-1.2 X10*3/uL) 0.2 (Ref Range: 0.1-1.2 X10*3/uL) 0.3 (Ref [...] X10*3/uL) 0.000 (Ref Range: 0.0-0.012 X10*3/uL) * Lab:Free T4 (Free Thyroxine) * Collection Date 04/17/2024 06/13/2023 02/23/2022 Collection Time 07:51 AM 08:31 AM 07:34 AM Order Date 04/17/2024 06/13/2023 02/23/2022 Free T4 (Free Thyroxine) 1.13 (Ref Range: 0.71-1.85 ng/dL) 0.84 (Ref Range: 0.71-1.85 ng/dL) 1.14 (Ref Range: 0.71-1.85 ng/dL) * Lab:Comprehensive [place]. Alcidese l Fast * Collection Date 04/17/2024 06/13/2023 02/23/2022 Collection Time 07:51 AM 08:31 AM 07:34 AM Order Date 04/17/2024 06/13/2023 02/23/2022 Sodium 142 (Ref Range: 135-145 mmol/L) 141 (Ref Range: 135-145 mmol/L) 141 (Ref Range: 135-145 mmol/L) Bilirubin Total 0.9 (Ref Range: 0.0-1.0 mg/dL) 1.2 H (Ref Range: 0.0-1.0 mg/dL) 1.6 H (Ref Range: 0.0-1.0 mg/dL) Aspartate Amino Transferase 32 H (Ref Range: 5-31 U/L) 33 H (Ref Range: 5-31 U/L) 17 (Ref Range: 5-31 U/L) Alanine Aminotransferase 36 H (Ref Range: 0-31 U/L) 28 (Ref Range: 0-31 U/L) 22 (Ref Range: 0-31 U/L) Total Protein 7.2 (Ref Range: 6.5-8.0 g/dL) 7.8 (Ref Range: 6.5-8.0 g/dL) 7.2 (Ref Range: 6.5-8.0 g/dL) Albumin Level 4.1 (Ref Range: 3.5-5.0 g/dL) 4.4 (Ref Range: 3.5-5.0 g/dL) 4.4 (Ref Range: 3.5-5.0 g/dL) Alkaline Phosphatase 43 (Ref Range: 39-117 U/L) 40 (Ref Range: 39-117 U/L) 50 (Ref Range: 39-117 U/L) Potassium 4.3 (Ref Range: 3.3-5.1 mmol/L) 4.2 (Ref Range: 3.3-5.1 mmol/L) 4.5 (Ref Range: 3.3-5.1 mmol/L) Chloride 107 (Ref Range: 96-108 mmol/L) 108 (Ref Range: 96-108 mmol/L) 104 (Ref Range: 96-108 mmol/L) Carbon Dioxide 25 (Ref Range: 22-29 mmol/L) 24 (Ref Range: 22-29 mmol/L) 24 (Ref Range: 22-29 mmol/L) Anion Gap 14 (Ref Range: 12-20) 13 (Ref Range: 12-20) 18 (Ref Range: 12-20) Blood Urea Nitrogen 19 H (Ref Range: 9-16 mg/dL) 28 H (Ref Range: 9-16 mg/dL) 23 H (Ref Range: 9-16 mg/dL) Creatinine 0.97 (Ref Range: 0.5-1.4 mg/dL) 1.15 (Ref Range: 0.5-1.4 mg/dL) 0.90 (Ref Range: 0.5-1.4 mg/dL) Estimated Glomerular Filt Rate 56 46 > 60 Glucose Fasting 109 H (Ref Range: 60-99 mg/dL) 118 H (Ref Range: 60-99 mg/dL) 118 H (Ref Range: 60-99 mg/dL) Calcium 9.4 (Ref Range: 8.4-10.2 mg/dL) 9.3 (Ref Range: 8.4-10.2 mg/dL) 9.5 (Ref Range: 8.4-10.2 mg/dL) * Lab:Thyroid Stimulating Horm one * Collection Date 04/17/2024 06/13/2023 02/23/2022 Collection Time 07:51 AM 08:31 AM 07:34 AM Order Date 04/17/2024 06/13/2023 02/23/2022 Thyroid Stimulating Hormone 1.36 (Ref Range: 0.32-4.0 uIU/mL) 1.74 (Ref Range: 0.32-4.0 uIU/mL) 2.00 (Ref Range: 0.32-4.0 uIU/mL) * Lab:URINE DIP STICK * Collection Date 04/21/2024 04/17/2023 04/12/2022 Order Date 04/21/2024 04/17/2023 04/12/2022 Result: Normal SG 1.020 (Ref Range: 1.005 - 1.025) 1.020 (Ref Range: 1.005 - 1.025) 1.010 pH 5.0 (Ref Range: 5.0 - 9.0) 5.0 (Ref Range: 5.0 - 9.0) 5 SANDIP Negative (Ref Range: Negative -) Negative (Ref Range: Negative -) neg NIT Negative (Ref Range: Negative -) Negative (Ref Range: Negative -) neg PRO 30 (Ref Range: Negative - Trace) 15 (Ref Range: Negative - Trace) trace GLU Negative (Ref Range: Negative -) Negative (Ref Range: Negative -) normal KET 5 (Ref Range: Negative -) Negative (Ref Range: Negative -) neg UBG 0.2 (Ref Range: 0.1 - 1.8) 0.2 (Ref Range: 0.1 - 1.8) normal SHON 1 (Ref Range: 0.2 - 1.3) Negative (Ref Range: 0.2 - 1.3) neg BLD Negative (Ref Range: Negative -) Positive (Ref Range: Negative -) neg Menstrating No No no * Examination: G eneral Examination: GENERAL APPEARANCE: p leasant, well nourished, well developed, in no acute distress, calm and relaxed, overweight, woman. HEAD: a traumatic, normocephalic. EYES: e emanuel, perrla, anicteric, conjugate. EARS: n ormal. NOSE: s eptum intact. ORAL CAVITY: n ormal, unremarkable. NECK/THYROID: n o jugular venous distention, no carotid bruit, thyroid normal. LYMPH NODES: n o enlarged lymph nodes,spleen normal. SKIN: n o suspicious lesions, anicteric. HEART: n o clicks, gallops, murmurs, or rubs, regular rhythm, S1, S2 normal, no s3, or vascular bruits. LUNGS: c lear to auscultation . BREASTS: B ilateral mastectomy sites free of relapse. ABDOMEN: b owel sounds normal, no ascites, no organomegaly, no mass, Midline surgical incision well-healed, fistula closed. RECTAL EXAM: n ot examined. MUSCULOSKELETAL: e xtremities unremarkable, no clubbing, cyanosis or edema. PERIPHERAL PULSES: n ormal. NEUROLOGIC: a lert and oriented, cranial nerves 2-12 grossly intact, deep tendon reflexes 2+ symmetrical, motor strength normal upper and lower extremities, sensory exam intact. PSYCH: a lert, oriented. - : E ars:No wax, Canals are bigger than average, Eyes: Beginnings of cataracts, Mouth: No sores, Heart: Regular rhythm, Chest: Normal, Abdomen: Normal. Assessment: * Assessment: 1. B reast carcinoma, female, right - C50.911 (Primary) N otes :There was no sign of a new primary or of recurrence on today's examination. 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 She has stopped the Sandostatin.She continues on fulvestrant and ribociclib. Her disease is well controlled. 2 . H ypothyroid - E03.9 N otes :She is euthyroid and no change in her regimen was necessary today. 3 . A sthma - J45.909 N otes :She has had no wheezing since her last visit. 55. She will notify the office if this occurs. 4 . T ype 2 diabetes mellitus without complication, without long-term current use of insulin - E11.9 N otes :Her hemoglobin A1c is well below 7.0. She is compliant with her medications. She has gained weight. We discussed a weight loss strategy but made no change in her regimen. 5 . H istory of colon cancer - Z85.038 N otes :She remains in remission with no sign of relapse. 6 . H earing loss - H91.90 N otes :She has noticed mild hearing loss. She intends to have an audiology evaluation once the difficulty with her abdominal pain has been resolved. 7 . H ypercalcemia - E83.52 N otes :Her labs to be checked periodically. 8 . O verweight - E66.3 N otes :She has gained several pounds and is very slightly overweight. I suggested she stabilize her weight at this level and then try to lose several pounds. She has been compliant with all of her therapies. Plan: * Treatment: 2. A sthma Continue Arnuity Ellipta Aerosol Powder Breath Activated, 100 MCG/ACT, 1 puff, Inhalation, Once a day. 3. T ype 2 diabetes mellitus without complication, without long-term current use of insulin L AB: PROFILE, FASTING (COMPREHENSIVE METABOLIC) L AB: TSH (THYROID STIMULATING HORMONE) L AB: CBC WITH AUTO DIFF L AB: Lipid Panel L AB: Free T4 (Free Thyroxine) L AB: Microalbumin, Random L AB: Hemoglobin A1c 4. O thers Continue Levothyroxine Sodium Tablet, 75 MCG, TAKE 1 TABLET DAILY; C ontinue Asmanex (30 Metered Doses) Aerosol Powder Breath Activated, 220 MCG/ACT, 1 puff in the evening, Inhalation, Once a day; C ontinue Montelukast Sodium Tablet, 10 mg, TAKE 1 TABLET DAILY IN THE EVENING; C ontinue Kisqali (600 MG Dose) Tablet Therapy Pack, 200 MG, TAKE 3 TABLETS ONCE DAILY IN THE MORNING FOR 21 DAYS, AND 7 DAYS OFF; C ontinue Fulvestrant Solution Prefilled Syringe, 250 MG/5ML, 10 mL, Intramuscular, 500mg Q 2weeks then montly; C ontinue Accu-Chek Erinn Plus Strip, -, USE TO TEST BLOOD SUGARS TWICE DAILY ON 2 DAYS PER WEEK; C ontinue Accu-Chek Softclix Lancets Miscellaneous, -, USE TO CHECK BLOOD SUGAR TWICE DAILY JUST TWICE A WEEK; C ontinue Flovent HFA Aerosol, 44 MCG/ACT, USE 2 INHALATIONS TWICE A DAY. * Labs: * L ab: URINE DIP STICK (Collection Date & Time - 04/21/2024) Value Reference Range S G 1.020 1.005 - 1.025 * p H 5.0 5.0 - 9.0 * L EU Negative Negative - * N IT Negative Negative - * P RO 30 Negative - Trace * G EDSON Negative Negative - * K ET 5 Negative - * U BG 0.2 0.1 - 1.8 * B IL 1 0.2 - 1.3 * B LD Negative Negative - * M enstrating No * Procedure Codes: 8 1002 URINE-NO MICRO * Preventive Medicine: Counseling: C are goal follow-up plan: Counseling for abnormal BMI given Y es Above Normal BMI Follow-up D ietary management education, guidance, and counseling, Dietary needs education DM Care Plan: P atient Lifestyle Goals P atient wants to be able to manage diabetes without too much effort. T reatment Goals B lood Sugars less than < 115, HbA1C < 7.0. B arriers n o barriers. * Follow Up: 4 Months (Reason: OV) * Images: * Sign off status: Completed true * Provider: Lexi De La O MD Date: 04/21/2024 Generated for Seng deshpande/Melva/eTransmitting on: 01/07/2025 07:37 AM EDT History and Physical Notes * HPI (History of Present Illness) Category Sub-Category Detail Notes Depression Screening PHQ-9 Little inte rest or pleasure in doing things: Not at all Feeling down, depressed, or hopeless: No t at all Trouble falling or staying asleep, or sl eeping too much: Not at all Feeling tired or having little energy: S everal days Poor appetite or overeating: Several day s Feeling bad about yourself o r that you are a failure, or have let yourself or your family down: Not at all Trouble concentrating on thi ngs, such as reading the newspaper or watching television: Not at all Moving or speaking so slowly that other people could have noticed; or the opposite, being so fidgety or restless that you have been moving around a lot more than usual: Not at all Thoughts that you would be b melissa off or of hurting yourself in some way: Not at all Total Score: 2 Interpretation: Minimal Depression Fall Risk Screening Fall History Have you had any falls with injury in the past year?: No Have you had two or more falls in the year?: No Fall Risk Assessment:: No falls in the year SDOH Questions SDOH Questions In the past year have you been worried about losing your housing?: No In the past year have you or any family members you live with been unable to get any of the following when it was really needed? Check all that apply:: None Examination Category Sub-Category Detail Notes General Examination GENERAL APPEARANCE: pleasant , well nourished, well developed, in no acute distress, calm and relaxed, overweight, woman HEAD: atraumatic, normocep halic EYES: eomi, perrla, anicte bakari, conjugate EARS: normal NOSE: septum intact NECK/THYROID: no jugular venous di stention, no carotid bruit, thyroid normal HEART: no clicks, gallops, murmurs, or rubs, regular rhythm, S1, S2 normal, no s3, or vascular bruits LUNGS: clear to auscultatio n ABDOMEN: bowel sounds normal, no ascites, no organomegaly, no mass, Midline surgical incision well-healed, fistula closed NEUROLOGIC: alert and oriented, cranial nerves 2-12 grossly intact, deep tendon reflexes 2+ symmetrical, motor strength normal upper and lower extremities, sensory exam intact SKIN: no suspicious lesion s, anicteric PERIPHERAL PULSES: normal BREASTS: Bilateral mastectomy sites free of relapse MUSCULOSKELETAL: extremities unremark able, no clubbing, cyanosis or edema LYMPH NODES: no enlarged lymph no ana,spleen normal RECTAL EXAM: not examined PSYCH: alert, oriented ORAL CAVITY: normal, unremarkable
--- OUTSIDE RECORDS SUMMARY | 2024-06-03 10:10 | XMS_ITS ---
Author Organization Sudhakar De La O III, MD Address [address] [place] [address] Care Team Providers Care Mine Wedge Sawyer Name Role Phone Dr. Sudhakar De La O III Primary Care Provider REASON FOR VISIT Message/Kisqali Social History Sex Assigned At : Social History Observation Description Sex Assigned At Female Encounters Encounter Location Date Provider Diagnosis Sudhakar De La O III, MD [address] [place] [address] [place] [address] 06/03/2024 Sudhakar De La O Plan Of Treatment Next Appt Details Provider Name:Sudhakar De La O , 01/10/2025 11:00:00 AM, [address] [place] [address] [place], [address], Provider Name:Sudhakar De La O , 04/22/2025 10:00:00 AM, [address] [place] [address] [place], [address], Progress Notes * Steff KENTB: 9 (73 yo F)Acc No.[id number]:06/03/2024 Patient: Steff QUINTERO :1950 A ge:73 Y S ex:Female Address:[address] [place] [address] * true * Date: Generated for Seng deshpande/Melva/Refugioitting on: 0 01/07/2025 07:37 AM EDT
--- OUTSIDE RECORDS SUMMARY | 2024-07-29 10:00 | XMS_ITS ---
Author Organization Sudhakar De La O III, MD Address [address] [place] [address] Care Team Providers Care Liquor Bridge Operator Helper Name Role Phone Dr. Sudhakar De La O III Primary Care Provider [phone] Allergies Allergen (clinical drug ingredient) Drug/Non Drug Allergy documented on EMR Reaction Allergy Type Onset Date Status sulfacetamide Sulfacetamide rash Drug Allergy Active REASON FOR VISIT Asthma, Metastatic breast cancer, History of colon cancer, Hypothyroidism, Diabetes, Hearing loss Medications Medication SIG (Take, Route, Frequency, Duration) Notes Start Date End Date Status Montelukast Sodium 10 MG 1 tablet Orally Once a day Active Levothyroxine Sodium 75 MCG TAKE 1 TABLET DAILY Active Asmanex (30 Metered Doses) 220 MCG/ACT 1 puff in the evening Inhalation Once a day 06/30/2023 Active Kisqali (600 MG Dose) 200 MG TAKE 3 TABLETS ONCE DAILY IN THE MORNING FOR 21 DAYS, AND 7 DAYS OFF Active Fulvestrant 250 MG/5ML 10 mL Intramuscul ar 500mg Q 2weeks then montly Active Fluticasone Propionate (Inhal) 100 MCG/ACT 1 puff Inhalation Twice a day 09/30/2023 Active Arnuity Ellipta 100 MCG/ACT 1 puff Inhalation Once a day 09/30/2023 Active predniSONE 20 MG 1 tablet Orally Once a day 2023 Active Flovent HFA 44 MCG/ACT USE 2 INHALATIONS TWICE A DAY Active Azithromycin 250 MG tablets Orally 2 Tab lets on the first day, one tablet the rest of the days for 5 days 07/29/2024 Active Accu-Chek Softclix Lancets - USE TO CHECK BLOOD SUGAR TWICE DAILY JUST TWICE A WEEK Active Accu-Chek Erinn Plus - USE TO TEST BLOOD SUGARS TWICE DAILY ON 2 DAYS PER WEEK Active Social History Tobacco Use: Social History Observation Description Date Details (start date - stop date) Never Smoker NA - NA Sex Assigned At : Social History Observation Description Sex Assigned At Female Tobacco Control (Standard) Question Answer Notes Tobacco use: Nonsmoker Additional Findings: Tobacco non-user Aggressive nonsmoker Vital Signs Temperature 97.2 degrees Fahrenheit 07/30/19 25 Blood pressure systolic 136 mm Hg 07/30/19 25 Blood pressure diastolic 66 mm Hg 025 Heart Rate 97 /min 07/29/2024 Height 65 in 07/29/2024 Weight 155 lbs 07/29/2024 BMI 25.79 kg/m2 07/29/2024 Oximetry 97 % 07/29/2024 Encounters Encounter Location Date Provider Diagnosis Sudhakar De La O III, MD [address] [place] [address] [place] [address] 07/29/2024 Sudhakar De La O Hypothyroid E03.9 ; Asthma J45.909 ; History of colon cancer Z85.038 ; Hearing loss H91.90 ; Type 2 diabetes mellitus without complication, without long-term current use of insulin E11.9 ; Breast carcinoma, female, right C50.911 and Overweight E66.3 Assessments Encounter Date Diagnosis (ICD Code) Assessment Notes Treatment Notes Treatment Clinical Notes 07/29/2024 Hypothyroid (ICD-10 - E03.9) She is euthyroid and no change in her regimen was necessary today. 07/29/2024 Asthma (ICD-10 - J45.909) Her breathing is slightly tight but she is not wheezing. This appears to be asthma not infection or cardiac problem. She was given a prescription for prednisone and told to use her inhalers [id number] has prescribed. She seems stable to travel to [place] on August 02, 2024. She intends to travel by air to [facility] to visit family. 07/29/2024 History of colon cancer (ICD-10 - Z85.038) She remains in remission with no sign of relapse. 07/29/2024 Hearing loss (ICD-10 - H91.90) She has noticed mild hearing loss. She intends to have an audiology evaluation once the difficulty with her abdominal pain has been resolved. 07/29/2024 Type 2 diabetes mellitus without complication, without long-term current use of insulin (ICD-10 - E11.9) Her hemoglobin A1c is well below 7.0. She is compliant with her medications. She has gained weight. We discussed a weight loss strategy but made no change in her regimen. 07/29/2024 Breast carcinoma, female, right (ICD-10 - C50.911) There was no sign of a new primary or of recurrence on today's examination. 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 She has stopped the Sandostatin.She continues on fulvestrant and ribociclib. Her disease is well controlled. 07/29/2024 Overweight (ICD-10 - E66.3) She has gained several pounds and is very slightly overweight. I suggested she stabilize her weight at this level and then try to lose several pounds. She has been compliant with all of her therapies. Plan Of Treatment Medication Medication Name Sig Start Date Stop Date Notes Montelukast Sodium 10 MG 1 tablet Orally Once a day Levothyroxine Sodium 75 MCG TAKE 1 TABLET DAILY Asmanex (30 Metered Doses) 220 MCG/ACT 1 puff in the evening Inhalation Once a day 06/30/2023 Kisqali (600 MG Dose) 200 MG TAKE 3 TABL ETS ONCE DAILY IN THE MORNING FOR 21 DAYS, AND 7 DAYS OFF Fulvestrant 250 MG/5ML 10 mL Intramuscul ar 500mg Q 2weeks then montly Fluticasone Propionate (Inhal) 100 MCG/ACT 1 puff Inhalation Twice a day 09/30/2023 Arnuity Ellipta 100 MCG/ACT 1 puff Inhalation Once a day 0 09/30/2023 predniSONE 20 MG 1 tablet Orally Once a day 02/03/2024 Flovent HFA 44 MCG/ACT USE 2 INHALATIONS TWICE A DAY Azithromycin 250 MG tablets Orally 2 Tab lets on the first day, one tablet the rest of the days for 5 days 07/29/2024 Accu-Chek Softclix Lancets - USE TO CHEC K BLOOD SUGAR TWICE DAILY JUST TWICE A WEEK Accu-Chek Erinn Plus - USE TO TEST BLOOD SUGARS TWICE DAILY ON 2 DAYS PER WEEK Next Appt Details Follow Up: 2 Months, Reason: Office visit Provider Name:Sudhakar De La O , 01/10/2025 11:00:00 AM, [address] [place] [address] [address], [place], [phone], Provider Name:Sudhakar De La O , 04/22/2025 10:00:00 AM, [address] [place] [address] [address], [place], [address], Progress Notes * Steff KENTDOB: [birth year] (73 yo F)Acc No.[id number]:07/29/2024 Progress Notes Patient: Steff QUINTERO Provider: Lexi De La O MD :1950 A ge:73 Y S ex:Female Date:07/29/2024 Address:[address] [place], [place] [id number] Subjective: * Chief Complaints: * A sthmaMetastatic breast cancerHistory of colon cancerHypothyroidismDiabetesHearing loss * HPI: C OVID-19 Screening: She has a history of asthma and for several days has felt her breathing to be tight. It was a little better today after she used an inhaler. On examination there was no wheezing but breath sounds were slightly diminished. Her oxygen saturation was 97%. Her respiratory rate was 16. This appears to be mild asthma. She was treated with the inhaler [id number] and 20 mg of prednisone daily for 7 days with one refill. She was given a follow-up visit. It is noted that she intends to travel by air to [place] on August 02, 2024. She appears to be stable enough to do this. She is traveling to [facility]. Questions H ave you had any new onset fever, chills, cough, congestion, sore throat, shortness of breath, muscle aches? Y es Cough, SOB * ROS: G eneral/Constitutional: pain o nly normal aches and pains. C hills d enies.?Fatigue a dmits. F ever d enies. E NT: Decreased hearing i n both ears. R espiratory: Cough d enies. C ardiovascular: Chest pain with exertion d enies. D yspnea on exertion?with moderate activity. S hortness of breath t hat is mild. G astrointestinal: Constipation o ccasional. D ecreased [...] enies. R kobe d enies. S kin lesion(s)?Midline abdominal wound has completely healed. N eurologic: Difficulty speaking d enies. D izziness d enies.?Headache d enies. L ow back pain d enies. P sychiatric: Depressed mood d enies. * Medical History: * Surgical History: b ilateral mastectomies bowel resection 2003 Colonoscopy, [facility], Dr. Sudhakar Tompkins, negative findings 03/2022No history * Hospitalization/Major Diagno stic Procedure: c hest pain 12/2018No history * Family History: F ather: 89 yrs, hypertension, hyperlipidemia, colon cancer, diagnosed with HTN, Hyperlipidemia, Cancer. M other: 83 yrs, Parkinsons, type II diabetes, cervical cancer,endometral cancer, diagnosed with DM, Cancer. M aternal Grand Father: , stomach cancer. [...] Social History: T obacco Use: T obacco Control (Standard) T obacco use: N onsmoker A dditional Findings: Tobacco non-user A ggressive nonsmoker S he has been to [place] for 21 years. She was born in [place], [place]. The patient consumes a moderate amount of alcohol, with a glass of wine most nights with dinner. 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 * Medications: T akingLevothyroxine Sodium 75 MCG Tablet TAKE 1 TABLET DAILY Asmanex (30 Metered Doses) 220 MCG/ACT Aerosol Powder Breath Activated 1 puff in the evening Inhalation Once a day Kisqali (600 MG Dose) 200 MG Tablet [...] Tablet 1 tablet Orally Once a day Montelukast Sodium 10 MG Tablet 1 tablet Orally Once a day Medication List reviewed and reconciled with the patientTaking Levothyroxine Sodium 75 MCG Tablet TAKE 1 TABLET DAILY Taking Asmanex (30 Metered Doses) 220 MCG/ACT Aerosol Powder Breath Activated 1 puff in the evening Inhalation Once a day Taking Kisqali (600 MG Dose) 200 MG [...] Tablet 1 tablet Orally Once a day Taking Montelukast Sodium 10 MG Tablet 1 tablet Orally Once a day Medication List reviewed and reconciled with the patient * Allergies: S ulfacetamide: rash - Allergyno[Allergies Verified] Objective: * Vitals: H t: 65, Wt:155, BMI:25.79, BP:136/66, HR:97, Temp:97.2, Oxygen sat %:97, Wt-k.31. Assessment: * Assessment: 1. A sthma - J45.909 (Primary) N otes :Her breathing is slightly tight but she is not wheezing. This appears to be asthma not infection or cardiac problem. She was given a prescription for prednisone and told to use her inhalers [id number] has prescribed. She seems stable to travel to [place] on August 02, 2024. She intends to travel by air to [facility] to visit family. 2 . H ypothyroid - E03.9 N otes :She is euthyroid and no change in her regimen was necessary today. 3 . H istory of colon cancer - Z85.038 N otes :She remains in remission with no sign of relapse. 4 . H earing loss - H91.90 N otes :She has noticed mild hearing loss. She intends to have an audiology evaluation once the difficulty with her abdominal pain has been resolved. 5 . T ype 2 diabetes mellitus without complication, without long-term current use of insulin - E11.9 N otes :Her hemoglobin A1c is well below 7.0. She is compliant with her medications. She has gained weight. We discussed a weight loss strategy but made no change in her regimen. 6 . B reast carcinoma, female, right - C50.911 N otes :There was no sign of a new primary or of recurrence on today's examination. 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 She has stopped the Sandostatin.She continues on fulvestrant and ribociclib. Her disease is well controlled. 7 . O verweight - E66.3 N otes :She has gained several pounds and is very slightly overweight. I suggested she stabilize her weight at this level and then try to lose several pounds. She has been compliant with all of her therapies. Plan: * Treatment: 2. H ypothyroid Continue Fluticasone Propionate (Inhal) Aerosol Powder Breath Activated, 100 MCG/ACT, 1 puff, Inhalation, Twice a day; C ontinue predniSONE Tablet, 20 MG, 1 tablet, Orally, Once a day; S tart Azithromycin Tablet, 250 MG, tablets, Orally, 2 Tablets on the first day, one tablet the rest of the days, 5 days, 6 Tablet, Refills 0. 3. O thers Continue Levothyroxine Sodium Tablet, 75 MCG, TAKE 1 TABLET DAILY; C ontinue Asmanex (30 Metered Doses) Aerosol Powder Breath Activated, 220 MCG/ACT, 1 puff in the evening, Inhalation, Once a day; C ontinue Kisqali (600 MG Dose) Tablet [...] 44 MCG/ACT, USE 2 INHALATIONS TWICE A DAY; C ontinue Montelukast Sodium Tablet, 10 MG, 1 tablet, Orally, Once a day. * Procedure Codes: 9 4760 MEASURE BLOOD OXYGEN LEVEL * Preventive Medicine: Counseling: C are goal follow-up plan: Counseling for abnormal BMI given Y es Above Normal BMI Follow-up D ietary management education, guidance, and counseling, Dietary needs education DM Care Plan: P atient Lifestyle Goals P atient wants to be able to manage diabetes without too much effort. T reatment Goals H bA1C < 7.0, Blood Sugars less than < 115. B arriers n o barriers. S elf-Managment Goals W ork on weight loss, with a goal of losing 1 lb per week. * Follow Up: 2 Months (Reason: Office visit) * Images: * Sign off status: Completed true * Provider: Lexi De La O MD Date: 0 07/29/2024 Generated for Seng deshpande/Melva/Refugioitting on: 0 01/07/2025 07:38 AM EDT History and Physical Notes * HPI (History of Present Illness) Category Sub-Category Detail Notes COVID-19 Screening Questions Have you had any new onset fever, chills, cough, congestion, sore throat, shortness of breath, muscle aches?: Yes Cough, SOB
--- OUTSIDE RECORDS SUMMARY | 2024-08-20 07:30 | XMS_ITS ---
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 Sudhakar De La O III Primary Care Provider [phone] Allergies Allergen (clinical drug ingredient) Drug/Non Drug Allergy documented on EMR Reaction Allergy Type Onset Date Status sulfacetamide Sulfacetamide rash Drug Allergy Active Reason For Referral Reason Evaluate and Treat Needs Testing Environmental and Seasonal allergies Diagnosis 1 Asthma (J45.909) Diagnosis 2 Environmental and se asonal allergies (J30.89) Referral Organization Sudhakar De La O III, MD Referring Provider First Name Sudhakar Referring Provider Last Name Jairon Referring Provider Speciality Internal M edicine Referred Provider Lila Trevino Referred Provider Specialty Allergy/Immu nology General Notes Aure Thomas 08/23/2024 11:00:29 AM > Faxed referral and progress note Referral Priority Routine Referral Appointment Date 09/24/2024 REASON FOR VISIT Stage IV breast cancer, History of colon cancer, Diabetes, Hearing loss, Osteopenia, Hypercalcemia,Hypothyroidism, Seasonal allergies Medications Medication SIG (Take, Route, Frequency, Duration) Notes Start Date End Date Status Flovent HFA 44 MCG/ACT USE 2 INHALATIONS TWICE A DAY Active Montelukast Sodium 10 MG 1 tablet Orally Once a day Active Arnuity Ellipta 100 MCG/ACT 1 puff Inhalation Once a day 09/30/2023 Active predniSONE 20 MG 1 tablet Orally Once a day 2023 Active Fluticasone Propionate (Inhal) 100 MCG/ACT 1 puff Inhalation Twice a day 09/30/2023 Active Accu-Chek Softclix Lancets - USE TO CHECK BLOOD SUGAR TWICE DAILY JUST TWICE A WEEK Active Fulvestrant 250 MG/5ML 10 mL [...] 21 DAYS, AND 7 DAYS OFF Active Levothyroxine Sodium 75 MCG TAKE 1 TABLET DAILY Active Ventolin HFA 108 (90 Base) MCG/ACT 1 puff as needed Inhalation every 4 hrs for 30 days 08/20/2024 Active Social History Tobacco Use: Social History Observation Description Date Details (start date - stop date) Never Smoker NA - NA Sex Assigned At : Social History Observation Description Sex Assigned At Female Tobacco Control (Standard) Question Answer Notes Tobacco use: Nonsmoker Additional Findings: Tobacco non-user Aggressive nonsmoker Vital Signs Temperature 97.0 degrees Fahrenheit 08/21/19 25 Blood pressure systolic 138 mm Hg 08/21/19 25 Blood pressure diastolic 85 mm Hg 025 Heart Rate 88 /min 08/20/2024 Height 65 in 08/20/2024 Weight 152 lbs 08/20/2024 BMI 25.29 kg/m2 08/20/2024 Encounters Encounter Location Date Provider Diagnosis Sudhakar De La O III, MD [address] [place] [address] [address] [place], [place] [id number] 08/20/2024 Sudhakar De La O Hypothyroid E03.9 ; Breast carcinoma, female, right C50.911 ; Asthma J45.909 ; History of colon cancer Z85.038 ; Hearing loss H91.90 ; Type 2 diabetes mellitus without complication, without long-term current use of insulin E11.9 and Osteopenia of lumbar spine M85.88 Assessments Encounter Date Diagnosis (ICD Code) Assessment Notes Treatment Notes Treatment Clinical Notes 08/20/2024 Hypothyroid (ICD-10 - E03.9) She is euthyroid and no change in her regimen was necessary today. 08/20/2024 Breast carcinoma, female, right (ICD-10 - C50.911) She is responding well to treatment. Her performance status is excellent. 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 She has stopped the Sandostatin.She continues on fulvestrant and ribociclib. Her disease is well controlled. 08/20/2024 Asthma (ICD-10 - J45.909) Her breathing is slightly tight but she is not wheezing. This appears to be asthma not infection or cardiac problem. She was given a prescription for prednisone and told to use her inhalers [id number] has prescribed. She seems stable to travel to [place] on August 02, 2024. She intends to travel by air to [facility] to visit family. 08/20/2024 History of colon cancer (ICD-10 - Z85.038) She remains in remission with no sign of relapse. 08/20/2024 Hearing loss (ICD-10 - H91.90) She has noticed mild hearing loss. She intends to have an audiology evaluation once the difficulty with her abdominal pain has been resolved. 08/20/2024 Type 2 diabetes mellitus without complication, without long-term current use of insulin (ICD-10 - E11.9) Her hemoglobin A1c is well below 7.0. She is compliant with her medications. She has gained weight. We discussed a weight loss strategy but made no change in her regimen. 08/20/2024 Osteopenia of lumbar spine (ICD-10 - M85.88) She will continue on her current regimen. Plan Of Treatment Medication Medication Name Sig Start Date Stop Date Notes Flovent HFA 44 MCG/ACT USE 2 INHALATIONS TWICE A DAY Montelukast Sodium 10 MG 1 tablet Orally Once a day Arnuity Ellipta 100 MCG/ACT 1 puff Inhalation Once a day 0 09/30/2023 predniSONE 20 MG 1 tablet Orally Once a day 02/03/2024 Fluticasone Propionate (Inhal) 100 MCG/ACT 1 puff Inhalation Twice a day 09/30/2023 Accu-Chek Softclix Lancets - USE TO CHEC K BLOOD SUGAR TWICE DAILY JUST TWICE A WEEK Fulvestrant 250 MG/5ML 10 mL Intramuscul [...] FOR 21 DAYS, AND 7 DAYS OFF Levothyroxine Sodium 75 MCG TAKE 1 TABLET DAILY Ventolin HFA 108 (90 Base) MCG/ACT 1 puff as needed Inhalation every 4 hrs for 30 days 08/20/2024 Referrals Referral Date Details 08/20/2024 08/20/2024, Evaluate and Treat Needs Testing Environmental and Seasonal allergies, Lila Trevino Next Appt Details Follow Up: 2 Months, Reason: OV Provider Name:Sudhakar De La O , 01/10/2025 11:00:00 AM, [address] [place] [address] [address], [place], [id number], Provider Name:Sudhakar De La O , 04/22/2025 10:00:00 AM, [address] [place] [address] [address], [place], [phone], Progress Notes * Steff KENT AnjelicaDOB: [birth year] (73 yo F)Acc No.[id number]:08/20/2024 Progress Notes Patient: Steff QUINTERO Provider: Lexi De La O MD :1950 A ge:73 Y S ex:Female Date:08/20/2024 Address:[address] [place] [address] [place] [place] [id number] Subjective: * Chief Complaints: * S tage IV breast cancerHistory of colon cancerDiabetesHearing lossOsteopeniaHypercalcemiaHypothyroidismSeasonal allergies * HPI: C OVID-19 Screening: S he returns for routine follow-up of numerous medical problems. Her colon cancer has been in long-term remission. The relapsed breast cancer is now in remission under ongoing chemotherapy. Conference of blood work was available and was reviewed. No significant abnormalities were present. The hematologic abnormalities are due to her anti-neoplastic treatment. She has recently had a trip to [place]. Her chronic cough is absent in [place] but has returned now that [facility] is home. Her blood glucose level has been between 120 and 140. She is going to see medical oncology next week for ongoing treatment. She says she is generally feeling better. Questions H ave you had any new onset fever, chills, cough, congestion, sore throat, shortness of breath, muscle aches? N o * ROS: G eneral/Constitutional: pain o nly normal aches and pains. C hills d enies.?Fatigue a dmits. F ever d enies. E NT: Decreased hearing i n both ears. R espiratory: Cough n on-productive. C ardiovascular: Chest pain with exertion d enies. D yspnea on exertion?denies. S hortness of breath d enies. G astrointestinal: Constipation d enies. D ecreased appetite d enies.?Diarrhea d enies. H eartburn d enies. N ausea d enies. R ectal bleeding?denies. V omiting d enies. H ematology: bruising d enies. p etechiae d enies. S wollen glands n one have been noted. G enitourinary: Frequent urination d enies. M usculoskeletal: Muscle aches d enies. P [...] b ilateral mastectomies bowel resection 2002 Colonoscopy, [facility], Dr. Sudhakar Tompkins, negative findings [...] for 21 years. She was born in [place], [place]. The patient consumes a moderate amount [...] 1 tablet Orally Once a day Taking Levothyroxine Sodium 75 MCG Tablet TAKE [...] Tablet 1 tablet Orally Once a day DiscontinuedAzithromycin 250 MG Tablet tablets Orally 2 Tablets on the first day, one tablet the rest of the days Medication List reviewed and reconciled with the patientDiscontinued Azithromycin 250 MG Tablet tablets Orally 2 Tablets on the first day, one tablet the rest of the days Medication List reviewed and reconciled with the patient * Allergies: S ulfacetamide: rash - Allergyno[Allergies Verified] Objective: * Vitals: H t: 65, Wt:152, BMI:25.29, BP:138/85, HR:88, Temp:97.0, Wt-k.95. * P ast Orders: Lab:Complete Blood Count Aut o Diff * Collection Date 08/18/2024 08/18/2024 04/17/2024 Collection Time 08:09 AM 08:09 AM 07:51 AM Order Date 08/18/2024 08/18/2024 04/17/2024 White Blood Count 4.8 (Ref Range: 4.8-10.8 X10*3/uL) 4.8 (Ref Range: 4.8-10.8 X10*3/uL) 3.6 L (Ref Range: 4.8-10.8 X10*3/uL) Red Blood Count 3.93 L (Ref Range: 4.20-5.50 X10*6/uL) 3.93 L (Ref Range: 4.20-5.50 X10*6/uL) 3.72 L (Ref Range: 4.20-5.50 X10*6/uL) Hemoglobin 13.8 (Ref Range: 12.0-16.0 g/dl) 13.8 (Ref Range: 12.0-16.0 g/dl) 13.0 (Ref Range: 12.0-16.0 g/dl) Hematocrit 40.8 (Ref Range: 37.0-47.0 %) 40.8 (Ref Range: 37.0-47.0 %) 39.3 (Ref Range: 37.0-47.0 %) Mean Corpuscular Volume 103.8 H (Ref Range: 80.0-98.0 fL) 103.8 H (Ref Range: 80.0-98.0 fL) 105.6 H (Ref Range: 80.0-98.0 fL) Mean Corpuscular Hemoglobin 35.1 H (Ref Range: 27.0-33.0 pg) 35.1 H (Ref Range: 27.0-33.0 pg) 34.9 H (Ref Range: 27.0-33.0 pg) Mean Corpuscular HGB Conc 33.8 (Ref Range: 31.0-35.0 g/dl) 33.8 (Ref Range: 31.0-35.0 g/dl) 33.1 (Ref Range: 31.0-35.0 g/dl) Red Cell Distribution Width 14.1 (Ref Range: 11.0-16.0 %) 14.1 (Ref Range: 11.0-16.0 %) 14.9 (Ref Range: 11.0-16.0 %) Platelet Count 279 (Ref Range: 160-400 X10*3/uL) 279 (Ref Range: 160-400 X10*3/uL) 238 (Ref Range: 160-400 X10*3/uL) Mean Platelet Volume 10.7 (Ref Range: 9.4-12.3 fL) 10.7 (Ref Range: 9.4-12.3 fL) 10.3 (Ref Range: 9.4-12.3 fL) Neutrophils Percent Auto 62.4 (Ref Range: 45-73 %) 62.4 (Ref Range: 45-73 %) 43.0 L (Ref Range: 45-73 %) Imm Gran Pct Auto 0.4 (Ref Range: 0.0-0.4 %) 0.4 (Ref Range: 0.0-0.4 %) 0.3 (Ref Range: 0.0-0.4 %) Lymphocytes Percent Auto 32.7 (Ref Range: 20-40 %) 32.7 (Ref Range: 20-40 %) 42.2 H (Ref Range: 20-40 %) Monocytes Percent Auto 2.9 (Ref Range: 2-11 %) 2.9 (Ref Range: 2-11 %) 12.5 H (Ref Range: 2-11 %) Eosinophils Percent Auto 0.6 (Ref Range: 0-4 %) 0.6 (Ref Range: 0-4 %) 0.3 (Ref Range: 0-4 %) Basophils Percent Auto 1.0 (Ref Range: 0-2 %) 1.0 (Ref Range: 0-2 %) 1.7 (Ref Range: 0-2 %) NRBC Pct Auto 0.0 (Ref Range: 0.0-0.2 /100WBC) 0.0 (Ref Range: 0.0-0.2 /100WBC) 0.0 (Ref Range: 0.0-0.2 /100WBC) Neutrophils Absolute Auto 3.0 (Ref Range: 2.0-8.3 x10*3/uL) 3.0 (Ref Range: 2.0-8.3 x10*3/uL) 1.6 L (Ref Range: 2.0-8.3 x10*3/uL) Imm Gran Abs Auto 0.02 (Ref Range: 0.00-0.03 X10*3/uL) 0.02 (Ref Range: 0.00-0.03 X10*3/uL) 0.01 (Ref Range: 0.00-0.03 X10*3/uL) Lymphocytes Absolute Auto 1.6 (Ref Range: 1.2-4.9 X10*3/uL) 1.6 (Ref Range: 1.2-4.9 X10*3/uL) 1.5 (Ref Range: 1.2-4.9 X10*3/uL) Monocytes Absolute Auto 0.1 (Ref Range: 0.1-1.2 X10*3/uL) 0.1 (Ref Range: 0.1-1.2 X10*3/uL) 0.5 (Ref Range: 0.1-1.2 X10*3/uL) Eosinophils Absolute Auto 0.0 (Ref Range: 0.0-0.4 X10*3/uL) 0.0 (Ref Range: 0.0-0.4 X10*3/uL) 0.0 (Ref Range: 0.0-0.4 X10*3/uL) Basophils Absolute Auto 0.1 (Ref Range: 0.0-0.2 X10*3/uL) 0.1 (Ref Range: 0.0-0.2 X10*3/uL) 0.1 (Ref Range: 0.0-0.2 X10*3/uL) NRBC Abs Auto 0.000 (Ref Range: 0.0-0.012 X10*3/uL) 0.000 (Ref Range: 0.0-0.012 X10*3/uL) 0.000 (Ref Range: 0.0-0.012 X10*3/uL) * Lab:[facility] * Collection Date 08/18/2024 04/17/2024 06/13/2023 Collection Time 08:09 AM 07:51 AM 08:31 AM Order Date 08/18/2024 04/17/2024 06/13/2023 Sodium 141 (Ref Range: 135-145 mmol/L) 142 (Ref Range: 135-145 mmol/L) 141 (Ref Range: 135-145 mmol/L) Bilirubin Total 1.6 H (Ref Range: 0.0-1.0 mg/dL) 0.9 (Ref Range: 0.0-1.0 mg/dL) 1.2 H (Ref Range: 0.0-1.0 mg/dL) Aspartate Amino Transferase 61 H (Ref Range: 5-31 U/L) 32 H (Ref Range: 5-31 U/L) 33 H (Ref Range: 5-31 U/L) Alanine Aminotransferase 61 H (Ref Range: 0-31 U/L) 36 H (Ref Range: 0-31 U/L) 28 (Ref Range: 0-31 U/L) Total Protein 7.9 (Ref Range: 6.5-8.0 g/dL) 7.2 (Ref Range: 6.5-8.0 g/dL) 7.8 (Ref Range: 6.5-8.0 g/dL) Albumin Level 4.4 (Ref Range: 3.5-5.0 g/dL) 4.1 (Ref Range: 3.5-5.0 g/dL) 4.4 (Ref Range: 3.5-5.0 g/dL) Alkaline Phosphatase 41 (Ref Range: 39-117 U/L) 43 (Ref Range: 39-117 U/L) 40 (Ref Range: 39-117 U/L) Potassium 4.1 (Ref Range: 3.3-5.1 mmol/L) 4.3 (Ref Range: 3.3-5.1 mmol/L) 4.2 (Ref Range: 3.3-5.1 mmol/L) Chloride 104 (Ref Range: 96-108 mmol/L) 107 (Ref Range: 96-108 mmol/L) 108 (Ref Range: 96-108 mmol/L) Carbon Dioxide 27 (Ref Range: 22-29 mmol/L) 25 (Ref Range: 22-29 mmol/L) 24 (Ref Range: 22-29 mmol/L) Anion Gap 14 (Ref Range: 12-20) 14 (Ref Range: 12-20) 13 (Ref Range: 12-20) Blood Urea Nitrogen 18 H (Ref Range: 9-16 mg/dL) 19 H (Ref Range: 9-16 mg/dL) 28 H (Ref Range: 9-16 mg/dL) Creatinine 1.26 (Ref Range: 0.5-1.4 mg/dL) 0.97 (Ref Range: 0.5-1.4 mg/dL) 1.15 (Ref Range: 0.5-1.4 mg/dL) Estimated Glomerular Filt Rate 41 56 46 Glucose Fasting 147 H (Ref Range: 60-99 mg/dL) 109 H (Ref Range: 60-99 mg/dL) 118 H (Ref Range: 60-99 mg/dL) Calcium 9.4 (Ref Range: 8.4-10.2 mg/dL) 9.4 (Ref Range: 8.4-10.2 mg/dL) 9.3 (Ref Range: 8.4-10.2 mg/dL) * Lab:Thyroid Stimulating Horm one * Collection Date 08/18/2024 04/17/2024 06/13/2023 Collection Time 08:09 AM 07:51 AM 08:31 AM Order Date 08/18/2024 04/17/2024 06/13/2023 Thyroid Stimulating Hormone 2.15 (Ref Range: 0.32-4.0 uIU/mL) 1.36 (Ref Range: 0.32-4.0 uIU/mL) 1.74 (Ref Range: 0.32-4.0 uIU/mL) * Lab:SLIDE REVIEW * Collection Date 08/18/2024 06/13/2023 Collection Time 08:09 AM 08:31 AM Order Date 08/18/2024 06/13/2023 SLIDE REVIEW VERIFIED VERIFIED * Examination: G eneral Examination: GENERAL APPEARANCE: [...] auscultation . BREASTS: B ilateral mastectomy sites of disease. ABDOMEN: b owel sounds normal, no ascites, no organomegaly, no mass, overweight, Healed vertical midline surgical incision, previously open wound is now closed. RECTAL EXAM: n ot examined. MUSCULOSKELETAL: e xtremities unremarkable, no clubbing, cyanosis or edema. PERIPHERAL PULSES: n ormal. NEUROLOGIC: a lert and oriented, cranial nerves 2-12 grossly intact, deep tendon reflexes 2+ symmetrical, motor strength normal upper and lower extremities, sensory exam intact. PSYCH: a lert, oriented. Assessment: * Assessment: 1. B reast carcinoma, female, right - C50.911 (Primary) N otes :She is responding well to treatment. Her performance status is excellent. 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 She has stopped the Sandostatin.She continues on fulvestrant and ribociclib. Her disease is well controlled. 2 . H ypothyroid - E03.9 N otes :She is euthyroid and no change in her regimen was necessary today. 3 . A sthma - J45.909 N otes :Her breathing is slightly tight but she is not wheezing. This appears to be asthma not infection or cardiac problem. She was given a prescription for prednisone and told to use her inhalers [id number] has prescribed. She seems stable to travel to [place] on August 02, 2024. She intends to travel by air to [facility] to visit family. 4 . H istory of colon cancer - Z85.038 N otes :She remains in remission with no sign of relapse. 5 . H earing loss - H91.90 N otes :She has noticed mild hearing loss. She intends to have an audiology evaluation once the difficulty with her abdominal pain has been resolved. 6 . T ype 2 diabetes mellitus without complication, without long-term current use of insulin - E11.9 N otes :Her hemoglobin A1c is well below 7.0. She is compliant with her medications. She has gained weight. We discussed a weight loss strategy but made no change in her regimen. 7 . O steopenia of lumbar spine - M85.88 N otes :She will continue on her current regimen. Plan: * Treatment: 2. A sthma Continue Arnuity Ellipta Aerosol Powder Breath Activated, 100 MCG/ACT, 1 puff, Inhalation, Once a day. Referral To:Lila Trevino Allergy/Immunology Reason:Evaluate and Treat Needs Testing Environmental and Seasonal allergies 3. O thers Continue Levothyroxine Sodium Tablet, [...] MG, 1 tablet, Orally, Once a day. Referral To:Lila Trevino Allergy/Immunology Reason:Evaluate and Treat Needs Testing Environmental and Seasonal allergies * Procedure Codes: * Preventive Medicine: Counseling: C are goal follow-up plan: Counseling for abnormal BMI given Y es Above Normal BMI Follow-up D ietary management education, guidance, and counseling DM Care Plan: P atient Lifestyle Goals P atient wants to be able to manage diabetes without too much effort. T reatment Goals B lood Sugars less than < 115, HbA1C < 7.0. B arriers n o barriers. S elf-Managment Goals W ork on weight loss, with a goal of losing 1 lb per week, Increase exercise to 3 times a week for 30 mins, Stop drinking juice and/or soda, replace with more water. * Follow Up: 2 Months (Reason: OV) * Images: * Sign off status: Completed true * Provider: Lexi De La O MD Date: 0 08/20/2024 Generated for Seng deshpande/Melva/Refugioitting on: 0 01/07/2025 07:37 AM EDT History and Physical Notes * HPI (History of Present Illness) Category Sub-Category Detail Notes COVID-19 Screening Questions Have you had any new onset fever, chills, cough, congestion, sore throat, shortness of breath, muscle aches?: No Examination Category Sub-Category Detail Notes General [...] normal, no ascites, no organomegaly, no mass, overweight, Healed vertical midline surgical incision, previously open wound is now closed NEUROLOGIC: alert and oriented, cranial nerves 2-12 grossly intact, deep tendon reflexes 2+ symmetrical, motor strength normal upper and lower extremities, sensory exam intact SKIN: no suspicious lesion s, anicteric PERIPHERAL PULSES: normal BREASTS: Bilateral mastectomy sites of disease MUSCULOSKELETAL: extremities unremark able, no clubbing, cyanosis or edema LYMPH NODES: no enlarged lymph no ana,spleen normal RECTAL EXAM: not examined PSYCH: alert, oriented ORAL CAVITY: normal, unremarkable Consultation Request Notes Referral Date Referring Provider Referred Provider Not es 08/20/2024 Sudhakar De La O Jackie Evaluate an d Treat Needs Testing Environmental and Seasonal allergies
--- OUTSIDE RECORDS SUMMARY | 2024-10-18 07:00 | XMS_ITS ---
Author Organization Sudhakar De La O III, MD Address [address] [place] [address] Care Team Providers Care Swat Team Member Name Role Phone Dr. Sudhakar De La O III Primary Care Provider [phone] Allergies Allergen (clinical drug ingredient) Drug/Non Drug Allergy documented on EMR Reaction Allergy Type Onset Date Status sulfacetamide Sulfacetamide rash Drug Allergy Active REASON FOR VISIT Metastatic breast cancer, History of colon cancer, Diabetes, Hypercalcemia, Hypothyroid, Hearing loss Medications Medication SIG (Take, Route, Frequency, Duration) Notes Start Date End Date Status Ventolin HFA 108 (90 Base) MCG/ACT 1 puff as needed Inhalation every 4 hrs 08/20/2024 Active Montelukast Sodium 10 MG 1 tablet Orally Once a day Active predniSONE 20 MG 1 tablet Orally Once a day 2023 Active Fluticasone Propionate (Inhal) 100 MCG/ACT 1 puff Inhalation Twice a day 09/30/2023 Active Flovent HFA 44 MCG/ACT USE 2 INHALATIONS TWICE A DAY Active Fulvestrant 250 MG/5ML 10 mL Intramuscul ar 500mg Q 2weeks then montly Active Kisqali (600 MG Dose) 200 MG TAKE 3 TABLETS ONCE DAILY IN THE MORNING FOR 21 DAYS, AND 7 DAYS OFF Active Asmanex (30 Metered Doses) 220 MCG/ACT 1 puff in the evening Inhalation Once a day 06/30/2023 Active Accu-Chek Softclix Lancets - USE TO CHECK BLOOD SUGAR TWICE DAILY JUST TWICE A WEEK Active Accu-Chek Erinn Plus - USE TO TEST BLOOD SUGARS TWICE DAILY ON 2 DAYS PER WEEK Active Levothyroxine Sodium 75 MCG TAKE 1 TABLET DAILY Active Arnuity Ellipta 100 MCG/ACT INHALE 1 PUFF BY MOUTH DAILY Active Social History Tobacco Use: Social History Observation Description Date Details (start date - stop date) Never Smoker NA - NA Sex Assigned At : Social History Observation Description Sex Assigned At Female Tobacco Control (Standard) Question Answer Notes Tobacco use: Nonsmoker Additional Findings: Tobacco non-user Aggressive nonsmoker Vital Signs Temperature 97.3 degrees Fahrenheit 10/19/19 25 Blood pressure systolic 130 mm Hg 10/19/19 25 Blood pressure diastolic 68 mm Hg 025 Heart Rate 85 /min 10/18/2024 Height 65 in 10/18/2024 Weight 149 lbs 10/18/2024 BMI 24.79 kg/m2 10/18/2024 Encounters Encounter Location Date Provider Diagnosis Sudhakar De La O III, MD [address] [place] [address] [place] [address] 10/18/2024 Sudhakar De La O Hypothyroid E03.9 ; History of colon cancer Z85.038 ; Asthma J45.909 ; Hearing loss H91.90 ; Type 2 diabetes mellitus without complication, without long-term current use of insulin E11.9 ; Osteopenia of lumbar spine M85.88 ; Environmental and seasonal allergies J30.89 and Breast carcinoma, female, right C50.911 Assessments Encounter Date Diagnosis (ICD Code) Assessment Notes Treat ment Notes Treatment Clinical Notes 10/18/2024 Hypothyroid (ICD-10 - E03.9) She is euthyroid and no change in her regimen was necessary today. 10/18/2024 History of colon cancer (ICD-10 - Z85.038) She remains in remission with no sign of relapse. 10/18/2024 Asthma (ICD-10 - J45.909) Her breathing is slightly tight but she is not wheezing. This appears to be asthma not infection or cardiac problem. She was given a prescription for prednisone and told to use her inhalers [id number] has prescribed. She seems stable to travel to [place] on August 02, 2024. She intends to travel by air to [facility] to visit family. 10/18/2024 Hearing loss (ICD-10 - H91.90) She has noticed mild hearing loss. She intends to have an audiology evaluation once the difficulty with her abdominal pain has been resolved. 10/18/2024 Type 2 diabetes mellitus without complication, without long-term current use of insulin (ICD-10 - E11.9) Her hemoglobin A1c is well below 7.0. She is compliant with her medications. She has gained weight. We discussed a weight loss strategy but made no change in her regimen. 10/18/2024 Osteopenia of lumbar spine (ICD-10 - M85.88) She will continue on her current regimen. 10/18/2024 Environmental and seasonal allergies (ICD-10 - J30.89) 10/18/2024 Breast carcinoma, female, right (ICD-10 - C50.911) She is responding well to treatment. Her performance status is excellent. 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 She has stopped the Sandostatin.She continues on fulvestrant and ribociclib. Her disease is well controlled. Plan Of Treatment Medication Medication Name Sig Start Date Stop Date Notes Ventolin HFA 108 (90 Base) MCG/ACT 1 puff as needed Inhalation every 4 hrs 08/20/2024 Montelukast Sodium 10 MG 1 tablet Orally Once a day predniSONE 20 MG 1 tablet Orally Once a day 02/03/2024 Fluticasone Propionate (Inhal) 100 MCG/ACT 1 puff Inhalation Twice a day 09/30/2023 Flovent HFA 44 MCG/ACT USE 2 INHALATIONS TWICE A DAY Fulvestrant 250 MG/5ML 10 mL Intramuscul ar 500mg Q 2weeks then montly Kisqali (600 MG Dose) 200 MG TAKE 3 TABL ETS ONCE DAILY IN THE MORNING FOR 21 DAYS, AND 7 DAYS OFF Asmanex (30 Metered Doses) 220 MCG/ACT 1 puff in the evening Inhalation Once a day 06/30/2023 Accu-Chek Softclix Lancets - USE TO CHEC K BLOOD SUGAR TWICE DAILY JUST TWICE A WEEK Accu-Chek Erinn Plus - USE TO TEST BLOOD SUGARS TWICE DAILY ON 2 DAYS PER WEEK Levothyroxine Sodium 75 MCG TAKE 1 TABLET DAILY Arnuity Ellipta 100 MCG/ACT INHALE 1 PUFF BY MOUTH DAILY Pending Test Test Name Order Date PROFILE, FASTING (COMPREHENSIVE METABOLI C) 10/18/2024 CBC w DIFF 10/18/2024 Lipid Panel 10/18/2024 Microalbumin, Random 10/18/2024 Hemoglobin A1c 10/18/2024 Next Appt Details Follow Up: end december, Reason: OV review labs Provider Name:Sudhakar De La O , 01/10/2025 11:00:00 AM, [address] [place] [address] [place], [place], [address], Provider Name:Sudhakar De La O , 04/22/2025 10:00:00 AM, [address] [place] [address] [place], [place], [address], Progress Notes * Steff KENTDOB: [birth year] (74 yo F)Acc No.[id number]:10/18/2024 Progress Notes Patient: Steff QUINTERO Provider: Lexi De La O MD :1950 A ge:74 Y S ex:Female Date:10/18/2024 Address:[address] [place], [place] [id number] Subjective: * Chief Complaints: * M etastatic breast cancerHistory of colon cancerDiabetesHypercalcemiaHypothyroidHearing loss * HPI: C OVID-19 Screening: She returns for ongoing medical management. Her diabetes has been stable and she has been compliant with all of her medications. Her weight is satisfactory. Comprehensive blood work was reviewed with her. She continues with her therapy for the metastatic breast cancer. No changes in her anti-neoplastic regimen have been made. I remission from colon cancer continues. Questions H ave you had any new [...] b ilateral mastectomies bowel resection 2002 Colonoscopy, [facility], Dr. Sudhakar Tompkins, negative findings 03/2022No [...] for 21 years. She was born in [place], [place]. The patient consumes a moderate amount [...] Activated 1 puff Inhalation Twice a day predniSONE 20 MG Tablet 1 tablet Orally Once a day Montelukast Sodium 10 MG Tablet 1 tablet Orally Once a day Ventolin HFA 108 (90 Base) MCG/ACT Aerosol Solution 1 puff as needed Inhalation every 4 hrs Arnuity Ellipta 100 MCG/ACT Aerosol Powder Breath Activated INHALE 1 PUFF BY MOUTH DAILY Medication List reviewed and reconciled with [...] 1 puff Inhalation Twice a day Taking predniSONE 20 MG Tablet 1 tablet Orally Once a day Taking Montelukast Sodium 10 MG Tablet 1 tablet Orally Once a day Taking Ventolin HFA 108 (90 Base) MCG/ACT Aerosol Solution 1 puff as needed Inhalation every 4 hrs Taking Arnuity Ellipta 100 MCG/ACT Aerosol Powder Breath Activated INHALE 1 PUFF BY MOUTH DAILY Medication List reviewed and reconciled with the patient * Allergies: S ulfacetamide: rash - Allergyno[Allergies Verified] Objective: * Vitals: H t: 65, Wt:149, BMI:24.79, BP:130/68, HR:85, Temp:97.3, Wt-k.59. * P ast Orders: Lab:SLIDE REVIEW * Collection Date 08/18/2024 06/13/2023 Collection Time 08:09 AM 08:31 AM Order Date 08/18/2024 06/13/2023 SLIDE REVIEW VERIFIED VERIFIED * Lab:Thyroid Stimulating Horm one * Collection Date 08/18/2024 04/17/2024 06/13/2023 Collection Time 08:09 AM 07:51 AM 08:31 AM Order Date 08/18/2024 04/17/2024 06/13/2023 Thyroid Stimulating Hormone 2.15 (Ref Range: 0.32-4.0 uIU/mL) 1.36 (Ref Range: 0.32-4.0 uIU/mL) 1.74 (Ref Range: 0.32-4.0 uIU/mL) * Lab:Comprehensive [place]. Pane l Fast * Collection Date 08/18/2024 04/17/2024 06/13/2023 Collection [...] mg/dL) 9.3 (Ref Range: 8.4-10.2 mg/dL) * Lab:Complete Blood Count Aut o Diff [...] X10*3/uL) 0.000 (Ref Range: 0.0-0.012 X10*3/uL) * Examination: G eneral Examination: GENERAL APPEARANCE: p leasant, well nourished, well developed, in no acute distress, calm and relaxed, woman. HEAD: a traumatic, normocephalic. EYES: e emanuel, perrla, anicteric, conjugate. EARS: N ormal anatomy with bilateral hearing loss, hearing aids. NOSE: s eptum intact. ORAL CAVITY: n ormal, unremarkable. NECK/THYROID: n o jugular venous distention, no carotid bruit, thyroid normal. LYMPH NODES: n o enlarged lymph nodes,spleen normal. SKIN: n o suspicious lesions, anicteric. HEART: n o clicks, gallops, murmurs, or rubs, regular rhythm, S1, S2 normal, no s3, or vascular bruits. LUNGS: c lear to auscultation . BREASTS: B ilateral mastectomy sites are free of disease.? ABDOMEN: b owel sounds normal, no ascites, no organomegaly, no mass, Midline surgical scar, no sign of recurrent fistula. RECTAL EXAM: n ot examined. MUSCULOSKELETAL: e xtremities unremarkable, no clubbing, cyanosis or edema. PERIPHERAL PULSES: n ormal. NEUROLOGIC: a lert and oriented, cranial nerves 2-12 grossly intact, deep tendon reflexes 2+ symmetrical, motor strength normal upper and lower extremities, sensory exam intact. PSYCH: a lert, oriented. Assessment: * Assessment: 1. H istory of colon cancer - Z85.038 (Primary) N otes :She remains in remission with no sign of relapse. 2 . H ypothyroid - E03.9 N otes :She is euthyroid and no change in her regimen was necessary today. 3 . A sthma - J45.909 N otes :Her breathing is slightly tight but she is not wheezing. This appears to be asthma not infection or cardiac problem. She was given a prescription for prednisone and told to use her inhalers [id number] has prescribed. She seems stable to travel to [place] on August 02, 2024. She intends to travel by air to [facility] to visit family. 4 . H earing loss - H91.90 [...] no change in her regimen. 6 . O steopenia of lumbar spine - M85.88 N otes :She will continue on her current regimen. 7 . E nvironmental and seasonal allergies - J30.89 8 . B reast carcinoma, female, right - C50.911 N otes :She is responding well to treatment. Her performance status is excellent. 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 She has stopped the Sandostatin.She continues on fulvestrant and ribociclib. Her disease is well controlled. Plan: * Treatment: 2. A sthma Continue Arnuity Ellipta Aerosol Powder Breath Activated, 100 MCG/ACT, INHALE 1 PUFF BY MOUTH DAILY. L AB: PROFILE, FASTING (COMPREHENSIVE METABOLIC) L AB: CBC w DIFF L AB: Lipid Panel L AB: Microalbumin, Random L AB: Hemoglobin A1c 3. T ype 2 diabetes mellitus without complication, without long-term current use of insulin L AB: PROFILE, FASTING (COMPREHENSIVE METABOLIC) L AB: CBC w DIFF L AB: Lipid Panel L AB: Microalbumin, Random L AB: Hemoglobin [...] Orally, Once a day. * Procedure Codes: * Preventive Medicine: DM Care Plan: P atient Lifestyle Goals [...] to 3 times a week for 30 mins. * Follow Up: e december (Reason: OV review labs) * Images: * Sign off status: Completed true * Provider: Lexi De La O MD Date: 10/18/2024 Generated for Seng deshpande/Melva/Yulietsmitting on: 01/07/2025 07:38 AM EDT History and Physical Notes * HPI (History of Present Illness) Category Sub-Category Detail Notes COVID-19 Screening Questions Have you had any new onset fever, chills, cough, congestion, sore throat, shortness of breath, muscle aches?: No Examination Category Sub-Category Detail Notes General Examination GENERAL APPEARANCE: pleasant , well nourished, well developed, in no acute distress, calm and relaxed, woman HEAD: atraumatic, normocep halic EYES: eomi, perrla, anicte bakari, conjugate EARS: Normal anatomy with bilateral hearing loss, hearing aids NOSE: septum intact NECK/THYROID: no jugular venous di stention, no carotid bruit, thyroid normal HEART: no clicks, gallops, murmurs, or rubs, regular rhythm, S1, S2 normal, no s3, or vascular bruits LUNGS: clear to auscultatio n ABDOMEN: bowel sounds normal, no ascites, no organomegaly, no mass, Midline surgical scar, no sign of recurrent fistula NEUROLOGIC: alert and oriented, cranial nerves 2-12 grossly intact, deep tendon reflexes 2+ symmetrical, motor strength normal upper and lower extremities, sensory exam intact SKIN: no suspicious lesion s, anicteric PERIPHERAL PULSES: normal BREASTS: Bilateral mastectomy sites are free of disease MUSCULOSKELETAL: extremities unremark able, no clubbing, cyanosis or edema LYMPH NODES: no enlarged lymph no ana,spleen normal RECTAL EXAM: not examined PSYCH: alert, oriented ORAL CAVITY: normal, unremarkable
--- OUTSIDE RECORDS SUMMARY | 2025-01-07 07:37 | XMS_ITS | Patient Health Record ---
Author Organization [facility] [place] Address [address] [place] [address] Care Team Providers Care Middle [employer] Counselor Name Role Phone Sudhakar De La O MD Primary Care Provider Unavailab Ac Lamb Unavailable [phone] Sudhakar De La O MD Unavailable Unavailable Allergies Allergen (clinical drug ingredient) Drug/Non Drug Allergy documented on EMR Reaction Allergy Type Onset Date Status sulfa rash Drug Allergy Active Adhesive Tape rash Drug Allergy Act reynaldo Reason For Referral No Information Medications Medication SIG (Take, Route, Fr equency, Duration) Notes Start Date End Date Status Albuterol Sulfate HFA Active Anastrozole Active Flovent HFA 44 MCG/ACT 1 puff Inhalation Twice a day Active Montelukast Sodium A ctive Levothyroxine Sodium Active Problems Problem Type SNOMED Code ICD Code Onset Dates Problem Status W/U Status Risk Notes Problem Edema (52711279) Edema (782.3) Active confirmed Problem Ingrowing nail (445428797) Ingrowing Nail (703.0) Active confirmed Problem Pain in limb (22381831) Pain in Limb (729.5) Active confirmed Plan Of Treatment Pending Test Test Name Order Date [id number] Plate 04/29/2013 00427- Debride <25 sq cm 05/13/2013 Insurance Providers Payer Name Payer Address Payer Phone Subscriber Number Group Number Insured Name Patient Relationship to Insured Coverage Start Date Coverage End Date [facility] [address] [place] [address] [phone] [id number] Steff Kent Self - patient is the insured Medical (General) History Medical History History ICD Code asthma cancer neuropathy measles mumps chicken pox Surgical History Surgery Date(Month/Year) hysterectomy 2002 mastectomies 2001 colon resection 2001 abdominal 1999 Hospitalization History Reason Date(Month/Year)
--- OUTSIDE RECORDS SUMMARY | 2025-01-07 07:38 | XMS_ITS | Clinical Summary ---
Author Organization [facility] Address [address] [place] [address] Phone Care Team Providers Care Landfill Attendant Name Role Phone Sudhakar De La O MD Primary Care Provider [phone] Allergies No known active allergies Encounters Date Type Department Care Team Description 10/12/2024 1:35 PM EDT - 10/12/2024 11:59 PM EDT Hospital Encounter [facility] [address] [place] [address] Moderate persistent asthma, uncomplicated Discharge Disposition: Home or Self Care from Last 3 Months Social History Tobacco Use Types Packs/Day Years Used Date Smoking Tobacco: Never Assessed Comments Unknown Sex and Gender Information Value Date Recorded Sex Assigned at Not on file Legal Sex Female 11:49 PM EST Gender Identity Not on file Sexual Orientation Not on file Plan of Treatment Health Maintenance Due Date Last Done Comments DTaP,Tdap,and Td Vaccines (2 - Td or Tdap) 11/27/2022 11/27/2012 Depression Screening 04/14/2024 Falls Risk Assessment 10/01/2024 Hepatitis C Screening 10/01/2024 Medicare Annual Wellness Visit 10/01/2024 Osteoporosis Screening (Bone Density Screening) 10/01/2024 Social Influencers of Health Screening 10/01/2024 Influenza Vaccine (#1) 2024 , 01/31/2023, 02/22/2022, Additional history exists Pneumococcal Vaccine: 50+ Years Completed 06/20/2019, 06/20/2019 Zoster Vaccines Completed 06/20/2021, 03/11/2021 RSV Immunization Adult Patients Completed 01/03/2023 COVID-19 Vaccine Completed 07/17/2024, 10/2023, 07/05/2023, Additional history exists HIB Vaccines Aged Out No longer eligi ble based on patient's age to complete this topic HPV Vaccines Aged Out No longer eligi ble based on patient's age to complete this topic Hepatitis A Vaccines Aged Out No long er eligible based on patient's age to complete this topic Hepatitis B Vaccines Aged Out No long er eligible based on patient's age to complete this topic IPV Vaccines Aged Out No longer eligi ble based on patient's age to complete this topic MMR Vaccines Aged Out No longer eligi ble based on patient's age to complete this topic Meningococcal ACWY Vaccine Aged Out N o longer eligible based on patient's age to complete this topic Meningococcal B Vaccine Aged Out No l onger eligible based on patient's age to complete this topic RSV Immunization Patients Under 20 months Aged Out No longer eligible based on patient's age to complete this topic Varicella Vaccines Aged Out No longer eligible based on patient's age to complete this topic Procedures Procedure Name Priority Date/Time Associated Diagnosis Comments HC SPIROMETRY BRONCHODILATION RESPONSIVENESS PRE/POST BRONCHODILATOR ADMINISTRATION Routine 10/12/2024 2:27 PM EDT Moderate persistent asthma, uncomplicated from Last 3 Months Results * Pulmonary function testing: Carbon Monoxide Diffusing Capacity, Nitrogen Wash Out, Spirometry with Bronchodilator (10/12/2024 2:27 PM EDT) Impressions Tiffanie Melo MD - 10/12/2024 2:32 PM EDT Pulmonary function test interpretation. Spirometry done reveals FEV1 of 2.02 which is 100% of the predicted value, FVC is 2.88 which is 109% of the predicted value, FEV1 to FVC ratio is 89% of the predicted value, there is no bronchodilator response. Flow volume is consistent with normal pattern. Static lung volumes are either within normal limit or elevated. Diffusion lung capacity is mildly reduced and was normalized after correction for albuterol volume. This study is consistent with normal pulmonary mechanics, however diagnosis of asthma is in question suggest methacholine challenge test. Clinical correlation however is warranted. Lila Trevino MD PFT ORDERABLES Final Result from Last 3 Months Insurance [facility] MEDICARE Care Teams Landfill Attendant Relationship Specialty Start Date End Date Sudhakar De La O MD [address] [address] PCP - General Oncology 10/12/24
--- OUTSIDE RECORDS SUMMARY | 2025-01-07 07:38 | XMS_ITS | Patient Health Record ---
Author Organization Sudhakar De La O III, MD Address [address] [place] [address] Care Team Providers Care Medical Record Consultant Name Role Phone Dr. Sudhakar De La [...] Panel Reviewed date:08/20/2024 10:18:25 AM Interpretation: Performing Lab:[facility], [address] [place] [phone] Notes/Report: Triglycerides 102 <150 mg/dL Desirable Triglyceride: [...] Thyroxine) Reviewed date:08/20/2024 10:18:25 AM Interpretation: Performing Lab:[facility], [address] [place] [phone] Notes/Report: Free T4 (Free Thyroxine) 1.35 0.71-1.85 ng/dL Microalbumin, Random Reviewed date:08/20/2024 10:18:25 AM Interpretation: Performing Lab:[facility], [address] [place] [phone] Notes/Report: Creatinine Urine 85.92 Microalbumin Urine 13.0 Microalbum/Creatinine Ratio Ur 15.1 <30 ug/mg cr Albumin/Creatinine Ratio Reference Ranges: Normal: < 30 ug/mg creatinine Microalbuminuria: 30 - 300 ug/mg creatinine Clinical Albuminuria: > 300 ug/mg creatinine Hemoglobin A1c Reviewed date:08/20/2024 10:18:25 AM Interpretation: Performing Lab:[facility], [address] [place] [phone] Notes/Report: Hemoglobin A1c % 6.4 <6.0 % [...] average glucose, using the formula of the U8C-Nbgmlic Average Glucose study (ADAG), Diabetes Care, Vol.31,#8, 2007 Complete Blood Count Auto Di ff Reviewed date:02/03/2024 10:47:15 AM Interpretation: Performing Lab:[facility], [address] [place] [phone] Notes/Report: White Blood Count 4.0 4.8-10.8 X10*3/uL [...] Panel Reviewed date:02/03/2024 10:47:15 AM Interpretation: Performing Lab:[facility], [address] [place] [phone] Notes/Report: Sodium 141 135-145 mmol/L Potassium 4.1 3.3-5.1 mmol/L Chloride 105 96-108 mmol/L Carbon Dioxide 28 22-29 mmol/L Anion Gap 12 12-20 Blood Urea Nitrogen 21 9-16 mg/dL Creatinine 0.97 0.5-1.4 mg/dL Estimated Glomerular Filt Rate 56 NOTE: For -[place]un[place] individuals, multiply the result by 1.210. Chronic [...] Panel Reviewed date:02/03/2024 10:47:15 AM Interpretation: Performing Lab:[address] [phone] Notes/Report: Triglycerides 97 <150 mg/dL Desirable Triglyceride: [...] Random Reviewed date:02/03/2024 10:47:15 AM Interpretation: Performing Lab:[facility], [address] [place] [phone] Notes/Report: Creatinine Urine 73.39 Microalbumin Urine 37.0 Microalbum/Creatinine Ratio Ur 50.4 <30 ug/mg cr Albumin/Creatinine Ratio Reference Ranges: Normal: < 30 ug/mg creatinine Microalbuminuria: 30 - 300 ug/mg creatinine Clinical Albuminuria: > 300 ug/mg creatinine Hemoglobin A1c Reviewed date:02/03/2024 10:47:15 AM Interpretation: Performing Lab:[facility], [address] [place] [phone] Notes/Report: Hemoglobin A1c % 6.1 <6.0 % [...] average glucose, using the formula of the P1B-Pcvbfxl Average Glucose study (ADAG), Diabetes Care, Vol.31,#8, Nov. 2007 Complete Blood Count Auto Di ff Reviewed date:04/20/2024 05:01:04 PM Interpretation: Performing Lab:[facility], [address] [place] [phone] Notes/Report: White Blood Count 3.6 4.8-10.8 X10*3/uL [...] NRBC Abs Auto 0.000 0.0-0.012 X10*3/uL Comprehensive [place]. Panel Fa Reviewed date:04/20/2024 05:01:04 PM Interpretation: Performing Lab:[address] [phone] Notes/Report: Sodium 142 135-145 mmol/L Potassium 4.3 [...] Panel Reviewed date:04/20/2024 05:01:04 PM Interpretation: Performing Lab:[facility], [address] [place] [phone] Notes/Report: Triglycerides 93 <150 mg/dL Desirable Triglyceride: [...] Thyroxine) Reviewed date:04/20/2024 05:01:04 PM Interpretation: Performing Lab:[facility], [address] [place] [phone] Notes/Report: Free T4 (Free Thyroxine) 1.13 0.71-1.85 ng/dL Thyroid Stimulating Hormone Reviewed date:04/20/2024 05:01:04 PM Interpretation: Performing Lab:[facility], [address] [place] [phone] Notes/Report: Thyroid Stimulating Hormone 1.36 0.32-4.0 uIU/mL TSH 3rd Generation ([facility]) Microalbumin, Random Reviewed date:04/20/2024 05:01:04 PM Interpretation: Performing Lab:[facility], [address] [place] [phone] Notes/Report: Creatinine Urine 60.85 Microalbumin Urine 10.0 Microalbum/Creatinine Ratio Ur 16.4 <30 ug/mg cr Albumin/Creatinine Ratio Reference Ranges: Normal: < 30 ug/mg creatinine Microalbuminuria: 30 - 300 ug/mg creatinine Clinical Albuminuria: > 300 ug/mg creatinine Hemoglobin A1c Reviewed date:04/20/2024 05:01:04 PM Interpretation: Performing Lab:[facility], [address] [place] [phone] Notes/Report: Hemoglobin A1c % 6.0 <6.0 % [...] average glucose, using the formula of the J0H-Elqenbf Average Glucose study (ADAG), Diabetes Care, Vol.31,#8, Nov. 2007 Complete Blood Count Auto Di ff Reviewed date:08/20/2024 10:18:25 AM Interpretation: Performing Lab:[facility], [address] [place] [phone] Notes/Report: White Blood Count 4.8 4.8-10.8 X10*3/uL Red Blood Count 3.93 4.20-5.50 X10*6/uL Hemoglobin 13.8 12.0-16.0 g/dl Hematocrit 40.8 37.0-47.0 % Mean Corpuscular Volume 103.8 80.0-98.0 fL Mean Corpuscular Hemoglobin 35.1 27.0-33.0 pg Mean Corpuscular HGB Conc 33.8 31.0-35.0 g/dl Red Cell Distribution Width 14.1 11.0-16.0 % Platelet Count 279 160-400 X10*3/uL Mean Platelet Volume 10.7 9.4-12.3 fL Neutrophils Percent Auto 62.4 45-73 % Imm Gran Pct Auto 0.4 0.0-0.4 % Lymphocytes Percent Auto 32.7 20-40 % Monocytes Percent Auto 2.9 2-11 % Eosinophils Percent Auto 0.6 0-4 % Basophils Percent Auto 1.0 0-2 % NRBC Pct Auto 0.0 0.0-0.2 /100WBC Neutrophils Absolute Auto 3.0 2.0-8.3 x10*3/u L Imm Gran Abs Auto 0.02 0.00-0.03 X10*3/uL Lymphocytes Absolute Auto 1.6 1.2-4.9 X10*3/u L Monocytes Absolute Auto 0.1 0.1-1.2 X10*3/uL Eosinophils Absolute Auto 0.0 0.0-0.4 X10*3/u L Basophils Absolute Auto 0.1 0.0-0.2 X10*3/uL NRBC Abs Auto 0.000 0.0-0.012 X10*3/uL CORRECTED REPORT Comprehensive [place]. Panel Fa st Reviewed date:08/20/2024 10:18:25 AM Interpretation: Performing Lab:[facility], [address] [place] [phone] Notes/Report: Sodium 141 135-145 mmol/L Potassium 4.1 3.3-5.1 mmol/L Chloride 104 96-108 mmol/L Carbon Dioxide 27 22-29 mmol/L Anion Gap 14 12-20 Blood Urea Nitrogen 18 9-16 mg/dL Creatinine 1.26 0.5-1.4 mg/dL Estimated Glomerular Filt Rate 41 Chronic Kidney Disease: Estimated GFR < 60 mL/min/1.73m2 Severe Kidney Disease: Estimated GFR < 15 mL/min/1.73m2 Glucose Fasting 147 60-99 mg/dL A fasting glucose of 126 mg/dl or greater on more than one occasion is considered diagnostic of diabetes. Calcium 9.4 8.4-10.2 mg/dL Bilirubin Total 1.6 0.0-1.0 mg/dL Aspartate Amino Transferase 61 5-31 U/L Alanine Aminotransferase 61 0-31 U/L Total Protein 7.9 6.5-8.0 g/dL Albumin Level 4.4 3.5-5.0 g/dL Alkaline Phosphatase 41 39-117 U/L Thyroid Stimulating Hormone Reviewed date:08/20/2024 10:18:25 AM Interpretation: Performing Lab:[facility], [address] [place] [phone] Notes/Report: Thyroid Stimulating Hormone 2.15 0.32-4.0 uIU/mL TSH 3rd Generation ([facility]) SLIDE REVIEW Reviewed date:08/20/2024 10:18:25 AM Interpretation: Performing Lab:[facility], [address] [place] [phone] Notes/Report: SLIDE REVIEW VERIFIED Complete Blood Count Auto Di ff Reviewed date:08/20/2024 10:18:25 AM Interpretation: Performing Lab:[facility], [address] [place] [address] Notes/Report: White Blood Count 4.8 4.8-10.8 X10*3/uL Red Blood Count 3.93 4.20-5.50 X10*6/uL Hemoglobin 13.8 12.0-16.0 g/dl Hematocrit 40.8 37.0-47.0 % Mean Corpuscular Volume 103.8 80.0-98.0 fL Mean Corpuscular Hemoglobin 35.1 27.0-33.0 pg Mean Corpuscular HGB Conc 33.8 31.0-35.0 g/dl Red Cell Distribution Width 14.1 11.0-16.0 % Platelet Count 279 160-400 X10*3/uL Mean Platelet Volume 10.7 9.4-12.3 fL Neutrophils Percent Auto 62.4 45-73 % Imm Gran Pct Auto 0.4 0.0-0.4 % Lymphocytes Percent Auto 32.7 20-40 % Monocytes Percent Auto 2.9 2-11 % Eosinophils Percent Auto 0.6 0-4 % Basophils Percent Auto 1.0 0-2 % NRBC Pct Auto 0.0 0.0-0.2 /100WBC Neutrophils Absolute Auto 3.0 2.0-8.3 x10*3/u L Imm Gran Abs Auto 0.02 0.00-0.03 X10*3/uL Lymphocytes Absolute Auto 1.6 1.2-4.9 X10*3/u L Monocytes Absolute Auto 0.1 0.1-1.2 X10*3/uL Eosinophils Absolute Auto 0.0 0.0-0.4 X10*3/u L Basophils Absolute Auto 0.1 0.0-0.2 X10*3/uL NRBC Abs Auto 0.000 0.0-0.012 X10*3/uL CORRECTED REPORT Reason For Referral Reason Evaluate and Treat [...] Referral Priority Routine Referral Appointment Date 09/24/2024 Medications Medication SIG (Take, Route, Frequency, Duration) Notes Start Date End Date Status Fulvestrant 250 MG/5ML 10 mL Intramuscul ar [...] INHALE 1 PUFF BY MOUTH DAILY Active Ventolin HFA 108 (90 Base) [...] Influenza-iiv4 p-free high dose Unknown 01/31/2023 Administered [employer] Unknown 01/18/2023 Administer ed Comirnaty Pfizer COVID-19 [...] Problem Status W/U Status Risk Notes Problem 715264609 Asthma (J45.909) Active confirmed Her breathing is slightly tight but she is not wheezing. This appears to be asthma not infection or cardiac problem. She was given a prescription for prednisone and told to use her inhalers fmvarq-uge-phr ck has prescribed. She seems stable to travel to [place] on August 02, 2024. She intends to travel by air to [facility] to visit family. Problem 342346961 Overweight (E66.3) Active confirmed She has gained several pounds and is very slightly overweight. I suggested she stabilize her weight at this level and then try to lose several pounds. She has been compliant with all of her therapies. Problem Hypothyroidism (58814474) Hypothyroidism, unspecified (E03.9) Active confirmed She was continued on her medication with no change. Comprehensive blood work with thyroid function test has been ordered. Problem Hypercalcemia (65390724) Hypercalcemia (E83.52) Active confirmed Her labs to be checked periodically. Problem Seasonal allergy (870977536) Environmental and seasonal allergies (J30.89) Active confirmed Problem Hearing loss (58275791) Hearing loss (H91.90) Active confirmed She has noticed mild hearing loss. She intends to have an audiology evaluation once the difficulty with her abdominal pain has been resolved. Problem 79874556 Hypothyroid (E03.9) Active confirmed She is euthyroid and no change in her regimen was necessary today. Problem 265210562 History of colon cancer (Z85.038) Active confirmed She remains in remission with no sign of relapse. Problem Type II diabetes mellitus without complication (509193702) Type 2 diabetes mellitus without complication, without long-term current use of insulin (E11.9) Active confirmed Her hemoglob in A1c is well below 7.0. She is compliant with her medications. She has gained weight. We discussed a weight loss strategy but made no change in her regimen. Problem 466535964 Osteopenia of lumbar spine (M85.88) Active confirmed She will continue on her current regimen. Problem 949700238 Breast carcinoma, female, right (C50.911) Active confirmed She is responding well to treatment. Her performance status is excellent. 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 She has stopped the Sandostatin.Josr zhu continues on fulvestrant and ribociclib. Her disease is well controlled. Vital Signs Heart Rate 85 /min 10/18/2024 Temperature 97.3 degrees Fahrenheit 10/18/2024 Oximetry 97 % 07/29/2024 Blood pressure diastolic 68 mm Hg 10/18/2024 Height 65 in 10/18/2024 Blood pressure systolic 130 mm Hg 10/18/2024 Weight 149 lbs 10/18/2024 BMI 24.79 kg/m2 10/18/2024 Encounters Encounter Location Date Provider Diagnosis Sudhakar De La O III, MD [address] [place] [address] [place] [phone] 02/03/2024 Sudhakar De La O Hypothyroid E03.9 ; Breast carcinoma, female, right C50.911 ; Asthma J45.909 ; History of colon cancer Z85.038 ; Type 2 diabetes mellitus without complication, without long-term current use of insulin E11.9 ; Hearing loss H91.90 ; Osteopenia of lumbar spine M85.88 and Overweight E66.3 Sudhakar De La O III, MD [address] [place] [address] [place] [address] 04/21/2024 Sudhakar De La O Hypothyroid E03.9 ; Breast carcinoma, female, right C50.911 ; Asthma J45.909 ; Type 2 diabetes mellitus without complication, without long-term current use of insulin E11.9 ; History of colon cancer Z85.038 ; Hearing loss H91.90 ; Hypercalcemia E83.52 and Overweight E66.3 Sudhakar De La O III, MD [address] [place] [address] [place] [phone] 07/29/2024 Sudhakar De La O Hypothyroid E03.9 ; Asthma J45.909 ; History of colon cancer Z85.038 ; Hearing loss H91.90 ; Type 2 diabetes mellitus without complication, without long-term current use of insulin E11.9 ; Breast carcinoma, female, right C50.911 and Overweight E66.3 Sudhakar De La O III, MD [address] [place] [address] [place] [phone] 08/20/2024 Sudhakar De La O Hypothyroid E03.9 ; Breast carcinoma, female, right C50.911 ; Asthma J45.909 ; History of colon cancer Z85.038 ; Hearing loss H91.90 ; Type 2 diabetes mellitus without complication, without long-term current use of insulin E11.9 and Osteopenia of lumbar spine M85.88 Sudhakar De La O III, MD [address] [place] [address] [address] [place] [phone] 10/18/2024 Sudhakar De La O Hypothyroid E03.9 ; History of colon cancer Z85.038 ; Asthma J45.909 ; Hearing loss H91.90 ; Type 2 diabetes mellitus without complication, without long-term current use of insulin E11.9 ; Osteopenia of lumbar spine M85.88 ; Environmental and seasonal allergies J30.89 and Breast carcinoma, female, right C50.911 Sudhakar De La O III, MD [address] [place] [address] [address] [place] [phone] 06/03/2024 Sudhakar De La O Assessments Encounter Date Diagnosis (ICD Code) Assessment Notes Treat ment Notes Treatment Clinical Notes 02/03/2024 Hypothyroid (ICD-10 [...] prednisone and told to use her inhalers bmgzii-gqv-ojclf has prescribed. She seems stable to travel to [place] on August 02, 2024. She intends to travel by air to [facility] to visit family. 07/29/2024 Hypothyroid (ICD-10 - E03.9) She is euthyroid and no change in her regimen was necessary today. 08/20/2024 Hypothyroid (ICD-10 - E03.9) She is [...] and ribociclib. Her disease is well controlled. 10/18/2024 Hypothyroid (ICD-10 - E03.9) She is euthyroid and no change in her regimen was necessary today. 10/18/2024 History of colon cancer (ICD-10 - Z85.038) She remains in remission with no sign of relapse. 02/03/2024 Asthma (ICD-10 - J45.909) She has [...] remission with no sign of relapse. 08/20/2024 Asthma (ICD-10 - J45.909) Her breathing is slightly tight but she is not wheezing. This appears to be asthma not infection or cardiac problem. She was given a prescription for prednisone and told to use her inhalers fvsiow-eaq-egcyy has prescribed. She seems stable to travel to [place] on August 02, 2024. She intends to travel by air to [facility] to visit family. 10/18/2024 Asthma (ICD-10 - J45.909) Her breathing is slightly tight but she is not wheezing. This appears to be asthma not infection or cardiac problem. She was given a prescription for prednisone and told to use her inhalers eslhqn-oat-bkhjo has prescribed. She seems stable to travel to [place] on August 02, 2024. She intends to travel by air to [facility] to visit family. 02/03/2024 History of colon cancer (ICD-10 - [...] her abdominal pain has been resolved. 08/20/2024 History of colon cancer (ICD-10 - Z85.038) She remains in remission with no sign of relapse. 10/18/2024 Hearing loss (ICD-10 - H91.90) She has noticed mild hearing loss. She intends to have an audiology evaluation once the difficulty with her abdominal pain has been resolved. 02/03/2024 Type 2 diabetes mellitus without complication, [...] made no change in her regimen. 08/20/2024 Hearing loss (ICD-10 - H91.90) She [...] but made no change in her regimen. 02/03/2024 Hearing loss (ICD-10 - H91.90) She [...] ribociclib. Her disease is well controlled. 08/20/2024 Type 2 diabetes mellitus without complication, without long-term current use of insulin (ICD-10 - E11.9) Her hemoglobin A1c is well below 7.0. She is compliant with her medications. She has gained weight. We discussed a weight loss strategy but made no change in her regimen. 10/18/2024 Osteopenia of lumbar spine (ICD-10 - M85.88) She will continue on her current regimen. 02/03/2024 Osteopenia of lumbar spine (ICD-10 - [...] been compliant with all of her therapies. 08/20/2024 Osteopenia of lumbar spine (ICD-10 - M85.88) She will continue on her current regimen. 10/18/2024 Environmental and seasonal allergies (ICD-10 - J30.89) 02/03/2024 Overweight (ICD-10 - E66.3) She has [...] been compliant with all of her therapies. 10/18/2024 Breast carcinoma, female, right (ICD-10 - C50.911) She is responding well to treatment. Her performance status is excellent. 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 She has stopped the Sandostatin.She continues on fulvestrant and ribociclib. Her disease is well controlled. Plan Of Treatment Pending Test Test Name Order Date PROFILE, FASTING (COMPREHENSIVE METABOLI C) 11/23/2021 PROFILE, FASTING (COMPREHENSIVE METABOLI C) 10/18/2024 PROFILE, FASTING (COMPREHENSIVE METABOLI C) 02/15/2022 PROFILE, FASTING (COMPREHENSIVE METABOLI C) 02/03/2024 PROFILE, FASTING (COMPREHENSIVE METABOLI C) 09/07/2020 PROFILE, FASTING (COMPREHENSIVE METABOLI C) 10/23/2021 PROFILE, FASTING (COMPREHENSIVE METABOLI C) 04/21/2024 PROFILE, FASTING (COMPREHENSIVE METABOLI C) 04/17/2023 PROFILE, FASTING (COMPREHENSIVE METABOLI C) 02/23/2020 PROFILE, FASTING (COMPREHENSIVE METABOLI C) 10/02/2021 PROFILE, FASTING (COMPREHENSIVE METABOLI C) 05/28/2021 PROFILE, FASTING (COMPREHENSIVE METABOLI C) 12/25/2022 PROFILE, FASTING (COMPREHENSIVE METABOLI C) 06/19/2023 PROFILE, RANDOM (COMPREHENSIVE METABOLIC ) 01/23/2021 PROFILE, RANDOM (COMPREHENSIVE METABOLIC ) 05/19/2018 PROFILE, RANDOM (COMPREHENSIVE METABOLIC ) 09/30/2023 PROFILE, RANDOM (COMPREHENSIVE METABOLIC ) 12/23/2019 PROFILE, RANDOM (COMPREHENSIVE METABOLIC ) 06/24/2018 PROFILE, RANDOM (COMPREHENSIVE METABOLIC ) 03/19/2019 PROFILE, RANDOM (COMPREHENSIVE METABOLIC ) 10/12/2018 HEMOGLOBIN A1C (GLYCOHEMOGLOBIN) 023 HEMOGLOBIN A1C (GLYCOHEMOGLOBIN) 019 HEMOGLOBIN A1C (GLYCOHEMOGLOBIN) 022 HEMOGLOBIN A1C (GLYCOHEMOGLOBIN) 021 HEMOGLOBIN A1C (GLYCOHEMOGLOBIN) 024 HEMOGLOBIN A1C (GLYCOHEMOGLOBIN) 020 HEMOGLOBIN A1C (GLYCOHEMOGLOBIN) 022 CALCIUM 06/24/2018 AMYLASE 02/22/2022 LIPASE 02/22/2022 LIPID PANEL 05/28/2021 LIPID PANEL 12/25/2022 LIPID PANEL 03/19/2019 LIPID PANEL 11/23/2021 LIPID PANEL 09/07/2020 LIPID PANEL 02/23/2020 GGT 02/22/2022 FREE T4 (FT4) 12/23/2019 FREE T4 (FT4) 05/28/2021 FREE T4 (FT4) 01/23/2021 FREE T4 (FT4) 02/15/2022 FREE T4 (FT4) 11/23/2021 TSH (THYROID STIMULATING HORMONE) 2023 TSH (THYROID STIMULATING HORMONE) 2019 TSH (THYROID STIMULATING HORMONE) 2021 TSH (THYROID STIMULATING HORMONE) 2020 TSH (THYROID STIMULATING HORMONE) 2023 TSH (THYROID STIMULATING HORMONE) 2021 TSH (THYROID STIMULATING HORMONE) 2024 TSH (THYROID STIMULATING HORMONE) 2021 TSH (THYROID STIMULATING HORMONE) 2023 CEA 10/12/2018 CEA 06/24/2018 CEA 02/22/2022 MICROALBUMIN, RANDOM 12/23/2019 CBC w DIFF 11/23/2021 CBC w DIFF 04/17/2023 CBC w DIFF 02/23/2020 CBC w DIFF 10/02/2021 CBC w DIFF 10/12/2018 CBC w DIFF 10/18/2024 CBC w DIFF 06/24/2018 CBC w DIFF 12/25/2022 CBC w DIFF 03/19/2019 CBC w DIFF 10/23/2021 CBC w DIFF 12/23/2019 CBC w DIFF 05/28/2021 CBC w DIFF 01/23/2021 CBC w DIFF 02/03/2024 CBC w DIFF 09/30/2023 CBC w DIFF 02/15/2022 CBC w DIFF 09/07/2020 SED RATE (ESR) 02/22/2022 SED RATE (ESR) 12/25/2022 CA 27.29 10/12/2018 CA 27.29 06/24/2018 CA 27.29 02/22/2022 VITAMIN D 25-OH TOTAL 05/19/2018 VITAMIN D 25-OH TOTAL 10/12/2018 VITAMIN D 25-OH TOTAL 06/24/2018 PARATHYROID HORMONE INTACT 05/19/2018 CBC WITH AUTO DIFF 06/19/2023 CBC WITH AUTO DIFF 04/21/2024 Lactic Acid 10/23/2021 Lipid Panel 04/17/2023 Lipid Panel 10/18/2024 Lipid Panel 06/19/2023 Lipid Panel 02/03/2024 Lipid Panel 09/30/2023 Lipid Panel 02/15/2022 Vitamin D 25-OH Total 02/15/2022 Free T4 (Free Thyroxine) 02/03/2024 Free T4 (Free Thyroxine) 04/17/2023 Free T4 (Free Thyroxine) 06/19/2023 Microalbumin, Random 09/30/2023 Microalbumin, Random 02/03/2024 Microalbumin, Random 02/15/2022 Microalbumin, Random 10/18/2024 Microalbumin, Random 06/19/2023 CA 27.29 04/17/2023 Hemoglobin A1c 06/19/2023 Hemoglobin A1c 02/03/2024 Hemoglobin A1c 02/15/2022 Hemoglobin A1c 10/23/2021 Hemoglobin A1c 10/18/2024 Next Appt Details Provider Name:Sudhakar De La O , 01/10/2025 11:00:00 AM, [address] [place] [address] [address], [place], [address], Provider Name:Sudhakar De La O , 04/22/2025 10:00:00 AM, [address] [place] [address] [address], [place], [address], Insurance Providers Payer Name Payer Address Payer Phone Subscriber Number Group Number Insured Name Patient Relationship to Insured Coverage Start Date Coverage End Date MEDICARE NGS [address] [place] [phone] [id number] Steff Kent Self - patient is the insured [facility] [address] [place], [place] [id number] Steff Kent Self - patient is the insured Medical (General) History Medical History History ICD Code stage I infiltrating lobular carcinoma o f the right breast in 2001 stage III adencarcinoma of the cecum in 2002 [id number] asthma hypothroidism secondary to radiation the rapy [...] Surgical History Surgery Date(Month/Year) No history Colonoscopy, [facility], Dr. Sudhakar Tompkins, negative findings 03/2022 bowel resection 2002 bilateral mastectomies Hospitalization History Reason Date(Month/Year) No history chest pain 12/2018
--- OUTSIDE RECORDS SUMMARY | 2025-01-07 07:38 | XMS_ITS | Patient Health Record ---
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 Name Role Phone Sudhakar De La O MD Primary Care Provider Unavailab Sudhakar Rao Unavailable [phone] Allergies Allergen (clinical drug ingredient) Drug/Non Drug [...] Problem Status W/U Status Risk Notes Problem [id number] Encounter for screening for malignant neoplasm of colon (Z12.11) Active confirmed Problem History of polyp of colon (situation) (938226725) Personal history of colonic polyps (Z86.010) Active confirmed Problem Diverticular disease of colon (985646018) Diverticulosis of large intestine without perforation or abscess without bleeding (K57.30) Active confirmed Problem History of malignant neoplasm of colon (539726978) Personal history of other malignant neoplasm of large intestine (Z85.038) Active confirmed Problem History of gastrointestinal tract bypass (634894579) Intestinal bypass and anastomosis status (Z98.0) Active confirmed Problem 269129105 Diverticulitis (K57.92) Active confirmed Problem 396565600138433 Preprocedural examination (Z01.818) Active confirmed Problem 503479456 History of colon cancer (Z85.038) Active confirmed Problem Pancreatic cyst (05058617) Pancreatic cyst (K86.2) Active confirmed Problem 719930654 Personal history of colon cancer (Z85.038) Active confirmed Problem 963470495 Abnormal CT scan , small bowel (R93.3) Active confirmed Problem CT of abdomen abnormal (72510863439992850) Abnormal CT of the abdomen (R93.5) Active confirmed Problem History of gastrointestinal tract bypass (961387028) History of Billroth II operation (Z98.0) Active confirmed Problem Diverticular disease of colon (258106275) Colon, diverticulosis (K57.30) Active confirmed Problem 757720395 H/O long-term treatment with high-risk medication (Z79.899) Active confirmed Problem 87770122 IPMN (intraducta l papillary mucinous neoplasm) (D49.0) Active confirmed Problem 598209526 Partial obstruction of small intestine (K56.600) Active confirmed Problem 265690186 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 Herrera. She is currently being followed at [facility] by Dr. Scott Enterocutaneous fistula [...]
[2025-01-07 08:10] LABS: MANUAL DIFF FLAG NO
[2025-01-07 08:27] LABS: Hematocrit 38.2 % (37.0-47.0); Hemoglobin 13.0 g/dl (12.0-16.0); Imm Gran Abs Auto 0.01 X10*3/uL (0.00-0.03); Imm Gran Pct Auto 0.3 % (0.0-0.4); Lymphocytes Absolute Auto 1.3 X10*3/uL (1.2-4.9); Mean Corpuscular HGB Conc 34.0 g/dl (31.0-35.0); Mean Corpuscular Hemoglobin 34.5 pg (27.0-33.0); Mean Corpuscular Volume 101.3 fL (80.0-98.0); NRBC Abs Auto 0.000 X10*3/uL (0.0-0.012); NRBC Pct Auto 0.0 /100WBC (0.0-0.2); Platelet Count 227 X10*3/uL (160-400); Red Blood Count 3.77 X10*6/uL (4.20-5.50); White Blood Count 3.7 X10*3/uL (4.8-10.8)
[2025-01-07 08:36] LABS: Hemoglobin A1C 152.8153 umol/L
[2025-01-07 09:10] LABS: Alanine Aminotransferase 37 U/L (0-31); Albumin Level 4.5 g/dL (3.5-5.0); Alkaline Phosphatase 55 U/L (39-117); Anion Gap 13 (12-20); Aspartate Amino Transferase 39 U/L (5-31); Blood Urea Nitrogen 16 mg/dL (9-16); Calcium 9.5 mg/dL (8.4-10.2); Carbon Dioxide 27 mmol/L (22-29); Chloride 107 mmol/L (96-108); Cholesterol 150 mg/dL (<200); Estimated Glomerular Filt Rate 52; HDL Cholesterol 56 mg/dL (>40); Potassium 4.4 mmol/L (3.3-5.1); Sodium 143 mmol/L (135-145); Total Protein 7.5 g/dL (6.5-8.0); Triglycerides 142 mg/dL (<150)
== END 2025-01-07 07:35 | disposition home or self-care (01) ==
LOC: HO.LAB 07:34
PROVIDERS: PCP Internal Medicine Medical Oncology; Visit Provider Internal Medicine Medical Oncology
DX: E11.9 Type 2 diabetes mellitus without complications (principal); E66.3 Overweight; J45.909 Unspecified asthma, uncomplicated; E03.9 Hypothyroidism, unspecified
CPT/HCPCS: 36415; 80053; 80061; 83036; 85025